=== PATIENT | female | born 1955 | race Caucasian/White ===

== ENCOUNTER → 2016-08-29 | Outpatient (CLI) | payer BC ==
--- NOTE | 2016-08-29 12:47 | BD ---
EXAMINATION TYPE: MG DEXA axial skeleton. DATE OF EXAM: 08/29/2016 9:35 AM COMPARISON: Prior exam 16 August 2015 CLINICAL HISTORY: POST MENOPAUSAL Height: 5'3 Weight: 156 FRAX RISK QUESTIONS: Alcohol (3 or more units per day): no Family History (Parent hip fracture): no Glucocorticoids (More than 3mos): no (Ex: prednisone, prednisolone, methylprednisolone, dexamethasone, and hydrocortisone). History of Fracture in Adulthood: no Secondary Osteoporosis: 1. Type 1 Diabetes: no 2. Hyperthyroidism: no 3. Menopause before 45: no 4. Malnutrition: no 5. Chronic liver disease: no Rheumatoid Arthritis: no Current Tobacco Use: no RISK FACTORS HISTORY OF: Family History of Osteoporosis: Postmenopausal woman: Yes MEDICATIONS: Additional Medications: blood pressure, vitamins Additional History: ovarian cancer 2007,2010.2013 EXAM MEASUREMENTS: Bone mineral densitometry was performed using the [employer] System. Bone mineral density as measured about the Lumbar spine is: ----- L1-L4(G/cm2): 1.026 T Score Values are as follows: ----- L2: -1.5 ----- L3: -1.4 ----- L4: -0.7 ----- L1-L4: -1.3 Bone mineral density has: Increased 2.7% since study of: 08/16/2015 Bone mineral density about the R hip (g/cm2): 0.795 Bone mineral density about the L hip (g/cm2): 0.866 T Score values are as follows: -----R Neck: -1.7 -----L Neck: -1.2 -----R Intertrochanter: -0.8 -----L Intertrochanter: -0.3 Bone mineral density has: Increased 1.3% since study of: 08/16/2015 IMPRESSION: Osteopenia NOTE: T-SCORE=SD OF THE YOUNG ADULT MEAN.
== END | disposition home or self-care (01) ==
LOC: RADBDWWP 09:13
PROVIDERS: ATTEND Internal Medicine Hematology & Oncology
DX: M85.80 Other specified disorders of bone density and structure, unspecified site (principal); N95.1 Menopausal and female climacteric states; Z78.0 Asymptomatic menopausal state
CPT/HCPCS: 77080

== ENCOUNTER → 2017-03-01 | Outpatient (CLI) | payer BC ==
--- NOTE | 2017-03-01 09:48 | CT ---
EXAMINATION TYPE: CT ChestAbdPelvis w con DATE OF EXAM: 03/01/2017 COMPARISON: Previous study dated 11/30/2016. HISTORY: Patient has no complaints at time of study. Follow up study for known ovarian CA. CT DLP: 707.9 mGycm Automated exposure control for dose reduction was used. TECHNIQUE: Helical acquisition through the abdomen and pelvis was obtained without oral contrast but following the intravenous administration of 100 mL of Omnipaque 300. The data was formatted in the a xial, coronal and sagittal projections. FINDINGS: There is some apical pleural There is a 2.5 mm nodule in the lateral segment of the right upper lobe, best seen on image 23. This is stable as compared to the previous study. No other parenchymal lesions are seen. There is no significant axillary, mediastinal, internal mammary or hilar adenopathy. There is no pleu ral or pericardial fluid. The heart is not enlarged. Within the abdomen, the gallbladder is been removed. Liver and spleen are normal. Both adrenal glands are normal. There is a stable, 9.2 mm low attenuating lesion within the mid polar region of the right kidney. This is unchanged from previous. The left kidney is normal. The pancreas is unremarkable. There is no significant retroperitoneal, iliac or inguinal adenopathy. The bladder is unremarkable. The uterus and ovaries are nonvisualized. There are 1 or 2 scattered diverticula within the sigmoid colon. There is no evidence of diverticulit is. Once again there is an annular lesion seen in the mid sigmoid colon. This was present previously. The appendix is not visualized. Small bowel loops are normal. There is no free fluid and no free air identified. There is degenerative disc disease at L5-S1. No bony destructive lesion is seen. IMPRESSION: 1. STABLE, SOLITARY RIGHT PULMONARY NODULE. 2. PROBABLE CYST WITHIN THE RIGHT KIDNEY. 3. ANNULAR LESION IN THE MID SIGMOID COLON. COLONOSCOPY WOULD AGAIN BE SUGGESTED OF THIS IS NOT ARTY BEEN PERFORMED. 4. DEGENERATIVE CHANGE WITHIN THE LUMBAR SPINE.
== END | disposition home or self-care (01) ==
LOC: RADCTMAIN 09:03
PROVIDERS: ATTEND Internal Medicine Hematology & Oncology
DX: Z03.89 Encounter for observation for other suspected diseases and conditions ruled out (principal); R91.1 Solitary pulmonary nodule; K63.9 Disease of intestine, unspecified; M51.36 Other intervertebral disc degeneration, lumbar region
CPT/HCPCS: 71260; 74177; Q9967

== ENCOUNTER → 2017-03-10 | Outpatient (CLI) | payer BC ==
--- NOTE | 2017-03-10 19:13 | PE ---
EXAMINATION TYPE: PET CT fusion skull to thigh DATE OF EXAM: 03/10/2017 CLINICAL HISTORY: Ovarian cancer progress study. Completed chemotherapy November 2014. Had prior surgery 2011 and 2014. TECHNIQUE: Following the intravenous administration of 15.28 mCi of F-18 FDG, whole body images are performed from the skull base to the midthigh. Images are reviewed on the computer in the coronal, axial, and sagittal planes. Reconstructed rotating images are created on independent workstation and reviewed on the computer. A non-contrast CT is performed in conjunction with the PET scan. COMPARISON: CT cap March 01, 2017. Prior PET/CT June 24, 2016 FINDINGS: SKULL BASE AND NECK: No suspicious hypermetabolic uptake is seen in the neck. CHEST, MEDIASTINUM, AND HILAR REGION: No suspicious hypermetabolic uptake is seen in the thorax. ABDOMEN AND PELVIS: Correlating with recent CT there is 2.4 cm intraluminal oval mass with abnormal h ypermetabolic uptake in the left sigmoid colon on axial image 200, max SUV is 13.53. This continues t o increase in size from older studies. No additional areas of suspicious hypermetabolic uptake are present. OSSEOUS STRUCTURES: No suspicious areas hypermetabolic uptake are seen. OTHER CT: Liver is diffusely low dense consistent with fatty infiltration. Cholecystectomy clips are redemonstrated. Surgical sutures from prior mesenteric dissection left upper to mid abdomen anteriorly are redemonstr ated. There are additional surgical clips along the pelvic sidewall bilaterally. Uterus is surgically absent. There are occasional diverticula in the sigmoid colon. There is stable subcentimeter exophytic lesion medially right kidney on axial image 148 presumed simp le cyst. Disc space narrowing with vacuum disc phenomenon lumbosacral junction is redemonstrated. IMPRESSION: Enlarging sigmoid mass with persistent abnormal hypermetabolic uptake worrisome for new p rimary colonic cancer. Colonoscopy evaluation advised.
== END | disposition home or self-care (01) ==
LOC: RADPETMAIN 12:38
PROVIDERS: ATTEND Internal Medicine Hematology & Oncology
DX: C56.2 Malignant neoplasm of left ovary (principal); K63.89 Other specified diseases of intestine
CPT/HCPCS: 78815; A9552

== ENCOUNTER 2017-03-15 14:12 | Day surgery (SDC) | payer BC ==
[2017-03-13 08:51] VITALS: BMI 28.1
[~2017-03-15 14:12] MED LIST: LACTATED RINGERS 1,000 ML IV SCH; LIDOCAINE 1% 20 ML VIAL (10MG/ML) FOR IV START INTRADERMA PRN
[2017-03-15 14:31] VITALS: RESP 16; TEMP 98.7
[2017-03-15] MEDS ORDERED: PROPOFOL 10 MG/ML 20 ML VIAL IV ONE (15:31)
[2017-03-15] MEDS ORDERED: LIDOCAINE 1% INJ 10MG/ML (20 ML MDV) ONE (15:31)
--- NOTE | 2017-03-15 15:39 | P.GSHP ---
History of Present Illness H&P Date: 03/15/17 Chief Complaint: Change in bowel habits Patient today for colonoscopy. The patient has a personal history of ovarian cancer. She has had multiple colonoscopies over the last few years. Most recent colonoscopy was in June of last year. An was performed after a PET scan showed an abnormality in the sigmoid colon. A recent CA-125 level was noted to increase. A repeat PET scan showed increasing signal intensity and sigmoid colon. She admits to mild constipation at times. Patient has a challenging colonoscopies with inability to pass the midsigmoid in the past. Past Medical History Past Medical History: Cancer, Hypertension, Skin Disorder Additional Past Medical History / Comment(s): seasonal allergies, hx ovarian cancer, mild diverticulitis, bowel obstruction (post op), small hiatal hernia, mild psoriasis or eczema History of Any Multi-Drug Resistant Organisms: None Reported Past Surgical History: Cholecystectomy, Hernia Repair, Hysterectomy Additional Past Surgical History / Comment(s): left hand tendon surgery, exploratory abdominal surgeries and cervical ca (DEBULKING SX X2), port inserted /later removed Past Anesthesia/Blood Transfusion Reactions: Motion Sickness, Postoperative Nausea & Vomiting (PONV) Additional Past Anesthesia/Blood Transfusion Reaction / Comment(s): STATES USUALLY HAS SCOPOLAMINE PATCH PRE OP Smoking Status: Never smoker - Past Family History Mother Family Medical History: No Reported History Medications and Allergies Home Medications Medication Instructions Recorded Confirmed Type Atenolol [Tenormin] 25 mg PO DAILY 02/03/14 03/15/17 History Cholecalciferol [Vitamin D3] 3,000 unit PO DAILY 02/03/14 03/15/17 History Cyanocobalamin [Vitamin B-12] 1,000 mcg PO DAILY 02/03/14 03/15/17 History Fish Oil/Dha/Epa [Fish Oil 1,200 1 each PO DAILY 02/03/14 03/15/17 History mg Fish Oil] Lactobacillus Acidophilus 1 each PO W/SUPPER 02/03/14 03/15/17 History [Acidophilus] Calcium Carb/Vitamin D3/Vit K1 1 each PO BID 06/24/14 03/15/17 History [Viactiv Soft Chew Tablet] Multivitamins, Thera [Multivitamin] 1 tab PO DAILY 11/20/15 03/15/17 History Cetirizine HCl [Zyrtec] 10 mg PO HS 03/13/17 03/15/17 History Fluticasone Nasal [place] [Flonase 2 spr EA NOSTRIL HS 03/13/17 03/15/17 History Nasal Brooks] Montelukast [Singulair] 10 mg PO 03/13/17 03/15/17 History Allergies Allergy/AdvReac Type Severity Reaction Status Date / Time adhesive tape Allergy red skin Verified 03/15/17 14:31 amoxicillin trihydrate Allergy Unknown Verified 03/15/17 14:31 [From Amoxil] Surgical - Exam Vital Signs Temp Pulse Resp BP Pulse Ox 98.7 F 86 16 139/84 97 03/15/17 14:29 03/15/17 14:29 03/15/17 14:29 03/15/17 14:29 03/15/17 14:29 Physical exam: General: Well-developed, well-nourished HEENT: Normocephalic, sclerae nonicteric Abdomen: Nontender, nondistended Extremities: No edema Neuro: Alert and oriented Assessment and Plan (1) Change in bowel habits Narrative/Plan: Will proceed with colonoscopy at this time. Status: Acute
--- NOTE | 2017-03-15 15:54 | P.PCN ---
Date of Procedure: 03/15/17 Preoperative Diagnosis: Postoperative Diagnosis: Procedure(s) Performed: PREOPERATIVE DIAGNOSIS: Change in bowel habits, abnormal PET scan POSTOPERATIVE DIAGNOSIS: Tortuous colon, diverticulosis, unable to pass beyond proximal sigmoid colon PROCEDURE: Colonoscopy incomplete ANESTHESIA: MAC SURGEON: Luigi Elena M.D. SPECIMENS: None ENDOSCOPIC PROCEDURE: The patient was placed on the endoscopy table in the left decubitus position. The Olympus colonoscope was inserted into the anus and passed under direct visualization to the proximal sigmoid colon. Significant tortuosity in the sigmoid colon once again did not allow me to pass proximal to that. A few small mucosal tears were identified from scope trauma. I could not visualize any neoplastic changes however throughout the sigmoid or rectum. There was some diverticulosis present. The scope was withdrawn. The patient was taken to the recovery room in stable condition per anesthesia guidelines. RECOMMENDATIONS: Suspect extrinsic recurrent ovarian cancer causing the abnormality seen on recent PET scan. Advise follow-up gynecologic oncology. Implants: Indications for Procedure: Operative Findings: Description of Procedure:
[2017-03-15 16:23] VITALS: BP 128/65; PULSE 70
== END 2017-03-15 17:16 | disposition home or self-care (01) ==
LOC: ORWHC2ENDO 14:12
PROVIDERS: ATTEND Surgery
DX: K57.30 Diverticulosis of large intestine without perforation or abscess without bleeding (principal); Q43.8 Other specified congenital malformations of intestine; R19.4 Change in bowel habit; R93.3 Abnormal findings on diagnostic imaging of other parts of digestive tract; K63.89 Other specified diseases of intestine; Z85.43 Personal history of malignant neoplasm of ovary; I10 Essential (primary) hypertension; Z79.899 Other long term (current) drug therapy; Z88.1 Allergy status to other antibiotic agents; Z91.048 Other nonmedicinal substance allergy status
CPT/HCPCS: 45330; J2001; J2704; 45378

== ENCOUNTER 2017-05-16 11:42 | Inpatient (IN) | payer BC ==
[2017-05-16] MEDS ORDERED: ACETAMINOPHEN TAB 500 MG TAB PO STA (12:39)
[2017-05-16] MEDS: SODIUM CHLORIDE 0.9% 500 ML IV SCH (12:53)
--- NOTE | 2017-05-16 12:53 | ED ---
General Adult HPI - General Chief complaint: Fever Stated complaint: post op pain and fever Time Seen by Provider: 05/16/17 12:10 Source: patient, RN notes reviewed Mode of arrival: wheelchair Limitations: no limitations - History of Present Illness Initial comments: This is a 62-year-old female who had part of her sigmoid colon removed secondary to a recurrence of her ovarian cancer on . Patient states she was feeling pretty good but as of yesterday she started having a fever for 100.4 and today she had over 101 fever so she decided come the emergency department. Patient states occasionally she'll get some severe crampy abdominal pain that lasts for less than a minute but in general her abdominal pain is tolerable and does not seem to change much. Patient denies any vomiting but she states she's had diarrhea since the surgery. Patient denies any dysuria hematuria urinary frequency. denies any cough or shortness of breath difficult breathing. Patient denies any chest pain or palpitations. Patient denies any headache or neck stiffness. - Related Data Home Medications Medication Instructions Recorded Confirmed Atenolol [Tenormin] 25 mg PO DAILY 02/03/14 05/16/17 Bisacodyl 5 - 10 mg PO DAILY PRN 05/16/17 05/16/17 Docusate [Colace] 100 - 200 mg PO BID PRN 05/16/17 05/16/17 Enoxaparin [Lovenox] 40 mg SQ DAILY 05/16/17 05/16/17 HYDROcodone/APAP 5-325MG [[place] 2 tab PO Q4HR PRN MDD STOPPED 05/16/17 05/16/17 5-325] 05/13/17 PER PATIENT Ibuprofen [Motrin] 400 - 800 mg PO Q8H PRN 05/16/17 05/16/17 Metoclopramide [Reglan] 10 mg PO QID PRN 05/16/17 05/16/17 Allergies Allergy/AdvReac Type Severity Reaction Status Date / Time adhesive tape Allergy red skin Verified 05/16/17 12:32 amoxicillin trihydrate Allergy Unknown Verified 05/16/17 12:32 [From Amoxil] amoxicillin [From Augmentin] AdvReac Nausea & Verified 05/16/17 12:38 Vomiting & Diarrhea clavulanic acid AdvReac Nausea & Verified 05/16/17 12:38 [From Augmentin] Vomiting & Diarrhea codeine AdvReac Nausea & Verified 05/16/17 12:38 Vomiting & Diarrhea Review of Systems ROS Statement: Those systems with pertinent positive or pertinent negative responses have been documented in the HPI. ROS Other: All systems not noted in ROS Statement are negative. Past Medical History Past Medical History: Cancer, Hypertension, Skin Disorder Additional Past Medical History / Comment(s): seasonal allergies, hx ovarian cancer, mild diverticulitis, bowel obstruction (post op), small hiatal hernia, mild psoriasis or eczema History of Any Multi-Drug Resistant Organisms: None Reported Past Surgical History: Bowel Resection, Cholecystectomy, Hernia Repair, Hysterectomy Additional Past Surgical History / Comment(s): left hand tendon surgery, exploratory abdominal surgeries and cervical ca (DEBULKING SX X2), port inserted /later removed Past Anesthesia/Blood Transfusion Reactions: Motion Sickness, Postoperative Nausea & Vomiting (PONV) Additional Past Anesthesia/Blood Transfusion Reaction / Comment(s): STATES USUALLY HAS SCOPOLAMINE PATCH PRE OP Past Psychological History: No Psychological Hx Reported Smoking Status: Never smoker Past Alcohol Use History: None Reported Past Drug Use History: None Reported - Past Family History Mother Family Medical History: No Reported History General Exam - General Exam Comments Initial Comments: GENERAL: Patient is well-developed and well-nourished. Patient is nontoxic and well- hydrated and is in mild distress. ENT: Neck is soft and supple. No significant lymphadenopathy is noted. Oropharynx is clear. Moist mucous membranes. Neck has full range of motion without eliciting any pain. EYES: The sclera were anicteric and conjunctiva were pink and moist. Extraocular movements were intact and pupils were equal round and reactive to light. Eyelids were unremarkable. PULMONARY: Unlabored respirations. Good breath sounds bilaterally. No audible rales rhonchi or wheezing was noted. CARDIOVASCULAR: There is a regular rate and rhythm without any murmurs gallops or rubs. ABDOMEN: Soft and nontender with normal bowel sounds. The wound does not appear grossly infected SKIN: Skin is clear with no lesions or rashes and otherwise unremarkable. NEUROLOGIC: Patient is alert and oriented x3. Cranial nerves II through XII are grossly intact. Motor and sensory are also intact. Normal speech, volume and content. Symmetrical smile. MUSCULOSKELETAL: Normal extremities with adequate strength and full range of motion. No lower extremity swelling or edema. No calf tenderness. LYMPHATICS: No significant lymphadenopathy is noted PSYCHIATRIC: Normal psychiatric evaluation. Limitations: no limitations Course Vital Signs 05/16/17 05/16/17 05/16/17 12:11 13:13 13:51 Temperature 99.8 F H 100.1 F H Pulse Rate 122 H 114 H 104 H Respiratory 20 20 20 Rate Blood Pressure 129/69 160/72 149/71 O2 Sat by Pulse 99 98 Oximetry 05/16/17 05/16/17 05/16/17 14:23 15:14 16:39 Temperature 99.4 F 99.2 F Pulse Rate 110 H 113 H 106 H Respiratory 20 20 20 Rate Blood Pressure 128/61 128/61 136/62 O2 Sat by Pulse 97 99 99 Oximetry Medical Decision Making - Medical Decision Making EKG shows sinus tachycardia at 112 bpm PA interval 178 QRS 76 QT interval 294 QTC is 401. Patient has no ST segment elevation or depression CAT scan shows free fluid in the pelvis along with some small areas of free air also inflammatory changes. This could be consistent with infection or postsurgical changes. There also is a small fluid collection in the subcu tissues here below the incision. Again this could be a seroma or an early infection. I spoke with Dr. Briscoe who did surgery and he wanted the patient kept overnight and observed and put on some antibiotics. I started the patient on Levaquin at that point. I spoke with Dr. Ortez he agreed to admit the patient he will reevaluate the patient morning. - Lab Data Result diagrams: 05/16/17 12:45 05/16/17 12:45 Lab Results 05/16/17 05/16/17 05/16/17 Range/Units 12:45 12:45 12:45 WBC 5.5 (3.8-10.6) k/uL RBC 3.62 L (3.80-5.40) m/uL Hgb 11.3 L (11.4-16.0) gm/dL Hct 31.2 L (34.0-46.0) % MCV 86.2 (80.0-100.0) fL MCH 31.2 (25.0-35.0) pg MCHC 36.2 (31.0-37.0) g/dL RDW 13.6 (11.5-15.5) % Plt Count 246 (150-450) k/uL Neutrophils % 80 % Lymphocytes % 10 % Monocytes % 6 % Eosinophils % 1 % Basophils % 0 % Neutrophils # 4.4 (1.3-7.7) k/uL Lymphocytes # 0.6 L (1.0-4.8) k/uL Monocytes # 0.3 (0-1.0) k/uL Eosinophils # 0.1 (0-0.7) k/uL Basophils # 0.0 (0-0.2) k/uL Poikilocytosis Slight PT (9.0-12.0) sec INR (<1.2) APTT (22.0-30.0) sec Sodium 135 L (137-145) mmol/L Potassium 3.0 L* (3.5-5.1) mmol/L Chloride 104 (98-107) mmol/L Carbon Dioxide 22 (22-30) mmol/L Anion Gap 9 mmol/L BUN 8 (7-17) mg/dL Creatinine 0.60 (0.52-1.04) mg/dL Est GFR (MDRD) Af Amer >60 (>60 ml/min/1.73 sqM) Est GFR (MDRD) Non-Af >60 (>60 ml/min/1.73 sqM) Glucose 143 H (74-99) mg/dL Plasma Lactic Acid Twan 0.8 (0.7-2.0) mmol/L Calcium 8.8 (8.4-10.2) mg/dL Total Bilirubin 1.1 (0.2-1.3) mg/dL AST 50 H (14-36) U/L ALT 61 H (9-52) U/L Alkaline Phosphatase 82 (38-126) U/L Total Protein 5.5 L (6.3-8.2) g/dL Albumin 3.1 L (3.5-5.0) g/dL Urine Color Urine Appearance (Clear) Urine pH (5.0-8.0) Ur Specific [place] (1.001-1.035) Urine Protein (Negative) Urine Glucose (UA) (Negative) Urine Ketones (Negative) Urine Blood (Negative) Urine Nitrite (Negative) Urine Bilirubin (Negative) Urine Urobilinogen (<2.0) mg/dL Ur Leukocyte Esterase (Negative) Urine RBC (0-5) /hpf Urine WBC (0-5) /hpf Ur Squamous Epith Cells (0-4) /hpf Urine Mucus (None) /hpf 05/16/17 05/16/17 Range/Units 12:45 13:11 WBC (3.8-10.6) k/uL RBC (3.80-5.40) m/uL Hgb (11.4-16.0) gm/dL Hct (34.0-46.0) % MCV (80.0-100.0) fL MCH (25.0-35.0) pg MCHC (31.0-37.0) g/dL RDW (11.5-15.5) % Plt Count (150-450) k/uL Neutrophils % % Lymphocytes % % Monocytes % % Eosinophils % % Basophils % % Neutrophils # (1.3-7.7) k/uL Lymphocytes # (1.0-4.8) k/uL Monocytes # (0-1.0) k/uL Eosinophils # (0-0.7) k/uL Basophils # (0-0.2) k/uL Poikilocytosis PT 11.5 (9.0-12.0) sec INR 1.1 (<1.2) APTT 23.6 (22.0-30.0) sec Sodium (137-145) mmol/L Potassium (3.5-5.1) mmol/L Chloride (98-107) mmol/L Carbon Dioxide (22-30) mmol/L Anion Gap mmol/L BUN (7-17) mg/dL Creatinine (0.52-1.04) mg/dL Est GFR (MDRD) Af Amer (>60 ml/min/1.73 sqM) Est GFR (MDRD) Non-Af (>60 ml/min/1.73 sqM) Glucose (74-99) mg/dL Plasma Lactic Acid Twan (0.7-2.0) mmol/L Calcium (8.4-10.2) mg/dL Total Bilirubin (0.2-1.3) mg/dL AST (14-36) U/L ALT (9-52) U/L Alkaline Phosphatase (38-126) U/L Total Protein (6.3-8.2) g/dL Albumin (3.5-5.0) g/dL Urine Color Yellow Urine Appearance Clear (Clear) Urine pH 6.0 (5.0-8.0) Ur Specific [place] 1.019 (1.001-1.035) Urine Protein Trace H (Negative) Urine Glucose (UA) 1+ H (Negative) Urine Ketones 2+ H (Negative) Urine Blood Trace H (Negative) Urine Nitrite Negative (Negative) Urine Bilirubin Negative (Negative) Urine Urobilinogen <2.0 (<2.0) mg/dL Ur Leukocyte Esterase Negative (Negative) Urine RBC 1 (0-5) /hpf Urine WBC 3 (0-5) /hpf Ur Squamous Epith Cells <1 (0-4) /hpf Urine Mucus Occasional H (None) /hpf Disposition Clinical Impression: Postoperative fever, Postoperative pain Disposition: ADMITTED IP TO THIS HOSP Referrals: Frankie Ortez MD [Primary Care Provider] - 1-2 days Time of Disposition: 16:49
[2017-05-16 13:06] LABS: Basophils % (A) 0 %; CH 31.1; CHCM 36.3; Eosinophils # (A) 0.1 k/uL (0-0.7); Eosinophils % (A) 1 %; HCT 31.2 % (34.0-46.0); HDW 3.81; HGB 11.3 gm/dL (11.4-16.0); Luc # (Auto) 0.13; Luc % (Auto) 2; Lymphocytes # (A) 0.6 k/uL (1.0-4.8); Lymphocytes % (A) 10 %; MCH 31.2 pg (25.0-35.0); MCHC 36.2 g/dL (31.0-37.0); MCV 86.2 fL (80.0-100.0); Mean Platelet Volume 7.1; Monocytes # (A) 0.3 k/uL (0-1.0); Monocytes % (A) 6 %; Neutrophils # (A) 4.4 k/uL (1.3-7.7); Neutrophils % (A) 80 %; Poikilocytosis Slight; RBC 3.62 m/uL (3.80-5.40); RDW 13.6 % (11.5-15.5); WBC 5.5 k/uL (3.8-10.6)
[2017-05-16 13:10] LABS: ALT 61 U/L (9-52); AST 50 U/L (14-36); Alkaline Phosphatase 82 U/L (38-126); Anion Gap 9 mmol/L; Blood Urea Nitrogen 8 mg/dL (7-17); Calcium 8.8 mg/dL (8.4-10.2); Carbon Dioxide 22 mmol/L (22-30); Chloride 104 mmol/L (98-107); Glucose 143 mg/dL (74-99); Non-African American GFR(MDRD) >60 (>60 ml/min/1.73 sqM); Sodium 135 mmol/L (137-145); Total Bilirubin 1.1 mg/dL (0.2-1.3); Total Protein 5.5 g/dL (6.3-8.2)
[2017-05-16 13:27] LABS: INR 1.1 (<1.2); Partial Thromboplastin Time 23.6 sec (22.0-30.0); Prothrombin Time 11.5 sec (9.0-12.0)
--- NOTE | 2017-05-16 13:35 | XR ---
EXAMINATION TYPE: XR chest 2V DATE OF EXAM: 05/16/2017 COMPARISON: 06/06/16 HISTORY: Shortness of breath TECHNIQUE: Frontal and lateral views of the chest are obtained. FINDINGS: Scattered senescent parenchymal changes noted. Hyperinflation compatible with COPD. No evidence for infiltrate. No evidence for atelectasis. Heart size is stable. Mediastinal structures are stable and grossly unremarkable. No evidence for hilar prominence. Degenerative changes dorsal spine. IMPRESSION: 1. No evidence for acute pulmonary disease.
[2017-05-16 13:38] LABS: Appearance,Urine Clear (Clear); Bilirubin,Urine Negative (Negative); Glucose,Urine (UA) 1+ (Negative); Leukocyte Esterase,Urine Negative (Negative); Mucus,Urine Occasional /hpf; Nitrite,Urine Negative (Negative); Particle Count 5467; Protein,Urine Trace (Negative); RBC,Urine 1 /hpf (0-5); Specific Gravity,Urine 1.019 (1.001-1.035); Squamous Epithelial Cell,Urine <1 /hpf (0-4); UA Billing (MACRO vs. MICRO) MICRO; Urobilinogen,Urine <2.0 mg/dL (<2.0); WBC,Urine 3 /hpf (0-5)
[2017-05-16 13:46] LABS: Ketones,Urine 2+ (Negative)
[2017-05-16] MEDS ORDERED: POTASSIUM CHLORIDE ER 20 MEQ TAB.ER PO STA (14:07)
[2017-05-16] MEDS ORDERED: RX INFO: IV CONTRAST WAS GIVEN 1 EACH MISC MISCELLANE PRN (14:08)
[2017-05-16] MEDS ORDERED: POTASSIUM CHLORIDE 10 MEQ, LIDOCAINE 2% INJ 10 MG in SODIUM CHLORIDE 0.9% 100 ML IVPB SCH (15:00)
--- NOTE | 2017-05-16 15:08 | CT ---
EXAMINATION TYPE: CT abdomen pelvis w con DATE OF EXAM: 05/16/2017 COMPARISON: 03/01/2017 HISTORY: History of ovarian cancer. Colon resection 1 week ago. Fever x [address] DLP: 1524.00 mGycm CONTRAST: CT scan of the abdomen and pelvis is performed without Oral Contrast and with IV Contrast, patient in jected with 100 mL of Omnipaque 300. FINDINGS: LUNG BASES-: No nodule seen within the [id number]. No infiltrate. Small sliding-type hiatal hernia . LIVER/GB: Cholecystectomy clips are noted. No space occupying hepatic lesion. Biliary tree is of n ormal caliber. PANCREAS: No inflammation. No distinct mass. SPLEEN: No splenic enlargement. No lesion seen. ADRENALS: No nodule. No thickening. KIDNEYS/BLADDER: No hydronephrosis. No nephrolithiasis. Small right renal cortical cyst. Urinary b ladder grossly unremarkable. BOWEL: Midline skin filemon are noted. There is a small subcutaneous collection at the suture line wh ich measures 4.3 cm in length by 2 cm in AP dimension which may reflect seroma. Infected collection i s not excluded. Small amount of left-sided subcutaneous air is noted presumably from injection site. Omentectomy clips are noted. There is evidence of sigmoid resection. There is surrounding mild inflam matory changes. There are several foci of free air noted within the pelvis which could be postsurgica l in nature. There is also adjacent fluid which extends into the pelvis and measures approximately 8. 5 x 4.4 cm. While the findings could be postsurgical in nature with seroma and residual free air leak with infected collection is not excluded. There is evidence of distended small bowel felt to reflect ileus. An additional focus of free air seen within the upper abdomen adjacent to an omentectomy clip s. There is a thickened segment of proximal transverse colon which may reflect nonspecific colitis. GENITAL ORGANS: No gross abnormality. LYMPH NODES: No greater than 1cm abdominal or pelvic lymph nodes are appreciated. AORTA: No significant abnormality. OSSEOUS STRUCTURES: No significant abnormality is seen. OTHER: No significant additional abnormality is seen. IMPRESSION: 1. Status post sigmoid resection with surrounding inflammatory changes as well as several small foci of adjacent free air and fluid collection as discussed. The findings may simply be postsurgical in na ture with seroma however I cannot exclude leak with developing abscess. 2. Fluid collection noted at the staple line within the subcutaneous tissues anterior abdominal wall. 3. Postoperative ileus. 4 thickened segment of proximal transverse colon may reflect nonspecific colitis.
[2017-05-16] MEDS ORDERED: LEVOFLOXACIN 750MG-D5W PMX 750 MG in DEXTROSE/WATER 1 150ML.BAG IVPB STA (15:47)
[2017-05-16] MEDS ORDERED: MORPHINE SULFATE 2 MG/ML SYRINGE IVP ONE (16:46)
[2017-05-16] MEDS ORDERED: ONDANSETRON 4 MG/2 ML VIAL IVP STA (16:46)
[2017-05-16] MEDS ORDERED: SODIUM CHLORIDE 0.9% 1,000 ML IV ONE (16:51)
[2017-05-16] MEDS ORDERED: PIPERACILLIN-TAZOBACTAM 3.375 GM in DEXTROSE/WATER 1 50ML.BAG IVPB STA (16:52)
[2017-05-16] MEDS ORDERED: MORPHINE SULFATE 2 MG/ML SYRINGE IVP PRN (16:52)
[2017-05-16] MEDS ORDERED: metroNIDAZOLE-NS PMX 500 MG in SALINE 1 100ML.BAG IVPB STA (16:52)
[2017-05-16] MEDS ORDERED: ONDANSETRON 4 MG/2 ML VIAL IVP PRN (16:53)
[2017-05-16] MEDS ORDERED: metroNIDAZOLE 500 MG TAB PO STA (17:09)
[2017-05-16] MEDS ORDERED: metroNIDAZOLE-NS PMX 500 MG in SALINE 1 100ML.BAG IVPB SCH (18:00)
[2017-05-16 18:19] VITALS: BMI 27.4
[2017-05-16] MEDS ORDERED: KETOROLAC 30 MG/ML 1 ML VIAL IVP PRN (21:06)
[2017-05-16] MEDS: ACETAMINOPHEN TAB 500 MG TAB PO PRN (21:48)
[2017-05-16] MEDS: metroNIDAZOLE 500 MG TAB PO SCH (23:56)
[2017-05-17] MEDS: PIPERACILLIN-TAZOBACTAM 3.375 GM in DEXTROSE/WATER 1 50ML.BAG IVPB SCH ×3 (01:24→15:58)
[2017-05-17] MEDS: ACETAMINOPHEN TAB 500 MG TAB PO PRN ×3 (05:54→18:58)
--- NOTE | 2017-05-17 07:30 | HP ---
HISTORY AND PHYSICAL CHIEF COMPLAINT: Fever. HISTORY OF PRESENT ILLNESS: This is a 62-year-old female who was discharged from [facility] on Sunday following an abdominal surgery. The patient had partial sigmoid resection. The patient had what appears to be ovarian cancer into the sigmoid colon. The patient following surgery had an uneventful postoperative period at that time. The patient presented to the emergency room because she has been running a fever for the past couple days. In the emergency room, the patient noted to be afebrile, however, temperatures of greater than of 101 at home. The patient denied any other associated symptoms of cough, congestion or dysuria. No diarrhea. The patient has a history of ovarian cancer been treated with chemotherapy at least twice and has had at least 3 abdominal debulking surgeries. The tumor load this time was very little. The patient had a rising CEA and in view of this surgical procedure was done. Patient had postoperatively no symptoms of any infection. PAST MEDICAL HISTORY: History of mild hypertension and dyslipidemia. No history of diabetes mellitus, lung disease, liver disease, kidney disease, ulcers, TB, hepatitis. No history of any rheumatic fever, myocardial infarction, or CVA. PAST SURGICAL HISTORY: Significant for laparotomy x4 now, right inguinal herniorrhaphy x2, cholecystectomy, total abdominal hysterectomy and bilateral salpingo-oophorectomy, Port-A-Cath removal, D&C x2, left hand laceration surgery. SOCIAL HISTORY: Never smoked. Alcohol none. The patient lives at home with spouse. Patient has a teenage daughter. FAMILY MEDICAL HISTORY: Mother at age of 85. She had diabetes mellitus and ischemic cardiomyopathy and chronic kidney disease. Father at the age of 76, diabetes mellitus, ASHD. Brother living age 61, history of alcohol dependence. A sister living, age 58, history of multiple sclerosis, diabetes mellitus. Daughter 15 in good health. REVIEW OF SYSTEMS: NEURO: Denies any headaches, dizziness. No double vision or blurred vision. No symptoms of TIA, syncope, seizures. PSYCH: No anxiety, depression. CARDIAC: Denies chest pain, angina, palpitation. RESPIRATORY: Denies shortness of breath, cough, hemoptysis. GI: No nausea, vomiting, abdominal pain as expected. No diarrhea or constipation. : No symptoms of dysuria, hematuria, urgency, frequency. EXTREMITIES: Denies pain, edema. No tenderness. CONSTITUTIONAL: Fever and chills. SKIN: No rash. All IV sites done in the other hospital have no inflammation. ENT: No sore throat or pharyngeal symptoms. EARS: No pain. PHYSICAL EXAMINATION: Pleasant female in no distress. She does not appear sick. Vital signs at present include temperature 99.4, pulse 113, respirations 20, blood pressure 128/61, pulse ox 99% on room air. HEENT: Normocephalic. Neck is supple. Pupils are reactive. Conjunctiva pink. Sclerae are nonicteric. Nose was clear. Oral cavity is moist. Tongue normal. Ears reveal no drainage. Neck reveals no JVD, carotid bruits, or thyromegaly. No supraclavicular lymphadenopathy. Chest examination is clear to auscultation and percussion. CARDIAC: Normal S1, S2. No gallops, murmurs, rubs. Mild tachycardic. ABDOMEN: Mild tenderness. No rebound tenderness. Bowel sounds are active. Incision appears intact with no erythema or drainage. Extremities reveal no edema. No tenderness. Neurologically awake, alert, oriented x3 with well coordinated movements. Skin reveals no rashes. Previous surgical IV sites all without any inflammatory signs. LABORATORY ASSESSMENT: Normal white count 5500, hemoglobin 11.3, platelets normal at 246. The patient's PTT normal. Sodium 135, potassium 3.0. BUN and creatinine normal. Glucose 143. AST 50, ALT 61. Albumin 3.1. Urinalysis had 1+ glucose, trace protein, 2+ ketones. CAT scan of the abdomen reveals this was an IV contrast CT scan. No hydronephrosis, no nephrolithiasis. Bladder was grossly unremarkable. Liver, pancreas, spleen unremarkable. There is a subcutaneous collection at the suture line which measures 4.3 x 2 cm with AP dimension, which was suspicion of a seroma. A small amount of left- sided subcutaneous air is noted presumably from the injection site, omentectomy clips are noted. There is evidence of sigmoid resection. There are surrounding mild inflammatory changes. There are several foci of free air noted within the pelvis which could be postsurgical in nature. Also fluid which extended to the pelvis and measures 8.5 x 4.4 cm. Chest x-ray did not reveal any acute infiltrates. ASSESSMENT: 1. Fever, postop. 2. Ovarian carcinoma, status post abdominal surgery. 3. Sigmoid resection. 4. Sinus tachycardia. 5. Glucosuria. PLAN: The patient at present stable. The patient will be started on IV Zosyn and Flagyl. Pain medication with Toradol. The patient received Tylenol as needed for fever. Patient's general condition discussed with the patient. Blood sugars will be monitored and covered with insulin. The patient condition if it continues to run fevers, we may have to do again a repeat CAT scan with oral contrast or Gastrografin contrast. We will ask surgeon to evaluate the patient. Patient's condition discussed with the patient. Prognosis guarded. MMODL / IJN: [id number] /
[2017-05-17] MEDS: metroNIDAZOLE 500 MG TAB PO SCH ×4 (08:52→21:41)
[2017-05-17] MEDS: ATENOLOL 25 MG TAB PO SCH (08:52)
[2017-05-17] MEDS: ENOXAPARIN 40 MG/0.4 ML SYRINGE SQ SCH (08:52)
[2017-05-17 13:37] LABS: Basophils % (A) 0 %; CH 30.9; CHCM 34.1; Eosinophils # (A) 0.1 k/uL (0-0.7); Eosinophils % (A) 1 %; HCT 27.4 % (34.0-46.0); HDW 3.73; Luc # (Auto) 0.15; Luc % (Auto) 2; Lymphocytes # (A) 0.6 k/uL (1.0-4.8); Lymphocytes % (A) 8 %; MCH 31.9 pg (25.0-35.0); MCHC 34.9 g/dL (31.0-37.0); Mean Platelet Volume 7.2; Monocytes # (A) 0.4 k/uL (0-1.0); Monocytes % (A) 5 %; Neutrophils # (A) 6.9 k/uL (1.3-7.7); Neutrophils % (A) 84 %; Poikilocytosis Slight; RDW 13.2 % (11.5-15.5); WBC 8.1 k/uL (3.8-10.6); WBC (Perox) 8.53
[2017-05-17 13:42] LABS: Anion Gap 9 mmol/L; Blood Urea Nitrogen 5 mg/dL (7-17); Calcium 8.3 mg/dL (8.4-10.2); Carbon Dioxide 21 mmol/L (22-30); Chloride 106 mmol/L (98-107); Glucose 125 mg/dL (74-99); Non-African American GFR(MDRD) >60 (>60 ml/min/1.73 sqM); Potassium 3.5 mmol/L (3.5-5.1); Sodium 136 mmol/L (137-145)
[2017-05-17 13:44] LABS: MCV 91.4 fL (80.0-100.0)
[2017-05-17 13:45] LABS: HGB 9.6 gm/dL (11.4-16.0)
[2017-05-17 15:13] VITALS: RESP 16
--- NOTE | 2017-05-17 16:51 | P.GSCN ---
History of Present Illness Consult date: 05/17/17 Reason for Consult: Postoperative fevers History of present illness: Patient underwent ovarian cancer debulking last week. She had at least one portion of her sigmoid colon removed at that time. Unclear if there were other bowel resections done at that time. She went home on postoperative day #3 and developed fevers following that. She came to the hospital yesterday for evaluation. A CAT scan was performed which revealed inflammatory changes in the abdominal wall with a small subcutaneous fluid collection as well as a fluid collection around the anastomotic site with some foci of air in the pelvis. The patient says her pain is improved after she was coughing and had purulent fluid come through her staple line. She was having some redness and pain along the staple line that is improved. She is on IV antibiotics. T-max 99.6 over the last 24 hours. White blood cell count is normal. She is having bowel movements. No rectal bleeding. Review of Systems The patient denies any acute changes in vision or hearing, no dysphagia or odynophagia, no chest pain or shortness of breath, no dysuria or hematuria, no headache, no runny nose, no rectal bleeding or melena, no unexplained weight loss Past Medical History Past Medical History: Cancer, Hypertension, Skin Disorder Additional Past Medical History / Comment(s): seasonal allergies, hx ovarian cancer, mild diverticulitis, bowel obstruction (post op), small hiatal hernia, mild psoriasis or eczema History of Any Multi-Drug Resistant Organisms: None Reported Past Surgical History: Bowel Resection, Cholecystectomy, Hernia Repair, Hysterectomy Additional Past Surgical History / Comment(s): left hand tendon surgery, exploratory abdominal surgeries and cervical ca (DEBULKING SX X2), port inserted /later removed Past Anesthesia/Blood Transfusion Reactions: Motion Sickness, Postoperative Nausea & Vomiting (PONV) Additional Past Anesthesia/Blood Transfusion Reaction / Comm: STATES USUALLY HAS SCOPOLAMINE PATCH PRE OP Past Psychological History: No Psychological Hx Reported Smoking Status: Never smoker Past Alcohol Use History: None Reported Past Drug Use History: None Reported - Past Family History Mother Family Medical History: No Reported History Father Family Medical History: No Reported History Medications and Allergies Home Medications Medication Instructions Recorded Confirmed Type Atenolol [Tenormin] 25 mg PO DAILY 02/03/14 05/16/17 History Bisacodyl 5 - 10 mg PO DAILY PRN 05/16/17 05/16/17 History Docusate [Colace] 100 - 200 mg PO BID PRN 05/16/17 05/16/17 History Enoxaparin [Lovenox] 40 mg SQ DAILY 05/16/17 05/16/17 History HYDROcodone/APAP 5-325MG [[place] 2 tab PO Q4HR PRN MDD STOPPED 05/16/17 05/16/17 History 5-325] 05/13/17 PER PATIENT Ibuprofen [Motrin] 400 - 800 mg PO Q8H PRN 05/16/17 05/16/17 History Metoclopramide [Reglan] 10 mg PO QID PRN 05/16/17 05/16/17 History Allergies Allergy/AdvReac Type Severity Reaction Status Date / Time adhesive tape Allergy red skin Verified 05/16/17 12:32 amoxicillin trihydrate Allergy Unknown Verified 05/16/17 12:32 [From Amoxil] morphine Allergy Nausea & Verified 05/16/17 17:55 Vomiting amoxicillin [From Augmentin] AdvReac Nausea & Verified 05/16/17 12:38 Vomiting & Diarrhea clavulanic acid AdvReac Nausea & Verified 05/16/17 12:38 [From Augmentin] Vomiting & Diarrhea codeine AdvReac Nausea & Verified 05/16/17 12:38 Vomiting & Diarrhea Surgical - Exam Vital Signs Temp Pulse Resp BP Pulse Ox 99.8 F H 122 H 20 129/69 99 05/16/17 12:11 05/16/17 12:11 05/16/17 12:11 05/16/17 12:11 05/16/17 12:11 Physical exam: General: Well-developed, well-nourished HEENT: Normocephalic, sclerae nonicteric Abdomen: Midline incision noted with slight erythema, mild tenderness, no rebound Extremities: No edema Neuro: Alert and oriented Results - Labs 05/17/17 13:10 05/17/17 13:10 Abnormal Lab Results - Last 24 Hours (Table) 05/17/17 05/17/17 Range/Units 13:10 13:10 RBC 3.00 L (3.80-5.40) m/uL Hgb 9.6 L D (11.4-16.0) gm/dL Hct 27.4 L (34.0-46.0) % Lymphocytes # 0.6 L (1.0-4.8) k/uL Sodium 136 L (137-145) mmol/L Carbon Dioxide 21 L (22-30) mmol/L BUN 5 L (7-17) mg/dL Glucose 125 H (74-99) mg/dL Calcium 8.3 L (8.4-10.2) mg/dL Microbiology - Last 24 Hours (Table) 05/16/17 12:45 Blood Culture - Preliminary Blood No Growth after 24 hours 05/16/17 23:16 Wound Culture - Preliminary Abdomen 05/16/17 23:16 Anaerobic Culture - Preliminary Abdomen 05/16/17 13:11 Urine Culture - Preliminary Urine,Voided Diabetes panel 05/17/17 Range/Units 13:10 Sodium 136 L (137-145) mmol/L Potassium 3.5 (3.5-5.1) mmol/L Chloride 106 (98-107) mmol/L Carbon Dioxide 21 L (22-30) mmol/L BUN 5 L (7-17) mg/dL Creatinine 0.59 (0.52-1.04) mg/dL Glucose 125 H (74-99) mg/dL Calcium 8.3 L (8.4-10.2) mg/dL Calcium panel 05/17/17 Range/Units 13:10 Calcium 8.3 L (8.4-10.2) mg/dL Pituitary panel 05/17/17 Range/Units 13:10 Sodium 136 L (137-145) mmol/L Potassium 3.5 (3.5-5.1) mmol/L Chloride 106 (98-107) mmol/L Carbon Dioxide 21 L (22-30) mmol/L BUN 5 L (7-17) mg/dL Creatinine 0.59 (0.52-1.04) mg/dL Glucose 125 H (74-99) mg/dL Calcium 8.3 L (8.4-10.2) mg/dL Adrenal panel 05/17/17 Range/Units 13:10 Sodium 136 L (137-145) mmol/L Potassium 3.5 (3.5-5.1) mmol/L Chloride 106 (98-107) mmol/L Carbon Dioxide 21 L (22-30) mmol/L BUN 5 L (7-17) mg/dL Creatinine 0.59 (0.52-1.04) mg/dL Glucose 125 H (74-99) mg/dL Calcium 8.3 L (8.4-10.2) mg/dL Assessment and Plan (1) Postoperative fever Narrative/Plan: Patient with admission for postoperative fever and evidence of surgical site infection. Cannot rule out anastomotic leak based on the recent CAT scan. Patient would be best observed/managed by her surgical services at [facility]. Repeat CBC tomorrow. Continue IV antibiotics. Case discussed with Dr. Ortez. Status: Acute
--- NOTE | 2017-05-17 23:51 | PN ---
PROGRESS NOTE CHIEF COMPLAINT: Reevaluation. HISTORY OF PRESENT ILLNESS: This is a 62-year-old female who was admitted to the hospital with fever. The patient had partial sigmoid resection done last week for ovarian cancer malignancy. The patient at the time of admission had suddenly had some drainage from her incision. The patient has felt better. She has not had any further fever. The patient was referred to Dr. Elena for evaluation. He has suggested that the patient be kept n.p.o. and that the patient be referred to the operating surgeon down at [facility]. The patient's condition was discussed with the patient. REVIEW OF SYSTEMS: NEURO: Denies any headaches, dizziness. PSYCH: No anxiety. CARDIAC: No chest pain, angina, palpitation. RESPIRATORY: Denies shortness of breath, cough. GI: No nausea, vomiting, abdominal pain, diarrhea. : No symptoms of dysuria, hematuria. EXTREMITIES: No pain, edema. CONSTITUTIONAL: No fever post admission. PHYSICAL EXAMINATION: HEENT: Normocephalic. NECK: Supple. No JVD. CHEST: Clear to auscultation and percussion. CARDIAC: Normal S1, S2. No gallop. Heart rate 100. Abdomen is mildly tender. Bowel sounds present. Incision has some purulent drainage just from below the umbilical area. No erythema of the skin noted. Extremities reveal no edema. No tenderness. Neurologically awake, alert, oriented with well-coordinated movements. LABORATORY ASSESSMENT: White count of 8.1, hemoglobin 9.6. Sodium 136, potassium 3.5, chloride 21, CO2 content 21. BUN 5, creatinine 0.99. Glucose random 125. ASSESSMENT: 1. Postoperative fever. 2. Drainage from surgical incision. 3. Status post sigmoid resection. 4. Carcinoma of the ovaries. 5. Hypokalemia. 6. Anemia secondary to acute blood loss, post surgery. PLAN: Continue present medical regimen. Patient was seen by Dr. Elena and he contacted me this evening suggesting that the patient would best be considered to be sent back to [facility]. I did try to contact Dr. Castillo, who was in surgery, and I did talk to his resident. His later called, but the line. She did leave a message and will try to contact Dr. Castillo back in the morning. The patient's prognosis has been discussed with the patient. The patient is continued on IV hydration and antibiotics and has been kept n.p.o. per the surgeon here. Patient's white count remains stable. Will consider transfer of patient tomorrow if accepted by the services at [facility]. SAEED / ROSSY: [id number] /
[2017-05-18] MEDS: PIPERACILLIN-TAZOBACTAM 3.375 GM in DEXTROSE/WATER 1 50ML.BAG IVPB SCH ×3 (00:11→16:23)
[2017-05-18] MEDS ORDERED: RX INFO: IV CONTRAST WAS GIVEN 1 EACH MISC MISCELLANE PRN (08:22)
[2017-05-18 08:23] LABS: Basophils % (A) 0 %; CH 30.8; CHCM 33.5; Eosinophils # (A) 0.1 k/uL (0-0.7); Eosinophils % (A) 2 %; HDW 3.68; HGB 9.1 gm/dL (11.4-16.0); Hypochromasia Slight; Luc # (Auto) 0.14; Luc % (Auto) 2; Lymphocytes # (A) 0.8 k/uL (1.0-4.8); Lymphocytes % (A) 10 %; MCH 31.3 pg (25.0-35.0); MCHC 33.8 g/dL (31.0-37.0); MCV 92.6 fL (80.0-100.0); Mean Platelet Volume 7.3; Monocytes # (A) 0.3 k/uL (0-1.0); Monocytes % (A) 4 %; Neutrophils % (A) 83 %; Poikilocytosis Slight; RBC 2.92 m/uL (3.80-5.40); WBC 8.4 k/uL (3.8-10.6); WBC (Perox) 8.79
[2017-05-18 08:39] LABS: Anion Gap 10 mmol/L; Blood Urea Nitrogen 4 mg/dL (7-17); Calcium 8.3 mg/dL (8.4-10.2); Carbon Dioxide 20 mmol/L (22-30); Chloride 108 mmol/L (98-107); Glucose 97 mg/dL (74-99); Non-African American GFR(MDRD) >60 (>60 ml/min/1.73 sqM); Sodium 138 mmol/L (137-145)
[2017-05-18] MEDS: metroNIDAZOLE 500 MG TAB PO SCH ×2 (08:41→14:45)
[2017-05-18] MEDS: ENOXAPARIN 40 MG/0.4 ML SYRINGE SQ SCH (08:41)
[2017-05-18 08:52] LABS: Potassium 2.9 mmol/L (3.5-5.1)
[2017-05-18] MEDS: IOHEXOL 350 MG/ML 25 ML BOTTLE (ORAL USE) PO PRN ×2 (08:56→10:03)
[2017-05-18] MEDS: ATENOLOL 25 MG TAB PO SCH (10:07)
[2017-05-18] MEDS ORDERED: POTASSIUM CHLORIDE IVPB ONE (10:11)
[2017-05-18] MEDS ORDERED: SODIUM CHLORIDE 0.9% IVPB ONE (10:11)
[2017-05-18] MEDS ORDERED: LIDOCAINE IVPB ONE (10:11)
--- NOTE | 2017-05-18 11:18 | CT ---
EXAMINATION TYPE: CT abdomen pelvis w con DATE OF EXAM: 05/18/2017 COMPARISON: 05/16/2017 HISTORY: Ovarian cancer debulking/part of sigmoid removed/ ab pain/fever CT DLP: 739.70 mGycm Automated exposure control for dose reduction was used. CONTRAST: CT scan of the abdomen pelvis is performed with IV Contrast, patient injected with 100 mL of Omnipaqu e 300. FINDINGS- LUNG BASES-subsegmental changes at the lung bases suggestive of atelectasis. LIVER/GB- No gross abnormality is appreciated. PANCREAS- No gross abnormality is seen. SPLEEN- No gross abnormality is seen. ADRENALS- No gross abnormality is seen. KIDNEYS/BLADDER- no hydronephrosis or nephrolithiasis. Small less than 1 cm hypodensity mid pole righ t kidney too small to characterize.. BOWEL- there is a large mixed attenuation fluid collection in the pelvis measuring 7.8 cm. There rudy ears to be thickening of the wall the sigmoid colon with surrounding inflammatory change. Perforation of bowel with abscess suspected. Postsurgical changes in the pelvis are noted. Fluid collection exte nds along the left iliac vasculature. Appears to communicate with the pelvic collection. Additionally there is a small 3 mm air bubble along the anterior abdominal wall image 36 suggestive o f a small amount of free intraperitoneal air. There appears to be adherent bowel loop to the anterior abdominal wall which was also noted on the previous exam with mild thickening.. LYMPH NODES- No greater than 1cm abdominal or pelvic lymph nodes are appreciated. OSSEOUS STRUCTURES- No significant abnormality is seen. OTHER-postsurgical changes are noted. Subcutaneous collection seen compatible subcutaneous emphysema. Surgical filemon are noted. IMPRESSION- 1. Large fluid collection in the pelvis now contains mixed attenuation and measures 7.8 x 8.5 cm exte nds along the left iliac vasculature increased in size from the previous exam. Thickening of the sigm oid colon wall noted. Abscess with perforated bowel suspected. Adjacent dilated small bowel loops may represent an reactive ileus rather than obstruction. Correlate clinically. Additional small focus of free intraperitoneal air along the incision line anteriorly image #36. Report called immediately to the patient's nurse.
[2017-05-18] MEDS: POTASSIUM CHLORIDE 20 MEQ, LIDOCAINE 2% INJ 20 MG in SODIUM CHLORIDE 0.9% 100 ML IVPB SCH ×2 (11:55→13:59)
--- NOTE | 2017-05-18 12:49 | P.DS ---
Providers Date of admission: 05/16/17 16:51 Attending physician: Frankie Ortez Consults: 05/17/17 12:07 Consult Physician Routine Consulting Provider: Luigi Elena Consult Reason/Comments: fever /post sigmoid resection Do you want consulting provider notified?: Yes Primary care physician: Frankie Ortez [place] [facility] Course: This 62-year-old female was admitted to the hospital after presenting to the emergency room with a complaint of fever of about 101.7 at home. In the emergency room she is noted to be fairly stable vital signs with a temperature 99. The patient had no symptoms of any cough congestion dysuria diarrhea or worsening abdominal pain. She did not have any IV sites in inflamed. She has just recently got out of the hospital 4 days prior to this admission. She prior to that 6 days ago had abdominal surgery and partial resection of a sigmoid colon . I did not have the path report but it is assumed that it wasn' t metastatic ovarian cancer with spot. Patient has had a history of ovarian cancer with previous at least 3 other abdominal surgeries for debulking. The patient was told there was no other evidence of macroscopic malignancy. Her postop course was uneventful. Patient's on Lovenox at home. She uses Tylenol for pain. A CAT scan of the abdomen pelvis with IV contrast only done revealed suspicious of possibility office small abscess with fluid in the pelvis as well as possibility of postop changes. The patient's white count was normal and normal range. Mild anemia secondary to recent blood loss. Patient mildly tachycardic but otherwise no evidence of sepsis. Patient given IV fluids started on antibiotics. The ER had placed on Levaquin. This was switched to Zosyn and Flagyl. The patient did not require any pain medication though Toradol was available. She is very sensitive to narcotics. The ER had given a small dose of morphine sulfate. She vomited after that. When she vomited there was a spurt of drainage from the incision which appeared purulent. Cultures have been sent and results are pending. The patient was seen by general surgeon Dr. Castro was suggested that patient probably be better off going back to [facility], where her surgeon Dr. Castillo is . I did communicate with his team and this morning patient has had a CAT scan of the abdomen with both oral and IV contrast. I did personally review the films with Dr. Hathaway. High suspicion of worsening fluid collection in the pelvis with increased gas suggestive of an abscess. The patient denies much pain has had no further fever today she had a temperature of 100.9 last evening. She's had no vomiting diarrhea, voiding well. Her about reevaluation today reveals a hemoglobin of 9.1, white count of 8.4 and a potassium low at 2.9. Potassium low due to use of Zosyn. Patient's going to be discharge to go to [facility] from here. They can contact us when a bed is available. Patient will be given a dose of Toradol for pain and continued on Zosyn. Final diagnosis to include 1. Intra-abdominal infection post surgery 2. Purulent drainage from incision probably intra-abdominal fluid drain with low suspicion of infection of the surgical incision 3. Status post sigmoid surgery 4. Anemia secondary to acute blood loss postsurgery 5. Hypokalemia secondary to use of Zosyn 6. Recurrent ovarian carcinoma Plan - Discharge Summary New Discharge Prescriptions: No Action Atenolol [Tenormin] 25 mg PO DAILY Metoclopramide [Reglan] 10 mg PO QID PRN PRN Reason: Nausea And Vomiting Ibuprofen [Motrin] 400 - 800 mg PO Q8H PRN PRN Reason: Pain Docusate [Colace] 100 - 200 mg PO BID PRN PRN Reason: Constipation RX: Bisacodyl 5 - 10 mg PO DAILY PRN PRN Reason: Constipation Enoxaparin [Lovenox] 40 mg SQ DAILY HYDROcodone/APAP 5-325MG [[place] 5-325] 2 tab PO Q4HR PRN MDD STOPPED PER PATIENT PRN Reason: Pain Discharge Medication List Atenolol [Tenormin] 25 mg PO DAILY 02/03/14 [History] Docusate [Colace] 100 - 200 mg PO BID PRN 05/16/17 [History] Enoxaparin [Lovenox] 40 mg SQ DAILY 05/16/17 [History] HYDROcodone/APAP 5-325MG [[place] 5-325] 2 tab PO Q4HR PRN MDD STOPPED 05/13/17 PER PATIENT 05/16/17 [History] Ibuprofen [Motrin] 400 - 800 mg PO Q8H PRN 05/16/17 [History] Metoclopramide [Reglan] 10 mg PO QID PRN 05/16/17 [History] RX: Bisacodyl 5 - 10 mg PO DAILY PRN 05/16/17 [History] Follow up Appointment(s)/Referral(s): Frankie Ortez MD [Primary Care Provider] - 1-2 days
[2017-05-18 15:08] VITALS: BP 143/79; PULSE 100; TEMP 98.1
== END 2017-05-18 16:56 | disposition other institution (70) | DRG 864 ==
LOC: EC 11:42 → 3SUR 16:51
PROVIDERS: ADMIT Internal Medicine; ATTEND Internal Medicine
DX: R50.82 Postprocedural fever (principal); D62 Acute posthemorrhagic anemia; I10 Essential (primary) hypertension; T81.4XXA Infection following a procedure, initial encounter; E87.6 Hypokalemia; T36.0X5A Adverse effect of penicillins, initial encounter; R00.0 Tachycardia, unspecified; E78.5 Hyperlipidemia, unspecified; R81 Glycosuria; L40.9 Psoriasis, unspecified; T40.2X5A Adverse effect of other opioids, initial encounter; R11.10 Vomiting, unspecified; J30.2 Other seasonal allergic rhinitis; Z82.0 Family history of epilepsy and other diseases of the nervous system; Z82.49 Family history of ischemic heart disease and other diseases of the circulatory system; Z83.3 Family history of diabetes mellitus; Z90.49 Acquired absence of other specified parts of digestive tract; Z90.710 Acquired absence of both cervix and uterus; Z92.21 Personal history of antineoplastic chemotherapy; Z85.43 Personal history of malignant neoplasm of ovary; Z79.899 Other long term (current) drug therapy; Z87.19 Personal history of other diseases of the digestive system; Z88.6 Allergy status to analgesic agent; Z88.1 Allergy status to other antibiotic agents; Z91.048 Other nonmedicinal substance allergy status
CPT/HCPCS: 36415; 71020; 74177; 80048; 80053; 81001; 83605; 85025; 85610; 85730; 87040; 87070; 87075; 87077; 87086; 87186; 87205; 87324; 93005; 96361; 96365; 96367; 96375; 99285

== ENCOUNTER → 2018-01-10 | Outpatient (CLI) | payer BC ==
--- NOTE | 2018-01-10 13:18 | CT ---
EXAMINATION TYPE: CT ChestAbdPelvis w con DATE OF EXAM: 01/10/2018 COMPARISON: 05/16/2017 and 03/01/2017 HISTORY: Ovarian cancer, obs for mets. Last chemotherapy November 29. CT DLP: 699.4 mGycm. Automated Exposure Control for Dose Reduction was Utilized. CONTRAST: CT scan of the thorax, abdomen and pelvis is performed with IV Contrast, patient injected with 100 mL of Isovue 300. FINDINGS: LUNGS: There is a stable 2 mm solid nodule within the right upper lobe laterally on series 4 image 24 . No new pulmonary nodule is seen. No focal consolidation or pleural effusion. There is no pneumoth orax seen. The tracheobronchial tree is patent. MEDIASTINUM: Right-sided Mediport terminates in the superior vena cava/right atrial junction There ar e no greater than 1 cm hilar or mediastinal lymph nodes. No pericardial effusion is seen. OTHER: Right gland is homogeneous. No axillary adenopathy. Very small hiatal hernia seen. No suspicio us thoracic osseous lesions. LIVER/GB: No subserosal implants are identified. No focal hepatic lesion is seen. Geographic hypoatte nuation within segment IVb of the liver is identified, most commonly related to focal fatty infiltrat ion in this region. Gallbladder surgically absent. PANCREAS: No significant abnormality is seen. SPLEEN: No significant abnormality is seen. ADRENALS: No significant abnormality is seen. KIDNEYS: Stable approximately 1.1 cm exophytic right renal cyst is present. BOWEL: New right lower quadrant colostomy is identified. Filling defect within the elongated cecum li duran represents stool content as there is internal fat and similar-appearing degree within the remain moe of the cecum. The previously seen fluid collection within the pelvis has resolved in the interim. Distal diverted colon is decompressed. GENITAL ORGANS: Surgical clips are noted within the low pelvis with note of prior hysterectomy and pr esumed bilateral oophorectomy. LYMPH NODES: No greater than 1cm abdominal or pelvic lymph nodes are appreciated. OSSEOUS STRUCTURES: No new suspicious abnormality IMPRESSION: 1. No new evidence of visceral or osseous metastasis within the chest, abdomen, or pelvis. No new clemencia nopathy within the chest, abdomen, or pelvis. Stable 2 mm pulmonary nodule is likely benign. 2. New postsurgical changes the bowel with no residual pelvic fluid collection.
== END | disposition home or self-care (01) ==
LOC: RADPROMAIN 10:44
PROVIDERS: ATTEND Internal Medicine Hematology & Oncology
DX: C56.2 Malignant neoplasm of left ovary (principal); R91.1 Solitary pulmonary nodule; Z98.890 Other specified postprocedural states
CPT/HCPCS: 71260; 74177; J1642; Q9967

== ENCOUNTER 2018-02-21 11:59 | Day surgery (SDC) | payer BC ==
[2018-02-15 14:55] VITALS: BMI 28.3
[~2018-02-21 11:59] MED LIST changes: +DEXAMETHASONE SOD PHOSPHATE 10 MG/ML 1 ML VIAL IV ONE; +HEPARIN SODIUM,PORCINE 5,000 UNIT/ML 1 ML VIAL SQ ONE; -LIDOCAINE 1% 20 ML VIAL (10MG/ML) FOR IV START INTRADERMA PRN; +MIDAZOLAM 2 MG/2 ML VIAL IV PRN; +Pre Op ABX Message 1 EACH MISC MISCELLANE ONE; +SCOPOLAMINE 1.5MG/72HR PATCH TRANSDERM ONE; +fentaNYL (PF) 50 MCG/ML 2 ML AMP IV PRN
[2018-02-21] MEDS ORDERED: LIDOCAINE 1% 20 ML VIAL (10MG/ML) FOR IV START INTRADERMA ONE (12:24)
[2018-02-21] MEDS: ONDANSETRON 4 MG/2 ML VIAL IVP ONE ×2 (12:42→16:46)
[2018-02-21] MEDS ORDERED: ceFAZolin IN SWFI 2 GM/20 ML SYRINGE IVP ONE (13:00)
[2018-02-21] MEDS ORDERED: BUPIVACAINE (PF) 0.5% 30 ML VIAL SQ ONE (13:15)
[2018-02-21] MEDS ORDERED: ePHEDrine SULFATE/0.9% NACL/PF 50 MG/5 ML SYRINGE IV ONE (13:24)
[2018-02-21] MEDS ORDERED: HYDROmorphone (PF) 1 MG/ML ONE (13:24)
[2018-02-21] MEDS ORDERED: PROPOFOL 10 MG/ML 20 ML VIAL IV ONE (13:24)
[2018-02-21] MEDS ORDERED: GLYCOPYRROLATE 0.2 MG/ML 2 ML VIAL ONE (13:24)
[2018-02-21] MEDS ORDERED: SUCCINYLCHOLINE CHLORIDE 100 MG/5 ML SYR IV ONE (13:24)
[2018-02-21] MEDS ORDERED: fentaNYL (PF) 50 MCG/ML 2 ML AMP ONE (13:24)
[2018-02-21] MEDS ORDERED: NEOSTIGMINE 1 MG/ML 10 ML VIAL ONE (13:24)
[2018-02-21] MEDS ORDERED: LIDOCAINE 1% INJ 10MG/ML (20 ML MDV) ONE (13:24)
[2018-02-21] MEDS ORDERED: ROCURONIUM BROMIDE 10 MG/ML 10 ML VIAL IV ONE (13:24)
[2018-02-21] MEDS ORDERED: ceFAZolin 1,000 MG VIAL ONE (13:24)
[2018-02-21] MEDS ORDERED: MIDAZOLAM 2 MG/2 ML VIAL ONE (13:24)
[2018-02-21] MEDS ORDERED: NALOXONE 0.4 MG/ML 1 ML VIAL IV PRN (15:47)
[2018-02-21] MEDS ORDERED: ACETAMINOPHEN TAB 325 MG TAB PO PRN (15:47)
--- NOTE | 2018-02-21 16:17 | P.OP ---
Date of Procedure: 02/21/18 Procedure(s) Performed: PREOPERATIVE DIAGNOSIS: Abdominal wall wound chronic POSTOPERATIVE DIAGNOSIS: Colocutaneous fistula PROCEDURE: Abdominal wall wound exploration with closure colocutaneous fistula SURGEON: Ulices EBL: Uzair English ANESTHESIA: Gen. COMPLICATIONS: None OPERATIVE PROCEDURE: Patient placed in the operative table in the supine position. The abdomen was prepped and draped in usual sterile fashion with a 4 x 4 gauze over the loop ostomy in the right midabdomen and an Ioban over the entire abdomen. The patient had a small opening along the midline incision above the umbilicus. This was probed with a metal probe and noted to extend about 7-8 cm posterior and inferiorly. An incision was made overlying that tracked until the fascia was identified. The wound was approximately 8-10 mm at the level of the fascia. There was still some mucousy appearance to the wound at that level. I opened the fascia carefully using Metzenbaum scissors. At that time I identified that the wound was entering into the bowel. It took some time to free up the loop of bowel present there. There was extensive adhesions present here. The fascia was lengthened proximally and distally slightly. The piece of bowel that was involved had no bowel contents other than a small piece of stool identified throughout the surgery. This was thought to represent the defunctionalized limb of transverse colon beyond the loop transverse colostomy. Etiology for this fistula was not identified. The edges were debrided. The colotomy was then closed in a transverse fashion using an inner layer of running 3-0 Vicryl suture and outer 3-0 GI silk Lambert sutures. The area was irrigated with saline. The fascia was then reapproximated using interrupted [id number] #1 Vicryl sutures. The wound was packed with Ariel gauze moistened with saline. A sterile dressing was applied. DISPOSITION: Stable to recovery room
[2018-02-21] MEDS ORDERED: LACTATED RINGERS 1,000 ML IV SCH (16:30)
[2018-02-21] MEDS: KETOROLAC 30 MG/ML 1 ML VIAL IVP SCH ×2 (17:49→23:27)
[2018-02-21] MEDS: HEPARIN SODIUM,PORCINE 5,000 UNIT/ML 1 ML VIAL SQ SCH (20:00)
[2018-02-22] MEDS: HEPARIN SODIUM,PORCINE 5,000 UNIT/ML 1 ML VIAL SQ SCH ×2 (03:59→12:38)
[2018-02-22] MEDS: KETOROLAC 30 MG/ML 1 ML VIAL IVP SCH ×2 (04:00→10:11)
[2018-02-22 08:51] VITALS: BP 127/88; PULSE 71; RESP 18; TEMP 97.6
[2018-02-22] MEDS ORDERED: ATENOLOL 25 MG TAB PO SCH (09:00)
--- NOTE | 2018-02-22 12:00 | P.DS ---
<Beverly Lowry - Last Filed: 02/22/18 12:00> Providers Expected date of discharge: 02/22/18 Attending physician: Luigi Elena Consults: 02/21/18 16:11 Consult Physician Routine Consulting Provider: Frankie Ortez Consult Reason/Comments: Medical management Do you want consulting provider notified?: Yes Primary care physician: Frankie Ortez Hospital Course: 62-year-old female who presented to undergo abdominal wall exploration with closure colocutaneous fistula for chronic abdominal wound. Procedure was done on February 21. Patient has had a chronic ulcer of the abdominal wall has been followed in the wound care center by Dr. Montenegro the home care was set up to at the time of discharge. Additionally patient would continue to follow-up with his mother wound care center with Dr. Montenegro. Dressing was changed at the time of discharge the wound packing was removed and repacked with Kerlix gauze moistened with saline with a sterile dressing applied Patient stated her pain was controlled with Tylenol. Patient stated she did not need a prescription for opiate Impression discharge diagnosis Chronic abdominal wound Abdominal wall wound exploration with closure colocutaneous fistula History of ovarian cancer Extensive abdominal surgeries related to gynecological cancer The above impression and plan of care have been discussed and directed by signing physician. Beverly Lowry nurse practitioner acting as scribe for signing physician. Plan - Discharge Summary Discharge Rx Participant: Yes New Discharge Prescriptions: Continue Atenolol [Tenormin] 25 mg PO DAILY Acetaminophen Tab [Tylenol] 500 mg PO Q6HR PRN tab PRN Reason: Fever And/ Or Pain Cyanocobalamin (Vitamin B-12) [Vitamin B12] 2,500 mcg PO DAILY Cholecalciferol (Vitamin D3) [Vitamin D3] 3,000 unit PO DAILY Multivitamins, Thera [Multivitamin (formulary)] 1 tab PO DAILY Calcium Carb/Vitamin D3/Vit K1 [Viactiv Soft Chew] 2 each PO DAILY Lactobacillus Acidophilus [Acidophilus] 1 each PO DAILY Docusate Sodium [Dok] 100 mg PO DAILY PRN PRN Reason: Constipation Amoxicillin 875 mg PO Q12HR #28 tablet diphenhydrAMINE [Benadryl] 25 mg PO BID PRN PRN Reason: ALLERGY SX Discharge Medication List Atenolol [Tenormin] 25 mg PO DAILY 02/03/14 [History] Acetaminophen Tab [Tylenol] 500 mg PO Q6HR PRN tab 05/18/17 [Rx] Cholecalciferol (Vitamin D3) [Vitamin D3] 3,000 unit PO DAILY 06/19/17 [History] Cyanocobalamin (Vitamin B-12) [Vitamin B12] 2,500 mcg PO DAILY 06/19/17 [History ] Calcium Carb/Vitamin D3/Vit K1 [Viactiv Soft Chew] 2 each PO DAILY 10/15/17 [ History] Docusate Sodium [Dok] 100 mg PO DAILY PRN 10/15/17 [History] Lactobacillus Acidophilus [Acidophilus] 1 each PO DAILY 10/15/17 [History] Multivitamins, Thera [Multivitamin (formulary)] 1 tab PO DAILY 10/15/17 [History ] Amoxicillin 875 mg PO Q12HR #28 tablet 02/11/18 [Rx] diphenhydrAMINE [Benadryl] 25 mg PO BID PRN 02/15/18 [History] Follow up Appointment(s)/Referral(s): Luigi Elena MD [Medical Doctor] - 02/25/18 2:15 pm [facility] Visiting Nurse, [NON-STAFF] - Activity/Diet/Wound Care/Special Instructions: Abdominal Wound to be packed with Kerlix gauze moistened with saline daily ([facility] to follow) Keep scheduled appointment with the wound care center Follow-up with Dr. Elena next week as directed No tub bath no soaking incision May return to work after seen in a follow-up visit with Dr. Elena no lifting over 10 pounds Regular diet , drink fluids. May use over the counter Motrin or tylenol as directed. Call office for any fever chills, increased pain not covered by Over the counter medications, increased redness or purulent drainage from wound or any concerns. Discharge Disposition: HOME WITH HOME HEALTH SERVICES <Luigi Elena - Last Filed: 02/22/18 13:23> Hospital Course: As above. Patient doing well. Minimal pain. She was actually discharged prior to my arrival. She will follow-up in 1 week.
--- NOTE | 2018-02-22 18:37 | CONS ---
CONSULTATION ATTENDING PHYSICIAN: Dr. Elena. CONSULTING PHYSICIAN: Dr. Adam Ortez. CONSULTATION: Regarding medical management. HISTORY OF PRESENT ILLNESS: This 62-year-old female was admitted to the hospital and underwent an exploration of the previous surgical abdominal wall incision which has chronic infection. The patient has a known history of carcinoma of the ovary. She has had multiple surgeries. Back in April, she was admitted to this hospital with a fever and abdominal and pelvic abscess. The patient at that time underwent surgery at [facility] by the patient's oncological surgeon. The patient has a colostomy. The patient's incision, however, since then has been draining off and on. Due to this, the patient was taken in by Dr. Elena and opened up a fistula. The patient is feeling better. She actually say she feels significantly better just after this procedure. The patient is seen on the day after surgery. PAST MEDICAL HISTORY: Significant for ovarian cancer, mild tachycardia and mildly elevated blood pressures on medical therapy. Otherwise, no history of any other diseases such as lung disease, liver disease, kidney disease. No history of any ulcers, TB, hepatitis, rheumatic fever. No history of any myocardial infarction, CVA. Does have dyslipidemia. FAMILY MEDICAL HISTORY: The patient has a sister has history of diabetes mellitus, multiple sclerosis. Mother had diabetes mellitus and atherosclerotic heart disease. The patient has a daughter, 17 years of age, in good health. SOCIAL HISTORY: , lives with her spouse. PERSONAL HISTORY: Nonsmoker. No alcohol. ALLERGIES: To ADHESIVE TAPE, CARBOPLATIN, MORPHINE, PACLITAXEL, AMOXICILLIN, CLAVULANIC ACID and CODEINE. MEDICATIONS: At present include atenolol 25 mg daily. PAST SURGICAL HISTORY: Significant for exploratory laparotomies x4. She has a colostomy now. PAST MEDICAL HISTORY: As mentioned above, ovarian CA and mild hypertension. No history of any lung disease, liver disease, kidney disease. No ulcers, TB, hepatitis, rheumatic fever. No myocardial infarction or CVA. REVIEW OF SYSTEMS: NEURO: Denies any headaches, dizziness. PSYCH: No anxiety. CARDIAC: No chest pain, angina, palpitations. RESPIRATORY: Denies shortness of breath, cough, hemoptysis. GI: No nausea, vomiting, abdominal pain, diarrhea. : No symptoms of dysuria, hematuria. EXTREMITIES: No pain, edema. CONSTITUTIONAL: No fever, chills. PHYSICAL EXAMINATION: Pleasant female in no distress. VITAL SIGNS: Temperature 97.6, pulse 71, respirations 18, blood pressure 127/88, pulse ox 98%. HEENT: Normocephalic. NECK: Supple. No JVD. CHEST: Clear to auscultation, percussion. CARDIAC: Normal S1, S2 with no gallops, murmurs, rubs. ABDOMEN: Mildly tender around the incision. Otherwise, abdomen benign. Bowel sounds active. Extremities reveal no edema. No tenderness. NEUROLOGICAL: Awake, alert, oriented x3 with well-coordinated movements. LABORATORY ASSESSMENT: None. Gram stain had mixed bacteria, both gram-positive cocci and gram-negative bacilli. ASSESSMENT: 1. History of mild hypertension, controlled. 2. History of ovarian carcinoma. 3. Chronic infection, previous abdominal incision. PLAN: Patient is stable. Continue present medical regimen. Patient's condition discussed with the patient. Prognosis guarded. Potential discharge home today. She will continue her medication. MMODL / IJN: [id number] /
== END 2018-02-22 12:40 | disposition home health service (06) ==
LOC: OR 11:59 → 6PED 15:19 → OR 02-22 12:40
PROVIDERS: ATTEND Surgery
DX: K63.2 Fistula of intestine (principal); K66.0 Peritoneal adhesions (postprocedural) (postinfection); T81.4XXA Infection following a procedure, initial encounter; Z43.3 Encounter for attention to colostomy; I10 Essential (primary) hypertension; J30.2 Other seasonal allergic rhinitis; L30.9 Dermatitis, unspecified; E78.5 Hyperlipidemia, unspecified; K57.92 Diverticulitis of intestine, part unspecified, without perforation or abscess without bleeding; Z85.43 Personal history of malignant neoplasm of ovary; Z90.710 Acquired absence of both cervix and uterus; Z90.49 Acquired absence of other specified parts of digestive tract; Z87.19 Personal history of other diseases of the digestive system; Z79.899 Other long term (current) drug therapy; Z88.1 Allergy status to other antibiotic agents; Z88.5 Allergy status to narcotic agent; Z88.0 Allergy status to penicillin; Z91.048 Other nonmedicinal substance allergy status; Z88.8 Allergy status to other drugs, medicaments and biological substances
CPT/HCPCS: 87070; 87205; 87075; 87077; 87186; 44640; J2250; J1644 ×2; J1100; J2710; J2405; J0690 ×2; J2001; J3010; J1885 ×2; J1170; J0330; J2704

== ENCOUNTER → 2018-03-07 | Outpatient (CLI) | payer BC ==
--- NOTE | 2018-03-07 10:44 | BD ---
EXAMINATION TYPE: Axial Bone Density DATE OF EXAM: 03/07/2018 COMPARISON: DEXA bone scan August 29, 2016 CLINICAL HISTORY: Postmenopausal female Height: 5 FT 2 IN Weight: 155 FRAX RISK QUESTIONS: RISK FACTORS HISTORY OF: Family History of Osteoporosis: YES Active: YES Postmenopausal woman: AGE 53 How long: TOOK FOR A BRIEF TIME MEDICATIONS: Additional Medications: ATENOLOL Additional History: PT HAS HAD OVARIAN CANCER 3 TIME LAST 2017 , PT HAS A COLOSTOMY RIGHT NOW EXAM MEASUREMENTS: Bone mineral densitometry was performed using the [employer] System. Bone mineral density as measured about the Lumbar spine is: ----- L1-L4(G/cm2): 0.991 T Score Values are as follows: ----- L2: -2.0 ----- L3: -1.2 ----- L4: -1.2 ----- L1-L4: -1.6 Bone mineral density has: DECREASED -2.6 % since study of: 2016 Bone mineral density about the R hip (g/cm2): 0.788 Bone mineral density about the L hip (g/cm2): 0.854 T Score values are as follows: -----R Neck: -1.8 -----L Neck: -1.3 -----R Total: -1.0 -----L Total: -0.7 Bone mineral density has: DECREASED -2.8 % since study of: 2016 IMPRESSION: Osteopenia (T Score between -2.5 and -1) overall in the low back and both hips redemonstrated. Bone d ensity decreased or diminished from prior. There remains slightly increased risk of fracture and the patient may be considered for treatment. Re-Screen 2-5 years. NOTE: T-SCORE=SD OF THE YOUNG ADULT MEAN.
--- NOTE | 2018-03-08 11:04 | MM ---
Reason for exam: screening (asymptomatic). Last mammogram was performed 1 year and 7 months ago. History: Patient is postmenopausal, has history of ovarian cancer at age 53, and had first child at age 44. Took hormonal contraceptives for 2 years. Took progesterone for 2 months beginning at age 49. Physical Findings: A clinical breast exam by your physician is recommended on an annual basis and results should be correlated with mammographic findings. MG 3D Screening Mammo W/Cad Bilateral CC and MLO view(s) were taken. Prior study comparison: August 17, 2016, bilateral MG 3d screening mammo w/cad. August 16, 2015, bilateral MG 3d diag mammo w/cad [facility]. There are scattered fibroglandular densities. There is no discrete abnormality. No significant changes when compared with prior studies. ASSESSMENT: Negative, BI-RAD 1 RECOMMENDATION: Routine screening mammogram of both breasts in 1 year.
== END | disposition home or self-care (01) ==
LOC: RADMAMWWP 08:59
PROVIDERS: ATTEND Internal Medicine Hematology & Oncology
DX: Z12.31 Encounter for screening mammogram for malignant neoplasm of breast (principal); M85.851 Other specified disorders of bone density and structure, right thigh; M85.852 Other specified disorders of bone density and structure, left thigh; M85.88 Other specified disorders of bone density and structure, other site; N95.1 Menopausal and female climacteric states
CPT/HCPCS: 77063; 77067; 77080

== ENCOUNTER → 2018-07-04 | Outpatient (CLI) | payer BC ==
--- NOTE | 2018-07-04 17:00 | CT ---
EXAMINATION TYPE: CT ChestAbdPelvis w con DATE OF EXAM: 07/04/2018 INDICATION: Follow up for ovarian cancer. COMPARISON: 01/10/2018 CT DLP: 920.1 mGycm CONTRAST: Performed with Oral Contrast and with IV Contrast, patient injected with 100ml mL of Isovue M300. TECHNIQUE: Axial images at 5 mm thick sections. Reconstructed images in the coronal plane. Delayed images through the kidneys. FINDINGS: CT CHEST: Portion of the thyroid visualized is normal. There is a punctate nodule in the periphery of the right upper lobe. Series 4 image 23. This was pres ent previously. No enlarged mediastinal or hilar adenopathy is evident. The ascending aorta diameter at the level of the main pulmonary artery is 2.8 cm. The main pulmonary artery diameter at the bifurcation is 2.[address] ABDOMEN: Liver: Normal Spleen: Normal Pancreas: Atrophic Adrenal glands: The adrenal glands are normal. Gallbladder: Surgically absent. Kidneys: No masses are evident. No hydronephrosis is present. No cysts are present. Delayed images were obtained through the kidneys, which remain unremarkable. Aorta: Vascular calcification is within the aorta. Inferior vena cava: Normal. CT PELVIS: There is an ostomy in the right lower quadrant. Colon is resected. Study is performed with oral contrast. Small bowel loops distended with oral contrast are normal. The re are some loops of bowel lacking oral contrast or with limited distention limiting their evaluation . Oral contrast extends to the ostomy. Appendix: Not visualized Urinary bladder: Normal. Genitourinary structures: Uterus and ovaries are not identified. Vaginal cuff region appears unremark able. Osseous structures: No suspicious lytic or sclerotic lesions. IMPRESSIONS: 1. Stable punctate peripheral right upper lobe nodule. 2. Post cholectomy changes with ostomy in the right lower quadrant. 3. No suspicious changes for metastatic lesions.
== END ==
LOC: RADPROMAIN 13:34
PROVIDERS: ATTEND Internal Medicine Hematology & Oncology
DX: C56.2 Malignant neoplasm of left ovary (principal); R91.1 Solitary pulmonary nodule; Z90.49 Acquired absence of other specified parts of digestive tract
CPT/HCPCS: 71260; 74177; J1642; Q9967

== ENCOUNTER → 2019-01-09 | Outpatient (CLI) | payer BC ==
--- NOTE | 2019-01-09 09:25 | CT ---
EXAMINATION TYPE: CT ChestAbdPelvis w con DATE OF EXAM: 01/09/2019 COMPARISON: 07/04/2018 and 01/10/2018 HISTORY: 63-year-old female Follow up of ovarian, reversed colostomy, incisional hernia TECHNIQUE: Contiguous axial scanning of the chest, abdomen, and pelvis performed with IV Contrast, pa tient injected with 100 mL of Isovue 300. Delayed images through the kidneys were obtained. Coronal/s agittal reconstructions performed. CT DLP: 853.6 mGycm Automated exposure control for dose reduction was used. FINDINGS: CHEST: Right anterior chest wall injection port with catheter tip at the cavoatrial junction. Heart normal size without pericardial effusion. Aorta normal caliber with bovine configuration to the aortic arch. No thoracic lymphadenopathy by CT size criteria Evaluation of the lungs shows mild biapical pleural-parenchymal scarring and minimal centrilobular em physema. No consolidation or pleural effusion. ABDOMEN: Liver borderline in size at 17.3 cm without focal lesion. Prominent bile duct is unchanged status pos t cholecystectomy and with normal distal tapering. Portal venous system is patent Adrenal glands, left kidney with extrarenal pelvis, spleen, and pancreas appear within normal limits. 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 Some surgical clips along the omentum corresponding to prior surgery Normal appendix. Interval reversal the patient's right mid abdominal colostomy at the level of the he patic flexure. The colon in the region of the anastomosis has some wall thickening, refer to axial im age 75. In addition, there is a side to end anastomosis at the rectosigmoid junction Some bulging laxity in the region of the linea alba with prior mesh repair. Stable right upper quadrant ventral abdominal wall hernia containing omental fat measuring 2.8 cm wid e. The abdominal wall defect measures 8 mm wide. No mesenteric or retroperitoneal lymphadenopathy. No definite suspicious peritoneal nodularity seen a t this time Scattered surgical clips along the retroperitoneum and iliac chains from lymph node dissection. Pelvis: Bladder urine distended. Uterus and ovaries surgically absent. No abnormal fluid collection pelvis or pelvic lymphadenopathy. New focal soft tissue nodularity just above this anastomosis within the right upper pelvis measures 3 .2 x 2.1 cm and is suspicious . Bones: Degenerative disc disease at L5-S1. No osseous destructive process seen. IMPRESSION: 1. NEW SOFT TISSUE MEASURING 3.2 X 2.1 CM IN THE RIGHT UPPER PELVIS IS SUSPICIOUS FOR DISEASE RECURRE NCE. 2. INTERVAL RIGHT MID ABDOMINAL COLOSTOMY REVERSAL. THERE IS ALSO SOME COLONIC WALL THICKENING AT THE LEVEL OF THE HEPATIC FLEXURE REANASTOMOSIS. COLITIS, POSTSURGICAL CHANGE, AND SEROSAL METASTATIC DIS EASE ARE IN THE DIFFERENTIAL.
== END | disposition home or self-care (01) ==
LOC: RADPROMAIN 07:02
PROVIDERS: ATTEND Internal Medicine Hematology & Oncology
DX: C56.2 Malignant neoplasm of left ovary (principal); Z98.890 Other specified postprocedural states
CPT/HCPCS: 71260; 74177; Q9967 ×2

== ENCOUNTER 2019-03-03 12:09 | Emergency (ER) | payer BC ==
[2019-03-03 12:42] VITALS: RESP 16; TEMP 98.4
[2019-03-03] MEDS ORDERED: SODIUM CHLORIDE 0.9% 1,000 ML IV STA (13:35)
--- NOTE | 2019-03-03 13:53 | ED ---
Neuro HPI - General Chief Complaint: Neuro Symptoms/Deficit Stated Complaint: vision problems Time Seen by Provider: 03/03/19 13:06 Source: patient, RN notes reviewed, old records reviewed Mode of arrival: ambulatory Limitations: no limitations - History of Present Illness Is the patient presenting with stroke symptoms?: No -: minutes(s) Initial Comments: This is a 63-year-old female the ER for evaluation. Patient was at work today and she was vision loss in the left lateral aspect of her days. She then noticed to be present in both eyes after covering both eyes. No history of stroke. No significant risk factors for stroke, no high cholesterol no diabetes or no smoking and no hypertension. Patient himself is currently asymptomatic to call family doctor told to come to ER. Location: other ((O field loss) History of same: No Place: work Severity: mild Improves With: time Worsens With: none On Anticoagulants: No Context: sudden onset Associated Symptoms: denies other symptoms Treatments Prior to Arrival: none - Related Data Home Medications: Home Medications Medication Instructions Recorded Confirmed Atenolol [Tenormin] 25 mg PO DAILY 02/03/14 03/03/19 Cholecalciferol (Vitamin D3) 3,000 unit PO DAILY 06/19/17 03/03/19 [Vitamin D3] Cyanocobalamin (Vitamin B-12) 2,500 mcg PO DAILY 06/19/17 03/03/19 [Vitamin B-12] Calcium Carb/Vitamin D3/Vit K1 2 tab PO DAILY 10/15/17 03/03/19 [Viactiv Soft Chew] Lactobacillus Acidophilus 1 tab PO DAILY 10/15/17 03/03/19 [Acidophilus] Multivitamins, Thera [Multivitamin 1 tab PO DAILY 10/15/17 03/03/19 (formulary)] Acetaminophen Tab [Tylenol Tab] 650 mg PO Q4H PRN 03/03/19 03/03/19 Allergies/Adverse Reactions: Allergies Allergy/AdvReac Type Severity Reaction Status Date / Time adhesive tape Allergy red skin Verified 03/03/19 13:24 carboplatin Allergy Rash/Hives Verified 03/03/19 13:24 morphine Allergy Nausea & Verified 03/03/19 13:24 Vomiting paclitaxel [From Taxol] Allergy Dyspnea, Verified 03/03/19 13:24 ELEV HR amoxicillin [From Augmentin] AdvReac Nausea & Verified 03/03/19 13:24 Vomiting & Diarrhea clavulanic acid AdvReac Nausea & Verified 03/03/19 13:24 [From Augmentin] Vomiting & Diarrhea codeine AdvReac Nausea & Verified 03/03/19 13:24 Vomiting & Diarrhea Review of Systems ROS Statement: Those systems with pertinent positive or pertinent negative responses have been documented in the HPI. ROS Other: All systems not noted in ROS Statement are negative. General Exam Limitations: no limitations General appearance: alert, in no apparent distress Head exam: Present: atraumatic, normocephalic, normal inspection Eye exam: Present: normal appearance, PERRL, EOMI. Absent: scleral icterus, conjunctival injection, periorbital swelling ENT exam: Present: normal exam, mucous membranes moist Neck exam: Present: normal inspection. Absent: tenderness, meningismus, lymphadenopathy Respiratory exam: Present: normal lung sounds bilaterally. Absent: respiratory distress, wheezes, rales, rhonchi, stridor Cardiovascular Exam: Present: regular rate, normal rhythm, normal heart sounds. Absent: systolic murmur, diastolic murmur, rubs, gallop, clicks GI/Abdominal exam: Present: soft, normal bowel sounds. Absent: distended, tenderness, guarding, rebound, rigid Extremities exam: Present: normal inspection, full ROM, normal capillary refill. Absent: tenderness, pedal edema, joint swelling, calf tenderness Back exam: Present: normal inspection Neurological exam: Present: alert, oriented X3, CN II-XII intact Psychiatric exam: Present: normal affect, normal mood Skin exam: Present: warm, dry, intact, normal color. Absent: rash Stroke MDM - Lab Data Result diagrams: 03/03/19 13:30 03/03/19 13:30 Lab Results 03/03/19 03/03/19 03/03/19 Range/Units 13:30 13:30 13:30 WBC 6.9 (3.8-10.6) k/uL RBC 4.78 (3.80-5.40) m/uL Hgb 14.4 (11.4-16.0) gm/dL Hct 41.8 (34.0-46.0) % MCV 87.5 (80.0-100.0) fL MCH 30.2 (25.0-35.0) pg MCHC 34.5 (31.0-37.0) g/dL RDW 13.4 (11.5-15.5) % Plt Count 206 (150-450) k/uL Neutrophils % 71 % Lymphocytes % 20 % Monocytes % 5 % Eosinophils % 2 % Basophils % 0 % Neutrophils # 4.9 (1.3-7.7) k/uL Lymphocytes # 1.4 (1.0-4.8) k/uL Monocytes # 0.3 (0-1.0) k/uL Eosinophils # 0.1 (0-0.7) k/uL Basophils # 0.0 (0-0.2) k/uL PT 10.1 (9.0-12.0) sec INR 0.9 (<1.2) APTT 24.0 (22.0-30.0) sec Sodium 142 (137-145) mmol/L Potassium 3.6 (3.5-5.1) mmol/L Chloride 107 (98-107) mmol/L Carbon Dioxide 25 (22-30) mmol/L Anion Gap 10 mmol/L BUN 14 (7-17) mg/dL Creatinine 0.73 (0.52-1.04) mg/dL Est GFR (CKD-EPI)AfAm >90 (>60 ml/min/1.73 sqM) Est GFR (CKD-EPI)NonAf 89 (>60 ml/min/1.73 sqM) Glucose 106 H (74-99) mg/dL Calcium 10.3 H (8.4-10.2) mg/dL Total Bilirubin 1.0 (0.2-1.3) mg/dL AST 25 (14-36) U/L ALT 28 (9-52) U/L Alkaline Phosphatase 85 (38-126) U/L Creatine Kinase 103 (30-135) U/L Troponin I (0.000-0.034) ng/mL Total Protein 6.9 (6.3-8.2) g/dL Albumin 4.4 (3.5-5.0) g/dL 03/03/19 Range/Units 13:30 WBC (3.8-10.6) k/uL RBC (3.80-5.40) m/uL Hgb (11.4-16.0) gm/dL Hct (34.0-46.0) % MCV (80.0-100.0) fL MCH (25.0-35.0) pg MCHC (31.0-37.0) g/dL RDW (11.5-15.5) % Plt Count (150-450) k/uL Neutrophils % % Lymphocytes % % Monocytes % % Eosinophils % % Basophils % % Neutrophils # (1.3-7.7) k/uL Lymphocytes # (1.0-4.8) k/uL Monocytes # (0-1.0) k/uL Eosinophils # (0-0.7) k/uL Basophils # (0-0.2) k/uL PT (9.0-12.0) sec INR (<1.2) APTT (22.0-30.0) sec Sodium (137-145) mmol/L Potassium (3.5-5.1) mmol/L Chloride (98-107) mmol/L Carbon Dioxide (22-30) mmol/L Anion Gap mmol/L BUN (7-17) mg/dL Creatinine (0.52-1.04) mg/dL Est GFR (CKD-EPI)AfAm (>60 ml/min/1.73 sqM) Est GFR (CKD-EPI)NonAf (>60 ml/min/1.73 sqM) Glucose (74-99) mg/dL Calcium (8.4-10.2) mg/dL Total Bilirubin (0.2-1.3) mg/dL AST (14-36) U/L ALT (9-52) U/L Alkaline Phosphatase (38-126) U/L Creatine Kinase (30-135) U/L Troponin I <0.012 (0.000-0.034) ng/mL Total Protein (6.3-8.2) g/dL Albumin (3.5-5.0) g/dL - NIH Stroke Scale 1a. Level of Consciousness: (0) alert 1b. LOC Questions: (0) answers correctly 1c. LOC Commands: (0) performs tasks correctly 2. Best Gaze: (0) normal 3. Visual: (0) no visual loss 4. Facial Palsy: (0) normal symmetrical movement 5a. Motor Arm Left: (0) no drift 5b. Motor Arm Right: (0) no drift 6a. Motor Leg Left: (0) no drift 6b. Motor Leg Right: (0) no drift 7. Limb Ataxia: (0) absent 8. Sensory: (0) normal 9. Best Language: (0) no aphasia 10. Dysarthria: (0) normal 11. Extinction/Inattention: (0) no abnormality - Thrombolytic Inclusion/Exclusion Thrombolytic Inclusion Criteria: Ischemic Stroke Onset< 3h Thrombolytic Contraindications: Rapidly Improving s/s (Symptoms resolved) - Medical Decision Making 63 female the ER for evaluation. Patient resents today for evaluation regards to bilateral vision loss not to wear vision loss in the lateral field. Symptoms are resolved, patient will follow-up with family physician - Radiology Data Radiology results: report reviewed (CT brain CTA had not negative for acute disease), image reviewed - EKG Data -: EKG Interpreted by Me (EKG shows sinus rhythm rate of 72, MI 160, QRS 74, QTc 424) Past Medical History Past Medical History: Cancer, Hypertension, Skin Disorder Additional Past Medical History / Comment(s): seasonal allergies, hx ovarian cancer, mild diverticulitis, bowel obstruction (post op), small hiatal hernia, mild psoriasis or eczema History of Any Multi-Drug Resistant Organisms: None Reported Past Surgical History: Bowel Resection, Cholecystectomy, Hernia Repair, Hysterectomy Additional Past Surgical History / Comment(s): left hand tendon surgery, exploratory abdominal surgeries and cervical ca (DEBULKING SX X2), port inserted/later removed, was a patient at [facility] one week ago for colostomy surgery. Past Anesthesia/Blood Transfusion Reactions: Motion Sickness, Postoperative Nausea & Vomiting (PONV) Additional Past Anesthesia/Blood Transfusion Reaction / Comment(s): STATES USUALLY HAS SCOPOLAMINE PATCH PRE OP Past Psychological History: No Psychological Hx Reported Past Alcohol Use History: None Reported - Past Family History Mother Family Medical History: Coronary Artery Disease (CAD), Diabetes Mellitus, Th yroid Disorder Father Family Medical History: Coronary Artery Disease (CAD), Diabetes Mellitus Course Vital Signs 03/03/19 12:38 Temperature 98.4 F Pulse Rate 81 Respiratory 16 Rate Blood Pressure 168/97 O2 Sat by Pulse 98 Oximetry - Reevaluation(s) Reevaluation #1: 03/03/19 15:18 Medical record reviewed Reevaluation #2: 03/03/19 15:18 Patient remains without neurological complaint Disposition Clinical Impression: Transient cerebral ischemia Disposition: HOME SELF-CARE Condition: Good Instructions (If sedation given, give patient instructions): Self Care Measures After a Stroke (ED), Transient Ischemic Attack (ED) Is patient prescribed a controlled substance at d/c from ED?: No Referrals: Frankie Ortez MD [Primary Care Provider] - 1-2 days
[2019-03-03 14:08] LABS: Basophils % (A) 0 %; Eosinophils # (A) 0.1 k/uL (0-0.7); Eosinophils % (A) 2 %; HCT 41.8 % (34.0-46.0); HGB 14.4 gm/dL (11.4-16.0); Lymphocytes # (A) 1.4 k/uL (1.0-4.8); Lymphocytes % (A) 20 %; MCH 30.2 pg (25.0-35.0); MCHC 34.5 g/dL (31.0-37.0); MCV 87.5 fL (80.0-100.0); Mean Platelet Volume 7.2; Monocytes # (A) 0.3 k/uL (0-1.0); Monocytes % (A) 5 %; Neutrophils # (A) 4.9 k/uL (1.3-7.7); Neutrophils % (A) 71 %; Platelet Count 206 k/uL (150-450); RBC 4.78 m/uL (3.80-5.40); RDW 13.4 % (11.5-15.5); WBC 6.9 k/uL (3.8-10.6)
[2019-03-03 14:23] LABS: INR 0.9 (<1.2); Prothrombin Time 10.1 sec (9.0-12.0)
[2019-03-03 14:30] LABS: ALT 28 U/L (9-52); AST 25 U/L (14-36); African American GFR (CKD) >90 (>60 ml/min/1.73 sqM); Albumin 4.4 g/dL (3.5-5.0); Alkaline Phosphatase 85 U/L (38-126); Anion Gap 10 mmol/L; Blood Urea Nitrogen 14 mg/dL (7-17); Calcium 10.3 mg/dL (8.4-10.2); Carbon Dioxide 25 mmol/L (22-30); Chloride 107 mmol/L (98-107); Creatine Kinase 103 U/L (30-135); Glucose 106 mg/dL (74-99); Potassium 3.6 mmol/L (3.5-5.1); Sodium 142 mmol/L (137-145); Total Protein 6.9 g/dL (6.3-8.2)
--- NOTE | 2019-03-03 15:07 | CT ---
EXAMINATION TYPE: CT angio head neck DATE OF EXAM: 03/03/2019 HISTORY: weakness and visual disturbance. COMPARISON: None CT DLP: 424.2 mGycm. Automated Exposure Control for Dose Reduction was Utilized. TECHNIQUE: CTA scan of the neck is performed with IV Contrast, patient injected with 50 mL of Isovue 370, axial images are obtained, coronal and sagittal reformatted images are reviewed. Three-D recons tructed images are created on an independent workstation and reviewed. FINDINGS: Carotid/Vascular Structures: There is a two-vessel arch. The left common carotid artery arises from t he innominate. Vertebral artery may be dominant. Common carotid arteries appear symmetrical. No signi ficant stenosis at the carotid bifurcations are evident on Three-D reconstructed images. [place]: Internal carotid arteries extend to the skull base. The right A1 segment appears to be severely hypoplastic. Right middle cerebral artery branches are normal. The anterior communicatin g artery is patent. Left A1 and left middle cerebral artery branches appear normal. Posterior communi cating arteries appear patent. Posterior cerebral vessels appear normal. Other: Note is made of degenerative changes within the cervical spine disc spaces. Vertebral body ali gnment appears straightened. Vertebral body heights are preserved. Dental amalgam scatter artifact ca uses some limitation. IMPRESSION: 1. No significant flow-limiting stenosis bilateral carotid bifurcations. 2. Hypoplastic right A1 segment, a normal variant. [place] appears within normal limits.
--- NOTE | 2019-03-03 15:08 | CT ---
EXAMINATION TYPE: CT brain wo con for TPA DATE OF EXAM: 03/03/2019 COMPARISON: None INDICATION: weakness and visual disturbance DLP: 1091.9 mGycm, Automated exposure control for dose reduction was used. CONTRAST: None CT of the brain is performed utilizing 3 mm thick sections through the posterior fossa and 3 mm thick sections through the remaining calvarium. Study is performed within 24 hours of arrival to the hosp ital. No abnormal hyperdensity is present to suggest an acute intracranial hemorrhage. No mass lesion is evident. No acute infarcts are evident. Periventricular white matter hypodensity may be present, likely on the basis of chronic white matter ischemic changes. Ventricles and sulci are appropriate for the patient age. Paranasal sinuses and mastoid air cells within the [id number] are clear. IMPRESSIONS: 1. Suggestion of very mild chronic appearing periventricular white matter changes.
[2019-03-03] MEDS ORDERED: ASPIRIN 81 MG PO STA (15:46)
[2019-03-03 16:19] VITALS: BP 141/75; PULSE 75
== END 2019-03-03 16:18 | disposition home or self-care (01) ==
LOC: EC 12:09
DX: G45.9 Transient cerebral ischemic attack, unspecified (principal); I10 Essential (primary) hypertension; Z79.899 Other long term (current) drug therapy; Z91.048 Other nonmedicinal substance allergy status; Z88.8 Allergy status to other drugs, medicaments and biological substances; Z88.5 Allergy status to narcotic agent; Z88.0 Allergy status to penicillin; Z88.1 Allergy status to other antibiotic agents; Z85.41 Personal history of malignant neoplasm of cervix uteri; Z85.43 Personal history of malignant neoplasm of ovary
CPT/HCPCS: 36415; 93005; 80053; 82550; 84484; 85025; 85610; 85730; 70496; 70450; 70498; 99285; 96360; Q9967

== ENCOUNTER 2019-04-19 22:41 | Emergency (ER) | payer BC ==
[2019-04-19 22:47] VITALS: RESP 18; TEMP 98.2
[2019-04-19] MEDS ORDERED: cloNIDine HCL 0.1 MG TAB PO STA (23:17)
[2019-04-20 00:18] VITALS: BP 175/84; PULSE 69
--- NOTE | 2019-04-20 00:20 | ED ---
Recheck HPI - General Chief Complaint: Recheck/Abnormal Lab/Rx Stated Complaint: hypertension following chemo Time Seen by Provider: 04/19/19 22:52 Source: patient Mode of arrival: ambulatory Limitations: no limitations - History of Present Illness Initial Comments: Daniela is a pleasant 64-year-old female currently undergoing chemotherapy, due to reactions to the chemotherapy patient receives IV steroid infusions during her chemotherapy. Patient will for chemo earlier in the day today, she did receive steroids. She has not noted to be mildly hypertensive at that time and was advised that this likely related to steroids. Patient checked her blood pressure upon returning home and noted that her systolic blood pressure was greater than 180, she contacted her physician who advised her to come to the ER for further evaluation. Patient denies any headache, vision changes, chest pain, shortness of breath. Patient states that she otherwise feels quite well. - Related Data Home Medications Medication Instructions Recorded Confirmed Atenolol [Tenormin] 25 mg PO DAILY 02/03/14 04/19/19 Metoclopramide [Reglan] 10 mg PO Q6H PRN 04/19/19 04/19/19 Ondansetron HCl [Zofran] 8 mg PO Q8H PRN 04/19/19 04/19/19 Previous Rx's Medication Instructions Recorded cloNIDine HCL [Catapres] 0.1 mg PO BID PRN #14 tab 04/20/19 Allergies Allergy/AdvReac Type Severity Reaction Status Date / Time adhesive tape Allergy red skin Verified 04/19/19 22:58 carboplatin Allergy Rash/Hives Verified 04/19/19 22:58 morphine Allergy Nausea & Verified 04/19/19 22:58 Vomiting paclitaxel [From Taxol] Allergy Dyspnea, Verified 04/19/19 22:58 ELEV HR amoxicillin [From Augmentin] AdvReac Nausea & Verified 04/19/19 22:58 Vomiting & Diarrhea clavulanic acid AdvReac Nausea & Verified 04/19/19 22:58 [From Augmentin] Vomiting & Diarrhea codeine AdvReac Nausea & Verified 04/19/19 22:58 Vomiting & Diarrhea Review of Systems ROS Statement: Those systems with pertinent positive or pertinent negative responses have been documented in the HPI. ROS Other: All systems not noted in ROS Statement are negative. Past Medical History Past Medical History: Cancer, Hypertension, Skin Disorder Additional Past Medical History / Comment(s): seasonal allergies, hx ovarian can cer, mild diverticulitis, bowel obstruction (post op), small hiatal hernia, mild psoriasis or eczema, ovarian cancer reoccurence (chemo, 04/14) History of Any Multi-Drug Resistant Organisms: None Reported Past Surgical History: Bowel Resection, Cholecystectomy, Hernia Repair, Hysterectomy Additional Past Surgical History / Comment(s): left hand tendon surgery, exploratory abdominal surgeries and cervical ca (DEBULKING SX X2), port inserted/later removed, was a patient at [facility] one week ago for colostomy surgery. Past Anesthesia/Blood Transfusion Reactions: Motion Sickness, Postoperative Nausea & Vomiting (PONV) Additional Past Anesthesia/Blood Transfusion Reaction / Comment(s): STATES USUALLY HAS SCOPOLAMINE PATCH PRE OP Past Psychological History: No Psychological Hx Reported Smoking Status: Never smoker Past Alcohol Use History: None Reported Past Drug Use History: None Reported - Past Family History Mother Family Medical History: Coronary Artery Disease (CAD), Diabetes Mellitus, Thyroid Disorder Father Family Medical History: Coronary Artery Disease (CAD), Diabetes Mellitus General Exam - General Exam Comments Initial Comments: Physical Exam GENERAL: Chemotherapy patient HENT: Normocephalic, Atraumatic. EYES: PERRL, EOMI No papiledema PULMONARY: Unlabored respirations. No audible rales rhonchi or wheezing was noted. CARDIOVASCULAR: There is a regular rate and rhythm without any murmurs gallops or rubs. ABDOMEN: Soft and nontender with normal bowel sounds. SKIN: Skin is clear with no lesions or rashes and otherwise unremarkable. : Deferred NEUROLOGIC: Patient is alert and oriented x3. Moving all extremities spontaneously MUSCULOSKELETAL: Normal extremities with adequate strength and full range of motion. No lower extremity swelling or edema. No calf tenderness. PSYCHIATRIC: Normal psychiatric evaluation. Limitations: no limitations Course Vital Signs 04/19/19 04/20/19 22:43 00:16 Temperature 98.2 F Pulse Rate 75 69 Respiratory 18 18 Rate Blood Pressure 205/82 175/84 O2 Sat by Pulse 99 98 Oximetry Medical Decision Making - Medical Decision Making EKG was obtained due to complaint of hypertension, EKG was obtained at 2323, rate 65 rhythm sinus is normal axis are normal intervals, AL 158, QRS 76, QTC is 451 there are no acute ST elevations or depressions there is no evidence of acute ischemia or infarction. The patient was seen and evaluated history was obtained from patient and family at bedside. Patient with hypertension likely related to steroid infusion earlier in the day. Patient is asymptomatic with no complaints. Patient will be treated with clonidine which she responded well to. Blood pressure improved patient remained a symptomatically comfortable plan for discharge home. Patient will be prescribed a short course of clonidine for her steroid associated hypertension. Patient advised follow-up with primary care and oncologist. Disposition Clinical Impression: Hypertension Disposition: HOME SELF-CARE Condition: Stable Instructions (If sedation given, give patient instructions): Hypertension (ED) Additional Instructions: Take 1 clonidine if your systolic blood pressures greater than 180 on 2 sequential readings 15 minutes apart Prescriptions: cloNIDine HCL [Catapres] 0.1 mg PO BID PRN #14 tab PRN Reason: Hypertension Is patient prescribed a controlled substance at d/c from ED?: No Referrals: Frankie Ortez MD [Primary Care Provider] - 1-2 days
== END 2019-04-20 00:39 | disposition home or self-care (01) ==
LOC: EC 22:41
DX: I10 Essential (primary) hypertension (principal); T38.7X5A Adverse effect of androgens and anabolic congeners, initial encounter; Z79.899 Other long term (current) drug therapy; Z91.048 Other nonmedicinal substance allergy status; Z88.5 Allergy status to narcotic agent; Z88.0 Allergy status to penicillin; Z88.1 Allergy status to other antibiotic agents; Z88.8 Allergy status to other drugs, medicaments and biological substances; Z85.41 Personal history of malignant neoplasm of cervix uteri
CPT/HCPCS: 93005; 99283

== ENCOUNTER → 2019-05-29 | Outpatient (CLI) | payer BC ==
--- NOTE | 2019-05-30 05:08 | CT ---
EXAMINATION TYPE: CT ChestAbdPelvis w con DATE OF EXAM: 05/29/2019 COMPARISON: 01/09/2019 and 07/04/2018 HISTORY: 64-year-old female Ovarian CA TECHNIQUE: Contiguous axial scanning of the chest, abdomen, and pelvis performed with IV Contrast, pa tient injected with 100 mL of Isovue 300. Delayed images through the kidneys were obtained. Coronal/s agittal reconstructions performed. CT DLP: 878.5 mGycm Automated exposure control for dose reduction was used. FINDINGS: CHEST: Right anterior chest wall injection port with catheter tip at the cavoatrial junction. Heart normal size without pericardial effusion. Aorta normal caliber with bovine configuration to the aortic arch. No thoracic lymphadenopathy by CT size criteria Evaluation of the lungs shows mild biapical pleural-parenchymal scarring and minimal centrilobular em physema. Stable punctate 2 mm right upper lobe nodule, axial image 24. No consolidation or pleural ef fusion. ABDOMEN: Liver shows no focal lesion. Bile duct is less pronounced as compared to prior exam. Portal venous sy stem is patent Adrenal glands, left kidney with extrarenal pelvis, and pancreas appear within normal limits. Spleen borderline enlarged at 13.9 cm on coronal series. 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 Some surgical clips along the omentum corresponding to prior surgery Normal appendix. Colonic reanastomosis again seen at the hepatic flexure. The previously seen wall thickening in this region has resolved. Also, redemonstrated a side to end anastomosis at the rectosigmoid junction Some bulging laxity in the region of the linea alba with prior mesh repair and stable postsurgical th ickening. Stable small right upper quadrant ventral abdominal wall hernia containing omental fat measuring 2.7 cm wide. The abdominal wall defect measures 5 mm wide. No mesenteric or retroperitoneal lymphadenopathy. No definite suspicious peritoneal nodularity seen a t this time Scattered surgical clips along the retroperitoneum and iliac chains from lymph node dissection. PELVIS: Bladder urine distended. Uterus and ovaries surgically absent. No abnormal fluid collection in the pe lvis or pelvic lymphadenopathy. The previously seen focal soft tissue nodularity just above the distal anastomosis within the right u pper pelvis currently measures 1.8 x 1.6 x 1.4 cm, coronal image 54 and axial image 93 (versus 3.2 x 2.2 x 2.1 cm, previously). BONES: Degenerative disc disease at L5-S1. No osseous destructive process seen. IMPRESSION: 1. RIGHT UPPER PELVIC PERITONEAL DEPOSIT HAS DECREASED IN SIZE CURRENTLY MEASURING 1.8 X 1.6 X 1.4 CM (VERSUS 3.2 X 2.2 X 2.1 CM, PREVIOUSLY). CONTINUED FOLLOW-UP RECOMMENDED THIS WAS A NEW FINDING A S COMPARED TO 07/04/2018. 2. THE PREVIOUS COLONIC WALL THICKENING ALONG THE ANASTOMOSIS AT THE HEPATIC FLEXURE HAS RESOLVED. 3. NO ADDITIONAL METASTATIC DISEASE IDENTIFIED.
== END | disposition home or self-care (01) ==
LOC: RADPROMAIN 13:53
PROVIDERS: ATTEND Internal Medicine Hematology & Oncology
DX: C56.2 Malignant neoplasm of left ovary (principal); R93.5 Abnormal findings on diagnostic imaging of other abdominal regions, including retroperitoneum
CPT/HCPCS: 82565; 84520; 71260; 74177; 36415; Q9967 ×2

== ENCOUNTER → 2019-08-07 | Outpatient (CLI) | payer BC ==
[2019-08-07 14:07] LABS: African American GFR (CKD) >90 (>60 ml/min/1.73 sqM); Blood Urea Nitrogen 19 mg/dL (7-17); Non-African American GFR(CKD) >90 (>60 ml/min/1.73 sqM)
--- NOTE | 2019-08-07 16:28 | CT ---
EXAMINATION TYPE: CT ChestAbdPelvis w con DATE OF EXAM: 08/07/2019 COMPARISON: Prior CT 05/29/2019 HISTORY: Follow up ovarian cancer post chemotherapy CT DLP: 680.2 mGycm Automated exposure control for dose reduction was used. CONTRAST: CT scan of the chest, abdomen and pelvis is performed with Oral Contrast and with IV Contrast, patien t injected with 100 mL of Isovue 300. FINDINGS: LUNGS: The lungs are grossly clear, there is no concerning parenchymal mass or nodule identified. T here is no pleural effusion or pneumothorax seen. The tracheobronchial tree is patent. MEDIASTINUM: There are no greater than 1 cm hilar or mediastinal lymph nodes. No pericardial effusi on is seen. AORTA: No significant abnormality is seen. OTHER: Postprocedural changes are noted within the pelvis and abdomen. Ventral abdominal wall hernia changes are again noted LIVER/GB: No significant change1 is appreciated. PANCREAS: No significant abnormality is seen. SPLEEN: No significant abnormality is seen. ADRENALS: No significant abnormality is seen. KIDNEYS: No significant abnormality is seen. REPRODUCTIVE ORGANS: No interval change seen, uterus and adnexal structures no longer present. BOWEL: No significant no change is seen. Adjacent to the sigmoid colon within the pelvis there is a focus of soft tissue which measures approximately 13 x 18 mm similar to prior exam. FREE AIR: No Free Air visible. ASCITES: None seen. RETROPERITONEAL ADENOPATHY: No retroperitoneal adenopathy is seen. LYMPH NODES: No greater than 1 cm abdominal or pelvic lymph nodes are appreciated. URINARY BLADDER: No significant abnormality is seen. PELVIC ADENOPATHY: None visualized. OSSEOUS STRUCTURES: No significant abnormality is seen. IMPRESSION: No significant interval change.
== END | disposition home or self-care (01) ==
LOC: RADPROMAIN 13:22
PROVIDERS: ATTEND Internal Medicine Hematology & Oncology
DX: C56.2 Malignant neoplasm of left ovary (principal)
CPT/HCPCS: 82565; 84520; 71260; 74177; J1642; Q9967

== ENCOUNTER → 2019-09-29 | Outpatient (CLI) | payer BC ==
[2019-09-29 08:29] LABS: Basophils % (A) 1 %; Eosinophils # (A) 0.2 k/uL (0-0.7); Eosinophils % (A) 3 %; HCT 37.2 % (34.0-46.0); HGB 12.7 gm/dL (11.4-16.0); Lymphocytes # (A) 1.9 k/uL (1.0-4.8); Lymphocytes % (A) 34 %; MCH 32.5 pg (25.0-35.0); MCHC 34.1 g/dL (31.0-37.0); MCV 95.5 fL (80.0-100.0); Mean Platelet Volume 9.3; Monocytes # (A) 0.2 k/uL (0-1.0); Monocytes % (A) 4 %; Neutrophils # (A) 3.2 k/uL (1.3-7.7); Neutrophils % (A) 56 %; RBC 3.89 m/uL (3.80-5.40); WBC 5.7 k/uL (3.8-10.6)
[2019-09-29 09:26] LABS: Platelet Count 89 k/uL (150-450)
[2019-09-29 17:07] LABS: Magnesium 1.3 mg/dL (1.5-2.4)
[2019-09-29 17:08] LABS: African American GFR (CKD) 79.4 (60.0-200.0); Albumin 4.6 g/dL (3.80-4.90); Albumin/Globulin Ratio 2.42 (1.60-3.17); Anion Gap 7.8 mmol/L (4.00-12.00); BUN/Creat Ratio 21.11 Ratio (12.00-20.00); Calcium 10.2 mg/dL (8.7-10.3); Carbon Dioxide 28.2 mmol/L (21.6-31.8); Globulin 1.9 g/dL (1.6-3.3); Non-African American GFR(CKD) 68.5 (60.0-200.0); Total Protein 6.5 g/dL (6.2-8.2)
[2019-09-29 17:41] LABS: Cancer Antigen 125 9.6 U/mL (0.0-30.1)
== END | disposition home or self-care (01) ==
LOC: LABWHC1 07:26
PROVIDERS: ATTEND Obstetrics & Gynecology
DX: C56.9 Malignant neoplasm of unspecified ovary (principal)
CPT/HCPCS: 36415; 80053; 83735; 85025; 86304

== ENCOUNTER → 2019-10-08 | Outpatient (CLI) | payer BC ==
[2019-10-08 09:11] LABS: HCT 32.1 % (34.0-46.0); HGB 11.5 gm/dL (11.4-16.0); MCH 33.9 pg (25.0-35.0); MCV 94.1 fL (80.0-100.0); Mean Platelet Volume 8.4; Platelet Count 125 k/uL (150-450); Poikilocytosis Slight; RBC 3.41 m/uL (3.80-5.40); WBC 5.1 k/uL (3.8-10.6)
[2019-10-08 10:00] LABS: Lymphocytes # (M) 1.58 k/uL (1.0-4.8); Monocytes # (M) 0.15 k/uL (0-1.0); Neutrophils # (M) 3.16 k/uL (1.3-7.7); Neutrophils % (M) 62 %; Nucleated Red Blood Cells 0 /100 WBC (0-0); Total Cells Counted 100
[2019-10-08 17:27] LABS: African American GFR (CKD) 69.9 (60.0-200.0); Albumin 4.3 g/dL (3.80-4.90); Albumin/Globulin Ratio 2.39 (1.60-3.17); Anion Gap 10.6 mmol/L (4.00-12.00); Calcium 9.6 mg/dL (8.7-10.3); Carbon Dioxide 26.4 mmol/L (21.6-31.8); Globulin 1.8 g/dL (1.6-3.3); Magnesium 1.4 mg/dL (1.5-2.4); Non-African American GFR(CKD) 60.3 (60.0-200.0); Potassium 3.5 mmol/L (3.5-5.5); Total Bilirubin 1.3 mg/dL (0.3-1.2); Total Protein 6.1 g/dL (6.2-8.2)
== END | disposition home or self-care (01) ==
LOC: LABWHC1 08:05
PROVIDERS: ATTEND Obstetrics & Gynecology
DX: C56.9 Malignant neoplasm of unspecified ovary (principal)
CPT/HCPCS: 36415; 80053; 83735; 85025

== ENCOUNTER → 2019-10-08 | Outpatient (CLI) | payer BC ==
--- NOTE | 2019-10-09 11:14 | MM ---
Reason for exam: screening (asymptomatic). Last mammogram was performed 1 year and 7 months ago. History: Patient is postmenopausal, has history of ovarian cancer at age 53, and had first child at age 44. Took hormonal contraceptives for 2 years. Took progesterone for 2 months beginning at age 49. Physical Findings: A clinical breast exam by your physician is recommended on an annual basis and results should be correlated with mammographic findings. MG 3D Screening Mammo W/Cad Bilateral CC and MLO view(s) were taken. Prior study comparison: March 07, 2018, bilateral MG 3d screening mammo w/cad. August 17, 2016, bilateral MG 3d screening mammo w/cad. There are scattered fibroglandular densities. Benign appearing bilateral calcifications. No suspicious abnormality. No significant changes when compared with prior studies. ASSESSMENT: Benign, BI-RAD 2 RECOMMENDATION: Routine screening mammogram of both breasts in 1 year.
== END | disposition home or self-care (01) ==
LOC: RADMAMWWP 07:59
PROVIDERS: ATTEND Internal Medicine
DX: Z12.31 Encounter for screening mammogram for malignant neoplasm of breast (principal)
CPT/HCPCS: 77063; 77067

== ENCOUNTER → 2019-11-13 | Outpatient (CLI) | payer BC ==
[2019-11-13 10:54] LABS: Anisocytosis Slight; HCT 29.9 % (34.0-46.0); HGB 10.6 gm/dL (11.4-16.0); Hyperchromasia Slight; MCH 35.6 pg (25.0-35.0); MCHC 35.5 g/dL (31.0-37.0); Macrocytosis Moderate; Mean Platelet Volume 9.3; Platelet Count 104 k/uL (150-450); Poikilocytosis Slight; RBC 2.99 m/uL (3.80-5.40); RDW 19.6 % (11.5-15.5); WBC 6.6 k/uL (3.8-10.6)
[2019-11-13 10:56] LABS: MCV 100.1 fL (80.0-100.0)
[2019-11-13 11:47] LABS: Neutrophils % (M) 50 %; Nucleated Red Blood Cells 0 /100 WBC (0-0); Total Cells Counted 100
[2019-11-13 16:44] LABS: Cancer Antigen 125 10.4 U/mL (0.0-30.1)
[2019-11-13 17:47] LABS: African American GFR (CKD) 79.4 (60.0-200.0); Albumin 4.6 g/dL (3.80-4.90); Albumin/Globulin Ratio 2.19 (1.60-3.17); Anion Gap 13.9 mmol/L (4.00-12.00); BUN/Creat Ratio 21.11 Ratio (12.00-20.00); Calcium 10.1 mg/dL (8.7-10.3); Carbon Dioxide 26.1 mmol/L (21.6-31.8); Globulin 2.1 g/dL (1.6-3.3); Non-African American GFR(CKD) 68.5 (60.0-200.0); Potassium 3.5 mmol/L (3.5-5.5); Total Bilirubin 1.6 mg/dL (0.3-1.2); Total Protein 6.7 g/dL (6.2-8.2)
== END | disposition home or self-care (01) ==
LOC: LABWHC1 09:43
PROVIDERS: ATTEND Obstetrics & Gynecology
DX: C56.1 Malignant neoplasm of right ovary (principal)
CPT/HCPCS: 36415; 80053; 85025; 86304

== ENCOUNTER → 2020-02-12 | Outpatient (CLI) | payer BC ==
--- NOTE | 2020-02-15 21:15 | CT ---
EXAMINATION TYPE: CT ChestAbdPelvis w con DATE OF EXAM: 02/14/2020 COMPARISON: 08/07/2019 and 05/29/2019 HISTORY: 64-year-old female follow up ovarian cancer TECHNIQUE: Contiguous axial scanning of the chest, abdomen, and pelvis performed with IV Contrast, pa tient injected with 100 mL of Isovue 300. Delayed images through the kidneys were obtained. Coronal/s agittal reconstructions performed. CT DLP: 1127 mGycm Automated exposure control for dose reduction was used. FINDINGS: CHEST: Right anterior chest wall injection port with catheter tip at the lower SVC. Heart normal size without pericardial effusion. Aorta normal caliber with bovine configuration to the aortic arch. No thoracic lymphadenopathy by CT size criteria. Tiny 3 mm peripheral right upper lobe pulmonary nodule, axial image 26 is unchanged. Biapical pleural-parenchymal scarring. No consolidation or pleural effusion. ABDOMEN: Liver mildly enlarged at 18.0 cm. There may be underlying mild fatty infiltration. No focal lesion se en. Status post cholecystectomy. Unchanged mild prominence to the bile duct. Portal venous system is patent. Adrenal glands, spleen, and pancreas appear within normal limits. Slight malrotation of the right kidney is unchanged as is a 7 mm cortical hypodensity medially sugges tive of a cyst. Stable mild left-sided pelvic caliectasis suggesting benign, chronic etiology. Postsurgical changes redemonstrated along the anterior abdominal wall with a small fatty umbilical he rnia. No dilated small bowel, free fluid, or free air. No mesenteric or retroperitoneal lymphadenopathy. Surgical clips along the left omentum and along the lower retroperitoneum. Oral contrast progressed to the descending colon. Mild stool burden. No pericolonic inflammatory pedro ge. PELVIS: Bladder urine distended. Uterus and ovaries surgically absent. Surgical clips along the pelvis and pe lvic sidewalls. Enlarging soft tissue nodule within the right adnexa measuring 2.4 x 1.6 cm versus 1.5 x 1.0 cm, prev iously on 08/07/2019. Adjacent stable alignment from prior bowel surgery along the distal sigmoid. No abnormal fluid collection in the pelvis are otherwise any pelvic lymphadenopathy seen. BONES: Degenerative changes lower lumbar spine. No osseous destructive process. IMPRESSION: 1. INTERVAL ENLARGEMENT OF THE RIGHT PELVIC PERITONEAL DEPOSIT CURRENTLY MEASURING 2.4 X 1.6 CM VERSU S 1.5 X 1.0 CM, PREVIOUSLY. LOCAL PROGRESSION IS SUGGESTED. 2. HOWEVER, NO ADDITIONAL METASTATIC DISEASE IS IDENTIFIED.
== END | disposition home or self-care (01) ==
LOC: RADCTMAIN 11:06
PROVIDERS: ATTEND Internal Medicine Hematology & Oncology
DX: R19.09 Other intra-abdominal and pelvic swelling, mass and lump (principal); C56.2 Malignant neoplasm of left ovary
CPT/HCPCS: 82565; 84520; 71260; 74177; 36415; Q9967

== ENCOUNTER 2020-03-10 09:32 | Emergency (ER) | payer BC ==
[2020-03-10 09:36] VITALS: TEMP 99.3
[2020-03-10] MEDS ORDERED: SODIUM CHLORIDE 0.9% 1,000 ML IV STA (09:48)
--- NOTE | 2020-03-10 10:04 | ED ---
General Adult HPI - General Chief complaint: Back Pain/Injury Stated complaint: L sided back pain Time Seen by Provider: 03/10/20 09:38 Source: patient, RN notes reviewed Mode of arrival: ambulatory Limitations: no limitations - History of Present Illness Initial comments: 64-year-old female with a past medical history of ovarian cancer currently on oral chemotherapy, hypertension presents to the emergency room for a chief complaint of left-sided flank pain. Patient states that she is concerned she may have a kidney infection. States she does believe she has had some burning with urination over the past day. Patient states that her back in the left flank started hurting last night. States she tried to massage it and take Tylenol without improvement. No fevers. No abdominal pain.Patient has no other complaints at this time including shortness of breath, chest pain, abdominal pain, nausea or vomiting, headache, or visual changes. - Related Data Home Medications Medication Instructions Recorded Confirmed Atenolol [Tenormin] 50 mg PO DAILY 03/10/20 03/10/20 Calcium Carb/Vitamin D3/Vit K1 2 tab PO DAILY 03/10/20 03/10/20 [Viactiv Soft Chew Tablet] Cholecalciferol [Vitamin D3 (25 3,000 unit PO DAILY 03/10/20 03/10/20 Mcg = 1000 Iu)] Cyanocobalamin (Vitamin B-12) 1,000 mcg PO DAILY 03/10/20 03/10/20 [Vitamin B-12] Folic Acid 1 mg PO DAILY 03/10/20 03/10/20 Magnesium Oxide 400 mg PO AC-SUPPER 03/10/20 03/10/20 Magnesium Oxide 800 mg PO AC-BRKFST 03/10/20 03/10/20 Multivitamins, Thera [Multivitamin 1 tab PO DAILY 03/10/20 03/10/20 (formulary)] Potassium Chloride ER [K-Dur 20] 20 meq PO AC-BRKFST 03/10/20 03/10/20 Potassium Chloride ER [K-Dur 20] 40 meq PO AC-SUPPER 03/10/20 03/10/20 Rucaparib Camsylate [Rubraca] 400 mg PO BID@0900,2100 03/10/20 03/10/20 Triamterene-Hctz 37.5-25Mg 0.5 tab PO DAILY 03/10/20 03/10/20 [Maxzide 37.5-25] Allergies Allergy/AdvReac Type Severity Reaction Status Date / Time adhesive tape Allergy red skin Verified 03/10/20 10:15 carboplatin Allergy Rash/Hives Verified 03/10/20 10:15 morphine Allergy Nausea & Verified 03/10/20 10:15 Vomiting paclitaxel [From Taxol] Allergy Dyspnea, Verified 03/10/20 10:15 ELEV HR amoxicillin [From Augmentin] AdvReac Nausea & Verified 03/10/20 10:15 Vomiting & Diarrhea clavulanic acid AdvReac Nausea & Verified 03/10/20 10:15 [From Augmentin] Vomiting & Diarrhea codeine AdvReac Nausea & Verified 03/10/20 10:15 Vomiting & Diarrhea Review of Systems ROS Statement: Those systems with pertinent positive or pertinent negative responses have been documented in the HPI. ROS Other: All systems not noted in ROS Statement are negative. Past Medical History Past Medical History: Cancer, Hypertension, Skin Disorder Additional Past Medical History / Comment(s): seasonal allergies, hx ovarian cancer, mild diverticulitis, bowel obstruction (post op), small hiatal hernia, mild psoriasis or eczema, ovarian cancer reoccurence (chemo, 04/14) History of Any Multi-Drug Resistant Organisms: None Reported Past Surgical History: Bowel Resection, Cholecystectomy, Hernia Repair, Hysterectomy Additional Past Surgical History / Comment(s): left hand tendon surgery, exploratory abdominal surgeries and cervical ca (DEBULKING SX X2), port inserted/later removed, was a patient at [facility] one [facility] for colostomy surgery. Past Anesthesia/Blood Transfusion Reactions: Motion Sickness, Postoperative Nausea & Vomiting (PONV) Additional Past Anesthesia/Blood Transfusion Reaction / Comment(s): STATES USUALLY HAS SCOPOLAMINE PATCH PRE OP Past Psychological History: No Psychological Hx Reported Smoking Status: Never smoker Past Alcohol Use History: None Reported Past Drug Use History: None Reported - Past Family History Mother Family Medical History: Coronary Artery Disease (CAD), Diabetes Mellitus, Thyroid Disorder Father Family Medical History: Coronary Artery Disease (CAD), Diabetes Mellitus General Exam Limitations: no limitations General appearance: alert, in no apparent distress Head exam: Present: atraumatic, normocephalic, normal inspection Eye exam: Present: normal appearance, PERRL, EOMI. Absent: scleral icterus, c onjunctival injection, periorbital swelling ENT exam: Present: normal exam, mucous membranes moist Neck exam: Present: normal inspection, full ROM. Absent: tenderness, meningismus, lymphadenopathy Respiratory exam: Present: normal lung sounds bilaterally. Absent: respiratory distress, wheezes, rales, rhonchi, stridor Cardiovascular Exam: Present: regular rate, normal rhythm, normal heart sounds. Absent: systolic murmur, diastolic murmur, rubs, gallop, clicks GI/Abdominal exam: Present: soft, normal bowel sounds. Absent: distended, tenderness, guarding, rebound, rigid Back exam: Absent: CVA tenderness (R), CVA tenderness (L) Neurological exam: Present: alert Course Vital Signs 03/10/20 09:33 Temperature 99.3 F Pulse Rate 90 Respiratory 18 Rate Blood Pressure 163/77 O2 Sat by Pulse 99 Oximetry Medical Decision Making - Medical Decision Making Vitals are stable. CBC is unremarkable. Thrombocytopenia is chronic. CMP is unremarkable. Lactic acid is elevated at 2.8 however there is no source of infection, this is likely related to dehydration. Slightly elevated bilirubin and transaminitis appears chronic. Urinalysis does not show evidence of infection. CT abdomen and pelvis shows some slight interval growth of patient's peritoneal implant measuring 2.6 cm. at this time patient's pain may be more musculoskeletal in nature. She was given Toradol which did help with her pain. She was offered pain medication for home which she refused. She will follow up with her oncologist for interval growth of metastasis. Case was discussed with Dr. Piedra. - Lab Data Result diagrams: 03/10/20 10:12 03/10/20 10:12 Lab Results 03/10/20 03/10/20 03/10/20 Range/Units 10:12 10:12 10:12 WBC 5.9 (3.8-10.6) k/uL RBC 3.04 L (3.80-5.40) m/uL Hgb 11.5 (11.4-16.0) gm/dL Hct 31.7 L (34.0-46.0) % MCV 104.1 H (80.0-100.0) fL MCH 37.9 H (25.0-35.0) pg MCHC 36.4 (31.0-37.0) g/dL RDW 15.4 (11.5-15.5) % Plt Count 73 L (150-450) k/uL Neutrophils % 63 % Lymphocytes % 25 % Monocytes % 6 % Eosinophils % 3 % Basophils % 0 % Neutrophils # 3.7 (1.3-7.7) k/uL Lymphocytes # 1.5 (1.0-4.8) k/uL Monocytes # 0.4 (0-1.0) k/uL Eosinophils # 0.2 (0-0.7) k/uL Basophils # 0.0 (0-0.2) k/uL Manual Slide Review Performed Polychromasia Present Poikilocytosis Slight Anisocytosis (manual) Present Macrocytosis Moderate Sodium 137 (137-145) mmol/L Potassium 3.5 (3.5-5.1) mmol/L Chloride 105 (98-107) mmol/L Carbon Dioxide 23 (22-30) mmol/L Anion Gap 9 mmol/L BUN 14 (7-17) mg/dL Creatinine 0.76 (0.52-1.04) mg/dL Est GFR (CKD-EPI)AfAm >90 (>60 ml/min/1.73 sqM) Est GFR (CKD-EPI)NonAf 85 (>60 ml/min/1.73 sqM) Glucose 130 H (74-99) mg/dL Plasma Lactic Acid Twan (0.7-2.0) mmol/L Calcium 9.8 (8.4-10.2) mg/dL Total Bilirubin 1.5 H (0.2-1.3) mg/dL AST 70 H (14-36) U/L ALT 68 H (4-34) U/L Alkaline Phosphatase 92 (38-126) U/L Total Protein 6.3 (6.3-8.2) g/dL Albumin 4.2 (3.5-5.0) g/dL Amylase 42 (30-110) U/L Lipase 41 (23-300) U/L Urine Color Yellow Urine Appearance Clear (Clear) Urine pH 6.5 (5.0-8.0) Ur Specific [place] 1.014 (1.001-1.035) Urine Protein Negative (Negative) Urine Glucose (UA) Negative (Negative) Urine Ketones Negative (Negative) Urine Blood Trace H (Negative) Urine Nitrite Negative (Negative) Urine Bilirubin Negative (Negative) Urine Urobilinogen <2.0 (<2.0) mg/dL Ur Leukocyte Esterase Trace H (Negative) Urine RBC 2 (0-5) /hpf Urine WBC 3 (0-5) /hpf Ur Squamous Epith Cells <1 (0-4) /hpf Urine Mucus Rare H (None) /hpf 03/10/20 Range/Units 10:12 WBC (3.8-10.6) k/uL RBC (3.80-5.40) m/uL Hgb (11.4-16.0) gm/dL Hct (34.0-46.0) % MCV (80.0-100.0) fL MCH (25.0-35.0) pg MCHC (31.0-37.0) g/dL RDW (11.5-15.5) % Plt Count (150-450) k/uL Neutrophils % % Lymphocytes % % Monocytes % % Eosinophils % % Basophils % % Neutrophils # (1.3-7.7) k/uL Lymphocytes # (1.0-4.8) k/uL Monocytes # (0-1.0) k/uL Eosinophils # (0-0.7) k/uL Basophils # (0-0.2) k/uL Manual Slide Review Polychromasia Poikilocytosis Anisocytosis (manual) Macrocytosis Sodium (137-145) mmol/L Potassium (3.5-5.1) mmol/L Chloride (98-107) mmol/L Carbon Dioxide (22-30) mmol/L Anion Gap mmol/L BUN (7-17) mg/dL Creatinine (0.52-1.04) mg/dL Est GFR (CKD-EPI)AfAm (>60 ml/min/1.73 sqM) Est GFR (CKD-EPI)NonAf (>60 ml/min/1.73 sqM) Glucose (74-99) mg/dL Plasma Lactic Acid Twan 2.8 H* (0.7-2.0) mmol/L Calcium (8.4-10.2) mg/dL Total Bilirubin (0.2-1.3) mg/dL AST (14-36) U/L ALT (4-34) U/L Alkaline Phosphatase (38-126) U/L Total Protein (6.3-8.2) g/dL Albumin (3.5-5.0) g/dL Amylase (30-110) U/L Lipase (23-300) U/L Urine Color Urine Appearance (Clear) Urine pH (5.0-8.0) Ur Specific [place] (1.001-1.035) Urine Protein (Negative) Urine Glucose (UA) (Negative) Urine Ketones (Negative) Urine Blood (Negative) Urine Nitrite (Negative) Urine Bilirubin (Negative) Urine Urobilinogen (<2.0) mg/dL Ur Leukocyte Esterase (Negative) Urine RBC (0-5) /hpf Urine WBC (0-5) /hpf Ur Squamous Epith Cells (0-4) /hpf Urine Mucus (None) /hpf Disposition Clinical Impression: Flank pain Disposition: HOME SELF-CARE Condition: Good Instructions (If sedation given, give patient instructions): Flank Pain (ED) Additional Instructions: Please follow up with oncologist for increase in size of metastasis. Follow-up with primary care for back pain. If you've any worsening symptoms return to the emergency room. Is patient prescribed a controlled substance at d/c from ED?: No Referrals: Frankie Ortez MD [Primary Care Provider] - 1-2 days Time of Disposition: 12:21
[2020-03-10 10:24] LABS: Appearance,Urine Clear (Clear); Bilirubin,Urine Negative (Negative); Blood,Urine Trace (Negative); Color,Urine Yellow; Glucose,Urine (UA) Negative (Negative); Ketones,Urine Negative (Negative); Leukocyte Esterase,Urine Trace (Negative); Mucus,Urine Rare /hpf; Nitrite,Urine Negative (Negative); PH, Urine 6.5 (5.0-8.0); Protein,Urine Negative (Negative); RBC,Urine 2 /hpf (0-5); Specific Gravity,Urine 1.014 (1.001-1.035); Squamous Epithelial Cell,Urine <1 /hpf (0-4); Urobilinogen,Urine <2.0 mg/dL (<2.0); WBC,Urine 3 /hpf (0-5)
[2020-03-10 10:30] LABS: Basophils % (A) 0 %; Eosinophils # (A) 0.2 k/uL (0-0.7); Eosinophils % (A) 3 %; HCT 31.7 % (34.0-46.0); HGB 11.5 gm/dL (11.4-16.0); Lymphocytes # (A) 1.5 k/uL (1.0-4.8); Lymphocytes % (A) 25 %; MCH 37.9 pg (25.0-35.0); MCHC 36.4 g/dL (31.0-37.0); MCV 104.1 fL (80.0-100.0); Macrocytosis Moderate; Mean Platelet Volume 8.8; Monocytes # (A) 0.4 k/uL (0-1.0); Monocytes % (A) 6 %; Neutrophils # (A) 3.7 k/uL (1.3-7.7); Neutrophils % (A) 63 %; Poikilocytosis Slight; RBC 3.04 m/uL (3.80-5.40); RDW 15.4 % (11.5-15.5); WBC 5.9 k/uL (3.8-10.6)
[2020-03-10 10:35] LABS: ALT 68 U/L (4-34); AST 70 U/L (14-36); African American GFR (CKD) >90 (>60 ml/min/1.73 sqM); Albumin 4.2 g/dL (3.5-5.0); Alkaline Phosphatase 92 U/L (38-126); Amylase 42 U/L (30-110); Anion Gap 9 mmol/L; Blood Urea Nitrogen 14 mg/dL (7-17); Calcium 9.8 mg/dL (8.4-10.2); Carbon Dioxide 23 mmol/L (22-30); Chloride 105 mmol/L (98-107); Glucose 130 mg/dL (74-99); Lipase 41 U/L (23-300); Non-African American GFR(CKD) 85 (>60 ml/min/1.73 sqM); Potassium 3.5 mmol/L (3.5-5.1); Sodium 137 mmol/L (137-145); Total Bilirubin 1.5 mg/dL (0.2-1.3); Total Protein 6.3 g/dL (6.3-8.2)
[2020-03-10 10:55] LABS: Platelet Count 73 k/uL (150-450)
[2020-03-10 10:57] LABS: Anisocytosis (M) Present; Polychromasia Present
[2020-03-10] MEDS ORDERED: KETOROLAC 30 MG/ML 1 ML VIAL IVP STA (11:31)
--- NOTE | 2020-03-10 11:31 | CT ---
EXAMINATION TYPE: CT abdomen pelvis w con DATE OF EXAM: 03/10/2020 COMPARISON: Prior CT 02/12/2020 HISTORY: Left flank pain CT DLP: 854.8 mGycm Automated exposure control for dose reduction was used. TECHNIQUE: Helical acquisition of images from the lung bases through the pelvis have been completed. CONTRAST: Performed without Oral Contrast and with IV Contrast, patient injected with 100 ml mL of Isovue 300. FINDINGS: LUNG BASES: No significant abnormality is appreciated. AORTA: No significant abnormality is appreciated. LIVER/GB: No significant change is appreciated. Patient is post cholecystectomy. Liver is enlarged, s hows low attenuation compatible with hepatic steatosis. PANCREAS: No significant abnormality is seen. SPLEEN: No significant abnormality is seen. ADRENALS: No significant abnormality is seen. KIDNEYS: Stable. REPRODUCTIVE ORGANS: Patient is post hysterectomy and oophorectomy BOWEL: Postop changes are again n oted anterior abdomen, stomach protrudes anteriorly in the upper abdomen as on prior exam. Scattered small bowel folds show wall thickening. FREE AIR: No Free Air visible. ASCITES: None visible. PELVIC ADENOPATHY: None visualized. RETROPERITONEAL ADENOPATHY: No Retroperitoneal Adenopathy visible. URINARY BLADDER: No significant abnormality is seen. OSSEOUS STRUCTURES: Degenerative disc change present in the lumbar spine. Peritoneal soft tissue in the right adnexal region is present measures approximately 2.6 cm IMPRESSION: THERE MAY BE SOME SLIGHT INTERVAL GROWTH OF PATIENT'S PERITONEAL IMPLANT.
[2020-03-10 12:48] VITALS: BP 141/61; PULSE 75; RESP 16
== END 2020-03-10 12:50 | disposition home or self-care (01) ==
LOC: EC 09:32
DX: R10.9 Unspecified abdominal pain (principal); C56.9 Malignant neoplasm of unspecified ovary; R74.0 Nonspecific elevation of levels of transaminase and lactic acid dehydrogenase [LDH]; I10 Essential (primary) hypertension; Z79.899 Other long term (current) drug therapy; Z79.811 Long term (current) use of aromatase inhibitors; Z88.1 Allergy status to other antibiotic agents; Z88.5 Allergy status to narcotic agent; Z88.8 Allergy status to other drugs, medicaments and biological substances; Z91.048 Other nonmedicinal substance allergy status
CPT/HCPCS: 36415; 80053; 82150; 83605; 83690; 83735; 85025; 81001; 87086; 74177; 99284; 96374; 96361; J1885; Q9967

== ENCOUNTER → 2020-04-09 | Outpatient (CLI) | payer BC ==
--- NOTE | 2020-04-13 06:43 | PE ---
EXAMINATION TYPE: PET CT fusion skull to thigh DATE OF EXAM: 04/09/2020 COMPARISON: Most recent CT March 10, 2020 and multiple older studies. Most recent PET/CT March 10, 2017 and older PET/CT. HISTORY: Ovarian cancer progress study. Currently on chemotherapy. Originally diagnosed 2007. Right pelvic recurrence 2013 TECHNIQUE: Following the intravenous administration of 10.8 mCi of F-18 FDG, whole body images are p erformed from the skull base to the midthigh. Images are reviewed on the computer in the coronal, ax ial, and sagittal planes. Reconstructed rotating images are created on independent workstation and r eviewed on the computer. A noncontrast CT is performed in conjunction with the PET scan. SCAN: Subsequent Scan FINDINGS: SKULL BASE AND NECK: No new areas of abnormal hypermetabolic uptake. CHEST, MEDIASTINUM, AND HILAR REGION: No new areas of abnormal hypermetabolic uptake. ABDOMEN AND PELVIS: There is right pelvic 2.5 x 1.9 cm hypermetabolic lesion axial image 191, max SUV is 11.91. Surgical sutures in adjacent bowel loops seen just inferior to this. Finding consistent wi th peritoneal deposit or adenopathy related to either ovarian or colon primary neoplasm. Overall no s ignificant change in size from CTs since January 09, 2019 comparison. No new additional areas of suspicious hypermetabolic uptake. OSSEOUS STRUCTURES: No new areas of abnormal hypermetabolic uptake. OTHER CT: Stable right internal jugular Mediport catheter. Liver remains diffusely low dense consistent with fatty infiltration. Cholecystectomy clips are rede monstrated. Surgical sutures from prior mesenteric dissection left upper to mid abdomen anteriorly are redemonstr ated. There are additional surgical clips along the pelvic sidewall bilaterally. Uterus is surgically absent. Surgical sutures bowel loop right mid abdomen axial image 160. Eventration of the anterior abdominal wall with focal hernia defect near umbilicus axial image 172. Additional surgical sutures in right pe lvic bowel loops. Scattered pelvic phleboliths. Disc space narrowing and vacuum disc phenomenon lumbo sacral junction. IMPRESSION: Right pelvic peritoneal deposit is thought stable. No new areas of metastatic disease jony ntified.
== END | disposition home or self-care (01) ==
LOC: RADPETMAIN 15:48
PROVIDERS: ATTEND Internal Medicine Hematology & Oncology
DX: C56.2 Malignant neoplasm of left ovary (principal)
CPT/HCPCS: 78815; A9552

== ENCOUNTER → 2020-06-17 | Outpatient (CLI) | payer BC ==
[2020-06-17 09:49] LABS: African American GFR (CKD) >90 (>60 ml/min/1.73 sqM); Blood Urea Nitrogen 15 mg/dL (7-17); Non-African American GFR(CKD) 85 (>60 ml/min/1.73 sqM)
--- NOTE | 2020-06-17 11:23 | CT ---
EXAMINATION TYPE: CT ChestAbdPelvis w con DATE OF EXAM: 06/17/2020 COMPARISON: 04/09/2020 and 02/12/2020 HISTORY: 65-year-old female Malignant neoplasm of Lt ovary TECHNIQUE: Contiguous axial scanning of the chest, abdomen, and pelvis performed with IV Contrast, pa tient injected with 100 mL of Isovue 300. Delayed images through the kidneys were obtained. Coronal/s agittal reconstructions performed. CT DLP: 1784 mGycm Automated exposure control for dose reduction was used. FINDINGS: CHEST: Right anterior chest wall injection port with catheter tip at the cavoatrial junction. Heart normal size without pericardial effusion. Aorta normal caliber with bovine configuration to the aortic arch. No thoracic lymphadenopathy by CT size criteria. No consolidation or pleural effusion. Mild right apical pleural-parenchymal scarring. ABDOMEN: Liver borderline in size at 17.3 cm. Portal venous system is patent. Stable slight prominence to the bile duct status post cholecystectomy. There is ventral abdominal wall mesh repair redemonstrated. Adrenal glands, left kidney with extrarenal pelvis, spleen, and mildly atrophic pancreas show no omi s abnormal body. Tiny 6 mm cortical hypodensity medial right kidney is unchanged, suggestive of a cyst. Normal appendix. Scattered postsurgical change along the omentum. No mesenteric or retroperitoneal lymphadenopathy. PELVIS: There is increasing hazy density within the right side of the pelvis at the site of patient's periton eal implant. Overall size of approximately 2.3 x 1.5 cm versus 2.4 x 1.6 cm on 02/12/2020. However, th ere is some increasing soft tissue density and loss of fatty delineation along the right pelvic sidew all at this level at this level just adjacent, axial image 94. Suggestion of some surgical change at the rectosigmoid junction just adjacent as well. Status post hy sterectomy. Prior lymph node dissection with surgical clips along the iliac chains. No abnormal fluid collection the pelvis. Otherwise, no pelvic lymphadenopathy seen. BONES: Degenerative disc disease L5-S1. Facet arthropathy lower lumbar spine. No osseous destructive process . IMPRESSION: 1. THE RIGHT PELVIC PERITONEAL DEPOSIT REMAIN STABLE IN SIZE AT 2.3 X 1.5 CM (BACK TO 02/12/2020). HOW EVER, JUST ADJACENT ALONG THE RIGHT PELVIC SIDEWALL, THERE IS INCREASING ILL-DEFINED SOFT TISSUE DENS ITY. CONTINUED FOLLOW-UP RECOMMENDED ADJACENT LOCAL PROGRESSION IS DIFFICULT TO EXCLUDE AT THIS TI ME. 2. NO OTHER METASTATIC DISEASE IDENTIFIED.
== END | disposition home or self-care (01) ==
LOC: RADCTMAIN 09:08
PROVIDERS: ATTEND Internal Medicine Hematology & Oncology
DX: M79.89 Other specified soft tissue disorders (principal); K66.8 Other specified disorders of peritoneum; C56.2 Malignant neoplasm of left ovary
CPT/HCPCS: 82565; 84520; 71260; 74177; 36415; Q9967

== ENCOUNTER → 2020-12-09 | Outpatient (CLI) | payer BC ==
[2020-12-09 10:27] LABS: African American GFR (CKD) >90 (>60 ml/min/1.73 sqM); Blood Urea Nitrogen 17 mg/dL (7-17); Non-African American GFR(CKD) 81 (>60 ml/min/1.73 sqM)
--- NOTE | 2020-12-09 13:15 | CT ---
EXAMINATION TYPE: CT ChestAbdPelvis w con DATE OF EXAM: 12/09/2020 COMPARISON: Most recent CT June 17, 2020 and older studies HISTORY: ovarian CA follow up. Originally diagnosed 2007. Right pelvic recurrence 2013. CT DLP: 1406 mGycm. Automated Exposure Control for Dose Reduction was Utilized. CONTRAST: CT scan of the thorax, abdomen and pelvis is performed with oral and with IV Contrast, patient inject ed with 100 mL of Isovue 300. FINDINGS: LUNGS: There is no 7 x 7 mm nodule right middle lobe axial image 40. There is additional new 6 x 4 mm right upper lobe nodule axial image 16 . Stable mild right apical scarring. 3 mm nodule lateral righ t upper lobe axial image 22 and new 3 mm nodule right mid lung axial image 31. There is no pleural ef fusion or pneumothorax seen bilaterally. The tracheobronchial tree is patent. MEDIASTINUM: There are no greater than 1 cm hilar or mediastinal lymph nodes. No cardiomegaly or pe ricardial effusion is seen. Bovine type arch which is normal variant. OTHER: Stable right internal jugular Mediport catheter. LIVER/GB: Cholecystectomy clips. Liver is diffusely low dense consistent with diffuse fatty infiltrat ion. Liver size stable and upper limits of normal PANCREAS: No significant abnormality is seen. SPLEEN: No significant abnormality is seen. ADRENALS: No significant abnormality is seen. KIDNEYS: Stable subcentimeter low dense lesion right kidney medially image 35 series 7 is presumed be nign. BOWEL: Oral contrast reaches proximal transverse colon. No suspicious small or large bowel dilatation . GENITAL ORGANS: Uterus is surgically absent. Numerous surgical clips in the pelvis redemonstrated as site of prior right pelvic recurrence. Nonopacified bowel loops at this level makes evaluation subopt imal. Suggestion of some residual irregular soft tissue not contiguous with bowel seen best on cavazos l image 48 measuring approximately 1.9 x 1.0 cm similar in appearance to most recent CT coronal image 43. Abnormal soft tissue lateral to this there axial image 95 shows no increase size or more promine nt masslike appearance versus most recent prior study. LYMPH NODES: No new greater than 1cm abdominal or pelvic lymph nodes are appreciated. OSSEOUS STRUCTURES: Slight scoliotic curvature. Mild disc space narrowing and vacuum disc phenomenon L5-S1 level. OTHER: No significant additional abnormality is seen. IMPRESSION: Residual right pelvic peritoneal deposit remains less well-seen versus most recent PET/CT , not significantly changed from most recent CT study. No new suspicious masses or adenopathy noted.
== END | disposition home or self-care (01) ==
LOC: RADCTMAIN 09:22
PROVIDERS: ATTEND Internal Medicine Hematology & Oncology
DX: C56.9 Malignant neoplasm of unspecified ovary (principal)
CPT/HCPCS: 82565; 84520; 71260; 74177; 36415; Q9967

== ENCOUNTER → 2021-03-07 | Outpatient (CLI) | payer BC ==
[2021-03-07 13:55] LABS: African American GFR (CKD) >90 (>60 ml/min/1.73 sqM); Blood Urea Nitrogen 12 mg/dL (7-17); Non-African American GFR(CKD) >90 (>60 ml/min/1.73 sqM)
--- NOTE | 2021-03-07 15:18 | CT ---
EXAMINATION TYPE: CT ChestAbdPelvis w con DATE OF EXAM: 03/07/2021 COMPARISON: 12/09/2020 HISTORY: Ovarian cancer CT DLP: 1694 mGycm CONTRAST: CT scan of the chest, abdomen and pelvis is performed with Oral Contrast and with IV Contrast, patien t injected with 100 ml mL of Isovue 300. CT Chest: LUNGS: Right upper lobe pulmonary nodule has increased in size and measures 1.1 cm versus 6 mm previo usly. Nodule within the periphery of the right upper lobe is essentially unchanged at 3 mm. Left perihilar nodule measuring 6.5 mm image 21. New left upper lobe pulmonary nodule measuring 6 mm image 24 small 3 mm peripheral nodule left lower lobe is unchanged. Left infrahilar nodule nodule rig ht lower lobe medially image 39 is increased in size and measures 1.3 cm versus 7.3 cm. Small adjacen t 3 mm nodule noted. Additional nodule right lower lobe medially appears new as well and measures 5 m m and is seen best on image 43. MEDIASTINUM: Thoracic aorta is of normal caliber. The heart is not enlarged. No evidence for media stinal mass or adenopathy. HILAR STRUCTURES: No evidence for mass. No hilar adenopathy is appreciated. OTHER: No significant abnormality. CONTRAST CT ABDOMEN AND PELVIS FINDINGS: LIVER/GB: The gallbladder is surgically absent. No space occupying hepatic lesion. Biliary tree is of normal caliber. PANCREAS: No inflammation. No distinct mass. SPLEEN: No splenic enlargement. No lesion seen. ADRENALS: No nodule. No thickening. KIDNEYS/BLADDER: No hydronephrosis. No nephrolithiasis. No disctinct renal mass. BOWEL: Normal appendix. Normal bowel caliber. No inflammation. GENITAL ORGANS: Hysterectomy and nephrectomy changes noted. LYMPH NODES: No greater than 1cm abdominal or pelvic lymph nodes are appreciated. AORTA: No significant abnormality. OSSEOUS STRUCTURES: No significant abnormality is seen. OTHER: Omentectomy clips are in place. Residual right hemipelvic soft tissue currently measuring 1.3 cm versus 1.3 cm previously. IMPRESSION: 1. Slight increase in size and number of pulmonary nodules. 2. Right hemipelvic peritoneal deposit/soft tissue remains unchanged. Hysterectomy and nephrectomy ch anges. No additional metastatic disease present at this time.
== END | disposition home or self-care (01) ==
LOC: RADCTMAIN 12:23
PROVIDERS: ATTEND Internal Medicine Hematology & Oncology
DX: R91.8 Other nonspecific abnormal finding of lung field (principal); M79.9 Soft tissue disorder, unspecified; Z85.43 Personal history of malignant neoplasm of ovary; Z90.710 Acquired absence of both cervix and uterus
CPT/HCPCS: 82565; 84520; 71260; 74177; 36415; Q9967

== ENCOUNTER → 2021-03-07 | Outpatient (CLI) | payer BC ==
--- NOTE | 2021-03-07 16:11 | BD ---
EXAMINATION TYPE: Axial Bone Density DATE OF EXAM: 03/07/2021 COMPARISON: NONE CLINICAL HISTORY: Postmenopausal Height: 5 FT 2 IN Weight: 152 FRAX RISK QUESTIONS: Alcohol (3 or more units per day): NO Family History (Parent hip fracture): NO Glucocorticoids (More than 3mos): NO (Ex: prednisone, prednisolone, methylprednisolone, dexamethasone, and hydrocortisone). History of Fracture in Adulthood: NO Secondary Osteoporosis: 1. Type 1 Diabetes: NO 2. Hyperthyroidism: NO 3. Menopause before 45: NO 4. Malnutrition: NO 5. Chronic liver disease: NO Rheumatoid Arthritis: NO Current Tobacco Use: NO RISK FACTORS HISTORY OF: Surgery to Spine/Hip(right/left)/Wrist (right/left): NO Family History of Osteoporosis: YES Active: YES Diet low in dairy products/other sources of calcium: NO Postmenopausal woman: AGE 52 Take estrogen and/or progesterone medications: NO Lost more than 2 inches in height since high school: NO MEDICATIONS: Additional Medications: ATTENOLOL, H2O PILL, FOLIC ACID, RUBRACA, Additional History: OVARIAN CANCER EXAM MEASUREMENTS: Bone mineral densitometry was performed using the [employer] System. Bone mineral density as measured about the Lumbar spine is: ----- L1-L4(G/cm2): 0.997 T Score Values are as follows: ----- L2: -2.0 ----- L3: -1.0 ----- L4: -0.7 ----- L1-L4: -1.5 Bone mineral density has: INCREASED 2.8 % since study of: 2017 Bone mineral density about the R hip (g/cm2): 0.822 Bone mineral density about the L hip (g/cm2): 0.864 T Score values are as follows: -----R Neck: -1.6 -----L Neck: -1.3 -----R Total: -0.8 -----L Total: -0.5 Bone mineral density has: INCREASED 2.8 % since study of: 2018 IMPRESSION: Osteopenia NOTE: T-SCORE=SD OF THE YOUNG ADULT MEAN.
--- NOTE | 2021-03-08 13:22 | MM ---
Reason for exam: screening (asymptomatic). Last mammogram was performed 1 year and 5 months ago. History: Patient is postmenopausal, has history of ovarian cancer at age 53, and had first child at age 44. Took hormonal contraceptives for 2 years. Took progesterone for 2 months beginning at age 49. Physical Findings: A clinical breast exam by your physician is recommended on an annual basis and results should be correlated with mammographic findings. MG 3D Screening Mammo W/Cad Bilateral CC and MLO view(s) were taken. Prior study comparison: October 08, 2019, bilateral MG 3d screening mammo w/cad. March 07, 2018, bilateral MG 3d screening mammo w/cad. There are scattered fibroglandular densities. ASSESSMENT: Negative, BI-RAD 1 RECOMMENDATION: Routine screening mammogram of both breasts in 1 year.
== END | disposition home or self-care (01) ==
LOC: RADMAMWWP 07:08
PROVIDERS: ATTEND Internal Medicine
DX: Z12.31 Encounter for screening mammogram for malignant neoplasm of breast (principal); Z85.43 Personal history of malignant neoplasm of ovary; Z79.3 Long term (current) use of hormonal contraceptives; M85.89 Other specified disorders of bone density and structure, multiple sites
CPT/HCPCS: 77063; 77067; 77080

== ENCOUNTER → 2021-06-20 | Outpatient (CLI) | payer BC ==
[2021-06-20 17:03] LABS: African American GFR (CKD) >90 (>60 ml/min/1.73 sqM); Blood Urea Nitrogen 20 mg/dL (7-17); Non-African American GFR(CKD) >90 (>60 ml/min/1.73 sqM)
--- NOTE | 2021-06-21 09:05 | CT ---
EXAMINATION TYPE: CT ChestAbdPelvis w con DATE OF EXAM: 06/20/2021 COMPARISON: 03/07/2021, 12/09/2020 HISTORY: 66-year-old female C56.2 ovarian cancer, Z03.89 observations for met TECHNIQUE: Contiguous axial scanning of the chest, abdomen, and pelvis performed with IV Contrast, pa tient injected with 100 mL of Isovue 300. Delayed images through the kidneys were obtained. Coronal/s agittal reconstructions performed. CT DLP: 797.5 mGycm Automated exposure control for dose reduction was used. FINDINGS: CHEST: Heart normal size without pericardial effusion. Aorta normal caliber with bovine configuration to the aortic arch. No thoracic lymphadenopathy by CT size criteria. Medial right middle lobe pulmonary nodule measures 1.6 cm versus 1.4 cm, previously. Medial right basilar pulmonary nodule 9 mm versus 6 mm, previously. Right perihilar nodule, axial image 35 measures 7 mm versus 5 mm, previously. Right upper lobe bilobed nodule measures up to 1.3 cm versus 1.3 cm, previously. A couple left upper lobe nodules, axial image 25 and 27 are slightly increased in size currently erin uring 1.1 cm each versus up to 6 mm, previously. Numerous additional smaller pulmonary nodules are present. Compared to previous, some of the more pun ctate nodule seen previously are all slightly larger. No consolidation or pleural effusion. ABDOMEN: No focal liver lesion or biliary ductal dilatation. Portal venous system is patent. Cholecystectomy c lips. Adrenal glands and pancreas within normal limits. Spleen mildly enlarged at 14.0 cm on coronal series. Rectus diastases with bulging intra-abdominal fat and bowel loops again demonstrated. Surgical clips along the omentum from prior surgery. Additional right upper quadrant surgical clips along the colon. There is new mild right-sided hydronephrosis and hydroureter. The distal right ureter courses to the level of the right-sided pelvic surgical clips. There is an enlarging adjacent peritoneal deposit cur rently measuring 3.8 x 3.2 cm versus 2.5 x 1.8 cm that is contiguous with the serosa of the distal si gmoid colon. No dilated small bowel, free fluid, or free air. Mild to moderate stool burden. No pericolic inflammatory change. PELVIS: Bladder urine distended. Uterus and ovaries surgically absent. No abnormal fluid collection in the pe lvis. Right obturator chain lymph node currently measures 9 mm and is nonspecific but new compared to prior exam. BONES: Facet arthropathy lower lumbar spine. Moderate degenerative disc disease L5-S1. No osseous destructiv e process. IMPRESSION: 1. INTERVAL PROGRESSION IN METASTATIC PULMONARY NODULES. MOST OF THE PREVIOUS NODULES SHOW VARIABLE I NCREASE IN SIZE BY UP TO HALF A CENTIMETER. FOR EXAMPLE, MEDIAL RIGHT MIDDLE LOBE MEASURING 1.6 CM VE RSUS 1.4 CM, PREVIOUSLY. A COUPLE NODULES IN THE LEFT UPPER LOBE MEASURING 1.1 CM VERSUS 6 CM, PREVIO USLY. 2. ENLARGING RIGHT PELVIC PERITONEAL DEPOSIT CURRENTLY MEASURING 3.8 CM VERSUS 2.5 CM, PREVIOUSLY. TH E RIGHT URETER COURSES INTO THIS REGION AND THERE IS NEWLY DEVELOPING MILD RIGHT-SIDED HYDRONEPHROSIS /OBSTRUCTIVE UROPATHY.
== END | disposition home or self-care (01) ==
LOC: RADCTMAIN 16:19
PROVIDERS: ATTEND Internal Medicine Hematology & Oncology
DX: C78.01 Secondary malignant neoplasm of right lung (principal); C78.02 Secondary malignant neoplasm of left lung; K66.8 Other specified disorders of peritoneum; N13.30 Unspecified hydronephrosis; Z85.43 Personal history of malignant neoplasm of ovary
CPT/HCPCS: 82565; 84520; 71260; 74177; 36415; Q9967

== ENCOUNTER → 2021-09-26 | Outpatient (CLI) | payer BC ==
[~2021-09-26] MED LIST changes: -DEXAMETHASONE SOD PHOSPHATE 10 MG/ML 1 ML VIAL IV ONE; -HEPARIN SODIUM,PORCINE 5,000 UNIT/ML 1 ML VIAL SQ ONE; -LACTATED RINGERS 1,000 ML IV SCH; -MIDAZOLAM 2 MG/2 ML VIAL IV PRN; -Pre Op ABX Message 1 EACH MISC MISCELLANE ONE; -SCOPOLAMINE 1.5MG/72HR PATCH TRANSDERM ONE; +diphenhydrAMINE 50 MG CAP PO STA; -fentaNYL (PF) 50 MCG/ML 2 ML AMP IV PRN
--- NOTE | 2021-09-26 20:57 | CT ---
EXAMINATION TYPE: CT ChestAbdPelvis w con DATE OF EXAM: 09/26/2021 COMPARISON: Most recent CT June 20, 2021 and older studies. HISTORY: h/o ovarian ca, obs for mets CT DLP: 751.8 mGycm. Automated Exposure Control for Dose Reduction was Utilized. CONTRAST: CT scan of the thorax, abdomen and pelvis is performed with oral and with IV Contrast, patient inject ed with 80 mL of Isovue 300. FINDINGS: LUNGS: Scattered bilateral pulmonary nodules redemonstrated. Anterior left midlung nodule measures 1. 6 x 1.2 cm axial image 27 versus 1.2 x 0.8 cm prior study axial image 27 increased in size. The right upper lung nodule is decreased in size from 13 x 7 mm to 11 x 5 mm with central cavitation current s tudy axial image 17 versus prior study image 17. More nodules are decreased in size from prior study then increased in size or stable. No pleural effusion or pneumothorax seen bilaterally MEDIASTINUM: There is no new greater than 1 cm hilar or mediastinal lymph nodes. No cardiomegaly or pericardial effusion is seen. OTHER: Stable right internal jugular Mediport catheter. LIVER/GB: Cholecystectomy clips are redemonstrated. PANCREAS: No significant abnormality is seen. SPLEEN: Spleen slightly less prominent in size measuring 13.1 cm long axis coronal image 54. ADRENALS: No significant abnormality is seen. KIDNEYS: On current study there is symmetric cortical medullary uptake but no visualized excretion on delayed images. Mild left-sided hydronephrosis with more severe right-sided hydronephrosis on curren t study. There is hydroureter up to surgical clips in the right pelvis on the right. No left-sided hy droureter. BOWEL: Persistent rectus diastases or outpouchings of bowel and omental fat just above the umbilicus. No hernia defect. Oral contrast reaches the left colon. No suspicious small or large bowel dilatatio n. Surgical clips in the anterior abdominal wall near bowel pouching are redemonstrated. GENITAL ORGANS: Uterus surgically absent. Persistent irregular soft tissue mass upper pelvis just rig ht of midline is felt increasing in size from prior study measuring approximately 4.7 x 4.1 cm axial image 92 versus 3.8 x 3.2 cm prior study. This is site of abrupt end of hydroureter on the right.r Th ere is extension to the right iliac vessels just past the bifurcation. There is possible some encasem ent axial image 91 of the internal and external iliac artery shortly after there bifurcation. Surgica l clips in the right pelvis with redemonstrated, persistent close proximity to poorly distended colon with moderate wall thickening, likely degree of adhesion is present. LYMPH NODES: Suspicious small 7-9 mm lymph node right obturator level of pelvis axial image 101 stabl e in size from prior study. Enlarging 10 x 10 mm left common iliac chain lymph node axis axial image 79 just past aortic bifurcation is increased in size from prior. OSSEOUS STRUCTURES: Slight scoliotic curvature upper thoracic spine. OTHER: No significant additional abnormality is seen. IMPRESSION: Overall mixed response. The majority of pulmonary nodules decreased in size but there is one nodule increased in size. Stable right pelvic suspicious lymph node. Enlarging left common iliac chain lymph node just past bifurcation. Enlarging right upper pelvic soft tissue mass causing worseni ng hydronephrosis and delayed excretion on current study.
== END | disposition home or self-care (01) ==
LOC: RADCTMAIN 13:47
PROVIDERS: ATTEND Internal Medicine Hematology & Oncology
DX: C56.2 Malignant neoplasm of left ovary (principal); R91.8 Other nonspecific abnormal finding of lung field; R59.0 Localized enlarged lymph nodes; N13.30 Unspecified hydronephrosis
CPT/HCPCS: 82565; 84520; 71260; 74177; Q9967

== ENCOUNTER → 2021-11-24 | Outpatient (CLI) | payer BC ==
--- NOTE | 2021-11-25 09:55 | ECHOF ---
Referral Reason:Z01.818 MEASUREMENTS -------- HEIGHT: 160.0 cm WEIGHT: 68.0 kg BP: RVIDd: 2.3 cm (< 3.3) IVSd: 0.9 cm (0.6 - 1.1) LVIDd: 4.2 cm (3.9 - 5.3) LVPWd: 1.1 cm (0.6 - 1.1) IVSs: 1.2 cm LVIDs: 3.1 cm LVPWs: 1.5 cm LA Diam: 3.0 cm (2.7 - 3.8) Ao Diam: 2.4 cm (2.0 - 3.7) AV Cusp: 1.8 cm (1.5 - 2.6) MV EXCURSION: 16.095 mm (> 18.000) MV EF SLOPE: 43 mm/s (70 - 150) EPSS: 0.4 cm MV E Pilo: 0.74 m/s MV DecT: 219 ms MV A Pilo: 0.85 m/s MV E/A Ratio: 0.87 FINDINGS -------- Sinus rhythm. This was a technically good study. The left ventricular size is normal. Left ventricular wall thickness is normal. Overall left vent ricular systolic function is normal with, an EF between 60 - 65 %. The right ventricle is normal in size. The left atrium is normal in size. The right atrium is normal in size. Interatrial and interventricular septum intact. The aortic valve is trileaflet, and appears structurally normal. No aortic stenosis or regurgitation. Mild tricuspid regurgitation present. Right ventricular systolic pressure is normal at < 35 mmHg. Trace/mild (physiologic) pulmonic regurgitation. The aortic root size is normal. Normal inferior vena cava with normal inspiratory collapse consistent with estimated right atrial pre ssure of 5 mmHg. There is no pericardial effusion. CONCLUSIONS -------- 1. The left ventricular size is normal. 2. Left ventricular wall thickness is normal. 3. Overall left ventricular systolic function is normal with, an EF between 60 - 65 %. 4. Mild tricuspid regurgitation present. 5. Trace/mild (physiologic) pulmonic regurgitation. 6. There is no pericardial effusion. GRAPHIC DESIGNER: Cat Snider RD
== END | disposition home or self-care (01) ==
LOC: RADECHMAIN 11:45
PROVIDERS: ATTEND Internal Medicine Hematology & Oncology
DX: Z01.818 Encounter for other preprocedural examination (principal); I07.1 Rheumatic tricuspid insufficiency; I37.1 Nonrheumatic pulmonary valve insufficiency
CPT/HCPCS: 93306

== ENCOUNTER 2021-11-26 21:29 | Inpatient (IN) | payer BC ==
[2021-11-26] MEDS ORDERED: SODIUM CHLORIDE 0.9% 1,000 ML IV STA (22:18)
--- NOTE | 2021-11-26 23:19 | ED ---
Abdominal Pain HPI - General Chief Complaint: Abdominal Pain Stated Complaint: Abd Pain Time Seen by Provider: 11/26/21 22:13 Source: patient, RN notes reviewed, old records reviewed Mode of arrival: ambulatory Limitations: no limitations - History of Present Illness Initial Comments: This is a 66-year-old female to the emergency department for evaluation. Patient presents with abdominal pain nausea and not feeling well this is in the face of a recent chemotherapy. No cough or congestion generalized body aches and pains. MD Complaint: abdominal pain -: hour(s) Location: diffuse, suprapubic Radiation: suprapubic Migration to: no migration Severity: moderate Severity scale (1-10): 6 Consistency: constant Improves With: nothing Worsens With: nothing Context: recent surgery/procedure (Chemotherapy) Associated Symptoms: nausea, vomiting, chills Treatments Prior to Arrival: prescription analgesics - Related Data Home Medications Medication Instructions Recorded Confirmed Calcium Carb/Vitamin D3/Vit K1 2 tab PO DAILY 03/10/20 03/10/20 [Viactiv Soft Chew Tablet] Cholecalciferol [Vitamin D3 (25 3,000 unit PO DAILY 03/10/20 03/10/20 Mcg = 1000 Iu)] Cyanocobalamin (Vitamin B-12) 1,000 mcg PO DAILY 03/10/20 03/10/20 [Vitamin B-12] Folic Acid 1 mg PO DAILY 03/10/20 03/10/20 Magnesium Oxide 400 mg PO AC-SUPPER 03/10/20 03/10/20 Magnesium Oxide 800 mg PO AC-BRKFST 03/10/20 03/10/20 Multivitamins, Thera [Multivitamin 1 tab PO DAILY 03/10/20 03/10/20 (formulary)] Potassium Chloride ER [K-Dur 20] 20 meq PO AC-BRKFST 03/10/20 03/10/20 Potassium Chloride ER [K-Dur 20] 40 meq PO AC-SUPPER 03/10/20 03/10/20 Triamterene-Hctz 37.5-25Mg 0.5 tab PO DAILY 03/10/20 03/10/20 [Maxzide 37.5-25] atenoloL [Tenormin] 50 mg PO DAILY 03/10/20 03/10/20 Allergies Allergy/AdvReac Type Severity Reaction Status Date / Time Iodine and Iodide Containing Allergy Severe Anaphylaxis Verified 11/27/21 00:40 Produc adhesive tape Allergy red skin Verified 11/26/21 21:37 carboplatin Allergy Rash/Hives Verified 11/26/21 21:37 iodine Allergy Rapid Verified 11/26/21 21:37 Heart Rate morphine Allergy Nausea & Verified 11/26/21 21:37 Vomiting paclitaxel [From Taxol] Allergy Dyspnea, Verified 11/26/21 21:37 ELEV HR clavulanic acid AdvReac Nausea & Verified 11/26/21 21:37 [From Augmentin] Vomiting & Diarrhea codeine AdvReac Nausea & Verified 11/26/21 21:37 Vomiting & Diarrhea Review of Systems ROS Statement: Those systems with pertinent positive or pertinent negative responses have been documented in the HPI. ROS Other: All systems not noted in ROS Statement are negative. Past Medical History Past Medical History: Cancer, Hypertension, Skin Disorder Additional Past Medical History / Comment(s): seasonal allergies, hx ovarian cancer, mild diverticulitis, bowel obstruction (post op), small hiatal hernia, mild psoriasis or eczema, ovarian cancer reoccurence (chemo, 04/14) History of Any Multi-Drug Resistant Organisms: None Reported Past Surgical History: Bowel Resection, Cholecystectomy, Hernia Repair, Hysterectomy Additional Past Surgical History / Comment(s): left hand tendon surgery, exploratory abdominal surgeries and cervical ca (DEBULKING SX X2), port inserted/later removed, was a patient at [facility] one week ago for colostomy surgery. Past Anesthesia/Blood Transfusion Reactions: Motion Sickness, Postoperative Nausea & Vomiting (PONV) Additional Past Anesthesia/Blood Transfusion Reaction / Comment(s): STATES USUALLY HAS SCOPOLAMINE PATCH PRE OP Past Psychological History: No Psychological Hx Reported Smoking Status: Never smoker Past Alcohol Use History: None Reported Past Drug Use History: None Reported - Past Family History Mother Family Medical History: Coronary Artery Disease (CAD), Diabetes Mellitus, Thyroid Disorder Father Family Medical History: Coronary Artery Disease (CAD), Diabetes Mellitus General Exam Limitations: no limitations General appearance: alert, in no apparent distress Head exam: Present: atraumatic, normocephalic, normal inspection Eye exam: Present: normal appearance, PERRL, EOMI. Absent: scleral icterus, conjunctival injection, periorbital swelling ENT exam: Present: normal exam, mucous membranes moist Neck exam: Present: normal inspection. Absent: tenderness, meningismus, lymphadenopathy Respiratory exam: Present: normal lung sounds bilaterally. Absent: respiratory distress, wheezes, rales, rhonchi, stridor Cardiovascular Exam: Present: regular rate, normal rhythm, normal heart sounds. Absent: systolic murmur, diastolic murmur, rubs, gallop, clicks GI/Abdominal exam: Present: soft, normal bowel sounds. Absent: distended, tenderness, guarding, rebound, rigid Extremities exam: Present: normal inspection, full ROM, normal capillary refill. Absent: tenderness, pedal edema, joint swelling, calf tenderness Back exam: Present: normal inspection Neurological exam: Present: alert, oriented X3, CN II-XII intact Psychiatric exam: Present: normal affect, normal mood Skin exam: Present: warm, dry, intact, normal color. Absent: rash Course Vital Signs 11/26/21 11/26/21 11/26/21 21:37 23:25 23:28 Temperature 98.3 F Pulse Rate 92 67 Respiratory 16 18 Rate Blood Pressure 154/85 162/77 O2 Sat by Pulse 98 100 Oximetry 11/27/21 11/27/21 00:39 01:35 Temperature Pulse Rate 110 H 98 Respiratory 19 18 Rate Blood Pressure 146/69 144/79 O2 Sat by Pulse 98 99 Oximetry - Reevaluation(s) Reevaluation #1: 11/26/21 23:19 Medical record is reviewed Reevaluation #2: 11/27/21 01:49 Patient still with abdominal pain here in the ER Reevaluation #3: 11/27/21 01:49 Patient is informed of results and questions have been answered Medical Decision Making - Medical Decision Making 66 female to the ER for evaluation. Patient is found of ileus here in the ER patient having improved symptoms here in the ER to be-year-old early small bowel obstruction will be kept nothing by mouth with symptom management - Lab Data Result diagrams: 11/26/21 23:30 11/26/21 23:30 Lab Results 11/26/21 11/26/21 11/26/21 Range/Units 23:30 23:30 23:30 WBC 16.0 H (3.8-10.6) k/uL RBC 4.24 (3.80-5.40) m/uL Hgb 13.5 (11.4-16.0) gm/dL Hct 39.9 (34.0-46.0) % MCV 94.0 (80.0-100.0) fL MCH 31.8 (25.0-35.0) pg MCHC 33.9 (31.0-37.0) g/dL RDW 15.2 (11.5-15.5) % Plt Count 255 (150-450) k/uL MPV 7.7 Neutrophils % 82 % Lymphocytes % 12 % Monocytes % 5 % Eosinophils % 1 % Basophils % 1 % Neutrophils # 13.1 H (1.3-7.7) k/uL Lymphocytes # 1.8 (1.0-4.8) k/uL Monocytes # 0.7 (0-1.0) k/uL Eosinophils # 0.1 (0-0.7) k/uL Basophils # 0.1 (0-0.2) k/uL Poikilocytosis Slight PT 10.5 (9.0-12.0) sec INR 1.0 (<1.2) APTT 21.7 L (22.0-30.0) sec Sodium 137 (137-145) mmol/L Potassium 3.6 (3.5-5.1) mmol/L Chloride 98 (98-107) mmol/L Carbon Dioxide 28 (22-30) mmol/L Anion Gap 11 mmol/L BUN 19 H (7-17) mg/dL Creatinine 1.22 H (0.52-1.04) mg/dL Est GFR (CKD-EPI)AfAm 54 (>60 ml/min/1.73 sqM) Est GFR (CKD-EPI)NonAf 47 (>60 ml/min/1.73 sqM) Glucose 167 H (74-99) mg/dL Plasma Lactic Acid Twan (0.7-2.0) mmol/L Calcium 10.3 H (8.4-10.2) mg/dL Phosphorus 3.8 (2.5-4.5) mg/dL Magnesium 1.5 L (1.6-2.3) mg/dL Total Bilirubin 1.1 (0.2-1.3) mg/dL AST 28 (14-36) U/L ALT 21 (4-34) U/L Alkaline Phosphatase 87 (38-126) U/L Troponin I (0.000-0.034) ng/mL NT-Pro-B Natriuret Pep pg/mL Total Protein 7.6 (6.3-8.2) g/dL Albumin 4.7 (3.5-5.0) g/dL 11/26/21 11/26/21 11/26/21 Range/Units 23:30 23:30 23:30 WBC (3.8-10.6) k/uL RBC (3.80-5.40) m/uL Hgb (11.4-16.0) gm/dL Hct (34.0-46.0) % MCV (80.0-100.0) fL MCH (25.0-35.0) pg MCHC (31.0-37.0) g/dL RDW (11.5-15.5) % Plt Count (150-450) k/uL MPV Neutrophils % % Lymphocytes % % Monocytes % % Eosinophils % % Basophils % % Neutrophils # (1.3-7.7) k/uL Lymphocytes # (1.0-4.8) k/uL Monocytes # (0-1.0) k/uL Eosinophils # (0-0.7) k/uL Basophils # (0-0.2) k/uL Poikilocytosis PT (9.0-12.0) sec INR (<1.2) APTT (22.0-30.0) sec Sodium (137-145) mmol/L Potassium (3.5-5.1) mmol/L Chloride (98-107) mmol/L Carbon Dioxide (22-30) mmol/L Anion Gap mmol/L BUN (7-17) mg/dL Creatinine (0.52-1.04) mg/dL Est GFR (CKD-EPI)AfAm (>60 ml/min/1.73 sqM) Est GFR (CKD-EPI)NonAf (>60 ml/min/1.73 sqM) Glucose (74-99) mg/dL Plasma Lactic Acid Twan 3.1 H* (0.7-2.0) mmol/L Calcium (8.4-10.2) mg/dL Phosphorus (2.5-4.5) mg/dL Magnesium (1.6-2.3) mg/dL Total Bilirubin (0.2-1.3) mg/dL AST (14-36) U/L ALT (4-34) U/L Alkaline Phosphatase (38-126) U/L Troponin I <0.012 (0.000-0.034) ng/mL NT-Pro-B Natriuret Pep 230 pg/mL Total Protein (6.3-8.2) g/dL Albumin (3.5-5.0) g/dL - EKG Data -: EKG Interpreted by Me (EKG is sinus rhythm 65 CA 160 QRS 74 QTc 412) - Radiology Data Radiology results: report reviewed (CT abdomen and pelvis is positive for ileus versus early small bowel obstruction), image reviewed Disposition Clinical Impression: Abdominal pain, Ileus, SBO (small bowel obstruction) Disposition: ADMITTED IP TO THIS [facility] Condition: Good Is patient prescribed a controlled substance at d/c from ED?: No Referrals: Dina Martines MD [Primary Care Provider] - 1-2 days
[2021-11-26 23:45] LABS: Basophils # (A) 0.1 k/uL (0-0.2); Basophils % (A) 1 %; Eosinophils # (A) 0.1 k/uL (0-0.7); Eosinophils % (A) 1 %; HCT 39.9 % (34.0-46.0); HGB 13.5 gm/dL (11.4-16.0); Lymphocytes # (A) 1.8 k/uL (1.0-4.8); Lymphocytes % (A) 12 %; MCH 31.8 pg (25.0-35.0); MCHC 33.9 g/dL (31.0-37.0); Mean Platelet Volume 7.7; Monocytes # (A) 0.7 k/uL (0-1.0); Monocytes % (A) 5 %; Neutrophils # (A) 13.1 k/uL (1.3-7.7); Neutrophils % (A) 82 %; Platelet Count 255 k/uL (150-450); Poikilocytosis Slight; RBC 4.24 m/uL (3.80-5.40); RDW 15.2 % (11.5-15.5)
[2021-11-26 23:50] LABS: Albumin 4.7 g/dL (3.5-5.0); Calcium 10.3 mg/dL (8.4-10.2); Magnesium 1.5 mg/dL (1.6-2.3); Phosphorus 3.8 mg/dL (2.5-4.5); Potassium 3.6 mmol/L (3.5-5.1); Total Bilirubin 1.1 mg/dL (0.2-1.3); Total Protein 7.6 g/dL (6.3-8.2)
[2021-11-26] MEDS ORDERED: diphenhydrAMINE 50 MG/ML 1 ML VIAL IVP STA (23:50)
[2021-11-26] MEDS ORDERED: FAMOTIDINE 20 MG/2 ML VIAL IV STA (23:50)
[2021-11-26] MEDS ORDERED: methylPREDNISolone SOD SUCCI 125 MG/2 ML VIAL IV STA (23:50)
[2021-11-26 23:54] LABS: Prothrombin Time 10.5 sec (9.0-12.0)
[2021-11-27 00:04] LABS: Partial Thromboplastin Time 21.7 sec (22.0-30.0)
[2021-11-27] MEDS ORDERED: hydrOXYzine HCL 25 MG TAB PO ONE (00:45)
--- NOTE | 2021-11-27 01:14 | CT ---
EXAMINATION TYPE: CT abdomen pelvis w con DATE OF EXAM: 11/27/2021 COMPARISON: 09/26/2021 HISTORY: ABDOMINAL PAIN, H/O OVARIAN CA, BOWEL RESECTION & COLOSOTOMY, CHOLESYSTECTOMY, HERNIA REPAIR CT DLP: 466.5 mGycm Automated exposure control for dose reduction was used. CONTRAST: Performed with IV Contrast, patient injected with 80 mL of Isovue 300. Images obtained from the diaphragm to the floor the pelvis with IV contrast. There is 1.5 cm low-density subpleural nodule in the posterior right lower lobe there is 1 cm nodule at the left cardiac border in the lingula left upper lobe. There is noncalcified 1.7 cm nodule in the right middle lobe at the right cardiac border. There is no pleural effusion. There is no pericardial effusion. Liver spleen and stomach pancreas appear intact. The bile ducts are not dilated. There are clips from cholecystectomy. There is no adrenal mass. Kidneys have normal size. There is moderate right-sided hydronephrosis with right-sided ureteral stent noted. Stent appears in good position in the urinary bladder. Bladder dis tends smoothly. There are multiple apparent surgical clips in the pelvis on the right side around the distal right ureter. There is no retroperitoneal adenopathy. Lumbar vertebrae have fairly normal alignment. There is vacuu m disc at L5-S1 with mild disc space narrowing. There is no compression fracture. Bony pelvis is inta ct. The hip joints are intact. There is left-sided anterior abdominal wall hernia contains partly incarcerated loop of transverse co jossy. No sign of a large bowel obstruction. There are some mildly distended fluid-filled small bowel loops in the mid abdomen. There is previous small bowel surgery. Small bowel measures up to 3.3 cm. The terminal ileum is not dilated. IMPRESSION: Previous surgery. Moderately severe right-sided hydronephrosis and hydroureter not significantly diff erent than exam before the ureteral stent on 09/26/2021. No evidence of any significant renal atrophy. Dilated small bowel in the mid abdomen could relate to partial mechanical obstruction or small bowel ileus and appears new compared to old exam.
[2021-11-27] MEDS ORDERED: NALOXONE 0.4 MG/ML 1 ML VIAL IV PRN (01:46)
[2021-11-27] MEDS ORDERED: LORazepam 2 MG/ML INJ IV PRN (01:46)
[2021-11-27] MEDS ORDERED: ONDANSETRON 4 MG/2 ML VIAL IVP PRN (01:46)
[2021-11-27] MEDS ORDERED: HYDROmorphone 1 MG/ML 1 ML SYRINGE IVP PRN (01:48)
[2021-11-27] MEDS ORDERED: HYDROmorphone 1 MG/ML 1 ML SYRINGE IVP STA (01:48)
[2021-11-27] MEDS: SODIUM CHLORIDE 0.9% 1,000 ML IV SCH ×3 (02:34→17:11)
[2021-11-27 05:00] LABS: Basophils % (A) 0 %; Eosinophils % (A) 0 %; HCT 37.3 % (34.0-46.0); HGB 12.4 gm/dL (11.4-16.0); Lymphocytes # (A) 0.6 k/uL (1.0-4.8); Lymphocytes % (A) 5 %; MCH 31.6 pg (25.0-35.0); MCHC 33.2 g/dL (31.0-37.0); MCV 95.2 fL (80.0-100.0); Mean Platelet Volume 7.7; Monocytes # (A) 0.2 k/uL (0-1.0); Monocytes % (A) 2 %; Neutrophils # (A) 12.9 k/uL (1.3-7.7); Neutrophils % (A) 93 %; Platelet Count 210 k/uL (150-450); Poikilocytosis Slight; RBC 3.92 m/uL (3.80-5.40); RDW 15.1 % (11.5-15.5); WBC 13.8 k/uL (3.8-10.6)
[2021-11-27 05:05] LABS: ALT 21 U/L (4-34); AST 33 U/L (14-36); African American GFR (CKD) 63 (>60 ml/min/1.73 sqM); Albumin 3.5 g/dL (3.5-5.0); Albumin/Globulin Ratio 1.5; Alkaline Phosphatase 62 U/L (38-126); Anion Gap 10 mmol/L; Blood Urea Nitrogen 19 mg/dL (7-17); Calcium 8.9 mg/dL (8.4-10.2); Carbon Dioxide 22 mmol/L (22-30); Chloride 104 mmol/L (98-107); Globulin 2.4 g/dL; Glucose 191 mg/dL (74-99); Magnesium 1.4 mg/dL (1.6-2.3); Non-African American GFR(CKD) 55 (>60 ml/min/1.73 sqM); Phosphorus 3.2 mg/dL (2.5-4.5); Potassium 3.9 mmol/L (3.5-5.1); Sodium 136 mmol/L (137-145); Total Bilirubin 0.8 mg/dL (0.2-1.3); Total Protein 5.9 g/dL (6.3-8.2)
[2021-11-27] MEDS ORDERED: SODIUM CHLORIDE 0.9% 1,000 ML IV ONE (05:51)
[2021-11-27 07:26] LABS: Appearance,Urine Clear (Clear); Bilirubin,Urine Negative (Negative); Blood,Urine Negative (Negative); Color,Urine Light Yellow; Glucose,Urine (UA) 1+ (Negative); Ketones,Urine Negative (Negative); Leukocyte Esterase,Urine Negative (Negative); Nitrite,Urine Negative (Negative); PH, Urine 6.5 (5.0-8.0); Protein,Urine Negative (Negative); Specific Gravity,Urine 1.029 (1.001-1.035); Urobilinogen,Urine <2.0 mg/dL (<2.0)
--- NOTE | 2021-11-27 10:47 | P.HPIM ---
History of Present Illness H&P Date: 11/27/21 Chief Complaint: nausea, vomiting, abdominal pain 66-year-old woman with medical history of ovarian cancer status post multiple gynecological surgeries, hypertension presented with abdominal pain, nausea, vomiting. Her symptoms started shortly following her chemotherapy session, and were sharp in nature. She did not improve, and could not keep anything down, prompting her evaluation in the emergency room. She denies fevers, chills, chest pain, palpitations, syncope, presyncope, cough, dyspnea, constipation, diarrhea, dysuria, dyschezia, numbness/weakness of extremities. In the emergency room, patient is afebrile, 123/71, heart rate 79, 98% on room air. CBC is remarkable for leukocytosis to 13.8. Chemistries are remarkable for sodium of 136, BUN of 19, creatinine of 1.08, baseline creatinine is 0.63. Her magnesium was low at 1.4. LFTs are unremarkable. Patient did have a lactic acidosis of 3.6, repeat check was 3.2 after IV fluids. Urinalysis was positive for 1+ glucose, otherwise negative. CT of the abdomen/pelvis demonstrated a moderately severe right-sided hydronephrosis and hydroureter not significantly different from the exam before the ureteral stent that was placed on 09/26, as well as a dilated small bowel in the mid abdomen that could relate to partial mechanical obstruction of the small bowel or ileus, which is new compared to old exam. EKG demonstrates normal sinus rhythm without any evidence of ischemia. All Systems reviewed and pertinent positives and negatives noted in HPI, all other symptoms are negative Gen: awake, alert HEENT: normocephalic, atraumatic, good hearing acuity, moist mucous membranes Resp: good air exchange, breathing comfortably with no accessory muscle use CVS: good distal perfusion x 4, GI: soft, NTTP, ND : no SPT, no CVAT, mariee catheter not present MSK: no pitting edema, no clubbing Neuro: non-focal, moving all extremities Psych: cooperative, euthymic mood Labs and imaging are reviewed as above Assessment/plan: Partial small bowel obstruction Lactic acidosis Acute kidney injury -Admit to inpatient, telemetry -Now passing small amounts of gas, no further nausea, vomiting -Advance to clear liquid diet today -Surgery consult -Patient does not have an NG tube, but has improved clinically -Continue IV fluids -Repeat lactate in the afternoon -Zofran PRN Hydronephrosis -Urology consult to rule out malfunctioning stent History of ovarian cancer Hypertension -Home medications reviewed and reconciled -Holding home triamterene-HCTZ for GAVIN Patient is a full code Heparin 3 times a day for DVT prophylaxis Past Medical History Past Medical History: Cancer, Hypertension, Skin Disorder Additional Past Medical History / Comment(s): seasonal allergies, hx ovarian cancer, mild diverticulitis, bowel obstruction (post op), small hiatal hernia, mild psoriasis or eczema, ovarian cancer reoccurence (chemo, 04/14) History of Any Multi-Drug Resistant Organisms: None Reported Past Surgical History: Bowel Resection, Cholecystectomy, Hernia Repair, Hysterectomy Additional Past Surgical History / Comment(s): left hand tendon surgery, exploratory abdominal surgeries and cervical ca (DEBULKING SX X2), port inserted/later removed, colostomy with reversal Past Anesthesia/Blood Transfusion Reactions: Motion Sickness, Postoperative Nausea & Vomiting (PONV) Additional Past Anesthesia/Blood Transfusion Reaction / Comment(s): STATES USUALLY HAS SCOPOLAMINE PATCH PRE OP Past Psychological History: No Psychological Hx Reported Additional Psychological History / Comment(s): , is supportive. Works for a local business. Lifelong nonsmoker. Denies significant alcohol use or recreational drug use. No experience. No recent international travel pet dogs at home Smoking Status: Never smoker Past Alcohol Use History: None Reported Past Drug Use History: None Reported - Past Family History Mother Family Medical History: Coronary Artery Disease (CAD), Diabetes Mellitus, Thyroid Disorder Father Family Medical History: Coronary Artery Disease (CAD), Diabetes Mellitus Medications and Allergies Home Medications Medication Instructions Recorded Confirmed Type Calcium Carb/Vitamin D3/Vit K1 2 tab PO DAILY 03/10/20 11/27/21 History [Viactiv Soft Chew Tablet] Cholecalciferol [Vitamin D3 (25 3,000 unit PO DAILY 03/10/20 11/27/21 History Mcg = 1000 Iu)] Cyanocobalamin (Vitamin B-12) 1,000 mcg PO DAILY 03/10/20 11/27/21 History [Vitamin B-12] Folic Acid 1 mg PO DAILY 03/10/20 11/27/21 History Magnesium Oxide 400 mg PO AC-SUPPER 03/10/20 11/27/21 History Magnesium Oxide 800 mg PO AC-BRKFST 03/10/20 11/27/21 History Multivitamins, Thera [Multivitamin 1 tab PO DAILY 03/10/20 11/27/21 History (formulary)] Potassium Chloride ER [K-Dur 20] 20 meq PO AC-BRKFST 03/10/20 11/27/21 History Potassium Chloride ER [K-Dur 20] 40 meq PO AC-SUPPER 03/10/20 11/27/21 History Triamterene-Hctz 37.5-25Mg 0.5 tab PO DAILY 03/10/20 11/27/21 History [Maxzide 37.5-25] atenoloL [Tenormin] 50 mg PO DAILY 03/10/20 11/27/21 History Allergies Allergy/AdvReac Type Severity Reaction Status Date / Time Iodine and Iodide Containing Allergy Severe Anaphylaxis Verified 11/27/21 00:40 Produc adhesive tape Allergy red skin Verified 11/26/21 21:37 carboplatin Allergy Rash/Hives Verified 11/26/21 21:37 iodine Allergy Rapid Verified 11/26/21 21:37 Heart Rate morphine Allergy Nausea & Verified 11/26/21 21:37 Vomiting paclitaxel [From Taxol] Allergy Dyspnea, Verified 11/26/21 21:37 ELEV HR clavulanic acid AdvReac Nausea & Verified 11/26/21 21:37 [From Augmentin] Vomiting & Diarrhea codeine AdvReac Nausea & Verified 11/26/21 21:37 Vomiting & Diarrhea Physical Exam Osteopathic Statement: *. No significant issues noted on an osteopathic structural exam other than those noted in the History and Physical/Consult. Vitals: Vital Signs Temp Pulse Resp BP Pulse Ox 11/27/21 07:22 98.6 F 79 19 123/71 98 11/27/21 01:35 98 18 144/79 99 11/27/21 00:39 110 H 19 146/69 98 11/26/21 23:28 162/77 11/26/21 23:25 67 18 100 11/26/21 21:37 98.3 F 92 16 154/85 98 Intake and Output 11/26/21 11/27/21 11/27/21 22:59 06:59 14:59 Intake Total 90 Balance 90 Intake: Oral 90 Other: Weight 68.039 kg 68.5 kg Results CBC & Chem 7: 11/27/21 04:36 11/27/21 04:36 Labs: Abnormal Lab Results - Last 24 Hours (Table) 11/26/21 11/26/21 11/26/21 Range/Units 23:30 23:30 23:30 WBC 16.0 H (3.8-10.6) k/uL Neutrophils # 13.1 H (1.3-7.7) k/uL Lymphocytes # (1.0-4.8) k/uL APTT 21.7 L (22.0-30.0) sec Sodium (137-145) mmol/L BUN 19 H (7-17) mg/dL Creatinine 1.22 H (0.52-1.04) mg/dL Glucose 167 H (74-99) mg/dL Plasma Lactic Acid Twan (0.7-2.0) mmol/L Calcium 10.3 H (8.4-10.2) mg/dL Magnesium 1.5 L (1.6-2.3) mg/dL Total Protein (6.3-8.2) g/dL Urine Glucose (UA) (Negative) 11/26/21 11/27/21 11/27/21 Range/Units 23:30 04:36 04:36 WBC 13.8 H (3.8-10.6) k/uL Neutrophils # 12.9 H (1.3-7.7) k/uL Lymphocytes # 0.6 L (1.0-4.8) k/uL APTT (22.0-30.0) sec Sodium (137-145) mmol/L BUN (7-17) mg/dL Creatinine (0.52-1.04) mg/dL Glucose (74-99) mg/dL Plasma Lactic Acid Twan 3.1 H* 3.6 H* (0.7-2.0) mmol/L Calcium (8.4-10.2) mg/dL Magnesium (1.6-2.3) mg/dL Total Protein (6.3-8.2) g/dL Urine Glucose (UA) (Negative) 11/27/21 11/27/21 11/27/21 Range/Units 04:36 07:09 07:40 WBC (3.8-10.6) k/uL Neutrophils # (1.3-7.7) k/uL Lymphocytes # (1.0-4.8) k/uL APTT (22.0-30.0) sec Sodium 136 L (137-145) mmol/L BUN 19 H (7-17) mg/dL Creatinine 1.08 H (0.52-1.04) mg/dL Glucose 191 H (74-99) mg/dL Plasma Lactic Acid Twan 3.2 H* (0.7-2.0) mmol/L Calcium (8.4-10.2) mg/dL Magnesium 1.4 L (1.6-2.3) mg/dL Total Protein 5.9 L (6.3-8.2) g/dL Urine Glucose (UA) 1+ H (Negative) Thrombosis Risk Factor Assmnt - Choose All That Apply Any of the Below Risk Factors Present?: Yes Each Factor Represents 1 point: Obesity (BMI >25) Other Risk Factors: Yes Each Risk Factor Represents 2 Points: Age 61-74 years, Malignancy Other congenital or acquired thrombophilia - If yes, enter type in comment: No Thrombosis Risk Factor Assessment Total Risk Factor Score: 5 Thrombosis Risk Factor Assessment Level: High Risk
[2021-11-27] MEDS ORDERED: MAGNESIUM OXIDE 400 MG TAB PO SCH ×3 (11:00→17:30)
--- NOTE | 2021-11-27 11:21 | P.GSCN ---
History of Present Illness Consult date: 11/27/21 History of present illness: The patient is a pleasant 66-year-old female with a long history of ovarian cancer with multiple treatments over the years. She is known to the urology service since September 2021 where placed a double-J catheter on the right because of progressive hydronephrosis. The patient came in the hospital this time because of abdominal discomfort thought to be related to perhaps a partial small bowel obstruction. She is feeling better this morning and starting to pass gas. Her abdominal pain has disappeared. We are asked see the patient for the hydronephrosis noted on the CAT scan. In comparing the CAT scan from then to August to the present CAT scan the differences that there is a stent properly placed in the right collecting system. The hydronephrosis hasn't changed much which even the chronicity of this situation doesn't surprise me. Her urinalysis on admission is clear. She is not having much discomfort from the stent. It is due to be changed apparently in about December. Review of Systems All systems: negative - Constitutional Denies fever, Denies weight loss - EENT Eyes: denies blurred vision Ears, nose, mouth and throat: Denies dysphagia - Cardiovascular Denies chest pain, Denies shortness of breath - Respiratory Denies cough, Denies 7 - Gastrointestinal Reports as per HPI - Genitourinary Genitourinary: Denies dysuria, Denies hematuria - Integumentary Denies rash, Denies unusual bruising - Neurological Denies headaches, Denies syncope - Hematologic/Lymphatic Denies easy bleeding, Denies easy bruising Past Medical History Past Medical History: Cancer, Hypertension, Skin Disorder Additional Past Medical History / Comment(s): seasonal allergies, hx ovarian cancer, mild diverticulitis, bowel obstruction (post op), small hiatal hernia, mild psoriasis or eczema, ovarian cancer reoccurence (chemo, 04/14) History of Any Multi-Drug Resistant Organisms: None Reported Past Surgical History: Bowel Resection, Cholecystectomy, Hernia Repair, Hysterectomy Additional Past Surgical History / Comment(s): left hand tendon surgery, exploratory abdominal surgeries and cervical ca (DEBULKING SX X2), port inserted/later removed, colostomy with reversal Past Anesthesia/Blood Transfusion Reactions: Motion Sickness, Postoperative Nausea & Vomiting (PONV) Additional Past Anesthesia/Blood Transfusion Reaction / Comm: STATES USUALLY HAS SCOPOLAMINE PATCH PRE OP Past Psychological History: No Psychological Hx Reported Additional Psychological History / Comment(s): , is supportive. Works for a local business. Lifelong nonsmoker. Denies significant alcohol use or recreational drug use. No experience. No recent international travel pet dogs at home Smoking Status: Never smoker Past Alcohol Use History: None Reported Past Drug Use History: None Reported - Past Family History Mother Family Medical History: Coronary Artery Disease (CAD), Diabetes Mellitus, Thyroid Disorder Father Family Medical History: Coronary Artery Disease (CAD), Diabetes Mellitus Medications and Allergies Home Medications Medication Instructions Recorded Confirmed Type Calcium Carb/Vitamin D3/Vit K1 2 tab PO DAILY 03/10/20 11/27/21 History [Viactiv Soft Chew Tablet] Cholecalciferol [Vitamin D3 (25 3,000 unit PO DAILY 03/10/20 11/27/21 History Mcg = 1000 Iu)] Cyanocobalamin (Vitamin B-12) 1,000 mcg PO DAILY 03/10/20 11/27/21 History [Vitamin B-12] Folic Acid 1 mg PO DAILY 03/10/20 11/27/21 History Magnesium Oxide 400 mg PO AC-SUPPER 03/10/20 11/27/21 History Magnesium Oxide 800 mg PO AC-BRKFST 03/10/20 11/27/21 History Multivitamins, Thera [Multivitamin 1 tab PO DAILY 03/10/20 11/27/21 History (formulary)] Potassium Chloride ER [K-Dur 20] 20 meq PO AC-BRKFST 03/10/20 11/27/21 History Potassium Chloride ER [K-Dur 20] 40 meq PO AC-SUPPER 03/10/20 11/27/21 History Triamterene-Hctz 37.5-25Mg 0.5 tab PO DAILY 03/10/20 11/27/21 History [Maxzide 37.5-25] atenoloL [Tenormin] 50 mg PO DAILY 03/10/20 11/27/21 History Allergies Allergy/AdvReac Type Severity Reaction Status Date / Time Iodine and Iodide Containing Allergy Severe Anaphylaxis Verified 11/27/21 00:40 Produc adhesive tape Allergy red skin Verified 11/26/21 21:37 carboplatin Allergy Rash/Hives Verified 11/26/21 21:37 iodine Allergy Rapid Verified 11/26/21 21:37 Heart Rate morphine Allergy Nausea & Verified 11/26/21 21:37 Vomiting paclitaxel [From Taxol] Allergy Dyspnea, Verified 11/26/21 21:37 ELEV HR clavulanic acid AdvReac Nausea & Verified 11/26/21 21:37 [From Augmentin] Vomiting & Diarrhea codeine AdvReac Nausea & Verified 11/26/21 21:37 Vomiting & Diarrhea Surgical - Exam Vital Signs Temp Pulse Resp BP Pulse Ox 98.3 F 92 16 154/85 98 11/26/21 21:37 11/26/21 21:37 11/26/21 21:37 11/26/21 21:37 11/26/21 21:37 - General well developed, well nourished, no distress - Eyes PERRL - ENT no hearing loss - Neck trachea midline - Respiratory normal expansion, normal respiratory effort - Cardiovascular Rhythm: regular - Abdomen Abdomen: soft, non tender - Neurologic normal sensation - Musculoskeletal normal posture - Psychiatric oriented to time, oriented to person, oriented to place, speech is normal, memory intact Results - Labs 11/27/21 04:36 11/27/21 04:36 Abnormal Lab Results - Last 24 Hours (Table) 11/26/21 11/26/21 11/26/21 Range/Units 23:30 23:30 23:30 WBC 16.0 H (3.8-10.6) k/uL Neutrophils # 13.1 H (1.3-7.7) k/uL Lymphocytes # (1.0-4.8) k/uL APTT 21.7 L (22.0-30.0) sec Sodium (137-145) mmol/L BUN 19 H (7-17) mg/dL Creatinine 1.22 H (0.52-1.04) mg/dL Glucose 167 H (74-99) mg/dL Plasma Lactic Acid Twan (0.7-2.0) mmol/L Calcium 10.3 H (8.4-10.2) mg/dL Magnesium 1.5 L (1.6-2.3) mg/dL Total Protein (6.3-8.2) g/dL Urine Glucose (UA) (Negative) 11/26/21 11/27/21 11/27/21 Range/Units 23:30 04:36 04:36 WBC 13.8 H (3.8-10.6) k/uL Neutrophils # 12.9 H (1.3-7.7) k/uL Lymphocytes # 0.6 L (1.0-4.8) k/uL APTT (22.0-30.0) sec Sodium (137-145) mmol/L BUN (7-17) mg/dL Creatinine (0.52-1.04) mg/dL Glucose (74-99) mg/dL Plasma Lactic Acid Twan 3.1 H* 3.6 H* (0.7-2.0) mmol/L Calcium (8.4-10.2) mg/dL Magnesium (1.6-2.3) mg/dL Total Protein (6.3-8.2) g/dL Urine Glucose (UA) (Negative) 11/27/21 11/27/21 11/27/21 Range/Units 04:36 07:09 07:40 WBC (3.8-10.6) k/uL Neutrophils # (1.3-7.7) k/uL Lymphocytes # (1.0-4.8) k/uL APTT (22.0-30.0) sec Sodium 136 L (137-145) mmol/L BUN 19 H (7-17) mg/dL Creatinine 1.08 H (0.52-1.04) mg/dL Glucose 191 H (74-99) mg/dL Plasma Lactic Acid Twan 3.2 H* (0.7-2.0) mmol/L Calcium (8.4-10.2) mg/dL Magnesium 1.4 L (1.6-2.3) mg/dL Total Protein 5.9 L (6.3-8.2) g/dL Urine Glucose (UA) 1+ H (Negative) Diabetes panel 11/26/21 11/27/21 Range/Units 23:30 04:36 Sodium 137 136 L (137-145) mmol/L Potassium 3.6 3.9 (3.5-5.1) mmol/L Chloride 98 104 (98-107) mmol/L Carbon Dioxide 28 22 (22-30) mmol/L BUN 19 H 19 H (7-17) mg/dL Creatinine 1.22 H 1.08 H (0.52-1.04) mg/dL Glucose 167 H 191 H (74-99) mg/dL Calcium 10.3 H 8.9 (8.4-10.2) mg/dL AST 28 33 (14-36) U/L ALT 21 21 (4-34) U/L Alkaline Phosphatase 87 62 (38-126) U/L Total Protein 7.6 5.9 L (6.3-8.2) g/dL Albumin 4.7 3.5 (3.5-5.0) g/dL Calcium panel 11/26/21 11/27/21 Range/Units 23:30 04:36 Calcium 10.3 H 8.9 (8.4-10.2) mg/dL Phosphorus 3.8 3.2 (2.5-4.5) mg/dL Albumin 4.7 3.5 (3.5-5.0) g/dL Pituitary panel 11/26/21 11/27/21 Range/Units 23:30 04:36 Sodium 137 136 L (137-145) mmol/L Potassium 3.6 3.9 (3.5-5.1) mmol/L Chloride 98 104 (98-107) mmol/L Carbon Dioxide 28 22 (22-30) mmol/L BUN 19 H 19 H (7-17) mg/dL Creatinine 1.22 H 1.08 H (0.52-1.04) mg/dL Glucose 167 H 191 H (74-99) mg/dL Calcium 10.3 H 8.9 (8.4-10.2) mg/dL Adrenal panel 11/26/21 11/27/21 Range/Units 23:30 04:36 Sodium 137 136 L (137-145) mmol/L Potassium 3.6 3.9 (3.5-5.1) mmol/L Chloride 98 104 (98-107) mmol/L Carbon Dioxide 28 22 (22-30) mmol/L BUN 19 H 19 H (7-17) mg/dL Creatinine 1.22 H 1.08 H (0.52-1.04) mg/dL Glucose 167 H 191 H (74-99) mg/dL Calcium 10.3 H 8.9 (8.4-10.2) mg/dL Total Bilirubin 1.1 0.8 (0.2-1.3) mg/dL AST 28 33 (14-36) U/L ALT 21 21 (4-34) U/L Alkaline Phosphatase 87 62 (38-126) U/L Total Protein 7.6 5.9 L (6.3-8.2) g/dL Albumin 4.7 3.5 (3.5-5.0) g/dL - Imaging CT scan - abdomen: report reviewed, image reviewed CT scan - pelvis: report reviewed, image reviewed Assessment and Plan Assessment: Impression: Metastatic ovarian carcinoma. Possible partial small bowel obstruction. Right Hydronephrosis secondary to metastatic ovarian carcinoma. Status post right ureteral stent placement. Recommendations: The amount of hydronephrosis is unchanged since the stent placement. This does not surprise me probably due to the slow development of this problem due to into compression due to metastatic disease which is a slow process. The creatinine is normal. Her urine is clear. I do not think the right hydronephrosis requires any further attention at this point in time. I will notify of her admission.
[2021-11-27] MEDS: atenoloL 50 MG TAB PO SCH (12:25)
--- NOTE | 2021-11-27 12:44 | P.GSCN ---
History of Present Illness Consult date: 11/27/21 Reason for Consult: Ileus versus P SBO History of present illness: Is a 66-year-old female who was admitted to the hospital with complaints of nausea and abdominal pain. Patient states her nausea and abdominal pain is resolved. She's had a bowel movement. She states she feels normal. Past Medical History Past Medical History: Cancer, Hypertension, Skin Disorder Additional Past Medical History / Comment(s): seasonal allergies, hx ovarian cancer, mild diverticulitis, bowel obstruction (post op), small hiatal hernia, mild psoriasis or eczema, ovarian cancer reoccurence (chemo, 04/14) History of Any Multi-Drug Resistant Organisms: None Reported Past Surgical History: Bowel Resection, Cholecystectomy, Hernia Repair, Hyst erectomy Additional Past Surgical History / Comment(s): left hand tendon surgery, exploratory abdominal surgeries and cervical ca (DEBULKING SX X2), port inserted/later removed, colostomy with reversal Past Anesthesia/Blood Transfusion Reactions: Motion Sickness, Postoperative Nausea & Vomiting (PONV) Additional Past Anesthesia/Blood Transfusion Reaction / Comm: STATES USUALLY HAS SCOPOLAMINE PATCH PRE OP Past Psychological History: No Psychological Hx Reported Additional Psychological History / Comment(s): , is supportive. Works for a local business. Lifelong nonsmoker. Denies significant alcohol use or recreational drug use. No experience. No recent international travel pet dogs at home Smoking Status: Never smoker Past Alcohol Use History: None Reported Past Drug Use History: None Reported - Past Family History Mother Family Medical History: Coronary Artery Disease (CAD), Diabetes Mellitus, Thyroid Disorder Father Family Medical History: Coronary Artery Disease (CAD), Diabetes Mellitus Medications and Allergies Home Medications Medication Instructions Recorded Confirmed Type Calcium Carb/Vitamin D3/Vit K1 2 tab PO DAILY 03/10/20 11/27/21 History [Viactiv Soft Chew Tablet] Cholecalciferol [Vitamin D3 (25 3,000 unit PO DAILY 03/10/20 11/27/21 History Mcg = 1000 Iu)] Cyanocobalamin (Vitamin B-12) 1,000 mcg PO DAILY 03/10/20 11/27/21 History [Vitamin B-12] Folic Acid 1 mg PO DAILY 03/10/20 11/27/21 History Magnesium Oxide 400 mg PO AC-SUPPER 03/10/20 11/27/21 History Magnesium Oxide 800 mg PO AC-BRKFST 03/10/20 11/27/21 History Multivitamins, Thera [Multivitamin 1 tab PO DAILY 03/10/20 11/27/21 History (formulary)] Potassium Chloride ER [K-Dur 20] 20 meq PO AC-BRKFST 03/10/20 11/27/21 History Potassium Chloride ER [K-Dur 20] 40 meq PO AC-SUPPER 03/10/20 11/27/21 History Triamterene-Hctz 37.5-25Mg 0.5 tab PO DAILY 03/10/20 11/27/21 History [Maxzide 37.5-25] atenoloL [Tenormin] 50 mg PO DAILY 03/10/20 11/27/21 History Allergies Allergy/AdvReac Type Severity Reaction Status Date / Time Iodine and Iodide Containing Allergy Severe Anaphylaxis Verified 11/27/21 00:40 Produc adhesive tape Allergy red skin Verified 11/26/21 21:37 carboplatin Allergy Rash/Hives Verified 11/26/21 21:37 iodine Allergy Rapid Verified 11/26/21 21:37 Heart Rate morphine Allergy Nausea & Verified 11/26/21 21:37 Vomiting paclitaxel [From Taxol] Allergy Dyspnea, Verified 11/26/21 21:37 ELEV HR clavulanic acid AdvReac Nausea & Verified 11/26/21 21:37 [From Augmentin] Vomiting & Diarrhea codeine AdvReac Nausea & Verified 11/26/21 21:37 Vomiting & Diarrhea Surgical - Exam Vital Signs Temp Pulse Resp BP Pulse Ox 98.3 F 92 16 154/85 98 11/26/21 21:37 11/26/21 21:37 11/26/21 21:37 11/26/21 21:37 11/26/21 21:37 - General well developed, well nourished, no distress - Eyes PERRL - ENT normal pinna - Neck no masses - Respiratory normal expansion - Cardiovascular Rhythm: regular - Abdomen Abdomen: soft, non tender Results - Labs 11/27/21 04:36 11/27/21 04:36 Abnormal Lab Results - Last 24 Hours (Table) 11/26/21 11/26/21 11/26/21 Range/Units 23:30 23:30 23:30 WBC 16.0 H (3.8-10.6) k/uL Neutrophils # 13.1 H (1.3-7.7) k/uL Lymphocytes # (1.0-4.8) k/uL APTT 21.7 L (22.0-30.0) sec Sodium (137-145) mmol/L BUN 19 H (7-17) mg/dL Creatinine 1.22 H (0.52-1.04) mg/dL Glucose 167 H (74-99) mg/dL Plasma Lactic Acid Twan (0.7-2.0) mmol/L Calcium 10.3 H (8.4-10.2) mg/dL Magnesium 1.5 L (1.6-2.3) mg/dL Total Protein (6.3-8.2) g/dL Urine Glucose (UA) (Negative) 11/26/21 11/27/21 11/27/21 Range/Units 23:30 04:36 04:36 WBC 13.8 H (3.8-10.6) k/uL Neutrophils # 12.9 H (1.3-7.7) k/uL Lymphocytes # 0.6 L (1.0-4.8) k/uL APTT (22.0-30.0) sec Sodium (137-145) mmol/L BUN (7-17) mg/dL Creatinine (0.52-1.04) mg/dL Glucose (74-99) mg/dL Plasma Lactic Acid Twan 3.1 H* 3.6 H* (0.7-2.0) mmol/L Calcium (8.4-10.2) mg/dL Magnesium (1.6-2.3) mg/dL Total Protein (6.3-8.2) g/dL Urine Glucose (UA) (Negative) 11/27/21 11/27/21 11/27/21 Range/Units 04:36 07:09 07:40 WBC (3.8-10.6) k/uL Neutrophils # (1.3-7.7) k/uL Lymphocytes # (1.0-4.8) k/uL APTT (22.0-30.0) sec Sodium 136 L (137-145) mmol/L BUN 19 H (7-17) mg/dL Creatinine 1.08 H (0.52-1.04) mg/dL Glucose 191 H (74-99) mg/dL Plasma Lactic Acid Twan 3.2 H* (0.7-2.0) mmol/L Calcium (8.4-10.2) mg/dL Magnesium 1.4 L (1.6-2.3) mg/dL Total Protein 5.9 L (6.3-8.2) g/dL Urine Glucose (UA) 1+ H (Negative) Diabetes panel 11/26/21 11/27/21 Range/Units 23:30 04:36 Sodium 137 136 L (137-145) mmol/L Potassium 3.6 3.9 (3.5-5.1) mmol/L Chloride 98 104 (98-107) mmol/L Carbon Dioxide 28 22 (22-30) mmol/L BUN 19 H 19 H (7-17) mg/dL Creatinine 1.22 H 1.08 H (0.52-1.04) mg/dL Glucose 167 H 191 H (74-99) mg/dL Calcium 10.3 H 8.9 (8.4-10.2) mg/dL AST 28 33 (14-36) U/L ALT 21 21 (4-34) U/L Alkaline Phosphatase 87 62 (38-126) U/L Total Protein 7.6 5.9 L (6.3-8.2) g/dL Albumin 4.7 3.5 (3.5-5.0) g/dL Calcium panel 11/26/21 11/27/21 Range/Units 23:30 04:36 Calcium 10.3 H 8.9 (8.4-10.2) mg/dL Phosphorus 3.8 3.2 (2.5-4.5) mg/dL Albumin 4.7 3.5 (3.5-5.0) g/dL Pituitary panel 11/26/21 11/27/21 Range/Units 23:30 04:36 Sodium 137 136 L (137-145) mmol/L Potassium 3.6 3.9 (3.5-5.1) mmol/L Chloride 98 104 (98-107) mmol/L Carbon Dioxide 28 22 (22-30) mmol/L BUN 19 H 19 H (7-17) mg/dL Creatinine 1.22 H 1.08 H (0.52-1.04) mg/dL Glucose 167 H 191 H (74-99) mg/dL Calcium 10.3 H 8.9 (8.4-10.2) mg/dL Adrenal panel 11/26/21 11/27/21 Range/Units 23:30 04:36 Sodium 137 136 L (137-145) mmol/L Potassium 3.6 3.9 (3.5-5.1) mmol/L Chloride 98 104 (98-107) mmol/L Carbon Dioxide 28 22 (22-30) mmol/L BUN 19 H 19 H (7-17) mg/dL Creatinine 1.22 H 1.08 H (0.52-1.04) mg/dL Glucose 167 H 191 H (74-99) mg/dL Calcium 10.3 H 8.9 (8.4-10.2) mg/dL Total Bilirubin 1.1 0.8 (0.2-1.3) mg/dL AST 28 33 (14-36) U/L ALT 21 21 (4-34) U/L Alkaline Phosphatase 87 62 (38-126) U/L Total Protein 7.6 5.9 L (6.3-8.2) g/dL Albumin 4.7 3.5 (3.5-5.0) g/dL Assessment and Plan Assessment: Resolved abdominal pain and nausea and bloating. Patient most likely had a mild ileus which has resolved. No surgical intervention is planned.
--- NOTE | 2021-11-27 18:00 | CONS ---
CONSULTATION DATE OF SERVICE: 11/27/2021 REASON FOR CONSULTATION: Ovarian cancer. CHIEF COMPLAINT: Nausea and abdominal pain. Daniela is a very pleasant 66-year-old lady, well known to me, with a history of ovarian carcinoma. She presented to the emergency department with abdominal crampy pain and two episodes of nausea and vomiting. In the emergency department she had a CT scan of the abdomen which revealed right-sided hydronephrosis, which is chronic, and dilated small bowel and abdomen related to partial mechanical obstruction or small- bowel ileus. So the patient ended up being admitted to the hospital for further evaluation. She has been seen by the urology service, who felt that stent is in appropriate position which was recently placed in the outpatient setting. Also she was evaluated by Surgery, who felt no need for any surgical intervention. This morning the patient feels better. Her nausea is much better. She had a bowel movement and she has no fever or chills. In regard to her oncological history, the patient was diagnosed initially with stage IIc ovarian carcinoma in 2007. She had debulking surgery by Dr. Castillo and 6 cycles adjuvant carboplatin and Taxol completed in November 2008. She did well until July 2011, when she was found to have pelvic recurrence. She had another debulking surgery in August 2011 and received adjuvant carboplatin and Taxol again, completed in March of 2012. She did well until April of 2014, when she was found to have a new right adnexal mass. She had another debulking surgery by Dr. Castillo and then started carboplatin and Taxol in 2013 and completed 6 cycles in October of 2014. She did well until May 2016, when she had recurrence in the pelvis. She underwent surgery again in April of 2017 with resection of sigmoid lesion. This surgery was complicated by anastomosis leak which required re-exploration and creation of colostomy, and then she subsequently started carboplatin and Taxol again, which was interrupted due to recurrent wound infection. Then she subsequently developed allergic reaction to carboplatin. But she managed to receive additional cycles of carboplatin and completed her planned treatment with carboplatin and Gemzar in July of 2019. Subsequently she was placed on maintenance oral PARP inhibitor rucaparib, and she remained on it until February of 2021, when she had evidence of disease progression. She was treated with Gemzar and cisplatin, but unfortunately she became [place]-refractory and then she was treated with weekly Taxol. But she did not achieve a good response to it. She developed right hydronephrosis in September of 2021 and she ended up having a ureteral stent placement by pascual in the outpatient setting. The patient subsequently was started on single agent Alimta and she has had two doses so far. The patient this morning feels better. No more nausea or vomiting. She had a bowel movement. No more abdominal pain. No fever. No dyspnea. No shortness of breath. No cough. No melena, hematochezia, hematuria or hemoptysis. PAST MEDICAL HISTORY: As stated above in regard to her ovarian cancer and hydronephrosis. Otherwise, she is a relatively healthy lady. PAST SURGICAL HISTORY: As stated. She has had surgery for ovarian cancer and she had subsequent 3 secondary debulking surgeries. She has had inguinal hernia repair, cholecystectomy in the past as well as gallbladder surgery. FAMILY HISTORY: Family history for malignancy is negative. SOCIAL HISTORY: No history of smoking, alcohol abuse or substance abuse. She is , lives with her . She has one daughter. ALLERGIES: She is ALLERGIC TO IV CONTRAST, ADHESIVE TAPE, CARBOPLATIN, MORPHINE, TAXOL, AUGMENTIN AND CODEINE. CURRENT MEDICATIONS: Current medications include Tenormin 50 mg daily, vitamin D3 daily, folic acid, and she is currently on Dilaudid IV every 8 hours as needed. Ativan 0.5 mg every 6 hours as needed, magnesium oxide, multivitamin, and Zofran as needed. REVIEW OF SYSTEMS: As stated above in history of present illness; otherwise negative. PHYSICAL EXAMINATION: She is alert and oriented x3. She does not appear to be in acute distress. VITAL SIGNS: Temperature 98.6, afebrile, pulse 79 and regular, respiration 18, blood pressure 123/71, pulse ox 98% on room air. HEENT: Normocephalic, atraumatic. No obvious icterus. NECK: Supple. No jugular venous distention. CHEST: Equal expansion bilaterally. LUNGS: Clear to auscultation and percussion. HEART: Regular rate and rhythm.. ABDOMEN: Soft. No obvious ascites, organomegaly or masses. Bowel sounds present. EXTREMITIES: No edema. SKIN: No significant bruises, ecchymosis or petechiae. LYMPHATIC SYSTEM: No peripherally enlarged cervical or supraclavicular nodes. LABORATORY DATA: WBC of 13.8, hemoglobin 12.4, hematocrit 37.3, platelets 210. Sodium 136, potassium 3.9, chloride 104. BUN is 19, creatinine 1.08. Radiographic data as stated above in history of present illness. IMPRESSION: 1. Recurrent ovarian carcinoma, currently [place]-refractory, with diagnostic and therapeutic circumstances stated above. 2. Possible mild ileus; symptoms appear to be clinically resolved. RECOMMENDATIONS: 1. The patient is admitted for further management. 2. With her the GI symptoms resolved, she could be discharged home. 3. Patient to resume Alimta in the outpatient setting; her CA-125 has significantly increased. If is there is no response after her third dose of Alimta, then switching to a different line of therapy should be highly considered. I will also discuss her care with her [employer]PER[employer]/oncology doctor, Dr. Castillo, at [facility]. The above was discussed in detail with the patient and her at bedside, and I answered all of their questions. MMENRRIQUEL / ANNEN: [id number] /
[2021-11-28] MEDS: SODIUM CHLORIDE 0.9% 1,000 ML IV SCH ×2 (02:06→08:21)
[2021-11-28 04:33] VITALS: BP 100/59; PULSE 67; RESP 16; TEMP 98
[2021-11-28] MEDS: atenoloL 50 MG TAB PO SCH (08:21)
[2021-11-28 08:48] LABS: HCT 30.4 % (37.2-46.3); HGB 9.8 g/dL (12.0-15.0); MCH 31.8 pg (27.0-32.0); MCHC 32.2 g/dL (32.0-37.0); MCV 98.7 fL (80.0-97.0); Mean Platelet Volume 10.3 fL (9.5-12.2); NRBC Per 100 WBC 0 /100 WBCS (0.0-0.0); Platelet Count 145 X 10*3/uL (140-440); RBC 3.08 X 10*6/uL (4.10-5.20); RDW 14.7 % (11.5-14.5); WBC 7.06 X 10*3/uL (4.50-10.00)
[2021-11-28] MEDS ORDERED: MULTIVITAMINS, THERA 1 EACH TAB PO SCH (09:00)
[2021-11-28] MEDS ORDERED: CHOLECALCIFEROL 25 MCG (1000 IU) TABLET PO SCH (09:00)
[2021-11-28] MEDS ORDERED: NON FORMULARY DRUG (Calcium Carb/Vitamin D3/Vit K1 [Viactiv 650 Mg-12.5 Mcg Chew] 1 EACH T PO SCH (09:00)
[2021-11-28] MEDS ORDERED: FOLIC ACID 1 MG TAB PO SCH (09:00)
[2021-11-28] MEDS ORDERED: CYANOCOBALAMIN 500 MCG TAB PO SCH (09:00)
[2021-11-28 09:17] LABS: African American GFR (CKD) 78.3 (60.0-200.0); Anion Gap 15.6 mmol/L (10.00-18.00); BUN/Creat Ratio 20.56 Ratio (12.00-20.00); Blood Urea Nitrogen 18.5 mg/dL (9.0-27.0); Calcium 8.1 mg/dL (8.7-10.3); Carbon Dioxide 15.4 mmol/L (20.0-27.5); Magnesium 1.6 mg/dL (1.5-2.4); Non-African American GFR(CKD) 67.6 (60.0-200.0); Potassium 3.7 mmol/L (3.5-5.5)
[2021-11-28 10:52] LABS: Basophils # (A) 0.02 X 10*3/uL (0.00-0.10); Basophils % (A) 0.3 %; Eosinophils # (A) 0.06 X 10*3/uL (0.04-0.35); Eosinophils % (A) 0.8 %; Immature Grans, Automated 0.3 %; Lymphocytes # (A) 1.92 X 10*3/uL (0.90-5.00); Lymphocytes % (A) 27.2 %; Monocytes # (A) 0.12 X 10*3/uL (0.20-1.00); Monocytes % (A) 1.7 %; Neutrophils # (A) 4.92 X 10*3/uL (1.80-7.70); Neutrophils % (A) 69.7 %; Rouleaux PRESENT
--- NOTE | 2021-11-28 11:22 | P.DS ---
Providers Date of admission: 11/27/21 01:46 Expected date of discharge: 11/28/21 Attending physician: Riddhi Malave MD Consults: 11/27/21 06:10 Consult Physician Routine Consulting Provider: Luigi Elena Consult Reason/Comments: ileus Do you want consulting provider notified?: Yes 11/27/21 10:43 Consult Physician Routine Consulting Provider: [place] Alexandra Consult Reason/Comments: Hydronephrosis Do you want consulting provider notified?: Yes Primary care physician: Dina Martines MD Hospital Course: 66-year-old woman with medical history of ovarian cancer status post multiple gynecological surgeries, hypertension presented with abdominal pain, nausea, vomiting. In the emergency room, patient is afebrile, 123/71, heart rate 79, 98% on room air. CBC is remarkable for leukocytosis to 13.8. Chemistries are remarkable for sodium of 136, BUN of 19, creatinine of 1.08, baseline creatinine is 0.63. Her magnesium was low at 1.4. LFTs are unremarkable. Patient did have a lactic acidosis of 3.6, repeat check was 3.2 after IV fluids. Urinalysis was positive for 1+ glucose, otherwise negative. CT of the abdomen/pelvis demonstrated a moderately severe right-sided hydronephrosis and hydroureter not significantly different from the exam before the ureteral stent that was placed on 09/26, as well as a dilated small bowel in the mid abdomen that could relate to partial mechanical obstruction of the small bowel or ileus, which is new compared to old exam. EKG demonstrates normal sinus rhythm without any evidence of ischemia. Partial small bowel obstruction Lactic acidosis Acute kidney injury -Admitted to inpatient, telemetry. Quickly improved faster than anticipated, and started passing small amounts of gas, without further nausea, vomiting. Advanced to clear liquid diet on same day of admission, then to regular diet by dinner time. She had several bowel movements overnight. Never required NGT. Surgery consulted and cleared the patient. Lactate resolved by following day morning. Hydronephrosis -Urology consulted to rule out malfunctioning stent, and did not believe it was malfunctioning. History of ovarian cancer Hypertension -Home medications reviewed and reconciled -Hed home triamterene-HCTZ for GAVIN, then resumed on discharge. I spent 31 minutes coordinating this complex discharge Gen: awake, alert HEENT: normocephalic, atraumatic, good hearing acuity, moist mucous membranes Resp: good air exchange, breathing comfortably with no accessory muscle use CVS: good distal perfusion x 4, GI: soft, NTTP, ND : no SPT, no CVAT, mariee catheter not present MSK: no pitting edema, no clubbing Neuro: non-focal, moving all extremities Psych: cooperative, euthymic mood Patient Condition at Discharge: Good Plan - Discharge Summary Discharge Rx Participant: No New Discharge Prescriptions: Continue atenoloL [Tenormin] 50 mg PO DAILY Calcium Carb/Vitamin D3/Vit K1 [Viactiv 650 mg-12.5 Mcg Chew] 2 tab PO DAILY Cholecalciferol [Vitamin D3 (25 Mcg = 1000 Iu)] 3,000 unit PO DAILY Cyanocobalamin (Vitamin B-12) [Vitamin B-12] 1,000 mcg PO DAILY Folic Acid 1 mg PO DAILY Magnesium Oxide 800 mg PO AC-SUPPER Magnesium Oxide 400 mg PO AC-BRKFST Multivitamins, Thera [Multivitamin (formulary)] 1 tab PO HS Potassium Chloride ER [K-Dur 20] 20 meq PO AC-BRKFST Potassium Chloride ER [K-Dur 20] 40 meq PO AC-SUPPER Triamterene-Hctz 37.5-25Mg [Maxzide 37.5-25] 0.5 tab PO DAILY Discharge Medication List Calcium Carb/Vitamin D3/Vit K1 [Viactiv 650 mg-12.5 Mcg Chew] 2 tab PO DAILY 03/10/20 [History] Cholecalciferol [Vitamin D3 (25 Mcg = 1000 Iu)] 3,000 unit PO DAILY 03/10/20 [History] Cyanocobalamin (Vitamin B-12) [Vitamin B-12] 1,000 mcg PO DAILY 03/10/20 [History] Folic Acid 1 mg PO DAILY 03/10/20 [History] Magnesium Oxide 400 mg PO AC-BRKFST 03/10/20 [History] Magnesium Oxide 800 mg PO AC-SUPPER 03/10/20 [History] Multivitamins, Thera [Multivitamin (formulary)] 1 tab PO HS 03/10/20 [History] Potassium Chloride ER [K-Dur 20] 20 meq PO AC-BRKFST 03/10/20 [History] Potassium Chloride ER [K-Dur 20] 40 meq PO AC-SUPPER 03/10/20 [History] Triamterene-Hctz 37.5-25Mg [Maxzide 37.5-25] 0.5 tab PO DAILY 03/10/20 [History] atenoloL [Tenormin] 50 mg PO DAILY 03/10/20 [History] Follow up Appointment(s)/Referral(s): Dina Martines MD [Primary Care Provider] - 12/01/21 3:15 pm Discharge Disposition: HOME WITH HOME HEALTH SERVICES
== END 2021-11-28 11:46 | disposition home health service (06) | DRG 389 ==
LOC: EC 21:29 → 5NMEDONC 11-27 01:46
PROVIDERS: ADMIT Internal Medicine; ATTEND Internal Medicine
DX: K56.600 Partial intestinal obstruction, unspecified as to cause (principal); E87.2 Acidosis; N17.9 Acute kidney failure, unspecified; N13.30 Unspecified hydronephrosis; C56.9 Malignant neoplasm of unspecified ovary; J30.2 Other seasonal allergic rhinitis; I10 Essential (primary) hypertension; D72.829 Elevated white blood cell count, unspecified; K56.7 Ileus, unspecified; Z85.43 Personal history of malignant neoplasm of ovary; Z79.899 Other long term (current) drug therapy; Z82.49 Family history of ischemic heart disease and other diseases of the circulatory system; Z83.3 Family history of diabetes mellitus; Z85.41 Personal history of malignant neoplasm of cervix uteri; Z90.710 Acquired absence of both cervix and uterus; Z93.3 Colostomy status; Z91.041 Radiographic dye allergy status; Z91.048 Other nonmedicinal substance allergy status; Z87.19 Personal history of other diseases of the digestive system; Z92.21 Personal history of antineoplastic chemotherapy; Z88.5 Allergy status to narcotic agent; Z88.8 Allergy status to other drugs, medicaments and biological substances
CPT/HCPCS: 36415; 74177; 80048; 80053; 81003; 83605; 83735; 83880; 84100; 84484; 85025; 85610; 85730; 93005; 96361; 96374; 96375; 99285

== ENCOUNTER 2022-01-14 11:51 | Observation (INO) | payer BC ==
[2022-01-14 12:45] LABS: Appearance,Urine Clear (Clear); Bilirubin,Urine Negative (Negative); Blood,Urine Trace (Negative); Color,Urine Yellow; Glucose,Urine (UA) Negative (Negative); Ketones,Urine Negative (Negative); Leukocyte Esterase,Urine Negative (Negative); Mucus,Urine Rare /hpf; Nitrite,Urine Negative (Negative); PH, Urine 7.5 (5.0-8.0); Protein,Urine Negative (Negative); RBC,Urine 12 /hpf (0-5); Specific Gravity,Urine 1.016 (1.001-1.035); Squamous Epithelial Cell,Urine 1 /hpf (0-4); Urobilinogen,Urine <2.0 mg/dL (<2.0); WBC,Urine 4 /hpf (0-5)
[2022-01-14 12:48] LABS: Albumin 4.3 g/dL (3.5-5.0); Calcium 9.8 mg/dL (8.4-10.2); Potassium 3.2 mmol/L (3.5-5.1); Total Bilirubin 0.9 mg/dL (0.2-1.3); Total Protein 6.8 g/dL (6.3-8.2)
[2022-01-14 12:49] LABS: Anisocytosis Slight; Basophils # (A) 0.1 k/uL (0-0.2); Basophils % (A) 0 %; Eosinophils # (A) 0.1 k/uL (0-0.7); Eosinophils % (A) 0 %; HCT 37.4 % (34.0-46.0); HGB 12.4 gm/dL (11.4-16.0); Lymphocytes # (A) 2.1 k/uL (1.0-4.8); Lymphocytes % (A) 13 %; MCH 31.8 pg (25.0-35.0); MCHC 33.1 g/dL (31.0-37.0); MCV 95.9 fL (80.0-100.0); Macrocytosis Slight; Mean Platelet Volume 8.1; Monocytes # (A) 1.1 k/uL (0-1.0); Monocytes % (A) 7 %; Neutrophils # (A) 13.3 k/uL (1.3-7.7); Neutrophils % (A) 79 %; Platelet Count 298 k/uL (150-450); Poikilocytosis Slight; RDW 17.1 % (11.5-15.5); WBC 16.9 k/uL (3.8-10.6)
--- NOTE | 2022-01-14 14:06 | CT ---
EXAMINATION TYPE: CT abdomen pelvis wo con DATE OF EXAM: 01/14/2022 HISTORY: Abdominal pain left-sided and constipation. History of ovarian cancer. CT DLP: 465.2 mGycm. Automated Exposure Control for Dose Reduction was Utilized. TECHNIQUE: CT scan of the abdomen and pelvis is performed without oral or IV contrast. COMPARISON: CT November 27, 2021 FINDINGS: Within the limitations of a non-contrast study, the following observations are made. LUNG BASES: More numerous and enlarging bilateral pulmonary nodules consistent with metastatic diseas e are noted. LIVER/GB: Cholecystectomy clips are redemonstrated. PANCREAS: No significant abnormality is seen. SPLEEN: Spleen now normal in size. ADRENALS: No significant abnormality is seen. KIDNEYS: Extrarenal pelvis on the left without pyelocaliectasis. Persistent severe right-sided hydron ephrosis despite double-J ureter stent redemonstrated. Bladder poorly distended and thus suboptimally evaluated. Nondependent air is present. BOWEL: Persistent rectus diastases or outpouchings of bowel and omental fat just above the umbilicus. No definitive hernia defect. Surgical sutures right sided colonic loops axial image 38. Moderate to severe thecal prominent right and transverse colon through the sigmoid colon into the pelvis where th ere is separation from known right pelvic heterogeneous partially calcified mass or neoplasm. Distal sigmoid rectal colon is nondilated. Majority of small bowel loops show no suspicious dilatation inclu ding terminal ileum. New mild/moderate ill-defined fluid and fat stranding surrounding the sigmoid re ctal colon and into the presacral space. GENITAL ORGANS: Uterus surgically absent. Persistent irregular soft tissue mass upper pelvis right of midline is difficult to accurately measured due to similar appearance to adjacent bowel loops. It me asures roughly 6.1 x 3.7 cm current study image 57 probable slightly larger in size from most recent prior CT. This encases the right ureter and stent similar to prior. Surgical clips in the bilateral pelvis are redemonstrated. LYMPH NODES: Prominent and slightly enlarged lymph nodes just past the aortic bifurcation axial image 45 for reference are redemonstrated. Anterior 1.6 cm lymph node or mass is increased in size on axia l image 45. Larger lymph node or intraperitoneal mass noted inferior to this axial image 49 measures 2.3 x 2.0 cm. OSSEOUS STRUCTURES: Slight scoliotic curvature upper thoracic spine. Moderate disc space narrowing wi th vacuum disc phenomenon L5-S1 level. OTHER: No significant additional abnormality is seen. IMPRESSION: Developing or partial distal colonic obstruction is felt present due to right pelvic mass or neoplasm. Persistent severe right-sided hydronephrosis despite ureteral stent placement. Continue d neoplastic progression noted.
--- NOTE | 2022-01-14 15:08 | ED ---
Abdominal Pain HPI - General Chief Complaint: Abdominal Pain Stated Complaint: Abd pain Time Seen by Provider: 01/14/22 13:53 Source: patient, family, RN notes reviewed Mode of arrival: ambulatory Limitations: no limitations - History of Present Illness Initial Comments: This is a 66-year-old female who presents to the emergency department for lower abdominal pain and constipation. Patient states that for the last 3 days, she has had left and mid abdominal pain with the constipation. She has tried multiple rounds of laxatives and has still been unable to have a bowel movement. She was admitted early last month for an ileus and small bowel obstruction. These symptoms are different, when she had the ileus and SBO last month, she had suprapubic pain and nausea/vomiting due to recent chemotherapy. She is being treated for ovarian cancer, and has been battling this for the last 13 years. She is treated by Dr. Zayas, oncology. Denies any fevers, chills, sore throat, cough, dyspnea, chest pain, palpitations, nausea, vomiting, diarrhea, back pain, or headaches. MD Complaint: abdominal pain Onset/Timin -: days(s) Location: periumbilical, LLQ Associated Symptoms: constipation - Related Data Home Medications Medication Instructions Recorded Confirmed Folic Acid 1 mg PO DAILY 03/10/20 11/27/21 Magnesium Oxide 400 mg PO AC-BRKFST 03/10/20 11/27/21 Potassium Chloride ER [K-Dur 20] 20 meq PO AC-BRKFST 03/10/20 11/27/21 Potassium Chloride ER [K-Dur 20] 40 meq PO AC-SUPPER 03/10/20 11/27/21 Triamterene-Hctz 37.5-25Mg 0.5 tab PO DAILY 03/10/20 11/27/21 [Maxzide 37.5-25] atenoloL [Tenormin] 50 mg PO DAILY 03/10/20 11/27/21 Amoxicillin 500 mg PO TID 01/14/22 01/14/22 Cholecalciferol [Vitamin D3 (25 75 mcg PO DAILY 01/14/22 01/14/22 Mcg = 1000 Iu)] Allergies Allergy/AdvReac Type Severity Reaction Status Date / Time Iodine and Iodide Containing Allergy Severe Anaphylaxis Verified 01/14/22 15:39 Produc adhesive tape Allergy red skin Verified 01/14/22 15:39 carboplatin Allergy Rash/Hives Verified 01/14/22 15:39 iodine Allergy Rapid Verified 01/14/22 15:39 Heart Rate morphine Allergy Nausea & Verified 01/14/22 15:39 Vomiting paclitaxel [From Taxol] Allergy Dyspnea, Verified 01/14/22 15:39 ELEV HR clavulanic acid AdvReac Nausea & Verified 01/14/22 15:39 [From Augmentin] Vomiting & Diarrhea codeine AdvReac Nausea & Verified 01/14/22 15:39 Vomiting & Diarrhea Review of Systems ROS Statement: Those systems with pertinent positive or pertinent negative responses have been documented in the HPI. ROS Other: All systems not noted in ROS Statement are negative. Past Medical History Past Medical History: Cancer, Hypertension, Skin Disorder Additional Past Medical History / Comment(s): seasonal allergies, hx ovarian cancer, mild diverticulitis, bowel obstruction (post op), small hiatal hernia, mild psoriasis or eczema, ovarian cancer reoccurence (chemo, 04/14) History of Any Multi-Drug Resistant Organisms: None Reported Past Surgical History: Bowel Resection, Cholecystectomy, Hernia Repair, Hysterectomy Additional Past Surgical History / Comment(s): left hand tendon surgery, exploratory abdominal surgeries and cervical ca (DEBULKING SX X2), port inserted/later removed, colostomy with reversal Past Anesthesia/Blood Transfusion Reactions: Motion Sickness, Postoperative Nausea & Vomiting (PONV) Additional Past Anesthesia/Blood Transfusion Reaction / Comment(s): STATES USUALLY HAS SCOPOLAMINE PATCH PRE OP Past Psychological History: No Psychological Hx Reported Smoking Status: Never smoker Past Alcohol Use History: None Reported Past Drug Use History: None Reported - Past Family History Mother Family Medical History: Coronary Artery Disease (CAD), Diabetes Mellitus, Thyroid Disorder Father Family Medical History: Coronary Artery Disease (CAD), Diabetes Mellitus General Exam Limitations: no limitations General appearance: alert, in no apparent distress Head exam: Present: atraumatic, normocephalic, normal inspection Respiratory exam: Present: normal lung sounds bilaterally. Absent: respiratory distress, wheezes, rales, rhonchi, stridor Cardiovascular Exam: Present: regular rate, normal rhythm, normal heart sounds. Absent: systolic murmur, diastolic murmur, rubs, gallop, clicks GI/Abdominal exam: Present: soft, hypoactive bowel sounds. Absent: distended, tenderness, guarding, rebound, rigid Neurological exam: Present: alert, oriented X3, CN II-XII intact Psychiatric exam: Present: normal affect, normal mood Skin exam: Present: warm, dry, intact, normal color. Absent: rash Course Vital Signs 01/14/22 01/14/22 12:03 15:55 Temperature 98.2 F Pulse Rate 71 64 Respiratory 16 18 Rate Blood Pressure 143/70 169/83 O2 Sat by Pulse 99 100 Oximetry Medical Decision Making - Medical Decision Making This is a 66-year-old female who presents to the emergency department for constipation and abdominal pain. She was admitted early last month for an ileus and potential small bowel obstruction. However, on the computed tomography scan obtained today, she was noted to have either a developing or partial colonic obstruction due to the right pelvic mass or neoplasm. The pelvic mass is noted to be slightly larger than on prior imaging, and on prior imaging, it was not causing colonic obstruction. While the patient has a history of a similar problem this is located in a different area and has a different cause. Given that the patient is unable to have any bowel movements despite the use of multiple rounds of laxatives, the patient will be admitted. This case was discussed in detail with the attending ED physician. Presentation, findings, and treatment plan discussed in detail as well. - Lab Data Result diagrams: 01/14/22 12:24 01/14/22 12:24 Lab Results 01/14/22 01/14/22 01/14/22 Range/Units 12:24 12:24 12:30 WBC 16.9 H (3.8-10.6) k/uL RBC 3.90 (3.80-5.40) m/uL Hgb 12.4 (11.4-16.0) gm/dL Hct 37.4 (34.0-46.0) % MCV 95.9 (80.0-100.0) fL MCH 31.8 (25.0-35.0) pg MCHC 33.1 (31.0-37.0) g/dL RDW 17.1 H (11.5-15.5) % Plt Count 298 (150-450) k/uL MPV 8.1 Neutrophils % 79 % Lymphocytes % 13 % Monocytes % 7 % Eosinophils % 0 % Basophils % 0 % Neutrophils # 13.3 H (1.3-7.7) k/uL Lymphocytes # 2.1 (1.0-4.8) k/uL Monocytes # 1.1 H (0-1.0) k/uL Eosinophils # 0.1 (0-0.7) k/uL Basophils # 0.1 (0-0.2) k/uL Poikilocytosis Slight Anisocytosis Slight Macrocytosis Slight Sodium 139 (137-145) mmol/L Potassium 3.2 L (3.5-5.1) mmol/L Chloride 101 (98-107) mmol/L Carbon Dioxide 29 (22-30) mmol/L Anion Gap 9 mmol/L BUN 16 (7-17) mg/dL Creatinine 1.02 (0.52-1.04) mg/dL Est GFR (CKD-EPI)AfAm 68 (>60 ml/min/1.73 sqM) Est GFR (CKD-EPI)NonAf 59 (>60 ml/min/1.73 sqM) Glucose 124 H (74-99) mg/dL Calcium 9.8 (8.4-10.2) mg/dL Total Bilirubin 0.9 (0.2-1.3) mg/dL AST 37 H (14-36) U/L ALT 20 (4-34) U/L Alkaline Phosphatase 83 (38-126) U/L Total Protein 6.8 (6.3-8.2) g/dL Albumin 4.3 (3.5-5.0) g/dL Amylase 72 (30-110) U/L Lipase 48 (23-300) U/L Urine Color Yellow Urine Appearance Clear (Clear) Urine pH 7.5 (5.0-8.0) Ur Specific [place] 1.016 (1.001-1.035) Urine Protein Negative (Negative) Urine Glucose (UA) Negative (Negative) Urine Ketones Negative (Negative) Urine Blood Trace H (Negative) Urine Nitrite Negative (Negative) Urine Bilirubin Negative (Negative) Urine Urobilinogen <2.0 (<2.0) mg/dL Ur Leukocyte Esterase Negative (Negative) Urine RBC 12 H (0-5) /hpf Urine WBC 4 (0-5) /hpf Ur Squamous Epith Cells 1 (0-4) /hpf Urine Mucus Rare H (None) /hpf - Radiology Data Radiology results: report reviewed, image reviewed Disposition Clinical Impression: Partial obstruction of colon, Pelvic mass Disposition: ADMITTED IP TO THIS HOSP Referrals: Dina Martines MD [Primary Care Provider] - 1-2 days
[2022-01-14] MEDS ORDERED: NALOXONE 0.4 MG/ML 1 ML VIAL IV PRN ×2 (15:23→17:01)
[2022-01-14] MEDS ORDERED: ONDANSETRON 4 MG/2 ML VIAL IVP PRN (15:23)
[2022-01-14] MEDS ORDERED: SODIUM CHLORIDE 0.9% 1,000 ML IV STA (15:24)
[2022-01-14] MEDS ORDERED: ACETAMINOPHEN IV (For NPO) 1,000 MG in EMPTY BAG 1 BAG IVPB PRN (17:00)
[2022-01-14] MEDS ORDERED: LACTULOSE 20 GM/30 ML CUP PO ONE (17:15)
[2022-01-14] MEDS ORDERED: POTASSIUM CHLORIDE 20 MEQ in WATER FOR INJECTION 1 100ML.BAG IVPB STA (17:19)
--- NOTE | 2022-01-14 17:19 | P.HPIM ---
History of Present Illness H&P Date: 01/14/22 Chief Complaint: abdominal pain Patient is a 66-year-old female with known very cancer status post multiple gynecologic oncology surgeries including colostomy with reversal, urinary obstruction related to the malignancy with a double-J stent in place, and hypertension who presented to the emergency department with complaints of abdominal pain. Patient had recently been hospitalized here in November 2021 with a partial small bowel obstruction which self resolved. In the ER she underwent an extensive evaluation. Initial vital signs are slightly hypertensive. Laboratory analysis showed potassium of 3.2 and a white blood cell count of 16.9. She underwent a CT abdomen and pelvis which demonstrated partial or developing distal colonic obstruction due to right pelvic mass or neoplasm with persistent severe right-sided hydronephrosis despite ureteral stent placement. Patient seen and examined at bedside. She reports that she started having left lower quadrant abdominal pain yesterday which increased this morning and then became excruciating. She started having some constipation approximately 5 days ago and has only been having very small bowel movements. However they have been very infrequent. She reports some cramping. She has had nausea but no vomiting. She denies any fever or chills. She does follow with Dr. Huynh after discharge and is working on getting started on chemo however there has been some delays in obtaining the medication. She has also followed with gynecologic oncology who states there is no additional treatment for her need from them at this time. If she needs a surgeon she is requesting Dr. Elena is he has performed surgery on her in the past. She also reports that she follows with Dr. Ray for her stent. Pertinent positives and negatives as discussed in HPI, a complete review of systems was performed and all other systems are negative. General: Ill appearing, mild distress secondary to pain, appears at stated age Derm: warm, dry Head: atraumatic, normocephalic, symmetric Eyes: EOMI, no lid lag, anicteric sclera, pupils equal round reactive to light ENT: Nose and ears atraumatic, no thrush, no pharyngeal erythema Neck: No thyromegaly, no cervical lymphadenopathy, trachea midline, supple Mouth: no lip lesion, mucus membranes moist Cardiovascular: S1S2 reg, no murmur, positive posterior tibial pulse bilateral, no edema, capillary refill less than 2 seconds Lungs: clear to ascultation bilateral, no ronchi, no rales, no wheeze, no accessory muscle use Abdominal: Hyperactive bowel sounds, soft, tender to palpation left lower quadrant no guarding, no appreciable organomegaly, normal bowel sounds Ext: no gross muscle atrophy, muscle strength muscle strength 5 out of 5 in all 4 extremities, no contractures Neuro: CN II-XI grossly intact, light touch intact all 4 extremities, finger to nose within normal limits, Psych: Alert, oriented, appropriate affect Assessment/plan: Partial colonic obstruction related to mass effect from metastatic cervical cancer -Nothing by mouth with ice chips -Lactulose 1 -If no improvement in a.m. consult surgery -Pain control -IV fluids -Antiemetics Metastatic cervical cancer -Oncology recommendations Hypokalemia -Replace and recheck in a.m. Right-sided hydronephrosis, known in unchanged -Continue outpatient follow-up with urology Hypertension -Resume home meds The patient is placed in observation with an anticipated less than 2 midnight stay for evaluation of Colonic obstruction. Surrogate decision-maker: CODE STATUS:Full code DVT prophylaxis: lovenox Discussed with: patient, , nursing Anticipated discharge date: in 1-[address]: home A total of 65 minutes was spent on the care of this complex patient more than 50% of the time was spent in counseling and care coordination. Past Medical History Past Medical History: Cancer, Hypertension, Skin Disorder Additional Past Medical History / Comment(s): seasonal allergies, hx ovarian cancer, mild diverticulitis, bowel obstruction (post op), small hiatal hernia, mild psoriasis or eczema, ovarian cancer reoccurence (chemo, 04/14) History of Any Multi-Drug Resistant Organisms: None Reported Past Surgical History: Bowel Resection, Cholecystectomy, Hernia Repair, Hysterectomy Additional Past Surgical History / Comment(s): left hand tendon surgery, exploratory abdominal surgeries and cervical ca (DEBULKING SX X2), port inserted/later removed, colostomy with reversal Past Anesthesia/Blood Transfusion Reactions: Motion Sickness, Postoperative Nausea & Vomiting (PONV) Additional Past Anesthesia/Blood Transfusion Reaction / Comment(s): STATES USUALLY HAS SCOPOLAMINE PATCH PRE OP Past Psychological History: No Psychological Hx Reported Smoking Status: Never smoker Past Alcohol Use History: None Reported Past Drug Use History: None Reported - Past Family History Mother Family Medical History: Coronary Artery Disease (CAD), Diabetes Mellitus, Thyroid Disorder Father Family Medical History: Coronary Artery Disease (CAD), Diabetes Mellitus Medications and Allergies Home Medications Medication Instructions Recorded Confirmed Type Folic Acid 1 mg PO DAILY 03/10/20 01/14/22 History Magnesium Oxide 400 mg PO BID-W/MEALS 03/10/20 01/14/22 History Potassium Chloride ER [K-Dur 20] 20 meq PO AC-BRKFST 03/10/20 01/14/22 History Potassium Chloride ER [K-Dur 20] 40 meq PO AC-SUPPER 03/10/20 01/14/22 History Triamterene-Hctz 37.5-25Mg 0.5 tab PO DAILY 03/10/20 01/14/22 History [Maxzide 37.5-25] atenoloL [Tenormin] 50 mg PO DAILY 03/10/20 01/14/22 History Amoxicillin 500 mg PO TID 01/14/22 01/14/22 History Cholecalciferol [Vitamin D3 (25 75 mcg PO DAILY 01/14/22 01/14/22 History Mcg = 1000 Iu)] Allergies Allergy/AdvReac Type Severity Reaction Status Date / Time Iodine and Iodide Containing Allergy Severe Anaphylaxis Verified 01/14/22 15:39 Produc adhesive tape Allergy red skin Verified 01/14/22 15:39 carboplatin Allergy Rash/Hives Verified 01/14/22 15:39 iodine Allergy Rapid Verified 01/14/22 15:39 Heart Rate morphine Allergy Nausea & Verified 01/14/22 15:39 Vomiting paclitaxel [From Taxol] Allergy Dyspnea, Verified 01/14/22 15:39 ELEV HR clavulanic acid AdvReac Nausea & Verified 01/14/22 15:39 [From Augmentin] Vomiting & Diarrhea codeine AdvReac Nausea & Verified 01/14/22 15:39 Vomiting & Diarrhea Physical Exam Osteopathic Statement: *. No significant issues noted on an osteopathic structural exam other than those noted in the History and Physical/Consult. Vitals: Vital Signs Temp Pulse Pulse Resp BP BP Pulse Ox 01/14/22 16:17 98.2 F 72 18 157/67 99 01/14/22 15:55 64 18 169/83 100 01/14/22 12:03 98.2 F 71 16 143/70 99 Intake and Output 01/14/22 01/14/22 01/14/22 06:59 14:59 22:59 Other: Weight 64.41 kg Results CBC & Chem 7: 01/14/22 12:24 01/14/22 12:24 Labs: Abnormal Lab Results - Last 24 Hours (Table) 01/14/22 01/14/22 01/14/22 Range/Units 12:24 12:24 12:30 WBC 16.9 H (3.8-10.6) k/uL RDW 17.1 H (11.5-15.5) % Neutrophils # 13.3 H (1.3-7.7) k/uL Monocytes # 1.1 H (0-1.0) k/uL Potassium 3.2 L (3.5-5.1) mmol/L Glucose 124 H (74-99) mg/dL AST 37 H (14-36) U/L Urine Blood Trace H (Negative) Urine RBC 12 H (0-5) /hpf Urine Mucus Rare H (None) /hpf
[2022-01-14] MEDS: HYDROmorphone 1 MG/ML 1 ML SYRINGE IVP PRN ×2 (17:21→21:43)
[2022-01-14] MEDS: MAGNESIUM OXIDE 400 MG TAB PO SCH (17:21)
[2022-01-14] MEDS: SODIUM CHLORIDE 0.9% 1,000 ML IV SCH (17:34)
[2022-01-14] MEDS: AMOXICILLIN 500 MG CAP PO SCH ×2 (17:41→21:43)
[2022-01-14] MEDS: atenoloL 50 MG TAB PO SCH (17:44)
[2022-01-15] MEDS: HYDROmorphone 1 MG/ML 1 ML SYRINGE IVP PRN (03:24)
[2022-01-15 07:49] LABS: Anisocytosis Slight; HCT 41.1 % (34.0-46.0); HGB 12.8 gm/dL (11.4-16.0); Hypochromasia Slight; MCH 30.9 pg (25.0-35.0); MCHC 31.2 g/dL (31.0-37.0); MCV 99.1 fL (80.0-100.0); Macrocytosis Slight; Mean Platelet Volume 8.1; Platelet Count 260 k/uL (150-450); Poikilocytosis Slight; RBC 4.15 m/uL (3.80-5.40); RDW 16.5 % (11.5-15.5); WBC 18.1 k/uL (3.8-10.6)
[2022-01-15 08:05] LABS: ALT 44 U/L (4-34); African American GFR (CKD) >90 (>60 ml/min/1.73 sqM); Albumin 3.6 g/dL (3.5-5.0); Albumin/Globulin Ratio 1.6; Anion Gap 11 mmol/L; Blood Urea Nitrogen 17 mg/dL (7-17); Calcium 8.5 mg/dL (8.4-10.2); Carbon Dioxide 23 mmol/L (22-30); Chloride 103 mmol/L (98-107); Globulin 2.2 g/dL; Glucose 143 mg/dL (74-99); Non-African American GFR(CKD) 78 (>60 ml/min/1.73 sqM); Sodium 137 mmol/L (137-145); Total Bilirubin 1.1 mg/dL (0.2-1.3); Total Protein 5.8 g/dL (6.3-8.2)
[2022-01-15 08:06] LABS: AST 81 U/L (14-36); Alkaline Phosphatase 82 U/L (38-126); Magnesium 1.6 mg/dL (1.6-2.3); Potassium 3.3 mmol/L (3.5-5.1)
[2022-01-15] MEDS: AMOXICILLIN 500 MG CAP PO SCH ×3 (08:34→20:47)
[2022-01-15] MEDS: MAGNESIUM OXIDE 400 MG TAB PO SCH ×2 (08:34→16:29)
[2022-01-15] MEDS: FOLIC ACID 1 MG TAB PO SCH (08:34)
[2022-01-15] MEDS: atenoloL 50 MG TAB PO SCH (08:34)
[2022-01-15] MEDS: TRIAMTERENE-HCTZ 37.5-25MG 1 EACH TAB PO SCH (08:34)
[2022-01-15] MEDS: CHOLECALCIFEROL 25 MCG (1000 IU) TABLET PO SCH (08:34)
[2022-01-15] MEDS: PANTOPRAZOLE 40 MG TABLET PO SCH ×2 (10:11→16:35)
[2022-01-15] MEDS: SODIUM CHLORIDE 0.9% 1,000 ML IV SCH ×2 (12:30→19:20)
[2022-01-15] MEDS: polyethylene glycoL 3350 17 GM POWD.PACK PO SCH (13:24)
--- NOTE | 2022-01-15 13:54 | P.PN ---
Subjective Progress Note Date: 01/15/22 Principal diagnosis: abdominal pain Patient is a 66-year-old female with known very cancer status post multiple gynecologic oncology surgeries including colostomy with reversal, urinary obstruction related to the malignancy with a double-J stent in place, and hypertension who presented to the emergency department with complaints of abdominal pain. Patient had recently been hospitalized here in November 2021 with a partial small bowel obstruction which self resolved. In the ER she underwent an extensive evaluation. Initial vital signs are slightly hypertensive. La boratory analysis showed potassium of 3.2 and a white blood cell count of 16.9. She underwent a CT abdomen and pelvis which demonstrated partial or developing distal colonic obstruction due to right pelvic mass or neoplasm with persistent severe right-sided hydronephrosis despite ureteral stent placement. She was given a dose of lactulose and had vomitng but then had 2 good bowel movements. Patient seen and examined at bedside. Pain is much better today and had 2 bowel movements. No nuasea and wants to tolerate a diet. General: non toxic, no distress, appears at stated age Derm: warm, dry Head: atraumatic, normocephalic, symmetric Eyes: EOMI, no lid lag, anicteric sclera Mouth: no lip lesion, mucus membranes moist Cardiovascular: S1S2 reg, no murmur, positive posterior tibial pulse bilateral, Lungs: CTA bilateral, no rhonchi, no rales , no accessory muscle use Abdominal: soft, +tender to palpation right lower quadrant, no guarding, no appreciable organomegaly Ext: no gross muscle atrophy, no edema, no contractures Neuro: CN II-XI grossly intact, no focal neuro deficits Psych: Alert, oriented, appropriate affect Assessment/plan: Partial colonic obstruction related to mass effect from metastatic cervical cancer -increase diet - miralax daily -Lactulose 1 -Pain control -IV fluids -Antiemetics Metastatic cervical cancer -Oncology recommendations Hypokalemia -Replace and recheck in a.m. Right-sided hydronephrosis, known in unchanged -Continue outpatient follow-up with urology Hypertension -Resume home meds Home if tolerates diet and cleared by oncology then home. DVT prophylaxis: lovenox Discussed with: patient, , nursing Anticipated discharge date: later today or tomorrow Anticipated discharge place: home A total of 35 minutes was spent on the care of this complex patient more than 50% of the time was spent in counseling and care coordination. Objective - Vital Signs Vital signs: Vital Signs Temp 98.7 F 01/15/22 07:00 Pulse 78 01/15/22 08:00 Resp 15 01/15/22 08:00 BP 132/73 01/15/22 07:00 Pulse Ox 100 01/15/22 07:00 Intake & Output 01/14/22 01/15/22 01/15/22 18:59 06:59 18:59 Weight 64.41 kg Other: # Voids 1 - Labs CBC & Chem 7: 01/15/22 07:21 01/15/22 07:14 Labs: Abnormal Lab Results - Last 24 Hours (Table) 01/15/22 01/15/22 Range/Units 07:14 07:21 WBC 18.1 H (3.8-10.6) k/uL RDW 16.5 H (11.5-15.5) % Potassium 3.3 L (3.5-5.1) mmol/L Glucose 143 H (74-99) mg/dL AST 81 H (14-36) U/L ALT 44 H (4-34) U/L Total Protein 5.8 L (6.3-8.2) g/dL
--- NOTE | 2022-01-15 18:45 | P.CONS ---
History of Present Illness - Reason for Consult Consult date: 01/15/22 Requesting physician: Jordyn Eagle - History of Present Illness The patient was diagnosed with stage IIc ovarian cancer in .She had debulking surgery on 07/29/2008 followed by 6 cycles of adjuvant Carbo/Taxol completed on 12/17/2008.She did well until when she was found to have pelvic recurrence.She had another debulking surgery in .She started Carbo/Taxol weekly on 10/26/2011 and completed 6 cycles on 03/28/2012. She had a repeat CT scan on 04/11/2012 which was normal. CA125 on 04/18/2012 was 10.1. CA125 in 06/2012 was 11.8. Mediport was removed on 05/17/2012. Repeat CT scan of CAP on 10/14/2012 was normal. CA125 on 01/31/2013 was 10.2 CA125 on 05/30/[address] scan of chest/abdomen/pelvis on 05/01/[address] scan of CAP on 10/30/2013 was negative for recurrence. Repeat CT scan of chest/abdomen/pelvis on 05/07/2014 revealed a new right adnexal mass. On 06/08/2014,she had her third debulking surgery at [facility]. Echocardiogram on 07/01/2014 revealed normal EF. She started carboplatin/doxil on 07/09/2014. On 09/01/2014,CA125 was 5.9. CA125 was 10 on 11/20/2014. She completed 6 cycles of carboplatin/doxil on 11/26/2014. Repeat CT scan of chest/abdomen/pelvis on 12/10/2014 revealed no evidence of recurrence. CA125 on 03/19/2015 was 9.5. CA125 on 04/14/[address] scan of chest/abdomen/pelvis 06/17/2015 revealed no evidence of recurrence. CA125 on 06/25/2015 was 9.4. Colonoscopy in was unremarkable,however,could not pass through due to old obstruction, On 09/14/2015,CA125 was 11.2. On 11/20/2015,CT scan of chest/abdomen/pelvis was negative for metastatic disease. On 12/14/2015,CA125 was 10.4 On 06/06/2016,repeat CT scan of abdomen/pelvis revealed thickening mid sigmoid ,possible under distension,?serosal mets. On 06/14/2016,CA125 was 17.3 On PET scan on 06/25/2016,revealed uptake at sigmoid colon,colonoscopy was normal. On 09/13/2016,CA125 was 20.7 On 11/30/[address] scan of chest/abdomen/pelvis revealed no changes. On 12/05/2016,CA125 was 22.1 On 03/01/2017,repeat CT scan of chest/abdomen/pelvis revealed stable lesion at sigmoid. On 03/10/2017,PET scan revealed suspicious uptake in sigmoid,otherwise negative,repeat colonoscopy was negative for intracolonic lesion. 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 She started carbo/weekly taxol on 07/05/2017,her treatment was interupted due to recurrent abdominal wound infection. She had day #1 of cycle#4 of carboplatin/taxol on 11/01/2017,she had hives,elevated BP after carboplatin which resolved with steroids. She continued with weekly taxol,has had 12 weeks,last treatment on 11/29/2017,treatment was interrupted and delayed due to recurrent abdominal wound infection. On 12/06/2017 CA125 was 12.2 On 01/10/2018,repeat CT scan of chest/abdomen/pelvis revealed no recurrence. On 01/11/2018,CA125 was 12.5 On 04/11/2018,CA125 was 12.1. On 07/04/[address] scan of chest/abdomen/pelvis revealed no evidence of recurrence. On 07/16/2018,CA125 was 11.7. On 10/22/2018,CA125 was 13.9 On 01/09/2019,repeat CT scan of chest/abdomen/pelvis revealed new soft tissue lesion in upper pelvis,highly suspicious for recurrence. On 01/14/2019,CA125 was 59.1 and up to 121 on 02/13/2019. She started carboplatin/gemzar,under the care of Dr Castillo,completed 6 cycles on 08/01/2019. On -,repeat CT scan of chest/abdomen/pelvis revealed stable finding on 08/15/2019,CA125 was down to 10.2 and was started on maintenance rucarparib. In January/2020,CA125 went up to 31. Repeat CT scan of chest/abdomen/pelvis on 02/11/2020,revealed slight increase in soft tissue density in right adnexa up to 2.4cm. She had a PET scan in 03/2020 which revealed only lesion in right adnexa,she ended up having XRT to it,completed on 05/07/2020. Repeat CT scan of chest/abdomen/pelvis on 06/17/2020 revealed stable right anexa lesion,changes more consistent with post XRT changes (reviewed with radiologist) On 09/14/2020,CA125 was 13.9. On 12/09/2020,CT scan of chest/abdomen/pelvis revealed 3 small lung nodules,the largest 7mm in RML On 12/11/2020,CA125 was 22.0 On 01/22/2021,CA 125 was 31.1 On 03/07/2021,CT scan of chest/abdomen/pelvis revealed slightyl increase in lung nodules and small new ones. On 03/16/2021,CA125 was 91.4,recurparib was discontinued. On 04/21/2021,she started cisplatin/gemzar On 06/04/2021,CA125 was 89.2 On 06/20/2021 revealed slight increase in size lung nodules and pelvic lesion. On 06/25/2021 CA125 was 124 On 06/30/2021,she started weekly taxol. On 08/17/2021,CA125 was 99 On 09/08/2021,CA125 was 105. On 09/26/2021,repeat CT scan of chest/abdomen/pelvis revealed evidence of progressive adenopathies in pelvis,lung nodules are smaller,evidence of right hydronephrosis. Taxol was dsicontinued She was seen by urology and had stent placement. On 10/04/2021,CA125 was 178. On 10/13/2021,she started alimta regimen,however,her insurance denied it. She resumed alimta on 11/25/2021. On 12/16/2021,CA125 was 566. On 12/28/2021,CA125 was 578. Repeat PET scan on 01/10/2022 revealed evidence of disease progression,enlarging right pelvic mass,multiple smaller abdominal masses and lung nodules. She feels tired,but active and doing well. I had a discussion with the patient today. She has disease progression on alimta. As next line of therapy,it would be reasonable to consider doxil/avastin combination,we,again,discussed risk of possible bowel per foration,bleeding,HTN,proteinuria..exc that are associated with avastin. She agreed to above plan. Dr. Zayas had also discussed her care with Dr Castillo. The plan after this recent progression was to start Doxil and Avastin, however she has had recurrent admission for concerns of obstruction/ileus. Today she attempted PO intake however had emesis following. Discussed in detail with Dr. Eagle Review of Systems All systems: negative Constitutional: Reports as per HPI Past Medical History Past Medical History: Cancer, Hypertension, Skin Disorder Additional Past Medical History / Comment(s): seasonal allergies, hx ovarian cancer, mild diverticulitis, bowel obstruction (post op), small hiatal hernia, mild psoriasis or eczema, ovarian cancer reoccurence (chemo, 04/14) History of Any Multi-Drug Resistant Organisms: None Reported Past Surgical History: Bowel Resection, Cholecystectomy, Hernia Repair, Hysterectomy Additional Past Surgical History / Comment(s): left hand tendon surgery, e xploratory abdominal surgeries and cervical ca (DEBULKING SX X2), port inserted/later removed, colostomy with reversal Past Anesthesia/Blood Transfusion Reactions: Motion Sickness, Postoperative Nausea & Vomiting (PONV) Additional Past Anesthesia/Blood Transfusion Reaction / Comm: STATES USUALLY HAS SCOPOLAMINE PATCH PRE OP Past Psychological History: No Psychological Hx Reported Additional Psychological History / Comment(s): , is supportive. Works for a local business. Lifelong nonsmoker. Denies significant alcohol use or recreational drug use. No experience. No recent international travel pet dogs at home Smoking Status: Never smoker Past Alcohol Use History: None Reported Past Drug Use History: None Reported - Past Family History Mother Family Medical History: Coronary Artery Disease (CAD), Diabetes Mellitus, Thyroid Disorder Father Family Medical History: Coronary Artery Disease (CAD), Diabetes Mellitus Medications and Allergies Home Medications Medication Instructions Recorded Confirmed Type Folic Acid 1 mg PO DAILY 03/10/20 01/14/22 History Magnesium Oxide 400 mg PO BID-W/MEALS 03/10/20 01/14/22 History Potassium Chloride ER [K-Dur 20] 20 meq PO AC-BRKFST 03/10/20 01/14/22 History Potassium Chloride ER [K-Dur 20] 40 meq PO AC-SUPPER 03/10/20 01/14/22 History Triamterene-Hctz 37.5-25Mg 0.5 tab PO DAILY 03/10/20 01/14/22 History [Maxzide 37.5-25] atenoloL [Tenormin] 50 mg PO DAILY 03/10/20 01/14/22 History Amoxicillin 500 mg PO TID 01/14/22 01/14/22 History Cholecalciferol [Vitamin D3 (25 75 mcg PO DAILY 01/14/22 01/14/22 History Mcg = 1000 Iu)] Allergies Allergy/AdvReac Type Severity Reaction Status Date / Time Iodine and Iodide Containing Allergy Severe Anaphylaxis Verified 01/14/22 15:39 Produc adhesive tape Allergy red skin Verified 01/14/22 15:39 carboplatin Allergy Rash/Hives Verified 01/14/22 15:39 iodine Allergy Rapid Verified 01/14/22 15:39 Heart Rate morphine Allergy Nausea & Verified 01/14/22 15:39 Vomiting paclitaxel [From Taxol] Allergy Dyspnea, Verified 01/14/22 15:39 ELEV HR clavulanic acid AdvReac Nausea & Verified 01/14/22 15:39 [From Augmentin] Vomiting & Diarrhea codeine AdvReac Nausea & Verified 01/14/22 15:39 Vomiting & Diarrhea Physical Exam Vitals: Vital Signs Temp Pulse Pulse Pulse Resp BP BP 01/15/22 08:00 78 15 01/15/22 07:00 98.7 F 78 15 132/73 01/15/22 02:55 97.9 F 88 18 144/77 01/15/22 02:00 70 72 01/14/22 18:54 98.2 F 70 18 152/83 01/14/22 16:17 98.2 F 72 18 157/67 01/14/22 15:55 64 18 169/83 Pulse Ox 01/15/22 08:00 01/15/22 07:00 100 01/15/22 02:55 92 L 01/15/22 02:00 01/14/22 18:54 97 01/14/22 16:17 99 01/14/22 15:55 100 Intake and Output 01/14/22 01/15/22 01/15/22 22:59 06:59 14:59 Other: # Voids 1 1 Weight 64.41 kg - Constitutional General appearance: cooperative, no acute distress - EENT Eyes: EOMI ENT: NA/AT - Neck Neck: normal ROM - Respiratory Respiratory: bilateral: diminished - Cardiovascular Rhythm: regularly irregular - Gastrointestinal Large abdominal reducible hernia General gastrointestinal: distended, tenderness - Integumentary Integumentary: pale - Neurologic Neurologic: CNII-XII intact - Musculoskeletal Musculoskeletal: generalized weakness, strength equal bilaterally - Psychiatric Psychiatric: A&O x's 3, appropriate affect, intact judgment & insight Results CBC & Chem 7: 01/15/22 07:21 01/15/22 07:14 Labs: Abnormal Lab Results - Last 24 Hours (Table) 01/15/22 01/15/22 Range/Units 07:14 07:21 WBC 18.1 H (3.8-10.6) k/uL RDW 16.5 H (11.5-15.5) % Potassium 3.3 L (3.5-5.1) mmol/L Glucose 143 H (74-99) mg/dL AST 81 H (14-36) U/L ALT 44 H (4-34) U/L Total Protein 5.8 L (6.3-8.2) g/dL CT scan - abdomen: report reviewed Assessment and Plan (1) Partial obstruction of colon Current Visit: Yes Status: Acute Code(s): K56.600 - PARTIAL INTESTINAL OBSTRUCTION, UNSPECIFIED TO CAUSE SNOMED Code(s): 90412036734530589 (2) Pelvic mass Current Visit: Yes Status: Acute Code(s): R19.00 - INTRA-ABD AND PELVIC SWEL LING, MASS AND LUMP, UNSP SITE SNOMED Code(s): 14778791 (3) Ovarian cancer Narrative/Plan: Recent progression Plan to begin systemic treatment dinora to reduce recurrent admissions and QOL Discussed with primary team Current Visit: No Status: Acute Code(s): C56.9 - MALIGNANT NEOPLASM OF UNSPECIFIED OVARY SNOMED Code(s): 439680010
[2022-01-16 02:29] VITALS: PULSE 70
[2022-01-16 08:22] VITALS: BP 127/72; RESP 16; TEMP 98.5
[2022-01-16] MEDS: AMOXICILLIN 500 MG CAP PO SCH (08:23)
[2022-01-16] MEDS: CHOLECALCIFEROL 25 MCG (1000 IU) TABLET PO SCH (08:23)
[2022-01-16] MEDS: MAGNESIUM OXIDE 400 MG TAB PO SCH (08:23)
[2022-01-16] MEDS: PANTOPRAZOLE 40 MG TABLET PO SCH (08:23)
[2022-01-16] MEDS: TRIAMTERENE-HCTZ 37.5-25MG 1 EACH TAB PO SCH (08:23)
[2022-01-16] MEDS: FOLIC ACID 1 MG TAB PO SCH (08:23)
[2022-01-16 08:24] LABS: Anisocytosis Slight; HCT 38.4 % (34.0-46.0); HGB 12.2 gm/dL (11.4-16.0); MCH 31.2 pg (25.0-35.0); MCHC 31.9 g/dL (31.0-37.0); MCV 97.9 fL (80.0-100.0); Macrocytosis Slight; Mean Platelet Volume 7.9; Platelet Count 233 k/uL (150-450); Poikilocytosis Slight; RBC 3.92 m/uL (3.80-5.40); RDW 16.2 % (11.5-15.5); WBC 13.8 k/uL (3.8-10.6)
[2022-01-16] MEDS: SODIUM CHLORIDE 0.9% 1,000 ML IV SCH (08:24)
[2022-01-16] MEDS: polyethylene glycoL 3350 17 GM POWD.PACK PO SCH (08:24)
[2022-01-16] MEDS: atenoloL 50 MG TAB PO SCH (08:24)
[2022-01-16 09:12] LABS: African American GFR (CKD) 84 (>60 ml/min/1.73 sqM); Anion Gap 10 mmol/L; Blood Urea Nitrogen 13 mg/dL (7-17); Calcium 8.7 mg/dL (8.4-10.2); Carbon Dioxide 23 mmol/L (22-30); Chloride 103 mmol/L (98-107); Glucose 124 mg/dL (74-99); Magnesium 1.6 mg/dL (1.6-2.3); Non-African American GFR(CKD) 73 (>60 ml/min/1.73 sqM); Sodium 136 mmol/L (137-145)
[2022-01-16] MEDS ORDERED: SIMETHICONE 80 MG CHEWABLE PO PRN (13:01)
--- NOTE | 2022-01-16 13:10 | P.DS ---
Providers Date of admission: 01/15/22 20:07 Expected date of discharge: 01/16/22 Attending physician: Jordyn Smith DO Consults: 01/14/22 17:02 Consult Physician Routine Consulting Provider: Yadira Zayas Consult Reason/Comments: cervical cancer recurrent bowel obstruction Do you want consulting provider notified?: Yes Primary care physician: Dina Martines MD Hospital Course: Discharge Diagnosis: Partial colonic obstruction related to mass effect from metastatic cervical cancer Metastatic cervical cancer Hypokalemia Right-sided hydronephrosis, known in unchanged Hypertension Hospital Course: Patient is a 66-year-old female with known very cancer status post multiple gynecologic oncology surgeries including colostomy with reversal, urinary obstruction related to the malignancy with a double-J stent in place, and hypertension who presented to the emergency department with complaints of abdominal pain. Patient had recently been hospitalized here in November 2021 with a partial small bowel obstruction which self resolved. In the ER she underwent an extensive evaluation. Initial vital signs are slightly hypertensive. Laboratory analysis showed potassium of 3.2 and a white blood cell count of 16.9. She underwent a CT abdomen and pelvis which demonstrated partial or developing distal colonic obstruction due to right pelvic mass or neoplasm with persistent severe right-sided hydronephrosis despite ureteral stent placement. She was given a dose of lactulose and had vomitng but then had 2 good bowel movements. She was able to tolerate a diet. Plan is for outpatient chemo this week with oncology. She will continue her bowel regiment. Follow-up: Dr. Zayas for chemo this week, Dr. Martines in 1 week, Miralax daily until soft liquid bowel movement twice daily and then can decrease.Low residual diet Patient seen and examined at bedside.Tolerated brekfast and cramping is better, n Vital signs reviewed and stable. General: non toxic, no distress, appears at stated age Derm: warm, dry Head: atraumatic, normocephalic, symmetric Eyes: EOMI, no lid lag, anicteric sclera Mouth: no lip lesion, mucus membranes moist Cardiovascular: S1S2 reg, no murmur, positive posterior tibial pulse bilateral, Lungs: CTA bilateral, no rhonchi, no rales , no accessory muscle use Abdominal: soft, +tender to palpation LLQ, no guarding, no appreciable organomegaly Ext: no gross muscle atrophy, no edema, no contractures Neuro: CN II-XI grossly intact, no focal neuro deficits Psych: Alert, oriented, appropriate affect A total of 25 minutes of time were spent preparing this complex discharge summary . Plan - Discharge Summary Discharge Rx Participant: No New Discharge Prescriptions: New Simethicone Chew [Mylicon Chew] 40 mg PO QID PRN tab PRN Reason: Bloating Pantoprazole [Protonix] 40 mg PO AC-BID #60 tab polyethylene glycoL 3350 [Miralax] 17 gm PO DAILY packet Continue atenoloL [Tenormin] 50 mg PO DAILY Folic Acid 1 mg PO DAILY Magnesium Oxide 400 mg PO BID-W/MEALS Potassium Chloride ER [K-Dur 20] 20 meq PO AC-BRKFST Potassium Chloride ER [K-Dur 20] 40 meq PO AC-SUPPER Triamterene-Hctz 37.5-25Mg [Maxzide 37.5-25] 0.5 tab PO DAILY Cholecalciferol [Vitamin D3 (25 Mcg = 1000 Iu)] 75 mcg PO DAILY Amoxicillin 500 mg PO TID Discharge Medication List Folic Acid 1 mg PO DAILY 03/10/20 [History] Magnesium Oxide 400 mg PO BID-W/MEALS 03/10/20 [History] Potassium Chloride ER [K-Dur 20] 20 meq PO AC-BRKFST 03/10/20 [History] Potassium Chloride ER [K-Dur 20] 40 meq PO AC-SUPPER 03/10/20 [History] Triamterene-Hctz 37.5-25Mg [Maxzide 37.5-25] 0.5 tab PO DAILY 03/10/20 [History] atenoloL [Tenormin] 50 mg PO DAILY 03/10/20 [History] Amoxicillin 500 mg PO TID 01/14/22 [History] Cholecalciferol [Vitamin D3 (25 Mcg = 1000 Iu)] 75 mcg PO DAILY 01/14/22 [History] Pantoprazole [Protonix] 40 mg PO AC-BID #60 tab 01/16/22 [Rx] Simethicone Chew [Mylicon Chew] 40 mg PO QID PRN tab 01/16/22 [Rx] polyethylene glycoL 3350 [Miralax] 17 gm PO DAILY packet 01/16/22 [Rx] Follow up Appointment(s)/Referral(s): Dina Martines MD [Primary Care Provider] - 1-2 days Yadira Zayas MD [STAFF PHYSICIAN] - 1-2 Days (for chemo this week) Discharge Disposition: HOME SELF-CARE
--- NOTE | 2022-01-16 13:30 | P.PN ---
Subjective Progress Note Date: 01/16/22 Able to tolerate oral intake today Objective - Vital Signs Vital signs: Vital Signs Temp 98.5 F 01/16/22 07:00 Pulse 70 01/16/22 07:00 Resp 16 01/16/22 07:00 BP 127/72 01/16/22 07:00 Pulse Ox 100 01/16/22 07:00 FiO2 Intake & Output 01/15/22 01/16/22 01/16/22 18:59 06:59 18:59 Intake Total 240 Balance 240 Intake: Oral 240 Other: Voiding Method Toilet Toilet # Voids 1 3 - Exam - Constitutional General appearance: cooperative, no acute distress - EENT Eyes: EOMI ENT: NA/AT - Neck Neck: normal ROM - Respiratory Respiratory: bilateral: diminished - Cardiovascular Rhythm: regularly irregular - Gastrointestinal Large abdominal reducible hernia General gastrointestinal: distended, tenderness - Integumentary Integumentary: pale - Neurologic Neurologic: CNII-XII intact - Musculoskeletal Musculoskeletal: generalized weakness, strength equal bilaterally - Psychiatric - Labs CBC & Chem 7: 01/16/22 08:06 01/16/22 08:06 Labs: Abnormal Lab Results - Last 24 Hours (Table) 01/16/22 01/16/22 Range/Units 08:06 08:06 WBC 13.8 H (3.8-10.6) k/uL RDW 16.2 H (11.5-15.5) % Sodium 136 L (137-145) mmol/L Potassium 3.0 L (3.5-5.1) mmol/L Glucose 124 H (74-99) mg/dL Assessment and Plan (1) Partial obstruction of colon Current Visit: Yes Status: Acute Code(s): K56.600 - PARTIAL INTESTINAL OBSTRUCTION, UNSPECIFIED TO CAUSE SNOMED Code(s): 13680297368981964 (2) Pelvic mass Current Visit: Yes Status: Acute Code(s): R19.00 - INTRA-ABD AND PELVIC SWELLING, MASS AND LUMP, UNSP SITE SNOMED Code(s): 76563425 (3) Ovarian cancer Narrative/Plan: Recent progression Plan to begin systemic treatment dinora as outpatient to reduce recurrent admissions and QOL Discussed with primary team Current Visit: No Status: Acute Code(s): C56.9 - MALIGNANT NEOPLASM OF UNSPECIFIED OVARY SNOMED Code(s): 397551876 Plan: Discussed with primary team and with our office, LISA Sierra working on initiation of chemotherapy in office with expedetiting appointment due to need to treat dinora
== END 2022-01-16 13:50 | disposition home or self-care (01) ==
LOC: EC 11:51 → 6NMEDSUR 15:32 → OBSVTOIN 01-15 20:07 → INTOOBSV 01-15 20:07 → UNDODISIN 01-16 13:50
PROVIDERS: ADMIT Internal Medicine; ATTEND Internal Medicine
DX: K56.690 Other partial intestinal obstruction (principal); C79.89 Secondary malignant neoplasm of other specified sites; N13.1 Hydronephrosis with ureteral stricture, not elsewhere classified; E87.6 Hypokalemia; J30.9 Allergic rhinitis, unspecified; I10 Essential (primary) hypertension; Z79.899 Other long term (current) drug therapy; N13.30 Unspecified hydronephrosis; K44.9 Diaphragmatic hernia without obstruction or gangrene; L40.9 Psoriasis, unspecified; L30.9 Dermatitis, unspecified; J30.2 Other seasonal allergic rhinitis; K57.92 Diverticulitis of intestine, part unspecified, without perforation or abscess without bleeding; Z71.9 Counseling, unspecified; Z96.0 Presence of urogenital implants; Z85.038 Personal history of other malignant neoplasm of large intestine; Z90.49 Acquired absence of other specified parts of digestive tract; Z85.43 Personal history of malignant neoplasm of ovary; Z90.710 Acquired absence of both cervix and uterus; Z85.41 Personal history of malignant neoplasm of cervix uteri; Z92.21 Personal history of antineoplastic chemotherapy; Z88.5 Allergy status to narcotic agent; Z88.0 Allergy status to penicillin; Z88.8 Allergy status to other drugs, medicaments and biological substances; Z91.048 Other nonmedicinal substance allergy status; Z83.3 Family history of diabetes mellitus; Z82.49 Family history of ischemic heart disease and other diseases of the circulatory system; Z83.49 Family history of other endocrine, nutritional and metabolic diseases
CPT/HCPCS: 96376 ×2; 96361 ×3; 96365; 96366; 96375 ×2; 99285; 36415; 80053 ×2; 80048; 82150; 83690; 83735 ×2; 85025; 85027 ×2; 81001; 74176; G0378 ×3; J3480; J2405; J1170 ×2; 96374

== ENCOUNTER 2022-01-18 06:16 | Emergency (ER) | payer BC ==
[2022-01-18] MEDS ORDERED: SODIUM CHLORIDE 0.9% 1,000 ML IV STA (06:46)
--- NOTE | 2022-01-18 06:52 | ED ---
Abdominal Pain HPI - General Chief Complaint: Abdominal Pain Stated Complaint: Abd Pain Time Seen by Provider: 01/18/22 06:25 Source: patient, RN notes reviewed Mode of arrival: ambulatory Limitations: no limitations - History of Present Illness Initial Comments: This is a 66-year-old female presents emergency Department with chief complaint abdominal pain. Patient states that she has known of ovarian cancer, mass on the right side. Patient has been dealing with ovarian cancer for last 13 years. She is under care of Dr. Zayas. She is scheduled to start chemotherapy tomorrow. Patient has no surgical intervention plans she states that she's been told she's had multiple surgeries and unable to perform any surgery at this point. She does see Dr. Elena, Dr. Castillo, [place]. Patient was recently admitted for possibility of partial bowel obstruction she states she was given multiple laxatives was doing better went home states that she's had minimal output she states she had some very firm stool mild diarrhea minimal gas. Patient states she is taking MiraLAX twice daily. - Related Data Home Medications Medication Instructions Recorded Confirmed Folic Acid 1 mg PO DAILY 03/10/20 01/18/22 Magnesium Oxide 400 mg PO BID-W/MEALS 03/10/20 01/18/22 Potassium Chloride ER [K-Dur 20] 20 meq PO AC-BRKFST 03/10/20 01/18/22 Potassium Chloride ER [K-Dur 20] 40 meq PO AC-SUPPER 03/10/20 01/18/22 Triamterene-Hctz 37.5-25Mg 0.5 tab PO DAILY 03/10/20 01/18/22 [Maxzide 37.5-25] atenoloL [Tenormin] 50 mg PO DAILY 03/10/20 01/18/22 Amoxicillin 500 mg PO TID 01/14/22 01/18/22 Cholecalciferol [Vitamin D3 (25 75 mcg PO DAILY 01/14/22 01/18/22 Mcg = 1000 Iu)] polyethylene glycoL 3350 [Miralax] 17 gm PO BID 01/18/22 01/18/22 Previous Rx's Medication Instructions Recorded Simethicone Chew [Mylicon Chew] 40 mg PO QID PRN tab 01/16/22 Allergies Allergy/AdvReac Type Severity Reaction Status Date / Time Iodine and Iodide Containing Allergy Severe Anaphylaxis Verified 01/18/22 08:23 Produc adhesive tape Allergy red skin Verified 01/18/22 08:23 carboplatin Allergy Rash/Hives Verified 01/18/22 08:23 iodine Allergy Rapid Verified 01/18/22 08:23 Heart Rate morphine Allergy Nausea & Verified 01/18/22 08:23 Vomiting paclitaxel [From Taxol] Allergy Dyspnea, Verified 01/18/22 08:23 ELEV HR clavulanic acid AdvReac Nausea & Verified 01/18/22 08:23 [From Augmentin] Vomiting & Diarrhea codeine AdvReac Nausea & Verified 01/18/22 08:23 Vomiting & Diarrhea Review of Systems ROS Statement: Those systems with pertinent positive or pertinent negative responses have been documented in the HPI. ROS Other: All systems not noted in ROS Statement are negative. Past Medical History Past Medical History: Cancer, Hypertension, Skin Disorder Additional Past Medical History / Comment(s): seasonal allergies, hx ovarian cancer, mild diverticulitis, bowel obstruction (post op), small hiatal hernia, mild psoriasis or eczema, ovarian cancer reoccurence (chemo, 04/14) History of Any Multi-Drug Resistant Organisms: None Reported Past Surgical History: Bowel Resection, Cholecystectomy, Hernia Repair, Hysterectomy Additional Past Surgical History / Comment(s): left hand tendon surgery, exploratory abdominal surgeries and cervical ca (DEBULKING SX X2), port inserted/later removed, colostomy with reversal Past Anesthesia/Blood Transfusion Reactions: Motion Sickness, Postoperative Nausea & Vomiting (PONV) Additional Past Anesthesia/Blood Transfusion Reaction / Comment(s): STATES USUALLY HAS SCOPOLAMINE PATCH PRE OP Past Psychological History: No Psychological Hx Reported Smoking Status: Never smoker Past Alcohol Use History: None Reported Past Drug Use History: None Reported - Past Family History Mother Family Medical History: Coronary Artery Disease (CAD), Diabetes Mellitus, Thyroid Disorder Father Family Medical History: Coronary Artery Disease (CAD), Diabetes Mellitus General Exam Limitations: no limitations General appearance: alert, in no apparent distress Head exam: Present: atraumatic, normocephalic, normal inspection Eye exam: Present: normal appearance, PERRL, EOMI. Absent: scleral icterus, conjunctival injection, periorbital swelling Respiratory exam: Present: normal lung sounds bilaterally. Absent: respiratory distress, wheezes, rales, rhonchi, stridor Cardiovascular Exam: Present: regular rate, normal rhythm, normal heart sounds. Absent: systolic murmur, diastolic murmur, rubs, gallop, clicks GI/Abdominal exam: Present: soft, distended, tenderness (Mild diffuse left- sided), normal bowel sounds, hernia. Absent: guarding, rebound, rigid Back exam: Absent: CVA tenderness (R), CVA tenderness (L) Neurological exam: Present: alert Skin exam: Present: warm, dry, intact, normal color. Absent: rash Course Vital Signs 01/18/22 01/18/22 01/18/22 06:17 08:21 10:06 Temperature 98.3 F Pulse Rate 86 70 69 Respiratory 18 18 18 Rate Blood Pressure 149/75 133/76 135/68 O2 Sat by Pulse 100 100 97 Oximetry 01/18/22 11:10 Temperature Pulse Rate 69 Respiratory 18 Rate Blood Pressure 131/58 O2 Sat by Pulse 99 Oximetry Medical Decision Making - Medical Decision Making 66-year-old presented for abdominal pain patient's labwork presented change CT was performed again to rule out obstruction CT shows probable ovarian mass causing obstruction though patient having multiple bowel movements in the emergency department. I did initially discuss the case with Dr. Grullon who felt she is better served with Dr. Castillo her other surgeon who is oncology surgeon. Case discussed with Soo Phelps with oncology who evaluated the patient reports from discuss case with Dr. Zayas and Dr. Castillo she is not a surgical candidate. Patient be admitted for chemotherapy, medical management. - Lab Data Result diagrams: 01/18/22 07:22 01/18/22 07:22 Lab Results 01/18/22 01/18/22 01/18/22 Range/Units 07:22 07:22 08:05 WBC 11.0 H (3.8-10.6) k/uL RBC 3.87 (3.80-5.40) m/uL Hgb 12.1 (11.4-16.0) gm/dL Hct 36.7 (34.0-46.0) % MCV 94.9 (80.0-100.0) fL MCH 31.4 (25.0-35.0) pg MCHC 33.0 (31.0-37.0) g/dL RDW 15.3 (11.5-15.5) % Plt Count 251 (150-450) k/uL MPV 8.2 Neutrophils % 79 % Lymphocytes % 11 % Monocytes % 6 % Eosinophils % 1 % Basophils % 1 % Neutrophils # 8.7 H (1.3-7.7) k/uL Lymphocytes # 1.2 (1.0-4.8) k/uL Monocytes # 0.7 (0-1.0) k/uL Eosinophils # 0.1 (0-0.7) k/uL Basophils # 0.1 (0-0.2) k/uL Poikilocytosis Slight Sodium 133 L (137-145) mmol/L Potassium 3.1 L (3.5-5.1) mmol/L Chloride 98 (98-107) mmol/L Carbon Dioxide 26 (22-30) mmol/L Anion Gap 9 mmol/L BUN 14 (7-17) mg/dL Creatinine 0.92 (0.52-1.04) mg/dL Est GFR (CKD-EPI)AfAm 76 (>60 ml/min/1.73 sqM) Est GFR (CKD-EPI)NonAf 66 (>60 ml/min/1.73 sqM) Glucose 135 H (74-99) mg/dL Calcium 9.3 (8.4-10.2) mg/dL Total Bilirubin 0.9 (0.2-1.3) mg/dL AST 31 (14-36) U/L ALT 25 (4-34) U/L Alkaline Phosphatase 87 (38-126) U/L Total Protein 6.0 L (6.3-8.2) g/dL Albumin 3.7 (3.5-5.0) g/dL Lipase 50 (23-300) U/L Urine Color Yellow Urine Appearance Clear (Clear) Urine pH 7.5 (5.0-8.0) Ur Specific [place] 1.010 (1.001-1.035) Urine Protein Negative (Negative) Urine Glucose (UA) Negative (Negative) Urine Ketones Negative (Negative) Urine Blood Negative (Negative) Urine Nitrite Negative (Negative) Urine Bilirubin Negative (Negative) Urine Urobilinogen <2.0 (<2.0) mg/dL Ur Leukocyte Esterase Negative (Negative) Disposition Clinical Impression: Ovarian cancer, Pelvic mass, Abdominal pain, Colonic obstruction Disposition: ADMITTED IP TO THIS [facility] Condition: Fair Referrals: Dina Martines MD [Primary Care Provider] - 1-2 days Time of Disposition: 10:42
--- NOTE | 2022-01-18 07:31 | XR ---
EXAMINATION TYPE: XR KUB DATE OF EXAM: 01/18/2022 COMPARISON: 01/14/2022 CT abdomen INDICATION: Abdomen pain TECHNIQUE: Single view abdomen upright view FINDINGS: There is a large dilated loop of bowel with air-fluid levels in the right upper quadrant. This may be colonic. There is a differential fluid level in the splenic flexure. Scattered small air-fluid level s or within the midabdomen. Multiple surgical clips are within the abdomen. A right side ureteral stent is present. Psoas margins are normal. No organomegaly is present. IMPRESSION: 1. Dilated bowel in the right upper quadrant with multiple air-fluid levels differential air-fluid le vels which may be colonic. Significant fecal retention is not identified by x-ray.
[2022-01-18 07:51] LABS: Basophils # (A) 0.1 k/uL (0-0.2); Basophils % (A) 1 %; Eosinophils # (A) 0.1 k/uL (0-0.7); Eosinophils % (A) 1 %; HCT 36.7 % (34.0-46.0); HGB 12.1 gm/dL (11.4-16.0); Lymphocytes # (A) 1.2 k/uL (1.0-4.8); Lymphocytes % (A) 11 %; MCH 31.4 pg (25.0-35.0); MCV 94.9 fL (80.0-100.0); Mean Platelet Volume 8.2; Monocytes # (A) 0.7 k/uL (0-1.0); Monocytes % (A) 6 %; Neutrophils # (A) 8.7 k/uL (1.3-7.7); Neutrophils % (A) 79 %; Platelet Count 251 k/uL (150-450); Poikilocytosis Slight; RBC 3.87 m/uL (3.80-5.40); RDW 15.3 % (11.5-15.5)
[2022-01-18 07:57] LABS: Albumin 3.7 g/dL (3.5-5.0); Calcium 9.3 mg/dL (8.4-10.2); Potassium 3.1 mmol/L (3.5-5.1); Total Bilirubin 0.9 mg/dL (0.2-1.3)
[2022-01-18 08:29] LABS: Appearance,Urine Clear (Clear); Bilirubin,Urine Negative (Negative); Blood,Urine Negative (Negative); Color,Urine Yellow; Glucose,Urine (UA) Negative (Negative); Ketones,Urine Negative (Negative); Leukocyte Esterase,Urine Negative (Negative); Nitrite,Urine Negative (Negative); PH, Urine 7.5 (5.0-8.0); Protein,Urine Negative (Negative); Urobilinogen,Urine <2.0 mg/dL (<2.0)
--- NOTE | 2022-01-18 09:51 | CT ---
EXAMINATION TYPE: CT abdomen pelvis wo con DATE OF EXAM: 01/18/2022 COMPARISON: CT dated 01/14/2022 HISTORY: abdominal pain, recent SBO CT DLP: 463.2 mGycm Automated exposure control for dose reduction was used. TECHNIQUE: Helical acquisition of images was performed from the lung bases through the pelvis. FINDINGS: LUNG BASES: Multiple variable sized bilateral basal pulmonary nodules, likely metastatic, appreciated previously. LIVER/GB: Previous cholecystectomy. No definite hepatic focal lesion. PANCREAS: Atrophic SPLEEN: No significant abnormality is seen. ADRENALS: No significant abnormality is seen. KIDNEYS: Progressive dilatation of the right renal collecting system and right ureter in spite of the right-sided double-J ureteric stent, likely secondary to right pelvic obstructing mass. No left-side d hydroureter or hydronephrosis. FREE AIR: No free air is visualized REPRODUCTIVE ORGANS: Again noted is the right pelvic mass with tiny calcification/surgical clips with in, suboptimally assessed due to the lack of IV contrast administration and roughly measuring 4.3 x 6 .9 cm. The lesion is inseparable from the adjacent small and large bowel, right ureter, right externa l iliac vessels and right pelvic sidewall as well as from the posterior aspect of the cecum. Previous hysterectomy. No left adnexal mass. URINARY BLADDER: Inseparable from the inferior aspect of the right pelvic mass. ADENOPATHY: Suspected inferior retroperitoneal mass/extension of the right pelvic lesion. Right pelv ic sidewall lymph nodes are also expected. OSSEOUS STRUCTURES: No gross aggressive bone lesion. BOWEL: There is invasion of the right side of the mid sigmoid colon by the described pelvic mass. Si gnificant dilatation of the more proximal colon demonstrating air-fluid level with marked dilatation of the ascending colon and cecum measuring up to 11 cm. Suggestive of large bowel obstruction. Ogilvi e syndrome or cecal ischemia can't be excluded. Dilated small bowel loops in the pelvis, possibly due to focal invasion by the mass. No evidence of acute high-grade small bowel obstruction otherwise. No ndistended stomach. Unremarkable duodenum. OTHER: Scattered arterial atherosclerotic calcifications. Presacral fluid, likely reactive. IMPRESSION: Findings are suggestive of colonic obstruction secondary to invasion by the right pelvic mass as desc ribed above. Marked dilatation of the right hemicolon, possibly due to obstruction however Tanner's syndrome or cecal ischemia can't be excluded by this CT scan. Recommend clinical correlation and furt her workup. Further surgical consultation can be considered. Progressive right hydroureter and hydronephrosis in spite of the right double-J ureteric stent. Other interval changes and incidental findings as described above.
[2022-01-18] MEDS ORDERED: ONDANSETRON 4 MG/2 ML VIAL IVP STA (10:30)
[2022-01-18] MEDS ORDERED: HYDROmorphone 0.5 MG/0.5 ML SYRINGE IVP STA (10:30)
[2022-01-18] MEDS ORDERED: NALOXONE 0.4 MG/ML 1 ML VIAL IV PRN (11:43)
[2022-01-18] MEDS ORDERED: ONDANSETRON 4 MG/2 ML VIAL IVP PRN (11:43)
[2022-01-18] MEDS ORDERED: SODIUM CHLORIDE 0.9% 1,000 ML IV SCH (11:45)
--- NOTE | 2022-01-18 12:31 | P.CONS ---
History of Present Illness - Reason for Consult Consult date: 01/18/22 Ovarian Requesting physician: Sal Cantu - History of Present Illness The patient was diagnosed with stage IIc ovarian cancer in .She had debulking surgery on 07/29/2008 followed by 6 cycles of adjuvant Carbo/Taxol completed on 12/17/2008.She did well until when she was found to have pelvic recurrence.She had another debulking surgery in .She started Carbo/Taxol weekly on 10/26/2011 and completed 6 cycles on 03/28/2012. She had a repeat CT scan on 04/11/2012 which was normal. CA125 on 04/18/2012 was 10.1. CA125 in 06/2012 was 11.8. Mediport was removed on 05/17/2012. Repeat CT scan of CAP on 10/14/2012 was normal. CA125 on 01/31/2013 was 10.2 CA125 on 05/30/[address] scan of chest/abdomen/pelvis on 05/01/[address] scan of CAP on 10/30/2013 was negative for recurrence. Repeat CT scan of chest/abdomen/pelvis on 05/07/2014 revealed a new right adnexal mass. On 06/08/2014,she had her third debulking surgery at [facility]. Echocardiogram on 07/01/2014 revealed normal EF. She started carboplatin/doxil on 07/09/2014. On 09/01/2014,CA125 was 5.9. CA125 was 10 on 11/20/2014. She completed 6 cycles of carboplatin/doxil on 11/26/2014. Repeat CT scan of chest/abdomen/pelvis on 12/10/2014 revealed no evidence of recurrence. CA125 on 03/19/2015 was 9.5. CA125 on 04/14/[address] scan of chest/abdomen/pelvis 06/17/2015 revealed no evidence of recurrence. CA125 on 06/25/2015 was 9.4. Colonoscopy in was unremarkable,however,could not pass through due to old obstruction, On 09/14/2015,CA125 was 11.2. On 11/20/2015,CT scan of chest/abdomen/pelvis was negative for metastatic disease. On 12/14/2015,CA125 was 10.4 On 06/06/2016,repeat CT scan of abdomen/pelvis revealed thickening mid s igmoid,possible under distension,?serosal mets. On 06/14/2016,CA125 was 17.3 On PET scan on 06/25/2016,revealed uptake at sigmoid colon,colonoscopy was normal. On 09/13/2016,CA125 was 20.7 On 11/30/[address] scan of chest/abdomen/pelvis revealed no changes. On 12/05/2016,CA125 was 22.1 On 03/01/2017,repeat CT scan of chest/abdomen/pelvis revealed stable lesion at sigmoid. On 03/10/2017,PET scan revealed suspicious uptake in sigmoid,otherwise negative,repeat colonoscopy was negative for intracolonic lesion. 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 She started carbo/weekly taxol on 07/05/2017,her treatment was interupted due to recurrent abdominal wound infection. She had day #1 of cycle#4 of carboplatin/taxol on 11/01/2017,she had hives,elevated BP after carboplatin which resolved with steroids. She continued with weekly taxol,has had 12 weeks,last treatment on 11/29/2017,treatment was interrupted and delayed due to recurrent abdominal wound infection. On 12/06/2017 CA125 was 12.2 On 01/10/2018,repeat CT scan of chest/abdomen/pelvis revealed no recurrence. On 01/11/2018,CA125 was 12.5 On 04/11/2018,CA125 was 12.1. On 07/04/[address] scan of chest/abdomen/pelvis revealed no evidence of recurrence. On 07/16/2018,CA125 was 11.7. On 10/22/2018,CA125 was 13.9 On 01/09/2019,repeat CT scan of chest/abdomen/pelvis revealed new soft tissue lesion in upper pelvis,highly suspicious for recurrence. On 01/14/2019,CA125 was 59.1 and up to 121 on 02/13/2019. She started carboplatin/gemzar,under the care of Dr Castillo,completed 6 cycles on 08/01/2019. On -,repeat CT scan of chest/abdomen/pelvis revealed stable finding on 08/15/2019,CA125 was down to 10.2 and was started on maintenance rucarparib. In January/2020,CA125 went up to 31. Repeat CT scan of chest/abdomen/pelvis on 02/11/2020,revealed slight increase in soft tissue density in right adnexa up to 2.4cm. She had a PET scan in 03/2020 which revealed only lesion in right adnexa,she ended up having XRT to it,completed on 05/07/2020. Repeat CT scan of chest/abdomen/pelvis on 06/17/2020 revealed stable right anexa lesion,changes more consistent with post XRT changes (reviewed with radiologist) On 09/14/2020,CA125 was 13.9. On 12/09/2020,CT scan of chest/abdomen/pelvis revealed 3 small lung nodules,the largest 7mm in RML On 12/11/2020,CA125 was 22.0 On 01/22/2021,CA 125 was 31.1 On 03/07/2021,CT scan of chest/abdomen/pelvis revealed slightyl increase in lung nodules and small new ones. On 03/16/2021,CA125 was 91.4,recurparib was discontinued. On 04/21/2021,she started cisplatin/gemzar On 06/04/2021,CA125 was 89.2 On 06/20/2021 revealed slight increase in size lung nodules and pelvic lesion. On 06/25/2021 CA125 was 124 On 06/30/2021,she started weekly taxol. On 08/17/2021,CA125 was 99 On 09/08/2021,CA125 was 105. On 09/26/2021,repeat CT scan of chest/abdomen/pelvis revealed evidence of progressive adenopathies in pelvis,lung nodules are smaller,evidence of right hydronephrosis. Taxol was dsicontinued She was seen by urology and had stent placement. On 10/04/2021,CA125 was 178. On 10/13/2021,she started alimta regimen,however,her insurance denied it. She resumed alimta on 11/25/2021. On 12/16/2021,CA125 was 566. On 12/28/2021,CA125 was 578. Repeat PET scan on 01/10/2022 revealed evidence of disease progression,enlarging right pelvic mass,multiple smaller abdominal masses and lung nodules. She feels tired,but active and doing well. I had a discussion with the patient today. She has disease progression on alimta. As next line of therapy,it would be reasonable to consider doxil/avastin combination,we,again,discussed risk of possible bowel perforation,bleeding,HTN,proteinuria..exc that are associated with avastin. She agreed to above plan. Dr. Zayas had also discussed her care with Dr Castillo. The plan after this recent progression was to start Doxil and Avastin, however she has had recurrent admission for concerns of obstruction/ileus. Today she attempted PO intake however had emesis following. Discussed in detail with Dr. Eagle. She improved and discharged Sunday, however she represented today and CT revealing colonic obstruction with possible ischemia. I have discussed with her primary GYNonc and our surgeon here. Tracy to be best interest to transfer as Dr. Castillo has approved. I have discussed with team and they will be reaching out to beds to continue transfer. I ahve called patient and discussed plan with her and . Review of Systems All systems: negative Constitutional: Reports as per HPI Past Medical History Past Medical History: Cancer, Hypertension, Skin Disorder Additional Past Medical History / Comment(s): seasonal allergies, hx ovarian cancer, mild diverticulitis, bowel obstruction (post op), small hiatal hernia, mild psoriasis or eczema, ovarian cancer reoccurence (chemo, 04/14) History of Any Multi-Drug Resistant Organisms: None Reported Past Surgical History: Bowel Resection, Cholecystectomy, Hernia Repair, Hysterectomy Additional Past Surgical History / Comment(s): left hand tendon surgery, exploratory abdominal surgeries and cervical ca (DEBULKING SX X2), port ins erted/later removed, colostomy with reversal Past Anesthesia/Blood Transfusion Reactions: Motion Sickness, Postoperative Nausea & Vomiting (PONV) Additional Past Anesthesia/Blood Transfusion Reaction / Comm: STATES USUALLY HAS SCOPOLAMINE PATCH PRE OP Past Psychological History: No Psychological Hx Reported Smoking Status: Never smoker Past Alcohol Use History: None Reported Past Drug Use History: None Reported - Past Family History Mother Family Medical History: Coronary Artery Disease (CAD), Diabetes Mellitus, Thyroid Disorder Father Family Medical History: Coronary Artery Disease (CAD), Diabetes Mellitus Medications and Allergies Home Medications Medication Instructions Recorded Confirmed Type Folic Acid 1 mg PO DAILY 03/10/20 01/18/22 History Magnesium Oxide 400 mg PO BID-W/MEALS 03/10/20 01/18/22 History Potassium Chloride ER [K-Dur 20] 20 meq PO AC-BRKFST 03/10/20 01/18/22 History Potassium Chloride ER [K-Dur 20] 40 meq PO AC-SUPPER 03/10/20 01/18/22 History Triamterene-Hctz 37.5-25Mg 0.5 tab PO DAILY 03/10/20 01/18/22 History [Maxzide 37.5-25] atenoloL [Tenormin] 50 mg PO DAILY 03/10/20 01/18/22 History Amoxicillin 500 mg PO TID 01/14/22 01/18/22 History Cholecalciferol [Vitamin D3 (25 75 mcg PO DAILY 01/14/22 01/18/22 History Mcg = 1000 Iu)] Simethicone Chew [Mylicon Chew] 40 mg PO QID PRN tab 01/16/22 01/18/22 Rx polyethylene glycoL 3350 [Miralax] 17 gm PO BID 01/18/22 01/18/22 History Allergies Allergy/AdvReac Type Severity Reaction Status Date / Time Iodine and Iodide Containing Allergy Severe Anaphylaxis Verified 01/18/22 08:23 Produc adhesive tape Allergy red skin Verified 01/18/22 08:23 carboplatin Allergy Rash/Hives Verified 01/18/22 08:23 iodine Allergy Rapid Verified 01/18/22 08:23 Heart Rate morphine Allergy Nausea & Verified 01/18/22 08:23 Vomiting paclitaxel [From Taxol] Allergy Dyspnea, Verified 01/18/22 08:23 ELEV HR clavulanic acid AdvReac Nausea & Verified 01/18/22 08:23 [From Augmentin] Vomiting & Diarrhea codeine AdvReac Nausea & Verified 01/18/22 08:23 Vomiting & Diarrhea Physical Exam Vitals: Vital Signs Temp Pulse Resp BP Pulse Ox 01/18/22 11:10 69 18 131/58 99 01/18/22 10:06 69 18 135/68 97 01/18/22 08:21 70 18 133/76 100 01/18/22 06:17 98.3 F 86 18 149/75 100 Intake and Output 01/17/22 01/18/22 01/18/22 22:59 06:59 14:59 Other: Weight 66.224 kg - Constitutional General appearance: cooperative, no acute distress - EENT Eyes: EOMI ENT: NA/AT - Neck Neck: normal ROM - Respiratory Respiratory: bilateral: diminished - Cardiovascular Rhythm: regularly irregular - Gastrointestinal Large abdominal reducible hernia General gastrointestinal: distended, tenderness - Integumentary Integumentary: pale - Neurologic Neurologic: CNII-XII intact - Musculoskeletal Musculoskeletal: generalized weakness, strength equal bilaterally - Psychiatric Psychiatric: A&O x's 3, appropriate affect, intact judgment & insight Results CBC & Chem 7: 01/18/22 07:22 01/18/22 07:22 Labs: Abnormal Lab Results - Last 24 Hours (Table) 01/18/22 01/18/22 Range/Units 07:22 07:22 WBC 11.0 H (3.8-10.6) k/uL Neutrophils # 8.7 H (1.3-7.7) k/uL Sodium 133 L (137-145) mmol/L Potassium 3.1 L (3.5-5.1) mmol/L Glucose 135 H (74-99) mg/dL Total Protein 6.0 L (6.3-8.2) g/dL Assessment and Plan (1) Abdominal pain Current Visit: Yes Status: Acute Code(s): R10.9 - UNSPECIFIED ABDOMINAL PAIN SNOMED Code(s): 77407718 (2) Colonic obstruction Current Visit: Yes Status: Acute Code(s): K56.609 - UNSP INTESTNL OBST, UNSP TO PARTIAL VERSUS COMPLETE OBST SNOMED Code(s): 86062762 (3) Ovarian cancer Current Visit: Yes Status: Acute Code(s): C56.9 - MALIGNANT NEOPLASM OF UNSPECIFIED OVARY SNOMED Code(s): 919011496 Plan: She improved and discharged Sunday, however she represented today and CT revealing colonic obstruction with possible ischemia. I have discussed with her primary GYNonc and our surgeon here. Tracy to be best interest to transfer as Dr. Castillo has approved. I have discussed with team and they will be reaching out to beds to continue transfer. I have called patient and discussed plan with her and .
--- NOTE | 2022-01-18 14:56 | ED ---
Medical Decision Making - Medical Decision Making I was contacted by Stephanie Phelps from oncology who discuss case further with Dr. Castillo recommends the patient to be transferred for further evaluation. Patient is pending bed. - Lab Data Result diagrams: 01/18/22 07:22 01/18/22 07:22 Lab Results 01/18/22 01/18/22 01/18/22 Range/Units 07:22 07:22 08:05 WBC 11.0 H (3.8-10.6) k/uL RBC 3.87 (3.80-5.40) m/uL Hgb 12.1 (11.4-16.0) gm/dL Hct 36.7 (34.0-46.0) % MCV 94.9 (80.0-100.0) fL MCH 31.4 (25.0-35.0) pg MCHC 33.0 (31.0-37.0) g/dL RDW 15.3 (11.5-15.5) % Plt Count 251 (150-450) k/uL MPV 8.2 Neutrophils % 79 % Lymphocytes % 11 % Monocytes % 6 % Eosinophils % 1 % Basophils % 1 % Neutrophils # 8.7 H (1.3-7.7) k/uL Lymphocytes # 1.2 (1.0-4.8) k/uL Monocytes # 0.7 (0-1.0) k/uL Eosinophils # 0.1 (0-0.7) k/uL Basophils # 0.1 (0-0.2) k/uL Poikilocytosis Slight Sodium 133 L (137-145) mmol/L Potassium 3.1 L (3.5-5.1) mmol/L Chloride 98 (98-107) mmol/L Carbon Dioxide 26 (22-30) mmol/L Anion Gap 9 mmol/L BUN 14 (7-17) mg/dL Creatinine 0.92 (0.52-1.04) mg/dL Est GFR (CKD-EPI)AfAm 76 (>60 ml/min/1.73 sqM) Est GFR (CKD-EPI)NonAf 66 (>60 ml/min/1.73 sqM) Glucose 135 H (74-99) mg/dL Calcium 9.3 (8.4-10.2) mg/dL Total Bilirubin 0.9 (0.2-1.3) mg/dL AST 31 (14-36) U/L ALT 25 (4-34) U/L Alkaline Phosphatase 87 (38-126) U/L Total Protein 6.0 L (6.3-8.2) g/dL Albumin 3.7 (3.5-5.0) g/dL Lipase 50 (23-300) U/L Urine Color Yellow Urine Appearance Clear (Clear) Urine pH 7.5 (5.0-8.0) Ur Specific [place] 1.010 (1.001-1.035) Urine Protein Negative (Negative) Urine Glucose (UA) Negative (Negative) Urine Ketones Negative (Negative) Urine Blood Negative (Negative) Urine Nitrite Negative (Negative) Urine Bilirubin Negative (Negative) Urine Urobilinogen <2.0 (<2.0) mg/dL Ur Leukocyte Esterase Negative (Negative) Disposition Clinical Impression: Ovarian cancer, Pelvic mass, Abdominal pain, Colonic obstruction Disposition: OTHER INSTITUTION NOT DEFINED Condition: Fair Referrals: Dina Martines MD [Primary Care Provider] - 1-2 days - Out of Hospital Transfer - Req. Specs Out of Hospital Transfer - Requested Specifics: Other Emergency Center ([facility])
[2022-01-18] MEDS ORDERED: FAMOTIDINE 20 MG/2 ML VIAL IV STA (18:30)
[2022-01-18] MEDS: HYDROmorphone 0.5 MG/0.5 ML SYRINGE IVP PRN (20:57)
[2022-01-19] MEDS: HYDROmorphone 0.5 MG/0.5 ML SYRINGE IVP PRN ×3 (02:55→16:54)
[2022-01-19 16:39] VITALS: RESP 16
[2022-01-19 18:14] VITALS: BP 134/60; PULSE 77; TEMP 98
== END 2022-01-19 18:12 | disposition other institution (70) ==
LOC: EC 06:16 → UNDOADMOB 11:41 → 5NMEDONC 11:41 → EC 01-19 18:12
DX: C56.9 Malignant neoplasm of unspecified ovary (principal); K56.609 Unspecified intestinal obstruction, unspecified as to partial versus complete obstruction; R19.00 Intra-abdominal and pelvic swelling, mass and lump, unspecified site; I10 Essential (primary) hypertension; Z79.899 Other long term (current) drug therapy
CPT/HCPCS: 99285 ×2; 96374 ×2; 96375 ×3; 96376 ×3; 96361 ×4; 36415; 80053; 83690; 85025; 81003; 74018; 74176; J2405 ×2; J1170 ×2

== ENCOUNTER 2022-04-01 14:46 | Inpatient (IN) | payer BC, MEDICARE ==
[2022-04-01] MEDS ORDERED: ACETAMINOPHEN TAB 500 MG TAB PO STA (15:21)
[2022-04-01] MEDS ORDERED: SODIUM CHLORIDE 0.9% 500 ML 500 ML IV STA (15:29)
--- NOTE | 2022-04-01 15:29 | ED ---
General Adult HPI - General Chief complaint: Fever Stated complaint: Fever, chills s/p chemo Source: patient, RN notes reviewed Mode of arrival: ambulatory Limitations: no limitations - History of Present Illness Initial comments: Patient is a pleasant 66-year-old female presenting to the emergency Department with concerns for fever. Patient has had chills and fatigue past couple of days. Patient received chemo last week for recurrent ovarian cancer. Patient has minimal sore throat. Patient has minimal rhinorrhea however attributes that to her chronic ALLERGIES. No cough or dyspnea. No abdominal pain. No urinary symptoms - Related Data Home Medications Medication Instructions Recorded Confirmed Folic Acid 1 mg PO DAILY 03/10/20 04/01/22 Magnesium Oxide 400 mg PO BID-W/MEALS 03/10/20 04/01/22 Potassium Chloride ER [K-Dur 20] 20 meq PO AC-BRKFST 03/10/20 04/01/22 Potassium Chloride ER [K-Dur 20] 40 meq PO AC-SUPPER 03/10/20 04/01/22 atenoloL [Tenormin] 25 mg PO DAILY 03/10/20 04/01/22 Cholecalciferol [Vitamin D3 (25 75 mcg PO DAILY 01/14/22 04/01/22 Mcg = 1000 Iu)] polyethylene glycoL 3350 [Miralax] 8.5 gm PO BID 01/18/22 04/01/22 Allergies Allergy/AdvReac Type Severity Reaction Status Date / Time Iodine and Iodide Containing Allergy Severe Anaphylaxis Verified 04/01/22 15:31 Produc adhesive tape Allergy red skin Verified 04/01/22 15:31 carboplatin Allergy Rash/Hives Verified 04/01/22 15:31 iodine Allergy Rapid Verified 04/01/22 15:31 Heart Rate morphine Allergy Nausea & Verified 04/01/22 15:31 Vomiting paclitaxel [From Taxol] Allergy Dyspnea, Verified 04/01/22 15:31 ELEV HR clavulanic acid AdvReac Nausea & Verified 04/01/22 15:31 [From Augmentin] Vomiting & Diarrhea codeine AdvReac Nausea & Verified 04/01/22 15:31 Vomiting & Diarrhea Review of Systems ROS Statement: Those systems with pertinent positive or pertinent negative responses have been documented in the HPI. ROS Other: All systems not noted in ROS Statement are negative. Constitutional: Reports: as per HPI, fever (102.0), chills Eyes: Denies: eye pain ENT: Reports: throat pain. Denies: ear pain Respiratory: Denies: cough, dyspnea Cardiovascular: Denies: chest pain Endocrine: Reports: fatigue Gastrointestinal: Denies: abdominal pain, vomiting Genitourinary: Denies: dysuria Skin: Denies: rash Neurological: Denies: weakness Past Medical History Past Medical History: Cancer, Hypertension, Skin Disorder Additional Past Medical History / Comment(s): seasonal allergies, hx ovarian cancer, mild diverticulitis, bowel obstruction (post op), small hiatal hernia, mild psoriasis or eczema, ovarian cancer reoccurence (chemo, 04/14) History of Any Multi-Drug Resistant Organisms: None Reported Past Surgical History: Bowel Resection, Cholecystectomy, Hernia Repair, Hysterectomy Additional Past Surgical History / Comment(s): left hand tendon surgery, exploratory abdominal surgeries and cervical ca (DEBULKING SX X2), port inserted/later removed, colostomy with reversal Past Anesthesia/Blood Transfusion Reactions: Motion Sickness, Postoperative Nausea & Vomiting (PONV) Additional Past Anesthesia/Blood Transfusion Reaction / Comment(s): STATES USUALLY HAS SCOPOLAMINE PATCH PRE OP Past Psychological History: No Psychological Hx Reported Smoking Status: Never smoker Past Alcohol Use History: None Reported Past Drug Use History: None Reported - Past Family History Mother Family Medical History: Coronary Artery Disease (CAD), Diabetes Mellitus, Thyroid Disorder Father Family Medical History: Coronary Artery Disease (CAD), Diabetes Mellitus General Exam Limitations: no limitations General appearance: alert, in no apparent distress Head exam: Present: normocephalic Eye exam: Present: normal appearance ENT exam: Present: other (Minimal pharyngeal erythema) Neck exam: Present: normal inspection. Absent: tenderness, meningismus, lymphadenopathy Respiratory exam: Present: normal lung sounds bilaterally Cardiovascular Exam: Present: tachycardia GI/Abdominal exam: Present: soft. Absent: tenderness Extremities exam: Present: normal inspection. Absent: pedal edema, calf tenderness Psychiatric exam: Present: normal affect, normal mood Skin exam: Present: normal color Course Vital Signs 04/01/22 04/01/22 04/01/22 14:48 16:32 16:38 Temperature 101.8 F H 103 F H Pulse Rate 112 H 103 H Respiratory 16 18 Rate Blood Pressure 146/80 139/71 O2 Sat by Pulse 100 100 Oximetry 04/01/22 18:47 Temperature 100.6 F H Pulse Rate 89 Respiratory 18 Rate Blood Pressure 118/62 O2 Sat by Pulse 100 Oximetry EKG Findings - EKG Comments: EKG Findings:: Sinus tachycardia 105. KS 160. QRS 81. QT 322. QTC 383. Normal axis. Normal QRS. No acute ST change. Medical Decision Making - Medical Decision Making Patient reevaluated. Patient does not want lung CT with contrast secondary to her iodine with ALLERGY. She was offered premedication however still refuses. Case was discussed with Dr. Doherty who does request admission with Levaquin and pulmonary and ID consult. Case also discussed with Dr. Jimenez, who will admit covering Dr. Jaquez. - Lab Data Result diagrams: 04/01/22 15:45 04/01/22 15:45 Lab Results 04/01/22 04/01/22 04/01/22 Range/Units 15:45 15:45 15:45 WBC 8.4 (3.8-10.6) k/uL RBC 3.66 L (3.80-5.40) m/uL Hgb 11.0 L (11.4-16.0) gm/dL Hct 33.9 L (34.0-46.0) % MCV 92.6 (80.0-100.0) fL MCH 30.2 (25.0-35.0) pg MCHC 32.6 (31.0-37.0) g/dL RDW 16.3 H (11.5-15.5) % Plt Count 178 (150-450) k/uL MPV 8.4 Neutrophils % 86 % Lymphocytes % 10 % Monocytes % 3 % Eosinophils % 1 % Basophils % 0 % Neutrophils # 7.2 (1.3-7.7) k/uL Lymphocytes # 0.8 L (1.0-4.8) k/uL Monocytes # 0.3 (0-1.0) k/uL Eosinophils # 0.1 (0-0.7) k/uL Basophils # 0.0 (0-0.2) k/uL Anisocytosis Slight PT 11.2 (9.0-12.0) sec INR 1.0 (<1.2) APTT 24.2 (22.0-30.0) sec Sodium 133 L (137-145) mmol/L Potassium 3.9 (3.5-5.1) mmol/L Chloride 97 L (98-107) mmol/L Carbon Dioxide 26 (22-30) mmol/L Anion Gap 10 mmol/L BUN 15 (7-17) mg/dL Creatinine 0.97 (0.52-1.04) mg/dL Est GFR (CKD-EPI)AfAm 72 (>60 ml/min/1.73 sqM) Est GFR (CKD-EPI)NonAf 62 (>60 ml/min/1.73 sqM) Glucose 124 H (74-99) mg/dL Plasma Lactic Acid Twan (0.7-2.0) mmol/L Calcium 9.6 (8.4-10.2) mg/dL Total Bilirubin 1.2 (0.2-1.3) mg/dL AST 23 (14-36) U/L ALT 13 (4-34) U/L Alkaline Phosphatase 78 (38-126) U/L Total Protein 6.8 (6.3-8.2) g/dL Albumin 4.3 (3.5-5.0) g/dL Urine Color Urine Appearance (Clear) Urine pH (5.0-8.0) Ur Specific [place] (1.001-1.035) Urine Protein (Negative) Urine Glucose (UA) (Negative) Urine Ketones (Negative) Urine Blood (Negative) Urine Nitrite (Negative) Urine Bilirubin (Negative) Urine Urobilinogen (<2.0) mg/dL Ur Leukocyte Esterase (Negative) Urine RBC (0-5) /hpf Urine WBC (0-5) /hpf Ur Squamous Epith Cells (0-4) /hpf Urine Mucus (None) /hpf Coronavirus (PCR) (Not Detectd) Influenza Type A RNA (Not Detectd) Influenza Type B (PCR) (Not Detectd) Group A Strep Rapid (Negative) 04/01/22 04/01/22 04/01/22 Range/Units 15:45 16:30 16:30 WBC (3.8-10.6) k/uL RBC (3.80-5.40) m/uL Hgb (11.4-16.0) gm/dL Hct (34.0-46.0) % MCV (80.0-100.0) fL MCH (25.0-35.0) pg MCHC (31.0-37.0) g/dL RDW (11.5-15.5) % Plt Count (150-450) k/uL MPV Neutrophils % % Lymphocytes % % Monocytes % % Eosinophils % % Basophils % % Neutrophils # (1.3-7.7) k/uL Lymphocytes # (1.0-4.8) k/uL Monocytes # (0-1.0) k/uL Eosinophils # (0-0.7) k/uL Basophils # (0-0.2) k/uL Anisocytosis PT (9.0-12.0) sec INR (<1.2) APTT (22.0-30.0) sec Sodium (137-145) mmol/L Potassium (3.5-5.1) mmol/L Chloride (98-107) mmol/L Carbon Dioxide (22-30) mmol/L Anion Gap mmol/L BUN (7-17) mg/dL Creatinine (0.52-1.04) mg/dL Est GFR (CKD-EPI)AfAm (>60 ml/min/1.73 sqM) Est GFR (CKD-EPI)NonAf (>60 ml/min/1.73 sqM) Glucose (74-99) mg/dL Plasma Lactic Acid Twan 1.2 (0.7-2.0) mmol/L Calcium (8.4-10.2) mg/dL Total Bilirubin (0.2-1.3) mg/dL AST (14-36) U/L ALT (4-34) U/L Alkaline Phosphatase (38-126) U/L Total Protein (6.3-8.2) g/dL Albumin (3.5-5.0) g/dL Urine Color Urine Appearance (Clear) Urine pH (5.0-8.0) Ur Specific [place] (1.001-1.035) Urine Protein (Negative) Urine Glucose (UA) (Negative) Urine Ketones (Negative) Urine Blood (Negative) Urine Nitrite (Negative) Urine Bilirubin (Negative) Urine Urobilinogen (<2.0) mg/dL Ur Leukocyte Esterase (Negative) Urine RBC (0-5) /hpf Urine WBC (0-5) /hpf Ur Squamous Epith Cells (0-4) /hpf Urine Mucus (None) /hpf Coronavirus (PCR) Not Detected (Not Detectd) Influenza Type A RNA Not Detected (Not Detectd) Influenza Type B (PCR) Not Detected (Not Detectd) Group A Strep Rapid (Negative) 04/01/22 04/01/22 Range/Units 16:34 16:35 WBC (3.8-10.6) k/uL RBC (3.80-5.40) m/uL Hgb (11.4-16.0) gm/dL Hct (34.0-46.0) % MCV (80.0-100.0) fL MCH (25.0-35.0) pg MCHC (31.0-37.0) g/dL RDW (11.5-15.5) % Plt Count (150-450) k/uL MPV Neutrophils % % Lymphocytes % % Monocytes % % Eosinophils % % Basophils % % Neutrophils # (1.3-7.7) k/uL Lymphocytes # (1.0-4.8) k/uL Monocytes # (0-1.0) k/uL Eosinophils # (0-0.7) k/uL Basophils # (0-0.2) k/uL Anisocytosis PT (9.0-12.0) sec INR (<1.2) APTT (22.0-30.0) sec Sodium (137-145) mmol/L Potassium (3.5-5.1) mmol/L Chloride (98-107) mmol/L Carbon Dioxide (22-30) mmol/L Anion Gap mmol/L BUN (7-17) mg/dL Creatinine (0.52-1.04) mg/dL Est GFR (CKD-EPI)AfAm (>60 ml/min/1.73 sqM) Est GFR (CKD-EPI)NonAf (>60 ml/min/1.73 sqM) Glucose (74-99) mg/dL Plasma Lactic Acid Twan (0.7-2.0) mmol/L Calcium (8.4-10.2) mg/dL Total Bilirubin (0.2-1.3) mg/dL AST (14-36) U/L ALT (4-34) U/L Alkaline Phosphatase (38-126) U/L Total Protein (6.3-8.2) g/dL Albumin (3.5-5.0) g/dL Urine Color Yellow Urine Appearance Clear (Clear) Urine pH 7.0 (5.0-8.0) Ur Specific [place] 1.014 (1.001-1.035) Urine Protein 1+ H (Negative) Urine Glucose (UA) Negative (Negative) Urine Ketones Negative (Negative) Urine Blood Negative (Negative) Urine Nitrite Negative (Negative) Urine Bilirubin Negative (Negative) Urine Urobilinogen <2.0 (<2.0) mg/dL Ur Leukocyte Esterase Negative (Negative) Urine RBC 2 (0-5) /hpf Urine WBC 4 (0-5) /hpf Ur Squamous Epith Cells 2 (0-4) /hpf Urine Mucus Rare H (None) /hpf Coronavirus (PCR) (Not Detectd) Influenza Type A RNA (Not Detectd) Influenza Type B (PCR) (Not Detectd) Group A Strep Rapid Negative (Negative) - Radiology Data Radiology results: image reviewed (Chest x-ray shows bilateral lung nodules that are new compared to previous. Possible metastatic disease however possible sept ic emboli.) Disposition Clinical Impression: Fever Disposition: ADMITTED IP TO THIS HOSP Is patient prescribed a controlled substance at d/c from ED?: No Referrals: Dina Martines MD [Primary Care Provider] - 1-2 days Time of Disposition: 20:16
[2022-04-01 16:04] LABS: Anisocytosis Slight; Basophils % (A) 0 %; Eosinophils # (A) 0.1 k/uL (0-0.7); Eosinophils % (A) 1 %; HCT 33.9 % (34.0-46.0); Lymphocytes # (A) 0.8 k/uL (1.0-4.8); Lymphocytes % (A) 10 %; MCH 30.2 pg (25.0-35.0); MCHC 32.6 g/dL (31.0-37.0); MCV 92.6 fL (80.0-100.0); Mean Platelet Volume 8.4; Monocytes # (A) 0.3 k/uL (0-1.0); Monocytes % (A) 3 %; Neutrophils # (A) 7.2 k/uL (1.3-7.7); Neutrophils % (A) 86 %; Platelet Count 178 k/uL (150-450); RBC 3.66 m/uL (3.80-5.40); RDW 16.3 % (11.5-15.5); WBC 8.4 k/uL (3.8-10.6)
[2022-04-01 16:11] LABS: Partial Thromboplastin Time 24.2 sec (22.0-30.0); Prothrombin Time 11.2 sec (9.0-12.0)
[2022-04-01 16:13] LABS: Albumin 4.3 g/dL (3.5-5.0); Total Protein 6.8 g/dL (6.3-8.2)
[2022-04-01 16:14] LABS: Calcium 9.6 mg/dL (8.4-10.2); Potassium 3.9 mmol/L (3.5-5.1); Total Bilirubin 1.2 mg/dL (0.2-1.3)
--- NOTE | 2022-04-01 17:08 | XR ---
EXAMINATION TYPE: XR chest 2V DATE OF EXAM: 04/01/2022 COMPARISON: 06/22/2017 HISTORY: Fever TECHNIQUE: 2 views FINDINGS: There is right central venous catheter with tip in the superior vena cava. There are multip le nodular densities in both lung arnold. These measure up to 1 and 2 cm. Concentric angles are clear . Heart size is normal. Mediastinum is normal. IMPRESSION: Multiple nodular densities in both lungs is a change compared to old exam and could be me tastatic disease. No heart failure. Normal heart size. Also consider septic emboli in this patient wi th a history of fever.
[2022-04-01 17:38] LABS: Appearance,Urine Clear (Clear); Bilirubin,Urine Negative (Negative); Blood,Urine Negative (Negative); Color,Urine Yellow; Glucose,Urine (UA) Negative (Negative); Ketones,Urine Negative (Negative); Leukocyte Esterase,Urine Negative (Negative); Mucus,Urine Rare /hpf; Nitrite,Urine Negative (Negative); Protein,Urine 1+ (Negative); RBC,Urine 2 /hpf (0-5); Specific Gravity,Urine 1.014 (1.001-1.035); Squamous Epithelial Cell,Urine 2 /hpf (0-4); Urobilinogen,Urine <2.0 mg/dL (<2.0); WBC,Urine 4 /hpf (0-5)
[2022-04-01] MEDS ORDERED: NALOXONE 0.4 MG/ML 1 ML VIAL IV PRN (20:18)
[2022-04-01] MEDS: SODIUM CHLORIDE 0.9% 1,000 ML IV SCH (23:43)
[2022-04-01] MEDS: LEVOFLOXACIN 750MG-D5W PMX 750 MG in DEXTROSE/WATER 1 150ML.BAG IVPB SCH (23:43)
--- NOTE | 2022-04-02 03:19 | P.HPIM ---
History of Present Illness H&P Date: 04/01/22 Chief Complaint: Fever 66-year-old female with metastatic ovarian cancer Patient comes in today due to a fever of 102 at home. She's been having chills for a few days. Denies any upper respiratory infection symptoms denies any coughing denies any hemoptysis denies any chest pain or shortness of breath. Denies any abdominal pain nausea vomiting denies any changes in her bowel habits or urinary habits. Denies any dysuria or hematuria. She does report some soft stools but she does take MiraLAX to keep her bowel movements soft. She has history of ovarian cancer since 2007 with multiple recurrent episodes. She was diagnosed with metastatic cancer over the past 2 years with metastases to the lungs. Her most recent chemotherapy cycle was about a week ago. She to lerated pretty well Denies any recent travel or hospitalization denies being sick or any sick conta cts. However she's been told that she has a fever to come to the ED Workup in the ED showed no leukocytosis, hemoglobin mild anemia of 11.0 Chest x-ray showed worsening diffuse lung nodules compared to before. Most likely metastatic cancer however some suspicion of septic emboli. In the ED the case is discussed with patient oncologist who recommended starting the patient on antibiotics and admitting for pulmonary and ID evaluation Patient ALLERGIC to iodine refused prep to perform a CT angiogram of the chest Review of Systems Pertinent positives as noted in HPI. All other systems were reviewed and are negative Past Medical History Past Medical History: Cancer, Hypertension, Skin Disorder Additional Past Medical History / Comment(s): seasonal allergies, hx ovarian cancer, mild diverticulitis, bowel obstruction (post op), small hiatal hernia, mild psoriasis or eczema, ovarian cancer reoccurence (chemo, 04/14) History of Any Multi-Drug Resistant Organisms: None Reported Past Surgical History: Bowel Resection, Cholecystectomy, Hernia Repair, Hysterectomy Additional Past Surgical History / Comment(s): left hand tendon surgery, exploratory abdominal surgeries and cervical ca (DEBULKING SX X2), port inserted/later removed, colostomy with reversal Past Anesthesia/Blood Transfusion Reactions: Motion Sickness, Postoperative Nausea & Vomiting (PONV) Additional Past Anesthesia/Blood Transfusion Reaction / Comment(s): STATES USUALLY HAS SCOPOLAMINE PATCH PRE OP Past Psychological History: No Psychological Hx Reported Additional Psychological History / Comment(s): , is supportive. Works for a local business. Lifelong nonsmoker. Denies significant alcohol use or recreational drug use. No experience. No recent international travel pet dogs at home Smoking Status: Never smoker Past Alcohol Use History: None Reported Past Drug Use History: None Reported - Past Family History Mother Family Medical History: Coronary Artery Disease (CAD), Diabetes Mellitus, Thyroid Disorder Father Family Medical History: Coronary Artery Disease (CAD), Diabetes Mellitus Medications and Allergies Home Medications Medication Instructions Recorded Confirmed Type Folic Acid 1 mg PO DAILY 03/10/20 04/01/22 History Magnesium Oxide 400 mg PO BID-W/MEALS 03/10/20 04/01/22 History Potassium Chloride ER [K-Dur 20] 20 meq PO AC-BRKFST 03/10/20 04/01/22 History Potassium Chloride ER [K-Dur 20] 40 meq PO AC-SUPPER 03/10/20 04/01/22 History atenoloL [Tenormin] 25 mg PO DAILY 03/10/20 04/01/22 History Cholecalciferol [Vitamin D3 (25 75 mcg PO DAILY 01/14/22 04/01/22 History Mcg = 1000 Iu)] polyethylene glycoL 3350 [Miralax] 8.5 gm PO BID 01/18/22 04/01/22 History Allergies Allergy/AdvReac Type Severity Reaction Status Date / Time Iodine and Iodide Containing Allergy Severe Anaphylaxis Verified 04/01/22 15:31 Produc adhesive tape Allergy red skin Verified 04/01/22 15:31 carboplatin Allergy Rash/Hives Verified 04/01/22 15:31 iodine Allergy Rapid Verified 04/01/22 15:31 Heart Rate morphine Allergy Nausea & Verified 04/01/22 15:31 Vomiting paclitaxel [From Taxol] Allergy Dyspnea, Verified 04/01/22 15:31 ELEV HR clavulanic acid AdvReac Nausea & Verified 04/01/22 15:31 [From Augmentin] Vomiting & Diarrhea codeine AdvReac Nausea & Verified 04/01/22 15:31 Vomiting & Diarrhea Physical Exam Vitals: Vital Signs Temp Pulse Pulse Resp BP BP Pulse Ox 04/01/22 22:48 99.3 F 98 16 134/79 100 04/01/22 22:06 98.5 F 84 18 135/84 100 04/01/22 18:47 100.6 F H 89 18 118/62 100 04/01/22 16:38 103 H 18 139/71 100 04/01/22 16:32 103 F H 04/01/22 14:48 101.8 F H 112 H 16 146/80 100 Intake and Output 04/01/22 04/01/22 04/02/22 14:59 22:59 06:59 Other: Voiding Method Toilet Weight 60.328 kg 60.328 kg Patient my examConstitutional: No acute distress, conversant, pleasant Eyes: Anicteric sclerae, moist conjunctiva, Pupils equal round reactive to light ENMT: NC/AT Oropharynx clear, no erythema, or exudates Neck: Supple, FROM, no masses, or JVD No carotid bruits No thyromegaly Lungs: Clear to auscultation Clear to percussion Normal respiratory effort, no accessory muscle use Cardiovascular: Heart regular in rate and rhythm, No murmurs, gallops, or rubs No peripheral edema Abdominal: Soft Nontender, no guarding, rebound or rigidity Abdomen moving with respiration Normoactive bowel sounds No hepatomegaly, No splenomegaly No palpable mass No abdominal wall hernia noted Skin: Normal temperature, tone, texture, turgor No induration No subcutaneous nodules No rash, lesions No ulcers Extremities: No digital cyanosis No clubbing Pedal pulses intact and symmetrical Radial pulses intact and symmetrical No calf tenderness Psychiatric: Alert and oriented to person, place and time Appropriate affect fair judgement Neuro Muscles Strength 5/5 in all 4 extremities Sensation to light touch grossly present throughout Cranial nerves II-XII grossly intact No focal sensory deficits Lymphatics: no palpable cervical or supraclavicular , or inguinal lymph nodes Results CBC & Chem 7: 04/01/22 15:45 04/01/22 15:45 Labs: Abnormal Lab Results - Last 24 Hours (Table) 04/01/22 04/01/22 04/01/22 Range/Units 15:45 15:45 16:35 RBC 3.66 L (3.80-5.40) m/uL Hgb 11.0 L (11.4-16.0) gm/dL Hct 33.9 L (34.0-46.0) % RDW 16.3 H (11.5-15.5) % Lymphocytes # 0.8 L (1.0-4.8) k/uL Sodium 133 L (137-145) mmol/L Chloride 97 L (98-107) mmol/L Glucose 124 H (74-99) mg/dL Urine Protein 1+ H (Negative) Urine Mucus Rare H (None) /hpf Assessment and Plan Assessment: Fever of unknown origin Most likely secondary to recent cycle of chemotherapy Rule out infectious process Follow-up cultures Chest x-ray showing worsening lung nodules most likely metastatic cancer however septic emboli cannot be ruled out ID and pulmonary consultation Patient initiated on Levaquin and vancomycin Monitor vital signs Gentle IV fluid hydration Tylenol for fever Otherwise no upper respiratory infection symptoms No leukocytosis Overeating cancer with metastasis Continue to follow up outpatient with oncology DVT prophylaxis heparin subcu 3 times a day Full code
[2022-04-02] MEDS: MELATONIN 3 MG TABLET PO SCH ×2 (04:04→20:06)
[2022-04-02] MEDS: ACETAMINOPHEN TAB 325 MG TAB PO PRN ×2 (04:33→20:05)
[2022-04-02] MEDS ORDERED: HEPARIN SODIUM,PORCINE/PF 5,000 UNIT/0.5 ML SYRINGE SQ SCH (08:00)
[2022-04-02] MEDS: SODIUM CHLORIDE 0.9% 1,000 ML IV SCH (08:55)
[2022-04-02] MEDS: atenoloL 25 MG TAB PO SCH (08:55)
[2022-04-02] MEDS ORDERED: IPRATROPIUM-ALBUTEROL 3 ML NEB INHALATION PRN (09:03)
--- NOTE | 2022-04-02 10:39 | P.CNPUL ---
History of Present Illness Consult date: 04/02/22 Requesting physician: Riddhi Malave Reason for consult: other Chief complaint: Fever, chills History of present illness: 66-year-old female patient with history of metastatic ovarian cancer on chemotherapy, who follows with Dr. Zayas from medical oncology and Dr. Zhao from radiation oncology. Patient also had multiple nodular densities in both lungs, that were thought to be related to her history of ovarian cancer, recently was started on Doxyrubicin, and recent PET scan showed some improvement in the size of the lung nodules according to the patient. Patient presented to the emergency department on 04/01/2022 with complaints of fever, chills, fatigue for the past couple of days. Patient received chemo last week. Patient reports a minimal sore throat, minimal rhinorrhea. Denies any cough, no phlegm production. No abdominal pain, no urinary symptoms. Chest x-ray showed mu ltiple nodular densities in both lungs, thought to be related to metastatic disease, and consideration for septic emboli was also suggested. T-max in the last 24 hours was 103 degrees Fahrenheit. Patient is on room air, breathing comfortably, pulse ox is 100%. Blood cultures have been obtained, patient was started on empiric antibiotics with Levaquin. She was given some gentle IV hydration. Fever pattern is improving this morning, no altered mentation. Not much in the way of pulmonary symptoms. No abdominal pain Review of Systems All systems: negative Constitutional: Reports chills, Reports fatigue, Reports fever, Reports weakness Eyes: denies blurred vision, denies pain Ears, nose, mouth and throat: Denies headache, Denies sore throat Cardiovascular: Denies chest pain, Denies shortness of breath Respiratory: Denies cough Gastrointestinal: Denies abdominal pain, Denies diarrhea, Denies nausea, Denies vomiting Genitourinary: Denies dysuria, Denies hematuria Musculoskeletal: Denies myalgias Integumentary: Denies pruritus, Denies rash Neurological: Denies numbness, Denies weakness Psychiatric: Denies anxiety, Denies depression Endocrine: Denies fatigue, Denies weight change Past Medical History Past Medical History: Cancer, Hypertension, Skin Disorder Additional Past Medical History / Comment(s): seasonal allergies, hx ovarian cancer, mild diverticulitis, bowel obstruction (post op), small hiatal hernia, mild psoriasis or eczema, ovarian cancer reoccurence (chemo, 04/14) History of Any Multi-Drug Resistant Organisms: None Reported Past Surgical History: Bowel Resection, Cholecystectomy, Hernia Repair, Hysterectomy Additional Past Surgical History / Comment(s): left hand tendon surgery, e xploratory abdominal surgeries and cervical ca (DEBULKING SX X2), port inserted/later removed, colostomy with reversal Past Anesthesia/Blood Transfusion Reactions: Motion Sickness, Postoperative Nausea & Vomiting (PONV) Additional Past Anesthesia/Blood Transfusion Reaction / Comment(s): STATES USUALLY HAS SCOPOLAMINE PATCH PRE OP Past Psychological History: No Psychological Hx Reported Additional Psychological History / Comment(s): , is supportive. Works for a local business. Lifelong nonsmoker. Denies significant alcohol use or recreational drug use. No experience. No recent international travel pet dogs at home Smoking Status: Never smoker Past Alcohol Use History: None Reported Past Drug Use History: None Reported - Past Family History Mother Family Medical History: Coronary Artery Disease (CAD), Diabetes Mellitus, Thyroid Disorder Father Family Medical History: Coronary Artery Disease (CAD), Diabetes Mellitus Medications and Allergies Home Medications Medication Instructions Recorded Confirmed Type Folic Acid 1 mg PO DAILY 03/10/20 04/01/22 History Magnesium Oxide 400 mg PO BID-W/MEALS 03/10/20 04/01/22 History Potassium Chloride ER [K-Dur 20] 20 meq PO AC-BRKFST 03/10/20 04/01/22 History Potassium Chloride ER [K-Dur 20] 40 meq PO AC-SUPPER 03/10/20 04/01/22 History atenoloL [Tenormin] 25 mg PO DAILY 03/10/20 04/01/22 History Cholecalciferol [Vitamin D3 (25 75 mcg PO DAILY 01/14/22 04/01/22 History Mcg = 1000 Iu)] polyethylene glycoL 3350 [Miralax] 8.5 gm PO BID 01/18/22 04/01/22 History Allergies Allergy/AdvReac Type Severity Reaction Status Date / Time Iodine and Iodide Containing Allergy Severe Anaphylaxis Verified 04/01/22 15:31 Produc adhesive tape Allergy red skin Verified 04/01/22 15:31 carboplatin Allergy Rash/Hives Verified 04/01/22 15:31 iodine Allergy Rapid Verified 04/01/22 15:31 Heart Rate morphine Allergy Nausea & Verified 04/01/22 15:31 Vomiting paclitaxel [From Taxol] Allergy Dyspnea, Verified 04/01/22 15:31 ELEV HR clavulanic acid AdvReac Nausea & Verified 04/01/22 15:31 [From Augmentin] Vomiting & Diarrhea codeine AdvReac Nausea & Verified 04/01/22 15:31 Vomiting & Diarrhea Physical Exam Vitals: Vital Signs Temp Pulse Pulse Resp BP BP Pulse Ox 04/02/22 09:02 100 04/02/22 08:00 99.3 F 107/67 04/02/22 02:00 100.5 F H 95 16 92/49 98 04/01/22 22:48 99.3 F 98 16 134/79 100 04/01/22 22:06 98.5 F 84 18 135/84 100 04/01/22 18:47 100.6 F H 89 18 118/62 100 04/01/22 16:38 103 H 18 139/71 100 04/01/22 16:32 103 F H 04/01/22 14:48 101.8 F H 112 H 16 146/80 100 FiO2 04/02/22 09:02 21 04/02/22 08:00 04/02/22 02:00 04/01/22 22:48 04/01/22 22:06 04/01/22 18:47 04/01/22 16:38 04/01/22 16:32 04/01/22 14:48 Intake and Output 04/01/22 04/02/22 04/02/22 22:59 06:59 14:59 Other: Voiding Method Toilet Toilet # Voids 1 Weight 60.328 kg GENERAL EXAM: Alert, very pleasant, 66-year-old white female, in room air with a possible 100%, comfortable in no apparent distress. HEAD: Normocephalic/atraumatic. EYES: Normal reaction of pupils, equal size. Conjunctiva pink, sclera white. NOSE: Clear with pink turbinates. THROAT: No erythema or exudates. NECK: No masses, no JVD, no thyroid enlargement, no adenopathy. CHEST: No chest wall deformity. Symmetrical expansion. LUNGS: Equal air entry with no crackles, wheeze, rhonchi or dullness. CVS: Regular rate and rhythm, normal S1 and S2, no gallops, no murmurs, no rubs ABDOMEN: Soft, nontender. No hepatosplenomegaly, normal bowel sounds, no guarding or rigidity. EXTREMITIES: No clubbing, no edema, no cyanosis, 2+ pulses and upper and lower extremities. MUSCULOSKELETAL: Muscle strength and tone normal. SPINE: No scoliosis or deformity SKIN: No rashes CENTRAL NERVOUS SYSTEM: Alert and oriented -3. No focal deficits, tone is normal in all 4 extremities. PSYCHIATRIC: Alert and oriented -3. Appropriate affect. Intact judgment and insight. Results - Laboratory Findings CBC and BMP: 04/01/22 15:45 04/01/22 15:45 PT/INR, D-dimer PT 11.2 sec (9.0-12.0) 04/01/22 15:45 INR 1.0 (<1.2) 04/01/22 15:45 Abnormal lab findings: Abnormal Labs 04/01/22 04/01/22 04/01/22 15:45 15:45 16:35 RBC 3.66 L Hgb 11.0 L Hct 33.9 L RDW 16.3 H Lymphocytes # 0.8 L Sodium 133 L Chloride 97 L Glucose 124 H Urine Protein 1+ H Urine Mucus Rare H - Diagnostic Findings Chest x-ray: report reviewed, image reviewed Additional studies: EKG reviewed Assessment and Plan Plan: Assessment: #1. Fever, of unknown etiology, COVID-19, influenza A and B, and group A strep were negative, chest x-ray showing multiple nodular densities in both lungs related to metastatic disease. #2. Metastatic ovarian cancer, with known metastatic lesions in the lungs. According to the patient there has been recent improvement on most recent PET scan #3. Lifetime nonsmoker #4. History of hysterectomy #5. Abdominal surgeries with debulking of the tumor #6. History of bowel resection with previous colostomy and subsequent reversal Plan: We'll send a pro-calcitonin level We'll add some breathing treatments Continue current antibiotics Consult medical oncology and radiation oncology ID service has been consulted Continue to follow her clinical course I have personally seen and examined the patient, performed the documentation and the assessment and plan as written. Number of minutes spent on the visit: [15] Time with Patient: Greater than 30
--- NOTE | 2022-04-02 10:48 | US ---
EXAMINATION TYPE: US venous doppler duplex LE RT DATE OF EXAM: 04/02/2022 10:32 AM COMPARISON: NONE CLINICAL HISTORY: Swelling. Edema right leg SIDE PERFORMED: right TECHNIQUE: The lower extremity deep venous system is examined utilizing real time linear array sonog ольга with graded compression, doppler sonography and color-flow sonography. VESSELS IMAGED: Common Femoral Vein Deep Femoral Vein Greater Saphenous Vein * Femoral Vein Popliteal Vein Small Saphenous Vein * Proximal Calf Veins (* superficial vessels) Right Leg: positive for DVT right CFV with hypoechoic thrombus identified. Decreased color Doppler f low identified. IMPRESSION: Deep vein thrombosis of the right common femoral vein
[2022-04-02] MEDS ORDERED: APIXABAN 5 MG TAB PO SCH (11:15)
[2022-04-02 11:54] LABS: Basophils # (A) 0.02 X 10*3/uL (0.00-0.10); Basophils % (A) 0.3 %; Eosinophils # (A) 0.04 X 10*3/uL (0.04-0.35); Eosinophils % (A) 0.7 %; HCT 25.6 % (37.2-46.3); HGB 7.9 g/dL (12.0-15.0); Immature Grans, Automated 0.7 %; Lymphocytes # (A) 0.77 X 10*3/uL (0.90-5.00); Lymphocytes % (A) 13.3 %; MCH 29.5 pg (27.0-32.0); MCHC 30.9 g/dL (32.0-37.0); MCV 95.5 fL (80.0-97.0); Monocytes # (A) 0.32 X 10*3/uL (0.20-1.00); Monocytes % (A) 5.5 %; NRBC Per 100 WBC 0 /100 WBCS (0.0-0.0); Neutrophils # (A) 4.62 X 10*3/uL (1.80-7.70); Neutrophils % (A) 79.5 %; Platelet Count 134 X 10*3/uL (140-440); RBC 2.68 X 10*6/uL (4.10-5.20); RDW 15.8 % (11.5-14.5); WBC 5.81 X 10*3/uL (4.50-10.00)
[2022-04-02] MEDS: IPRATROPIUM-ALBUTEROL 3 ML NEB INHALATION SCH ×3 (11:57→19:48)
--- NOTE | 2022-04-02 12:35 | P.PN ---
Subjective Progress Note Date: 04/02/22 Subjective: Patients and examined. States she is doing well. Denies any symptoms at this time. Denies any chest pain, shortness of breath, palpitations, lightheadedness, dizziness. Denies any cough or urinary symptoms. Patient had a bowel movement yesterday but did not show any signs of bleeding. Denies any abdominal pain. Patient does complain of pain in her right groin area. States the fever has been going on for the past 3-4 days but she did not think much of it, until yesterday. Physical exam: General: [nontoxic], [no distress], [appears at stated age] Derm: [warm], [dry] Head: [atraumatic], [normocephalic], [symmetric] Eyes: [EOMI], [no lid lag], [anicteric sclera] Mouth: [no lip lesion], [mucus membranes moist] Cardiovascular: [S1S2 reg], [no murmur] Lungs: [CTA bilateral], [no rhonchi, no rales] , [no accessory muscle use] Abdominal: [soft], [ nontender to palpation], [no guarding], [no appreciable organomegaly] Psych: [Alert], [oriented], [appropriate affect] Assessment: Fever of unknown origin Anemia Right common femoral vein DVT Ovarian cancer on chemotherapy Lung nodules Plan: Patient had a drop in hemoglobin earlier today. Patient has no overt signs of bleeding and is currently asymptomatic. Stat CBC check We'll check for occult stool Patient started on eliquis 10 mg twice a day. We'll start patient on heparin drip instead until her hemoglobin stabilizes, if repeat hemoglobin is still low H&H every 8 Monitor vital signs Patient currently on prophylactic antibiotics Await blood cultures Continue IV fluids Check echocardiogram Check pro calcitonin Pulmonary, ID, hematology Recs Objective - Vital Signs Vital signs: Vital Signs Temp 99.3 F 04/02/22 08:00 Pulse 95 04/02/22 02:00 Resp 16 04/02/22 02:00 BP 107/67 04/02/22 08:00 Pulse Ox 100 04/02/22 09:02 FiO2 21 04/02/22 09:02 Intake & Output 04/01/22 04/02/22 04/02/22 18:59 06:59 18:59 Weight 60.328 kg 60.328 kg Other: Voiding Method Toilet Toilet # Voids 1 - Labs CBC & Chem 7: 04/02/22 06:09 04/01/22 15:45 Labs: Abnormal Lab Results - Last 24 Hours (Table) 04/01/22 04/01/22 04/01/22 Range/Units 15:45 15:45 16:35 RBC 3.66 L (3.80-5.40) m/uL Hgb 11.0 L (11.4-16.0) gm/dL Hct 33.9 L (34.0-46.0) % MCHC (32.0-37.0) g/dL RDW 16.3 H (11.5-15.5) % Plt Count (140-440) X 10*3/uL Lymphocytes # 0.8 L (1.0-4.8) k/uL Sodium 133 L (137-145) mmol/L Chloride 97 L (98-107) mmol/L Glucose 124 H (74-99) mg/dL Urine Protein 1+ H (Negative) Urine Mucus Rare H (None) /hpf 04/02/22 Range/Units 06:09 RBC 2.68 L (3.80-5.40) m/uL Hgb 7.9 L (11.4-16.0) gm/dL Hct 25.6 L (34.0-46.0) % MCHC 30.9 L (32.0-37.0) g/dL RDW 15.8 H (11.5-15.5) % Plt Count 134 L (140-440) X 10*3/uL Lymphocytes # 0.77 L (1.0-4.8) k/uL Sodium (137-145) mmol/L Chloride (98-107) mmol/L Glucose (74-99) mg/dL Urine Protein (Negative) Urine Mucus (None) /hpf
[2022-04-02] MEDS: polyethylene glycoL 3350 17 GM POWD.PACK PO SCH (13:53)
[2022-04-02 15:30] LABS: Anisocytosis Slight; Basophils % (A) 0 %; Eosinophils % (A) 1 %; HCT 28.4 % (34.0-46.0); Hypochromasia Slight; Lymphocytes # (A) 0.5 k/uL (1.0-4.8); Lymphocytes % (A) 9 %; MCH 30.8 pg (25.0-35.0); MCHC 32.5 g/dL (31.0-37.0); Mean Platelet Volume 8.2; Monocytes # (A) 0.1 k/uL (0-1.0); Monocytes % (A) 3 %; Neutrophils # (A) 4.6 k/uL (1.3-7.7); Neutrophils % (A) 87 %; Platelet Count 143 k/uL (150-450); RBC 2.99 m/uL (3.80-5.40); RDW 16.1 % (11.5-15.5); WBC 5.2 k/uL (3.8-10.6)
[2022-04-02 15:32] LABS: HGB 9.2 gm/dL (11.4-16.0)
[2022-04-02 17:03] LABS: % Iron Saturation 6.54 (12.00-45.00)
[2022-04-02 19:57] LABS: Anisocytosis Slight; Basophils % (A) 0 %; Eosinophils % (A) 1 %; HCT 26.2 % (34.0-46.0); HGB 8.9 gm/dL (11.4-16.0); Lymphocytes # (A) 0.6 k/uL (1.0-4.8); Lymphocytes % (A) 11 %; MCH 31.9 pg (25.0-35.0); MCHC 33.8 g/dL (31.0-37.0); MCV 94.3 fL (80.0-100.0); Mean Platelet Volume 10.3; Monocytes # (A) 0.1 k/uL (0-1.0); Monocytes % (A) 2 %; Neutrophils # (A) 4.5 k/uL (1.3-7.7); Neutrophils % (A) 85 %; Platelet Count 128 k/uL (150-450); RBC 2.78 m/uL (3.80-5.40); RDW 16.6 % (11.5-15.5); WBC 5.3 k/uL (3.8-10.6)
[2022-04-02 20:06] LABS: INR 1.1 (<1.2); Partial Thromboplastin Time 26.6 sec (22.0-30.0); Prothrombin Time 12.2 sec (9.0-12.0)
[2022-04-02] MEDS: LEVOFLOXACIN 750MG-D5W PMX 750 MG in DEXTROSE/WATER 1 150ML.BAG IVPB SCH (20:06)
[2022-04-02] MEDS ORDERED: VANCOMYCIN IV PER PHARMACY 1 EACH MISC MISCELLANE PRN (22:40)
--- NOTE | 2022-04-02 22:40 | P.CONS ---
History of Present Illness - Reason for Consult Consult date: 04/02/22 - History of Present Illness Patient is a 66-year-old female with a past medical history significant for metastatic ovarian cancer in this patient has been off and on chemotherapy for multiple years patient do have right chest wall Mediport and is currently getting chemotherapy once a year, patient presenting to the hospital for evaluation of her fever that apparently started the day of presentation to the hospital, patient did have a fever of 102 F, the patient denies having any URI symptoms no chest pain or shortness of breath occasional cough no nausea no vomiting no abdominal pain or any diarrhea patient did have a fever of 101.8 F patient was tachycardic however white count has been normal patient is not hypoxic or need for supplemental oxygen patient UA has been negative influenza cavazos PCR was negative patient did have a chest x-ray multiple nodular densities in both lungs which is new could be metastatic disease versus septic emboli patient has been started on Levaquin infectious disease was consulted for further management of antibiotic therapy Past Medical History Past Medical History: Cancer, Hypertension, Skin Disorder Additional Past Medical History / Comment(s): seasonal allergies, hx ovarian cancer, mild diverticulitis, bowel obstruction (post op), small hiatal hernia, mild psoriasis or eczema, ovarian cancer reoccurence (chemo, 04/14) History of Any Multi-Drug Resistant Organisms: None Reported Past Surgical History: Bowel Resection, Cholecystectomy, Hernia Repair, Hysterectomy Additional Past Surgical History / Comment(s): left hand tendon surgery, exploratory abdominal surgeries and cervical ca (DEBULKING SX X2), port insert ed/later removed, colostomy with reversal Past Anesthesia/Blood Transfusion Reactions: Motion Sickness, Postoperative Nausea & Vomiting (PONV) Additional Past Anesthesia/Blood Transfusion Reaction / Comm: STATES USUALLY HAS SCOPOLAMINE PATCH PRE OP Past Psychological History: No Psychological Hx Reported Additional Psychological History / Comment(s): , is supportive. Works for a local business. Lifelong nonsmoker. Denies significant alcohol use or recreational drug use. No experience. No recent international travel pet dogs at home Smoking Status: Never smoker Past Alcohol Use History: None Reported Past Drug Use History: None Reported - Past Family History Mother Family Medical History: Coronary Artery Disease (CAD), Diabetes Mellitus, Thyroid Disorder Father Family Medical History: Coronary Artery Disease (CAD), Diabetes Mellitus Medications and Allergies Home Medications Medication Instructions Recorded Confirmed Type Folic Acid 1 mg PO DAILY 03/10/20 04/01/22 History Magnesium Oxide 400 mg PO BID-W/MEALS 03/10/20 04/01/22 History Potassium Chloride ER [K-Dur 20] 20 meq PO AC-BRKFST 03/10/20 04/01/22 History Potassium Chloride ER [K-Dur 20] 40 meq PO AC-SUPPER 03/10/20 04/01/22 History atenoloL [Tenormin] 25 mg PO DAILY 03/10/20 04/01/22 History Cholecalciferol [Vitamin D3 (25 75 mcg PO DAILY 01/14/22 04/01/22 History Mcg = 1000 Iu)] polyethylene glycoL 3350 [Miralax] 8.5 gm PO BID 01/18/22 04/01/22 History Allergies Allergy/AdvReac Type Severity Reaction Status Date / Time Iodine and Iodide Containing Allergy Severe Anaphylaxis Verified 04/01/22 15:31 Produc adhesive tape Allergy red skin Verified 04/01/22 15:31 carboplatin Allergy Rash/Hives Verified 04/01/22 15:31 iodine Allergy Rapid Verified 04/01/22 15:31 Heart Rate morphine Allergy Nausea & Verified 04/01/22 15:31 Vomiting paclitaxel [From Taxol] Allergy Dyspnea, Verified 04/01/22 15:31 ELEV HR clavulanic acid AdvReac Nausea & Verified 04/01/22 15:31 [From Augmentin] Vomiting & Diarrhea codeine AdvReac Nausea & Verified 04/01/22 15:31 Vomiting & Diarrhea Physical Exam Vitals: Vital Signs Temp Pulse Pulse Resp BP BP Pulse Ox 04/02/22 12:38 98.9 F 87 16 142/78 99 04/02/22 09:02 100 04/02/22 08:00 99.3 F 107/67 04/02/22 02:00 100.5 F H 95 16 92/49 98 04/01/22 22:48 99.3 F 98 16 134/79 100 04/01/22 22:06 98.5 F 84 18 135/84 100 04/01/22 18:47 100.6 F H 89 18 118/62 100 04/01/22 16:38 103 H 18 139/71 100 04/01/22 16:32 103 F H 04/01/22 14:48 101.8 F H 112 H 16 146/80 100 FiO2 04/02/22 12:38 04/02/22 09:02 21 04/02/22 08:00 04/02/22 02:00 04/01/22 22:48 04/01/22 22:06 04/01/22 18:47 04/01/22 16:38 04/01/22 16:32 04/01/22 14:48 Intake and Output 04/01/22 04/02/22 04/02/22 22:59 06:59 14:59 Other: Voiding Method Toilet Toilet # Voids 1 Weight 60.328 kg Results CBC & Chem 7: 04/02/22 19:40 04/01/22 15:45 Labs: Abnormal Lab Results - Last 24 Hours (Table) 04/01/22 04/01/22 04/01/22 Range/Units 15:45 15:45 16:35 RBC 3.66 L (3.80-5.40) m/uL Hgb 11.0 L (11.4-16.0) gm/dL Hct 33.9 L (34.0-46.0) % MCHC (32.0-37.0) g/dL RDW 16.3 H (11.5-15.5) % Plt Count (140-440) X 10*3/uL Lymphocytes # 0.8 L (1.0-4.8) k/uL Sodium 133 L (137-145) mmol/L Chloride 97 L (98-107) mmol/L Glucose 124 H (74-99) mg/dL Urine Protein 1+ H (Negative) Urine Mucus Rare H (None) /hpf 04/02/22 Range/Units 06:09 RBC 2.68 L (3.80-5.40) m/uL Hgb 7.9 L (11.4-16.0) gm/dL Hct 25.6 L (34.0-46.0) % MCHC 30.9 L (32.0-37.0) g/dL RDW 15.8 H (11.5-15.5) % Plt Count 134 L (140-440) X 10*3/uL Lymphocytes # 0.77 L (1.0-4.8) k/uL Sodium (137-145) mmol/L Chloride (98-107) mmol/L Glucose (74-99) mg/dL Urine Protein (Negative) Urine Mucus (None) /hpf Microbiology - Last 24 Hours (Table) 04/01/22 16:34 Group A Strep Throat Culture - Preliminary Throat Assessment and Plan Plan: 1patient presented to hospital with sepsis in this we did have fever tachycardia with abnormal chest x-ray suspicious for multiple nodular abnormality with a question of metastatic disease versus septic emboli patient do have a Mediport which is a risk factor and did not have any other invasive procedure in the recent past. 2multiple drug allergies/intolerance reaction to Augmentin is nausea vomiting which is mostly GI side effects not a true allergy. 3we will obtain a CT of the chest without contrast because of her iodine allergy to better define lung pathology. 4we will empirically add vancomycin and cefepime while waiting for the cultures to be finalized. 5we will check inflammatory markers. We will follow on clinical condition and cultures to further adjust medication if needed Thank you for this consultation will follow this patient along with you Time with Patient: Greater than 30
[2022-04-02] MEDS ORDERED: HEPARIN SODIUM 1,000 UN/ML (10ML VL) IV ONE (23:00)
[2022-04-02] MEDS ORDERED: VANCOMYCIN 1,250 MG in SODIUM CHLORIDE 0.9% 250 ML IVPB ONE (23:15)
--- NOTE | 2022-04-02 23:38 | P.CONS ---
History of Present Illness - Reason for Consult Consult date: 04/02/22 Fever, lung opacities, ovarian cancer - History of Present Illness The patient is a 66-year-old white female, well known to our service. She is followed by Dr. Zayas the outpatient setting, for her history of recurrent ov liliana cancer. The patient had called the answering service, complaining of marked with a history of fever as high as 101-102. It was associated with some chills. She denied any other localizing signs. Past chemotherapy without a week ago. She'll advised to come to the emergency room, where WBC was found to be normal. However chest imaging revealed bilateral nodular infiltrates, with possibility of septic emboli, versus cancer progression. Case was discussed with the emergency room physician and admission was recommended with antibiotics. Oncology history is as follows. The patient was diagnosed with stage IIc ovarian cancer in .She had debulking surgery on 07/29/2008 followed by 6 cycles of adjuvant Carbo/Taxol completed on 12/17/2008.She did well until when she was found to have pelvic recurrence.She had another debulking surgery in .She st arted Carbo/Taxol weekly on 10/26/2011 and completed 6 cycles on 03/28/2012. Repeat CT scan of chest/abdomen/pelvis on 05/07/2014 revealed a new right adnexal mass. On 06/08/2014,she had her third debulking surgery at [facility]. She started carboplatin/doxil on 07/09/2014.She completed 6 cycles of c arboplatin/doxil on 11/26/2014. On 03/01/2017,repeat CT scan of chest/abdomen/pelvis revealed stable lesion at sigmoid. On 03/10/2017,PET scan revealed suspicious uptake in sigmoid,otherwise negative, repeat colonoscopy was negative for intracolonic lesion. 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 She started carbo/weekly taxol on 07/05/2017,her treatment was interupted due to recurrent abdominal wound infection. She continued with weekly taxol,has had 12 weeks,last treatment on 11/29/2017,treatment was interrupted and delayed due to recurrent abdominal wound infection. On 01/09/2019,repeat CT scan of chest/abdomen/pelvis revealed new soft tissue lesion in upper pelvis,highly suspicious for recurrence. She started carboplatin/gemzar,under the care of Dr Castillo,completed 6 cycles on 08/01/2019. on 08/15/2019,CA125 was down to 10.2 and was started on maintenance rucaparib. On 03/07/2021,CT scan of chest/abdomen/pelvis revealed slightyl increase in lung nodules and small new ones. On 03/16/2021,CA125 was 91.4,recurparib was discontinued. On 04/21/2021,she started cisplatin/gemzar On 06/30/2021,she started weekly taxol, due to progression On 09/26/2021,repeat CT scan of chest/abdomen/pelvis revealed evidence of progressive adenopathies in pelvis,lung nodules are smaller,evidence of right hydronephrosis. Taxol was dsicontinued. She was seen by urology and had stent placement. On 10/13/2021,she started alimta regimen,however,her insurance denied it.She resumed alimta on 11/25/2021. Repeat PET scan on 01/10/2022 revealed evidence of disease progression,enlarging right pelvic mass,multiple smaller abdominal masses and lung nodules. She was subsequently admitted with concerns for bowel obstruction. She initially improved with conservative management and was discharged but was readmitted with recurrent obstruction and concern for bowel ischemia. She was transferred to [facility], but was able to be managed conservatively. Post discharge she was started on Doxil as a single agent. She is status post 3 cycles with the last treatment about a week ago. Review of Systems Constitutional: Reports fatigue, Reports fever Eyes: denies blurred vision, denies pain Ears: deny: decreased hearing, ear discharge, earache, tinnitus Ears, nose, mouth and throat: Denies headache, Denies sore throat Cardiovascular: Reports decreased exercise tolerance Respiratory: Reports cough Gastrointestinal: Reports constipation, Denies abdominal pain, Denies diarrhea, Denies nausea, Denies vomiting Genitourinary: Denies dysuria, Denies hematuria Menstruation: Reports postmenopausal Musculoskeletal: Denies myalgias Integumentary: Denies pruritus, Denies rash Neurological: Denies numbness, Denies weakness Psychiatric: Denies anxiety, Denies depression Endocrine: Reports fatigue Hematologic/Lymphatic: Reports as per HPI Past Medical History Past Medical History: Cancer, Hypertension, Skin Disorder Additional Past Medical History / Comment(s): seasonal allergies, hx ovarian cancer, mild diverticulitis, bowel obstruction (post op), small hiatal hernia, mild psoriasis or eczema, ovarian cancer reoccurence (chemo, 04/14) History of Any Multi-Drug Resistant Organisms: None Reported Past Surgical History: Bowel Resection, Cholecystectomy, Hernia Repair, Hysterectomy Additional Past Surgical History / Comment(s): left hand tendon surgery, exploratory abdominal surgeries and cervical ca (DEBULKING SX X2), port inserted/later removed, colostomy with reversal Past Anesthesia/Blood Transfusion Reactions: Motion Sickness, Postoperative Nausea & Vomiting (PONV) Additional Past Anesthesia/Blood Transfusion Reaction / Comm: STATES USUALLY HAS SCOPOLAMINE PATCH PRE OP Past Psychological History: No Psychological Hx Reported Additional Psychological History / Comment(s): , is supportive. Works for a local business. Lifelong nonsmoker. Denies significant alcohol use or recreational drug use. No experience. No recent international travel pet dogs at home Smoking Status: Never smoker Past Alcohol Use History: None Reported Past Drug Use History: None Reported - Past Family History Mother Family Medical History: Coronary Artery Disease (CAD), Diabetes Mellitus, T hyroid Disorder Father Family Medical History: Coronary Artery Disease (CAD), Diabetes Mellitus Medications and Allergies Home Medications Medication Instructions Recorded Confirmed Type Folic Acid 1 mg PO DAILY 03/10/20 04/01/22 History Magnesium Oxide 400 mg PO BID-W/MEALS 03/10/20 04/01/22 History Potassium Chloride ER [K-Dur 20] 20 meq PO AC-BRKFST 03/10/20 04/01/22 History Potassium Chloride ER [K-Dur 20] 40 meq PO AC-SUPPER 03/10/20 04/01/22 History atenoloL [Tenormin] 25 mg PO DAILY 03/10/20 04/01/22 History Cholecalciferol [Vitamin D3 (25 75 mcg PO DAILY 01/14/22 04/01/22 History Mcg = 1000 Iu)] polyethylene glycoL 3350 [Miralax] 8.5 gm PO BID 01/18/22 04/01/22 History Allergies Allergy/AdvReac Type Severity Reaction Status Date / Time Iodine and Iodide Containing Allergy Severe Anaphylaxis Verified 04/01/22 15:31 Produc adhesive tape Allergy red skin Verified 04/01/22 15:31 carboplatin Allergy Rash/Hives Verified 04/01/22 15:31 iodine Allergy Rapid Verified 04/01/22 15:31 Heart Rate morphine Allergy Nausea & Verified 04/01/22 15:31 Vomiting paclitaxel [From Taxol] Allergy Dyspnea, Verified 04/01/22 15:31 ELEV HR clavulanic acid AdvReac Nausea & Verified 04/01/22 15:31 [From Augmentin] Vomiting & Diarrhea codeine AdvReac Nausea & Verified 04/01/22 15:31 Vomiting & Diarrhea Physical Exam Vitals: Vital Signs Temp Pulse Pulse Resp BP BP Pulse Ox 04/02/22 09:02 100 04/02/22 08:00 99.3 F 107/67 04/02/22 02:00 100.5 F H 95 16 92/49 98 04/01/22 22:48 99.3 F 98 16 134/79 100 04/01/22 22:06 98.5 F 84 18 135/84 100 04/01/22 18:47 100.6 F H 89 18 118/62 100 04/01/22 16:38 103 H 18 139/71 100 04/01/22 16:32 103 F H 04/01/22 14:48 101.8 F H 112 H 16 146/80 100 FiO2 04/02/22 09:02 21 04/02/22 08:00 04/02/22 02:00 04/01/22 22:48 04/01/22 22:06 04/01/22 18:47 04/01/22 16:38 04/01/22 16:32 04/01/22 14:48 Intake and Output 04/01/22 04/02/22 04/02/22 22:59 06:59 14:59 Other: Voiding Method Toilet Toilet # Voids 1 Weight 60.328 kg - Constitutional General appearance: no acute distress - EENT Eyes: EOMI, PERRLA ENT: hearing grossly normal - Neck Neck: no lymphadenopathy Thyroid: bilateral: normal size - Respiratory Respiratory: bilateral: CTA - Cardiovascular Rhythm: regular Heart sounds: normal: S1, S2 - Gastrointestinal General gastrointestinal: normal bowel sounds, soft - Integumentary Integumentary: normal - Neurologic Neurologic: CNII-XII intact - Musculoskeletal Musculoskeletal: generalized weakness, strength equal bilaterally - Psychiatric Psychiatric: A&O x's 3, appropriate affect Results CBC & Chem 7: 04/02/22 19:40 04/01/22 15:45 Labs: Abnormal Lab Results - Last 24 Hours (Table) 04/01/22 04/01/22 04/01/22 Range/Units 15:45 15:45 16:35 RBC 3.66 L (3.80-5.40) m/uL Hgb 11.0 L (11.4-16.0) gm/dL Hct 33.9 L (34.0-46.0) % RDW 16.3 H (11.5-15.5) % Lymphocytes # 0.8 L (1.0-4.8) k/uL Sodium 133 L (137-145) mmol/L Chloride 97 L (98-107) mmol/L Glucose 124 H (74-99) mg/dL Urine Protein 1+ H (Negative) Urine Mucus Rare H (None) /hpf Chest x-ray: report reviewed Venous US: report reviewed Assessment and Plan (1) Fever Narrative/Plan: the patient had been having fevers for the past 2-3 days, and was asked to come to the ER. She did not have any specific localizing signs or symptoms, that were new. Chest x-ray showed bilateral lung infiltrates, which is normal for her. However, it is not known if there has been progression.there was concern for possible associated infection or septic emboli also. The patient was therefore admitted and started on antibiotics. - Cultures pending. ID and pulmonary are also following the patient. - Check CT of the chest, especially given right lower extremity findings. - Progression of malignancy as a cause for fever appears to be unlikely, as the patient had recent PET scan that [facility], which showed improvement. Current Visit: Yes Status: Acute Code(s): R50.9 - FEVER, UNSPECIFIED SNOMED Code(s): 946646785 (2) Right leg DVT Narrative/Plan: the patient has history of the right leg swelling intermittently. This was felt to be more prominent on this admission, and Doppler was ordered, showing r ight lower extremity DVT. The patient denied any new symptoms subjectively related to the right lower extremity. She has been started on anticoagulation with eliquis, which is appropriate. Check CTA for baseline. Current Visit: Yes Status: Acute Code(s): I82.401 - ACUTE EMBOLISM AND THOMBOS UNSP DEEP VEINS OF R LOW EXTREM SNOMED Code(s): 216597020 (3) Anemia Narrative/Plan: current drop in hemoglobin occurred prior to presentation of and declaration, and is most likely due to recent chemotherapy. Continue to monitor. Watch for any signs of bleeding. Transfuse to keep hemoglobin greater than 7. Current Visit: Yes Status: Acute Code(s): D64.9 - ANEMIA, UNSPECIFIED SNOMED Code(s): 098120575
[2022-04-02] MEDS: HEPARIN SOD,PORK IN 0.45% NACL 25,000 UNIT in 0.45% NACL 1 250ML.BAG IV SCH (23:57)
[2022-04-03] MEDS: diphenhydrAMINE 50 MG/ML 1 ML VIAL IVP PRN ×2 (01:51→20:54)
[2022-04-03] MEDS: ACETAMINOPHEN TAB 325 MG TAB PO PRN ×2 (02:30→17:23)
[2022-04-03] MEDS: CEFEPIME 2 GM in SODIUM CHLORIDE 0.9% 100 ML IVPB SCH ×3 (02:38→16:19)
[2022-04-03] MEDS: IPRATROPIUM-ALBUTEROL 3 ML NEB INHALATION SCH ×4 (08:10→20:46)
[2022-04-03] MEDS: polyethylene glycoL 3350 17 GM POWD.PACK PO SCH (08:36)
[2022-04-03] MEDS: atenoloL 25 MG TAB PO SCH (08:36)
[2022-04-03] MEDS: SODIUM CHLORIDE 0.9% 1,000 ML IV SCH ×2 (08:48→13:15)
[2022-04-03 08:50] LABS: Basophils # (A) 0.03 X 10*3/uL (0.00-0.10); Basophils % (A) 0.6 %; Eosinophils # (A) 0.04 X 10*3/uL (0.04-0.35); Eosinophils % (A) 0.8 %; HCT 27.3 % (37.2-46.3); HGB 8.5 g/dL (12.0-15.0); Immature Grans, Automated 1.1 %; Lymphocytes % (A) 20.6 %; MCH 29.7 pg (27.0-32.0); MCHC 31.1 g/dL (32.0-37.0); MCV 95.5 fL (80.0-97.0); Mean Platelet Volume 10.6 fL (9.5-12.2); Monocytes # (A) 0.22 X 10*3/uL (0.20-1.00); Monocytes % (A) 4.1 %; NRBC Per 100 WBC 0 /100 WBCS (0.0-0.0); Neutrophils # (A) 3.88 X 10*3/uL (1.80-7.70); Neutrophils % (A) 72.8 %; Platelet Count 138 X 10*3/uL (140-440); RBC 2.86 X 10*6/uL (4.10-5.20); RDW 15.5 % (11.5-14.5); WBC 5.33 X 10*3/uL (4.50-10.00)
[2022-04-03 10:44] LABS: Erythrocyte Sedimentation Rate 70 mm/Hr (0-30)
--- NOTE | 2022-04-03 11:51 | CA ---
Transthoracic Echo Report Name: Daniela Kent Age: 66 Gender: F : 1955 Exam Date: 04/03/2022 09:07 Exam Location: [facility] Ht (in): 63 Wt (lb): 133 Ordering Physician: Prema Castellon MD Attending/Referring Phys: Geriatric Personal Care Aide Cat Snider RDCS Procedure CPT: Indications: fever of unknown origin. r/o endocarditis Cardiac Hx: Technical Quality: Good Contrast 1: Total Dose (mL): Contrast 2: Total Dose (mL): MEASUREMENTS (Male / Female) Normal Values 2D ECHO LV Diastolic Diameter PLAX 3.6 cm 4.2 - 5.9 / 3.9 - 5.3 cm LV Systolic Diameter PLAX 2.7 cm IVS Diastolic Thickness 1.2 cm 0.6 - 1.0 / 0.6 - 0.9 cm LVPW Diastolic Thickness 1.1 cm 0.6 - 1.0 / 0.6 - 0.9 cm LV Relative Wall Thickness 0.7 RV Internal Dim ED PLAX 2.9 cm LA Systolic Diameter LX 2.9 cm 3.0 - 4.0 / 2.7 - 3.8 cm LA Volume 35.8 cm??? 18 - 58 / 22 - 52 cm??? M-MODE Aortic Root Diameter MM 2.7 cm MV E Point Septal Separation 0.6 cm AV Cusp Separation MM 1.6 cm DOPPLER AV Peak Velocity 160.3 cm/s AV Peak Gradient 10.3 mmHg MV Area PHT 6.4 cm??? Mitral E Point Velocity 103.1 cm/s Mitral A Point Velocity 106.8 cm/s Mitral E to A Ratio 1.0 MV Deceleration Time 119.4 ms MV E' Velocity 11.2 cm/s Mitral E to MV E' Ratio 9.2 TR Peak Velocity 242.9 cm/s TR Peak Gradient 23.6 mmHg Right Ventricular Systolic Press 28.4 mmHg FINDINGS Left Ventricle Left ventricular ejection fraction is estimated at 60-65 %. Left ventricular cavity size normal. Borderline left ventricular hypertrophy. Right Ventricle Normal right ventricular size and function. Right ventricular systolic pressure within normal limits. Right Atrium Normal right atrial size. Left Atrium Normal left atrial size. No evidence for an atrial septal defect. Mitral Valve Structurally normal mitral valve. No mitral stenosis, regurgitation or prolapse. Aortic Valve Trileaflet aortic valve. No aortic valve stenosis or regurgitation. Tricuspid Valve Mild tricuspid regurgitation. Pulmonic Valve Structurally normal pulmonic valve. Pericardium Normal pericardium. No pericardial effusion. Aorta Normal size aortic root and proximal ascending aorta. CONCLUSIONS Normal LV function Mild tricuspid regurgitation Previewed by: Dr. Thang Marte MD (Electronically Signed) Final Date: 03 April 2022 11:51
[2022-04-03] MEDS: HEPARIN SODIUM 1,000 UN/ML (10ML VL) IV PRN (13:40)
--- NOTE | 2022-04-03 14:22 | P.PN ---
Subjective Progress Note Date: 04/03/22 rle dvt acute, on AC therapy, patient does not have respiratory symptms and is very reluctant for further imaging with contrast due to her contrast allergy. Objective - Vital Signs Vital signs: Vital Signs Temp 99.9 F H 04/03/22 14:05 Pulse 87 04/03/22 11:14 Resp 16 04/03/22 11:14 BP 126/72 04/03/22 11:14 Pulse Ox 100 04/03/22 11:14 FiO2 21 04/02/22 09:02 Intake & Output 04/02/22 04/03/22 04/03/22 18:59 06:59 18:59 Intake Total 70.041 70.299 Balance 70.041 70.299 Intake: Intake, IV Titration 70.041 70.299 Amount Heparin Sod,Pork in 0.45% 70.041 70.299 NaCl 25,000 unit In 0.45 % NaCl 1 250ml.bag @ 18 UNITS/KG/HR 10.859 mls/hr IV .Q23H2M [facility] Rx#: [id number] Other: Voiding Method Toilet Toilet # Voids 3 4 - Exam - Constitutional General appearance: no acute distress - EENT Eyes: EOMI, PERRLA ENT: hearing grossly normal - Neck Neck: no lymphadenopathy Thyroid: bilateral: normal size - Respiratory Respiratory: bilateral: CTA - Cardiovascular Rhythm: regular Heart sounds: normal: S1, S2 - Gastrointestinal General gastrointestinal: normal bowel sounds, soft - Integumentary Integumentary: normal RLE edema - Neurologic Neurologic: CNII-XII intact - Musculoskeletal Musculoskeletal: generalized weakness, strength equal bilaterally - Psychiatric Psychiatric: A&O x's 3, appropriate affect - Labs CBC & Chem 7: 04/03/22 04:21 04/01/22 15:45 Labs: Abnormal Lab Results - Last 24 Hours (Table) 04/02/22 04/02/22 04/02/22 Range/Units 06:09 12:33 15:25 RBC 2.99 L (3.80-5.40) m/uL Hgb 9.2 L D (11.4-16.0) gm/dL Hct 28.4 L (34.0-46.0) % MCHC (32.0-37.0) g/dL RDW 16.1 H (11.5-15.5) % Plt Count 143 L (150-450) k/uL Immature Gran # (0.00-0.04) X 10*3/uL Lymphocytes # 0.5 L (1.0-4.8) k/uL ESR (0-30) mm/Hr PT (9.0-12.0) sec APTT (22.0-30.0) sec Iron 15 L (50-170) ug/dL % Saturation 6.54 L (12.00-45.00) Transferrin 167.0 L (204.0-354.0) mg/dL C-Reactive Protein (0.00-0.80) mg/dL Procalcitonin 0.29 H (0.02-0.09) ng/mL 04/02/22 04/02/22 04/03/22 Range/Units 19:40 19:40 04:21 RBC 2.78 L 2.86 L (3.80-5.40) m/uL Hgb 8.9 L 8.5 L (11.4-16.0) gm/dL Hct 26.2 L 27.3 L (34.0-46.0) % MCHC 31.1 L (32.0-37.0) g/dL RDW 16.6 H 15.5 H (11.5-15.5) % Plt Count 128 L 138 L (150-450) k/uL Immature Gran # 0.06 H (0.00-0.04) X 10*3/uL Lymphocytes # 0.6 L (1.0-4.8) k/uL ESR 70 H (0-30) mm/Hr PT 12.2 H (9.0-12.0) sec APTT (22.0-30.0) sec Iron (50-170) ug/dL % Saturation (12.00-45.00) Transferrin (204.0-354.0) mg/dL C-Reactive Protein (0.00-0.80) mg/dL Procalcitonin (0.02-0.09) ng/mL 04/03/22 04/03/22 04/03/22 Range/Units 04:21 04:21 04:21 RBC (3.80-5.40) m/uL Hgb (11.4-16.0) gm/dL Hct (34.0-46.0) % MCHC (32.0-37.0) g/dL RDW (11.5-15.5) % Plt Count (150-450) k/uL Immature Gran # (0.00-0.04) X 10*3/uL Lymphocytes # (1.0-4.8) k/uL ESR (0-30) mm/Hr PT (9.0-12.0) sec APTT 67.8 H (22.0-30.0) sec Iron (50-170) ug/dL % Saturation (12.00-45.00) Transferrin (204.0-354.0) mg/dL C-Reactive Protein 17.30 H (0.00-0.80) mg/dL Procalcitonin 0.20 H (0.02-0.09) ng/mL 04/03/22 Range/Units 12:11 RBC (3.80-5.40) m/uL Hgb (11.4-16.0) gm/dL Hct (34.0-46.0) % MCHC (32.0-37.0) g/dL RDW (11.5-15.5) % Plt Count (150-450) k/uL Immature Gran # (0.00-0.04) X 10*3/uL Lymphocytes # (1.0-4.8) k/uL ESR (0-30) mm/Hr PT (9.0-12.0) sec APTT 39.7 H (22.0-30.0) sec Iron (50-170) ug/dL % Saturation (12.00-45.00) Transferrin (204.0-354.0) mg/dL C-Reactive Protein (0.00-0.80) mg/dL Procalcitonin (0.02-0.09) ng/mL Microbiology - Last 24 Hours (Table) 04/01/22 15:46 Blood Culture - Preliminary Blood No Growth after 24 hours 04/01/22 15:40 Blood Culture - Preliminary Blood No Growth after 24 hours 04/01/22 16:34 Group A Strep Throat Culture - Preliminary Throat Assessment and Plan Plan: Assessment and Plan (1) Fever Narrative/Plan: the patient had been having fevers for the past 2-3 days, and was asked to come to the ER. She did not have any specific localizing signs or symptoms, that were new. Chest x-ray showed bilateral lung infiltrates, which is normal for her. However, it is not known if there has been progression.there was concern for possible associated infection or septic emboli also. The patient was therefore admitted and started on antibiotics. - Cultures pending. ID and pulmonary are also following the patient. - Check CT of the chest, especially given right lower extremity findings. - Progression of malignancy as a cause for fever appears to be unlikely, as the patient had recent PET scan that [facility] [place], which showed improvement. Current Visit: Yes Status: Acute Code(s): R50.9 - FEVER, UNSPECIFIED SNOMED Code(s): 422749092 (2) Right leg DVT Narrative/Plan: the patient has history of the right leg swelling intermittently. This was felt to be more prominent on this admission, and Doppler was ordered, showing right lower extremity DVT. The patient denied any new symptoms subjectively related to the right lower extremity. She has been started on anticoagulation with eliquis, which is appropriate. Check CTA for baseline - Patient refused Current Visit: Yes Status: Acute Code(s): I82.401 - ACUTE EMBOLISM AND THOMBOS UNSP DEEP VEINS OF R LOW EXTREM SNOMED Code(s): 953902120 (3) Anemia Narrative/Plan: current drop in hemoglobin occurred prior to presentation of and declaration, and is most likely due to recent chemotherapy. Check Ferritin Continue to monitor. Watch for any signs of bleeding. Transfuse to keep hemoglobin greater than 7. Current Visit: Yes Status: Acute Code(s): D64.9 - ANEMIA, UNSPECIFIED SNOMED Code(s): 251640584 Continue AC therapy and plan DOAC full dose at discharge, will monitor platelts closely when resuming chemotherapy
--- NOTE | 2022-04-03 15:50 | P.PN ---
Subjective Progress Note Date: 04/03/22 66-year-old female patient with history of metastatic ovarian cancer on chemoth erapy, who follows with Dr. Zayas from medical oncology and Dr. Zhao from radiation oncology. Patient also had multiple nodular densities in both lungs, that were thought to be related to her history of ovarian cancer, recently was started on Doxyrubicin, and recent PET scan showed some improvement in the size of the lung nodules according to the patient. Patient presented to the emergency department on 04/01/2022 with complaints of fever, chills, fatigue for the past couple of days. Patient received chemo last week. Patient reports a minimal sore throat, minimal rhinorrhea. Denies any cough, no phlegm production. No abdominal pain, no urinary symptoms. Chest x-ray showed multiple nodular densities in both lungs, thought to be related to metastatic disease, and consideration for septic emboli was also suggested. T-max in the last 24 hours was 103 degrees Fahrenheit. Patient is on room air, breathing comfortably, pulse ox is 100%. Blood cultures have been obtained, patient was started on empiric antibiotics with Levaquin. She was given some gentle IV hydration. Fever pattern is improving this morning, no altered mentation. Not much in the way of pulmonary symptoms. No abdominal pain On 04/03/2022, I'm seeing the patient for a follow-up. This patient came in for a fever and the patient was found to have a DVT of the right lower extremity and the patient is an extensive clot in the right femoral vein. The patient is currently on anticoagulation. She is on IV heparin. No nausea. No vomiting. No shortness of breath. No chest pain. No worsening respiratory status. No pleurisy. No hemoptysis. On her blood work, the patient has a hemoglobin of 8.5, and PTT is therapeutic, pro-calcitonin level is at 0.2. Cultures of been all negative. Objective - Vital Signs Vital signs: Vital Signs Temp 98.3 F 04/03/22 02:00 Pulse 98 04/03/22 08:43 Resp 20 04/03/22 02:00 BP 130/75 04/03/22 08:43 Pulse Ox 99 04/03/22 02:00 FiO2 21 04/02/22 09:02 Intake & Output 04/02/22 04/03/22 04/03/22 18:59 06:59 18:59 Intake Total 70.041 Balance 70.041 Intake: Intake, IV Titration 70.041 Amount Heparin Sod,Pork in 0.45% 70.041 NaCl 25,000 unit In 0.45 % NaCl 1 250ml.bag @ 18 UNITS/KG/HR 10.859 mls/hr IV .Q23H2M [facility] Rx#: [id number] Other: Voiding Method Toilet Toilet # Voids 3 4 - Exam GENERAL EXAM: Alert, very pleasant, 66-year-old white female, in room air with a possible 100%, comfortable in no apparent distress. HEAD: Normocephalic/atraumatic. EYES: Normal reaction of pupils, equal size. Conjunctiva pink, sclera white. NOSE: Clear with pink turbinates. THROAT: No erythema or exudates. NECK: No masses, no JVD, no thyroid enlargement, no adenopathy. CHEST: No chest wall deformity. Symmetrical expansion. LUNGS: Equal air entry with no crackles, wheeze, rhonchi or dullness. CVS: Regular rate and rhythm, normal S1 and S2, no gallops, no murmurs, no rubs ABDOMEN: Soft, nontender. No hepatosplenomegaly, normal bowel sounds, no g uarding or rigidity. EXTREMITIES: No clubbing, no edema, no cyanosis, 2+ pulses and upper and lower extremities. MUSCULOSKELETAL: Muscle strength and tone normal. SPINE: No scoliosis or deformity SKIN: No rashes CENTRAL NERVOUS SYSTEM: Alert and oriented -3. No focal deficits, tone is normal in all 4 extremities. PSYCHIATRIC: Alert and oriented -3. Appropriate affect. Intact judgment and insight. - Labs CBC & Chem 7: 04/03/22 04:21 04/01/22 15:45 Labs: Abnormal Lab Results - Last 24 Hours (Table) 04/02/22 04/02/22 04/02/22 Range/Units 06:09 06:09 12:33 RBC 2.68 L (4.10-5.20) X 10*6/uL Hgb 7.9 L (12.0-15.0) g/dL Hct 25.6 L (37.2-46.3) % MCHC 30.9 L (32.0-37.0) g/dL RDW 15.8 H (11.5-14.5) % Plt Count 134 L (140-440) X 10*3/uL Immature Gran # (0.00-0.04) X 10*3/uL Lymphocytes # 0.77 L (0.90-5.00) X 10*3/uL PT (9.0-12.0) sec APTT (22.0-30.0) sec Iron 15 L (50-170) ug/dL % Saturation 6.54 L (12.00-45.00) Transferrin 167.0 L (204.0-354.0) mg/dL C-Reactive Protein (0.00-0.80) mg/dL Procalcitonin 0.29 H (0.02-0.09) ng/mL 04/02/22 04/02/22 04/02/22 Range/Units 15:25 19:40 19:40 RBC 2.99 L 2.78 L (4.10-5.20) X 10*6/uL Hgb 9.2 L D 8.9 L (12.0-15.0) g/dL Hct 28.4 L 26.2 L (37.2-46.3) % MCHC (32.0-37.0) g/dL RDW 16.1 H 16.6 H (11.5-14.5) % Plt Count 143 L 128 L (140-440) X 10*3/uL Immature Gran # (0.00-0.04) X 10*3/uL Lymphocytes # 0.5 L 0.6 L (0.90-5.00) X 10*3/uL PT 12.2 H (9.0-12.0) sec APTT (22.0-30.0) sec Iron (50-170) ug/dL % Saturation (12.00-45.00) Transferrin (204.0-354.0) mg/dL C-Reactive Protein (0.00-0.80) mg/dL Procalcitonin (0.02-0.09) ng/mL 04/03/22 04/03/22 04/03/22 Range/Units 04:21 04:21 04:21 RBC 2.86 L (4.10-5.20) X 10*6/uL Hgb 8.5 L (12.0-15.0) g/dL Hct 27.3 L (37.2-46.3) % MCHC 31.1 L (32.0-37.0) g/dL RDW 15.5 H (11.5-14.5) % Plt Count 138 L (140-440) X 10*3/uL Immature Gran # 0.06 H (0.00-0.04) X 10*3/uL Lymphocytes # (0.90-5.00) X 10*3/uL PT (9.0-12.0) sec APTT (22.0-30.0) sec Iron (50-170) ug/dL % Saturation (12.00-45.00) Transferrin (204.0-354.0) mg/dL C-Reactive Protein 17.30 H (0.00-0.80) mg/dL Procalcitonin 0.20 H (0.02-0.09) ng/mL 04/03/22 Range/Units 04:21 RBC (4.10-5.20) X 10*6/uL Hgb (12.0-15.0) g/dL Hct (37.2-46.3) % MCHC (32.0-37.0) g/dL RDW (11.5-14.5) % Plt Count (140-440) X 10*3/uL Immature Gran # (0.00-0.04) X 10*3/uL Lymphocytes # (0.90-5.00) X 10*3/uL PT (9.0-12.0) sec APTT 67.8 H (22.0-30.0) sec Iron (50-170) ug/dL % Saturation (12.00-45.00) Transferrin (204.0-354.0) mg/dL C-Reactive Protein (0.00-0.80) mg/dL Procalcitonin (0.02-0.09) ng/mL Microbiology - Last 24 Hours (Table) 04/01/22 15:46 Blood Culture - Preliminary Blood No Growth after 24 hours 04/01/22 15:40 Blood Culture - Preliminary Blood No Growth after 24 hours 04/01/22 16:34 Group A Strep Throat Culture - Preliminary Throat Assessment and Plan Plan: Fever, most likely secondary to DVT of the right lower extremity., COVID-19, influenza A and B, and group A strep were negative, chest x-ray showing multiple nodular densities in both lungs related to metastatic disease. Most recent PET/CT that was done at [facility] few weeks ago showed improvement in the bilateral pulmonary nodules and there was apparent improvement in the CAT scan/PET scan findings. Metastatic ovarian cancer, with known metastatic lesions in the lungs. Ac cording to the patient there has been recent improvement on most recent PET scan Lifetime nonsmoker History of hysterectomy Abdominal surgeries with debulking of the tumor History of bowel resection with previous colostomy and subsequent reversal RLE DVT, involving the right femoral vein and the patient has significant swelling of the right lower extremity. No evidence of any shortness of breath, pleurisy or hemoptysis and a previous CAT scan of the chest has shown some metastatic lesions involving the lungs from ovarian primary. The patient is currently on IV heparin. The patient is afebrile. Iron deficiency anemia, chronic stable Plan: Continue anticoagulation and the patient is currently on IV heparin Antibiotics can be discontinued Fever is most likely originating from right lower extremity DVT I do not see the need for a CT of the chest and the patient is currently on room air oxygen and she is extremely comfortable. Most recent PET scan showed apparently improvement and the metastatic pulmonary nodules. We'll continue to follow. She will likely need long-term antibiotic ventilation
--- NOTE | 2022-04-03 18:36 | P.PN ---
Subjective Progress Note Date: 04/03/22 Hospital course: Patient is a 66-year-old female with metastatic ovarian cancer currently undergoing chemotherapy treatment with last reported chemotherapy being just over one week ago. She presented to the emergency department with a chief complaint of fever on 04/01/22. In addition to fever patient reported chills and occasional cough. She underwent full evaluation in the emergency department.she was found to have normocytic normochromic anemia with hemoglobin of 11.0, hyponatremia with sodium of 133 and hypochloremia with chloride of 97. Procalcitonin was elevated at 0.29. Iron 15, TIBC 234, iron percentage saturation 6.54, and transferrin of 167.0.CRP elevated at 17.30.EKG showing sinus tachycardia at 105 bpm. Chest x-ray revealing multiple nodular densities in both lungs possibly representing metastatic disease however cannot rule out septic emboli. bilateral lower extremity Doppler completed revealing right lower extremity DVT to common femoral vein with hypo-weak leg thrombus identified. Patient wasstarted on IV antibiotics and IV heparin and admitted under our services with consultation to pulmonology, hematology/oncology, and infectious disease. echocardiogram completed revealing normal EF of 60-65% with mild tricuspid regurgitation. Physical exam: patient seen and fully evaluated at bedside this morning. Patient reports feeling great this morning. She denies having any further pain or complaints in right groin. Patient denies having any headache, lightheadedness, dizziness, chest pain, palpitations, or shortness of breath. Patient does report an occasional cough and continues to spike intermittent fevers with temperature high of past 24 hours 102.4F. Vital signs reviewed and stable. General: Nontoxic, no distress and appears stated age. Derm: Skin warm and dry, normal coloration for ethnicity. Head: Atraumatic, normocephalic and symmetric. Eyes: EOMs intact, no lid lag, and anicteric sclera Mouth: no lip lesions, mucus membranes moist Cardiovascular: regular rate and rhythm with normal S1S2, no murmur, positive posterior tibial pulses bilaterally, and cap refill < 2 seconds. Lungs: Respirations even, regular, and unlabored on room air. Lungs CTA bilaterally, no rhonchi, no rales, no wheezing, and no accessory muscle usage. Abdominal: soft, nontender to palpation, no guarding, no appreciable organomegaly Ext: ROM intact. No gross muscle atrophy, no edema, no contractures Neuro: Speech clear, face symmetrical and CN II-XII grossly intact with no noted focal neuro deficits Psych: Alert and oriented to person, place, time, and situation. Appropriate and pleasant affect. Assessment and Plan of Care: Fever of unknown origin in patient actively undergoing chemotherapy Lung nodules Versus septic emboli Ovarian cancer with metastases currently undergoing chemotherapy -infectious disease following -pulmonology following -Oncology following -symptomatic care and pain management Tylenol as needed for pain/fever. -IV antibiotics cefepime, Levaquin, and vancomycin as recommended by infectious disease. -blood culture showing no growth to date. -Throat culture negative for strep. -Covid PCR, influenza A, and influenza B negative. -CRP 17.30 and pro-calcitonin remains elevated at 0.20. Iron deficiency anemia - Continue ferrous sulfate daily. Right common femoral vein DVT -Heparin infusion CODE STATUS: full code DVT prophylaxis: heparin Discussed with: pt and RN Anticipated discharge date: clinical course to determine Anticipated discharge place: home A total of 37 minutes was spent on the care of this complex patient more than 50% of the time was spent in counseling and care coordination. Objective - Vital Signs Vital signs: Vital Signs Temp 102.4 F H 04/03/22 17:27 Pulse 87 04/03/22 11:14 Resp 16 04/03/22 11:14 BP 126/72 04/03/22 11:14 Pulse Ox 100 04/03/22 11:14 FiO2 21 04/02/22 09:02 Intake & Output 04/02/22 04/03/22 04/03/22 18:59 06:59 18:59 Intake Total 70.041 70.299 Balance 70.041 70.299 Intake: Intake, IV Titration 70.041 70.299 Amount Heparin Sod,Pork in 0.45% 70.041 70.299 NaCl 25,000 unit In 0.45 % NaCl 1 250ml.bag @ 18 UNITS/KG/HR 10.859 mls/hr IV .Q23H2M [facility] Rx#: [id number] Other: Voiding Method Toilet Toilet # Voids 3 4 4 - Labs CBC & Chem 7: 04/03/22 04:21 04/01/22 15:45 Labs: Abnormal Lab Results - Last 24 Hours (Table) 04/02/22 04/02/22 04/03/22 Range/Units 19:40 19:40 04:21 RBC 2.78 L 2.86 L (3.80-5.40) m/uL Hgb 8.9 L 8.5 L (11.4-16.0) gm/dL Hct 26.2 L 27.3 L (34.0-46.0) % MCHC 31.1 L (32.0-37.0) g/dL RDW 16.6 H 15.5 H (11.5-15.5) % Plt Count 128 L 138 L (150-450) k/uL Immature Gran # 0.06 H (0.00-0.04) X 10*3/uL Lymphocytes # 0.6 L (1.0-4.8) k/uL ESR 70 H (0-30) mm/Hr PT 12.2 H (9.0-12.0) sec APTT (22.0-30.0) sec C-Reactive Protein (0.00-0.80) mg/dL Procalcitonin (0.02-0.09) ng/mL 04/03/22 04/03/22 04/03/22 Range/Units 04:21 04:21 04:21 RBC (3.80-5.40) m/uL Hgb (11.4-16.0) gm/dL Hct (34.0-46.0) % MCHC (32.0-37.0) g/dL RDW (11.5-15.5) % Plt Count (150-450) k/uL Immature Gran # (0.00-0.04) X 10*3/uL Lymphocytes # (1.0-4.8) k/uL ESR (0-30) mm/Hr PT (9.0-12.0) sec APTT 67.8 H (22.0-30.0) sec C-Reactive Protein 17.30 H (0.00-0.80) mg/dL Procalcitonin 0.20 H (0.02-0.09) ng/mL 04/03/22 Range/Units 12:11 RBC (3.80-5.40) m/uL Hgb (11.4-16.0) gm/dL Hct (34.0-46.0) % MCHC (32.0-37.0) g/dL RDW (11.5-15.5) % Plt Count (150-450) k/uL Immature Gran # (0.00-0.04) X 10*3/uL Lymphocytes # (1.0-4.8) k/uL ESR (0-30) mm/Hr PT (9.0-12.0) sec APTT 39.7 H (22.0-30.0) sec C-Reactive Protein (0.00-0.80) mg/dL Procalcitonin (0.02-0.09) ng/mL Microbiology - Last 24 Hours (Table) 04/01/22 15:46 Blood Culture - Preliminary Blood No Growth after 48 hours 04/01/22 15:40 Blood Culture - Preliminary Blood No Growth after 48 hours
[2022-04-03 20:09] LABS: Anisocytosis Slight; Basophils % (A) 0 %; Eosinophils % (A) 1 %; HGB 8.3 gm/dL (11.4-16.0); Lymphocytes # (A) 0.6 k/uL (1.0-4.8); Lymphocytes % (A) 17 %; MCH 30.9 pg (25.0-35.0); MCV 93.7 fL (80.0-100.0); Mean Platelet Volume 8.9; Monocytes # (A) 0.1 k/uL (0-1.0); Monocytes % (A) 3 %; Neutrophils # (A) 2.9 k/uL (1.3-7.7); Neutrophils % (A) 78 %; Platelet Count 119 k/uL (150-450); RBC 2.67 m/uL (3.80-5.40); RDW 16.2 % (11.5-15.5); WBC 3.7 k/uL (3.8-10.6)
[2022-04-03] MEDS: LEVOFLOXACIN 750 MG TAB PO SCH (20:55)
[2022-04-03] MEDS ORDERED: VANCOMYCIN 1,250 MG in SODIUM CHLORIDE 0.9% 250 ML IVPB SCH (21:00)
[2022-04-03] MEDS: MELATONIN 3 MG TABLET PO SCH (22:17)
[2022-04-03] MEDS: HEPARIN SOD,PORK IN 0.45% NACL 25,000 UNIT in 0.45% NACL 1 250ML.BAG IV SCH (22:44)
--- NOTE | 2022-04-03 23:00 | P.PN ---
Progress Note - Text Progress Note Date: 04/03/22 RN notified of platelet drop to 119 while on heparin infusion for RLE DVT HIT score =2 patient to continue with heparin infusion at this time
[2022-04-04] MEDS: SODIUM CHLORIDE 0.9% 1,000 ML IV SCH ×2 (01:50→19:15)
[2022-04-04 07:08] LABS: African American GFR (CKD) 87 (>60 ml/min/1.73 sqM); Anion Gap 7 mmol/L; Blood Urea Nitrogen 10 mg/dL (7-17); Calcium 8.2 mg/dL (8.4-10.2); Carbon Dioxide 19 mmol/L (22-30); Chloride 110 mmol/L (98-107); Glucose 109 mg/dL (74-99); Non-African American GFR(CKD) 75 (>60 ml/min/1.73 sqM); Potassium 3.1 mmol/L (3.5-5.1); Sodium 136 mmol/L (137-145)
[2022-04-04] MEDS: IPRATROPIUM-ALBUTEROL 3 ML NEB INHALATION SCH ×4 (08:11→21:00)
[2022-04-04] MEDS: atenoloL 25 MG TAB PO SCH (08:30)
[2022-04-04] MEDS: polyethylene glycoL 3350 17 GM POWD.PACK PO SCH (08:30)
[2022-04-04] MEDS: CEFEPIME 2 GM in SODIUM CHLORIDE 0.9% 100 ML IVPB SCH (08:30)
[2022-04-04] MEDS ORDERED: POTASSIUM CHLORIDE ER 20 MEQ TAB.ER PO STA (08:45)
[2022-04-04 09:14] LABS: Basophils # (A) 0.02 X 10*3/uL (0.00-0.10); Basophils % (A) 0.6 %; Eosinophils # (A) 0.04 X 10*3/uL (0.04-0.35); Eosinophils % (A) 1.2 %; HCT 23.6 % (37.2-46.3); HGB 7.5 g/dL (12.0-15.0); Immature Grans, Automated 1.2 %; Lymphocytes # (A) 0.54 X 10*3/uL (0.90-5.00); Lymphocytes % (A) 16.8 %; MCH 30.4 pg (27.0-32.0); MCHC 31.8 g/dL (32.0-37.0); MCV 95.5 fL (80.0-97.0); Mean Platelet Volume 11.3 fL (9.5-12.2); Monocytes # (A) 0.17 X 10*3/uL (0.20-1.00); Monocytes % (A) 5.3 %; NRBC Per 100 WBC 0 /100 WBCS (0.0-0.0); Neutrophils % (A) 74.9 %; Platelet Count 101 X 10*3/uL (140-440); RBC 2.47 X 10*6/uL (4.10-5.20); RDW 15.4 % (11.5-14.5); WBC 3.21 X 10*3/uL (4.50-10.00)
--- NOTE | 2022-04-04 11:54 | P.PN ---
Subjective Progress Note Date: 04/03/22 Principal diagnosis: Fever Patient is a 66-year-old female with a past medical history significant for metastatic ovarian cancer in this patient has been off and on chemotherapy for multiple years patient do have right chest wall Mediport and is currently getting chemotherapy once a month, patient presenting to the hospital for evaluation of her fever, also have abnormal chest x-ray. On today's evaluation that is 04/03/2022 the patient did have a low-grade fever of 99F, the patient is feeling better she is currently breathing comfortably on room air patient denies having any chest pain or shortness of breath occasional cough no nausea no vomiting no abdominal pain or diarrhea Objective - Vital Signs Vital signs: Vital Signs Temp 99.9 F H 04/03/22 13:47 Pulse 87 04/03/22 11:14 Resp 16 04/03/22 11:14 BP 126/72 04/03/22 11:14 Pulse Ox 100 04/03/22 11:14 FiO2 21 04/02/22 09:02 Intake & Output 04/02/22 04/03/22 04/03/22 18:59 06:59 18:59 Intake Total 70.041 70.299 Balance 70.041 70.299 Intake: Intake, IV Titration 70.041 70.299 Amount Heparin Sod,Pork in 0.45% 70.041 70.299 NaCl 25,000 unit In 0.45 % NaCl 1 250ml.bag @ 18 UNITS/KG/HR 10.859 mls/hr IV .Q23H2M [facility] Rx#: [id number] Other: Voiding Method Toilet Toilet # Voids 3 4 - Exam GENERAL DESCRIPTION: Middle-age female lying in bed in no distress RESPIRATORY SYSTEM: Unlabored breathing , decreased breath sounds at bases HEART: S1 S2 regular rate and rhythm , ABDOMEN: Soft , no tenderness EXTREMITIES: No edema feet - Labs CBC & Chem 7: 04/04/22 05:58 04/04/22 05:57 Labs: Abnormal Lab Results - Last 24 Hours (Table) 04/02/22 04/02/22 04/02/22 Range/Units 06:09 12:33 15:25 RBC 2.99 L (3.80-5.40) m/uL Hgb 9.2 L D (11.4-16.0) gm/dL Hct 28.4 L (34.0-46.0) % MCHC (32.0-37.0) g/dL RDW 16.1 H (11.5-15.5) % Plt Count 143 L (150-450) k/uL Immature Gran # (0.00-0.04) X 10*3/uL Lymphocytes # 0.5 L (1.0-4.8) k/uL ESR (0-30) mm/Hr PT (9.0-12.0) sec APTT (22.0-30.0) sec Iron 15 L (50-170) ug/dL % Saturation 6.54 L (12.00-45.00) Transferrin 167.0 L (204.0-354.0) mg/dL C-Reactive Protein (0.00-0.80) mg/dL Procalcitonin 0.29 H (0.02-0.09) ng/mL 04/02/22 04/02/22 04/03/22 Range/Units 19:40 19:40 04:21 RBC 2.78 L 2.86 L (3.80-5.40) m/uL Hgb 8.9 L 8.5 L (11.4-16.0) gm/dL Hct 26.2 L 27.3 L (34.0-46.0) % MCHC 31.1 L (32.0-37.0) g/dL RDW 16.6 H 15.5 H (11.5-15.5) % Plt Count 128 L 138 L (150-450) k/uL Immature Gran # 0.06 H (0.00-0.04) X 10*3/uL Lymphocytes # 0.6 L (1.0-4.8) k/uL ESR 70 H (0-30) mm/Hr PT 12.2 H (9.0-12.0) sec APTT (22.0-30.0) sec Iron (50-170) ug/dL % Saturation (12.00-45.00) Transferrin (204.0-354.0) mg/dL C-Reactive Protein (0.00-0.80) mg/dL Procalcitonin (0.02-0.09) ng/mL 08/08/22 08/08/22 08/08/22 Range/Units 04:21 04:21 04:21 RBC (3.80-5.40) m/uL Hgb (11.4-16.0) gm/dL Hct (34.0-46.0) % MCHC (32.0-37.0) g/dL RDW (11.5-15.5) % Plt Count (150-450) k/uL Immature Gran # (0.00-0.04) X 10*3/uL Lymphocytes # (1.0-4.8) k/uL ESR (0-30) mm/Hr PT (9.0-12.0) sec APTT 67.8 H (22.0-30.0) sec Iron (50-170) ug/dL % Saturation (12.00-45.00) Transferrin (204.0-354.0) mg/dL C-Reactive Protein 17.30 H (0.00-0.80) mg/dL Procalcitonin 0.20 H (0.02-0.09) ng/mL 04/03/22 Range/Units 12:11 RBC (3.80-5.40) m/uL Hgb (11.4-16.0) gm/dL Hct (34.0-46.0) % MCHC (32.0-37.0) g/dL RDW (11.5-15.5) % Plt Count (150-450) k/uL Immature Gran # (0.00-0.04) X 10*3/uL Lymphocytes # (1.0-4.8) k/uL ESR (0-30) mm/Hr PT (9.0-12.0) sec APTT 39.7 H (22.0-30.0) sec Iron (50-170) ug/dL % Saturation (12.00-45.00) Transferrin (204.0-354.0) mg/dL C-Reactive Protein (0.00-0.80) mg/dL Procalcitonin (0.02-0.09) ng/mL Microbiology - Last 24 Hours (Table) 04/01/22 15:46 Blood Culture - Preliminary Blood No Growth after 24 hours 04/01/22 15:40 Blood Culture - Preliminary Blood No Growth after 24 hours 04/01/22 16:34 Group A Strep Throat Culture - Preliminary Throat Assessment and Plan (1) Fever Current Visit: Yes Status: Acute Code(s): R50.9 - FEVER, UNSPECIFIED SNOMED Code(s): 653117528 Plan: 1patient presented to hospital with SIRS in this we did have fever tachycardia with abnormal chest x-ray suspicious for multiple nodular abnormality with a question of metastatic disease versus septic emboli patient do have a Mediport which is a risk factor and did not have any other invasive procedure in the recent past. 2multiple drug allergies/intolerance reaction to Augmentin is nausea vomiting which is mostly GI side effects not a true allergy. 3patient did have evidence of right lower extremity DVT could be contributing to her fever 4patient is empirically being treated with vancomycin and cefepime while waiting for the cultures to be finalized. Time with Patient: Less than 30
--- NOTE | 2022-04-04 11:56 | P.PN ---
Subjective Progress Note Date: 04/04/22 Principal diagnosis: Fever Patient is a 66-year-old female with a past medical history significant for metastatic ovarian cancer in this patient has been off and on chemotherapy for multiple years patient do have right chest wall Mediport and is currently getting chemotherapy once a month, patient presenting to the hospital for evaluation of her fever, also have abnormal chest x-ray. On today's evaluation that is 04/04/2022 the patient fever pattern has improved with a low-grade fever of 99.6F this morning, the patient is breathing comfortably, denies any chest pain or shortness with occasional cough denies any nausea no vomiting no abdominal pain and no diarrhea Objective - Vital Signs Vital signs: Vital Signs Temp 99.6 F 04/04/22 04:26 Pulse 96 04/04/22 08:30 Resp 18 04/04/22 04:26 BP 132/68 04/04/22 08:30 Pulse Ox 100 04/04/22 08:30 FiO2 21 04/02/22 09:02 Intake & Output 04/03/22 04/04/22 04/04/22 18:59 06:59 18:59 Intake Total 70.299 1248.274 Balance 70.299 1248.274 Intake: Intake, IV Titration 70.299 1248.274 Amount Heparin Sod,Pork in 0.45% 70.299 98.274 NaCl 25,000 unit In 0.45 % NaCl 1 250ml.bag @ 18 UNITS/KG/HR 10.859 mls/hr IV .Q23H2M [facility] Rx#: [id number] Sodium Chloride 0.9% 1, 900 000 ml @ 75 mls/hr IV . [id number] [facility] Rx#:[id number] Vancomycin 1,250 mg In 250 Sodium Chloride 0.9% 250 ml @ 125 mls/hr IVPB Q24H [facility] Rx#:[id number] Other: Voiding Method Toilet Toilet # Voids 4 - Exam GENERAL DESCRIPTION: Middle-age female lying in bed in no distress RESPIRATORY SYSTEM: Unlabored breathing , decreased breath sounds at bases HEART: S1 S2 regular rate and rhythm , ABDOMEN: Soft , no tenderness EXTREMITIES: No edema feet - Labs CBC & Chem 7: 04/04/22 05:58 04/04/22 05:57 Labs: Abnormal Lab Results - Last 24 Hours (Table) 04/03/22 04/03/22 04/03/22 Range/Units 04:21 12:11 19:43 WBC 3.7 L (3.8-10.6) k/uL RBC 2.67 L (3.80-5.40) m/uL Hgb 8.3 L (11.4-16.0) gm/dL Hct 25.0 L (34.0-46.0) % MCHC (32.0-37.0) g/dL RDW 16.2 H (11.5-15.5) % Plt Count 119 L (150-450) k/uL Lymphocytes # 0.6 L (1.0-4.8) k/uL Monocytes # (0.20-1.00) X 10*3/uL APTT 39.7 H (22.0-30.0) sec Sodium (137-145) mmol/L Potassium (3.5-5.1) mmol/L Chloride (98-107) mmol/L Carbon Dioxide (22-30) mmol/L Glucose (74-99) mg/dL Calcium (8.4-10.2) mg/dL Ferritin 480.0 H (10.0-291.0) ng/mL Vitamin B12 975.0 H (200.0-944.0) pg/mL 04/03/22 04/04/22 04/04/22 Range/Units 19:43 05:57 05:58 WBC 3.21 L (3.8-10.6) k/uL RBC 2.47 L (3.80-5.40) m/uL Hgb 7.5 L (11.4-16.0) gm/dL Hct 23.6 L (34.0-46.0) % MCHC 31.8 L (32.0-37.0) g/dL RDW 15.4 H (11.5-15.5) % Plt Count 101 L (150-450) k/uL Lymphocytes # 0.54 L (1.0-4.8) k/uL Monocytes # 0.17 L (0.20-1.00) X 10*3/uL APTT 45.7 H (22.0-30.0) sec Sodium 136 L (137-145) mmol/L Potassium 3.1 L (3.5-5.1) mmol/L Chloride 110 H (98-107) mmol/L Carbon Dioxide 19 L (22-30) mmol/L Glucose 109 H (74-99) mg/dL Calcium 8.2 L (8.4-10.2) mg/dL Ferritin (10.0-291.0) ng/mL Vitamin B12 (200.0-944.0) pg/mL 04/04/22 Range/Units 05:58 WBC (3.8-10.6) k/uL RBC (3.80-5.40) m/uL Hgb (11.4-16.0) gm/dL Hct (34.0-46.0) % MCHC (32.0-37.0) g/dL RDW (11.5-15.5) % Plt Count (150-450) k/uL Lymphocytes # (1.0-4.8) k/uL Monocytes # (0.20-1.00) X 10*3/uL APTT 44.9 H (22.0-30.0) sec Sodium (137-145) mmol/L Potassium (3.5-5.1) mmol/L Chloride (98-107) mmol/L Carbon Dioxide (22-30) mmol/L Glucose (74-99) mg/dL Calcium (8.4-10.2) mg/dL Ferritin (10.0-291.0) ng/mL Vitamin B12 (200.0-944.0) pg/mL Microbiology - Last 24 Hours (Table) 04/01/22 16:34 Group A Strep Throat Culture - Final Throat 04/01/22 15:46 Blood Culture - Preliminary Blood No Growth after 48 hours 04/01/22 15:40 Blood Culture - Preliminary Blood No Growth after 48 hours Assessment and Plan (1) Fever Current Visit: Yes Status: Acute Code(s): R50.9 - FEVER, UNSPECIFIED SNOMED Code(s): 927891208 Plan: 1patient presented to hospital with SIRS in this we did have fever tachycardia with abnormal chest x-ray suspicious for multiple nodular abnormality with a question of metastatic disease versus septic emboli patient do have a Mediport which is a risk factor and did not have any other invasive procedure in the recent past. 2multiple drug allergies/intolerance reaction to Augmentin is nausea vomiting which is mostly GI side effects not a true allergy. 3patient did have evidence of right lower extremity DVT could be contributing to her fever, especially with a normal white count procalcitonin not significantly elevated, I discussed with pulmonary we will discontinue vancomycin and cefepime and monitor the patient closely, question and concerns were answered
[2022-04-04] MEDS: FERROUS SULFATE 325 MG TAB PO SCH (11:59)
[2022-04-04] MEDS ORDERED: VANCOMYCIN 1,250 MG in SODIUM CHLORIDE 0.9% 250 ML IVPB SCH (13:00)
--- NOTE | 2022-04-04 13:04 | P.PN ---
Subjective Progress Note Date: 04/04/22 Principal diagnosis: Fever of unknown origin 66-year-old female patient with history of metastatic ovarian cancer on chemotherapy, who follows with Dr. Zayas from medical oncology and Dr. Zhao from radiation oncology. Patient also had multiple nodular densities in both lungs, that were thought to be related to her history of ovarian cancer, recently was started on Doxyrubicin, and recent PET scan showed some improvement in the size of the lung nodules according to the patient. Patient presented to the emergency department on 04/01/2022 with complaints of fever, chills, fatigue for the past couple of days. Patient received chemo last week. Patient reports a minimal sore throat, minimal rhinorrhea. Denies any cough, no phlegm production. No abdominal pain, no urinary symptoms. Chest x-ray showed multiple nodular densities in both lungs, thought to be related to metastatic disease, and consideration for septic emboli was also suggested. T-max in the last 24 hours was 103 degrees Fahrenheit. Patient is on room air, breathing comfortably, pulse ox is 100%. Blood cultures have been obtained, patient was started on empiric antibiotics with Levaquin. She was given some gentle IV hydration. Fever pattern is improving this morning, no altered mentation. Not much in the way of pulmonary symptoms. No abdominal pain On 04/03/2022, I'm seeing the patient for a follow-up. This patient came in for a fever and the patient was found to have a DVT of the right lower extremity and the patient is an extensive clot in the right femoral vein. The patient is currently on anticoagulation. She is on IV heparin. No nausea. No vomiting. No shortness of breath. No chest pain. No worsening respiratory status. No pleurisy. No hemoptysis. On her blood work, the patient has a hemoglobin of 8.5, and PTT is therapeutic, pro-calcitonin level is at 0.2. Cultures of been all negative. On 04/04/2022 patient seen in follow-up. Patient is awake and alert, in no acute distress, breathing comfortably in room air pulse ox is 99%, she is tolerating ambulation. She remains on heparin infusion for newly diagnosed right lower extremity DVT. She remains on triple antibiotic coverage including cefepime and vancomycin and Levaquin. Pro-calcitonin level was low at 0.20. Today's labs have been reviewed, white blood cell count is 3.21, hemoglobin is 7.5, platelet count is 101, sodium is 136, potassium is 3.1, chloride is 110, CO2 is 19, BUN is 10, creatinine 0.83. Group A strep throat culture was negative, blood cultures show no growth. T-max in last 24 hours was 99.6F, patient is breathing comfortable, no cough or congestion, room air pulse ox is 100%. Objective - Vital Signs Vital signs: Vital Signs Temp 99.4 F 04/04/22 11:34 Pulse 89 04/04/22 11:34 Resp 16 04/04/22 11:34 BP 149/74 04/04/22 11:34 Pulse Ox 100 04/04/22 11:34 FiO2 21 04/02/22 09:02 Intake & Output 04/03/22 04/04/22 04/04/22 18:59 06:59 18:59 Intake Total 70.299 1248.274 Balance 70.299 1248.274 Intake: Intake, IV Titration 70.299 1248.274 Amount Heparin Sod,Pork in 0.45% 70.299 98.274 NaCl 25,000 unit In 0.45 % NaCl 1 250ml.bag @ 18 UNITS/KG/HR 10.859 mls/hr IV .Q23H2M [facility] Rx#: [id number] Sodium Chloride 0.9% 1, 900 000 ml @ 75 mls/hr IV . [id number] [facility] Rx#:[id number] Vancomycin 1,250 mg In 250 Sodium Chloride 0.9% 250 ml @ 125 mls/hr IVPB Q24H [facility] Rx#:[id number] Other: Voiding Method Toilet Toilet # Voids 4 - Exam GENERAL EXAM: Alert, very pleasant, 66-year-old white female, in room air with a possible 100%, comfortable in no apparent distress. HEAD: Normocephalic/atraumatic. EYES: Normal reaction of pupils, equal size. Conjunctiva pink, sclera white. NOSE: Clear with pink turbinates. THROAT: No erythema or exudates. NECK: No masses, no JVD, no thyroid enlargement, no adenopathy. CHEST: No chest wall deformity. Symmetrical expansion. LUNGS: Equal air entry with no crackles, wheeze, rhonchi or dullness. CVS: Regular rate and rhythm, normal S1 and S2, no gallops, no murmurs, no rubs ABDOMEN: Soft, nontender. No hepatosplenomegaly, normal bowel sounds, no guarding or rigidity. EXTREMITIES: No clubbing, no cyanosis, 2+ pulses and upper and lower extremities. Right lower leg edema noted MUSCULOSKELETAL: Muscle strength and tone normal. SPINE: No scoliosis or deformity SKIN: No rashes CENTRAL NERVOUS SYSTEM: Alert and oriented -3. No focal deficits, tone is normal in all 4 extremities. PSYCHIATRIC: Alert and oriented -3. Appropriate affect. Intact judgment and insight. - Labs CBC & Chem 7: 04/04/22 13:01 04/04/22 05:57 Labs: Abnormal Lab Results - Last 24 Hours (Table) 04/03/22 04/03/22 04/03/22 Range/Units 04:21 12:11 19:43 WBC 3.7 L (3.8-10.6) k/uL RBC 2.67 L (3.80-5.40) m/uL Hgb 8.3 L (11.4-16.0) gm/dL Hct 25.0 L (34.0-46.0) % MCHC (32.0-37.0) g/dL RDW 16.2 H (11.5-15.5) % Plt Count 119 L (150-450) k/uL Lymphocytes # 0.6 L (1.0-4.8) k/uL Monocytes # (0.20-1.00) X 10*3/uL APTT 39.7 H (22.0-30.0) sec Sodium (137-145) mmol/L Potassium (3.5-5.1) mmol/L Chloride (98-107) mmol/L Carbon Dioxide (22-30) mmol/L Glucose (74-99) mg/dL Calcium (8.4-10.2) mg/dL Ferritin 480.0 H (10.0-291.0) ng/mL Vitamin B12 975.0 H (200.0-944.0) pg/mL 04/03/22 04/04/22 04/04/22 Range/Units 19:43 05:57 05:58 WBC 3.21 L (3.8-10.6) k/uL RBC 2.47 L (3.80-5.40) m/uL Hgb 7.5 L (11.4-16.0) gm/dL Hct 23.6 L (34.0-46.0) % MCHC 31.8 L (32.0-37.0) g/dL RDW 15.4 H (11.5-15.5) % Plt Count 101 L (150-450) k/uL Lymphocytes # 0.54 L (1.0-4.8) k/uL Monocytes # 0.17 L (0.20-1.00) X 10*3/uL APTT 45.7 H (22.0-30.0) sec Sodium 136 L (137-145) mmol/L Potassium 3.1 L (3.5-5.1) mmol/L Chloride 110 H (98-107) mmol/L Carbon Dioxide 19 L (22-30) mmol/L Glucose 109 H (74-99) mg/dL Calcium 8.2 L (8.4-10.2) mg/dL Ferritin (10.0-291.0) ng/mL Vitamin B12 (200.0-944.0) pg/mL 04/04/22 Range/Units 05:58 WBC (3.8-10.6) k/uL RBC (3.80-5.40) m/uL Hgb (11.4-16.0) gm/dL Hct (34.0-46.0) % MCHC (32.0-37.0) g/dL RDW (11.5-15.5) % Plt Count (150-450) k/uL Lymphocytes # (1.0-4.8) k/uL Monocytes # (0.20-1.00) X 10*3/uL APTT 44.9 H (22.0-30.0) sec Sodium (137-145) mmol/L Potassium (3.5-5.1) mmol/L Chloride (98-107) mmol/L Carbon Dioxide (22-30) mmol/L Glucose (74-99) mg/dL Calcium (8.4-10.2) mg/dL Ferritin (10.0-291.0) ng/mL Vitamin B12 (200.0-944.0) pg/mL Microbiology - Last 24 Hours (Table) 04/01/22 16:34 Group A Strep Throat Culture - Final Throat 04/01/22 15:46 Blood Culture - Preliminary Blood No Growth after 48 hours 04/01/22 15:40 Blood Culture - Preliminary Blood No Growth after 48 hours Assessment and Plan Plan: Assessment: #1. Fever, of unknown etiology, COVID-19, influenza A and B, and group A strep were negative, chest x-ray showing multiple nodular densities in both lungs related to metastatic disease. Pro-calcitonin level was low at 0.20. Cultures remain negative #2. Metastatic ovarian cancer, with known metastatic lesions in the lungs. According to the patient there has been recent improvement on most recent PET scan #3. Lifetime nonsmoker #4. History of hysterectomy #5. Abdominal surgeries with debulking of the tumor #6. History of bowel resection with previous colostomy and subsequent reversal Plan: Heparin infusion can be transitioned to oral anticoagulation Discussed case with ID service Serum pro-calcitonin level was negative 2 Cultures are negative Doubt possibility of underlying sepsis and pneumonia Antibiotics will be discontinued, ID service is in agreement From pulmonary perspective patient can be considered for discharge if cleared by other consultants on the case I have personally seen and examined the patient and reviewed the documentation. I performed a joint evaluation with the nurse practitioner in this evaluation was done more than 20 minutes. I fully agree with the documentation above and the plan of care. The patient is afebrile today. The patient is on IV heparin and the patient is going to be switched Eliquis. Antibiotics can be discontinued and the fever is most likely related to the right lower extremity DVT. Time with Patient: Less than 30
[2022-04-04 13:13] LABS: Basophils % (A) 0 %; Eosinophils % (A) 1 %; HCT 28.4 % (34.0-46.0); HGB 9.3 gm/dL (11.4-16.0); Lymphocytes # (A) 0.7 k/uL (1.0-4.8); Lymphocytes % (A) 18 %; MCHC 32.8 g/dL (31.0-37.0); MCV 94.3 fL (80.0-100.0); Mean Platelet Volume 8.3; Monocytes # (A) 0.2 k/uL (0-1.0); Monocytes % (A) 4 %; Neutrophils # (A) 3.1 k/uL (1.3-7.7); Neutrophils % (A) 75 %; Platelet Count 134 k/uL (150-450); RBC 3.01 m/uL (3.80-5.40); WBC 4.1 k/uL (3.8-10.6)
--- NOTE | 2022-04-04 17:39 | P.PN ---
Subjective Progress Note Date: 04/04/22 Principal diagnosis: fever In f/u today pt last fever was yesterday evening, she does report she is feeling better then on admit. She is tolerating oral intake, her RLE swelling is stable, no pain in the leg. She is on heparin drip, denies bleeding Objective - Vital Signs Vital signs: Vital Signs Temp 99.4 F 04/04/22 11:34 Pulse 89 04/04/22 11:34 Resp 16 04/04/22 11:34 BP 149/74 04/04/22 11:34 Pulse Ox 100 04/04/22 11:34 FiO2 21 04/02/22 09:02 Intake & Output 04/03/22 04/04/22 04/04/22 18:59 06:59 18:59 Intake Total 70.299 1248.274 Balance 70.299 1248.274 Intake: Intake, IV Titration 70.299 1248.274 Amount Heparin Sod,Pork in 0.45% 70.299 98.274 NaCl 25,000 unit In 0.45 % NaCl 1 250ml.bag @ 18 UNITS/KG/HR 10.859 mls/hr IV .Q23H2M [facility] Rx#: [id number] Sodium Chloride 0.9% 1, 900 000 ml @ 75 mls/hr IV . [id number] [facility] Rx#:[id number] Vancomycin 1,250 mg In 250 Sodium Chloride 0.9% 250 ml @ 125 mls/hr IVPB Q24H [facility] Rx#:[id number] Other: Voiding Method Toilet Toilet # Voids 4 - Constitutional General appearance: Present: average body habitus, cooperative, no acute distress - EENT Eyes: Present: anicteric sclerae, EOMI ENT: Present: hearing grossly normal - Respiratory Details: resp even and unlabored at rest - Integumentary Integumentary: Present: normal - Neurologic Neurologic: Present: CNII-XII intact - Musculoskeletal Musculoskeletal: Present: strength equal bilaterally - Psychiatric Psychiatric: Present: A&O x's 3, appropriate affect, intact judgment & insight - Allied health notes Allied health notes reviewed: case management - Labs CBC & Chem 7: 04/04/22 13:01 04/04/22 05:57 Labs: Abnormal Lab Results - Last 24 Hours (Table) 04/03/22 04/03/2204/03/22 Range/Units 04:21 19:43 19:43 WBC 3.7 L (3.8-10.6) k/uL RBC 2.67 L (3.80-5.40) m/uL Hgb 8.3 L (11.4-16.0) gm/dL Hct 25.0 L (34.0-46.0) % MCHC (32.0-37.0) g/dL RDW 16.2 H (11.5-15.5) % Plt Count 119 L (150-450) k/uL Lymphocytes # 0.6 L (1.0-4.8) k/uL Monocytes # (0.20-1.00) X 10*3/uL APTT 45.7 H (22.0-30.0) sec Sodium (137-145) mmol/L Potassium (3.5-5.1) mmol/L Chloride (98-107) mmol/L Carbon Dioxide (22-30) mmol/L Glucose (74-99) mg/dL Calcium (8.4-10.2) mg/dL Ferritin 480.0 H (10.0-291.0) ng/mL Vitamin B12 975.0 H (200.0-944.0) pg/mL 04/04/22 04/04/22 04/04/22 Range/Units 05:57 05:58 05:58 WBC 3.21 L (3.8-10.6) k/uL RBC 2.47 L (3.80-5.40) m/uL Hgb 7.5 L (11.4-16.0) gm/dL Hct 23.6 L (34.0-46.0) % MCHC 31.8 L (32.0-37.0) g/dL RDW 15.4 H (11.5-15.5) % Plt Count 101 L (150-450) k/uL Lymphocytes # 0.54 L (1.0-4.8) k/uL Monocytes # 0.17 L (0.20-1.00) X 10*3/uL APTT 44.9 H (22.0-30.0) sec Sodium 136 L (137-145) mmol/L Potassium 3.1 L (3.5-5.1) mmol/L Chloride 110 H (98-107) mmol/L Carbon Dioxide 19 L (22-30) mmol/L Glucose 109 H (74-99) mg/dL Calcium 8.2 L (8.4-10.2) mg/dL Ferritin (10.0-291.0) ng/mL Vitamin B12 (200.0-944.0) pg/mL 04/04/22 Range/Units 13:01 WBC (3.8-10.6) k/uL RBC 3.01 L (3.80-5.40) m/uL Hgb 9.3 L (11.4-16.0) gm/dL Hct 28.4 L (34.0-46.0) % MCHC (32.0-37.0) g/dL RDW 16.0 H (11.5-15.5) % Plt Count 134 L (150-450) k/uL Lymphocytes # 0.7 L (1.0-4.8) k/uL Monocytes # (0.20-1.00) X 10*3/uL APTT (22.0-30.0) sec Sodium (137-145) mmol/L Potassium (3.5-5.1) mmol/L Chloride (98-107) mmol/L Carbon Dioxide (22-30) mmol/L Glucose (74-99) mg/dL Calcium (8.4-10.2) mg/dL Ferritin (10.0-291.0) ng/mL Vitamin B12 (200.0-944.0) pg/mL Microbiology - Last 24 Hours (Table) 04/01/22 16:34 Group A Strep Throat Culture - Final Throat 04/01/22 15:46 Blood Culture - Preliminary Blood No Growth after 48 hours 04/01/22 15:40 Blood Culture - Preliminary Blood No Growth after 48 hours Assessment and Plan (1) Fever Current Visit: Yes Status: Acute Priority: High Code(s): R50.9 - FEVER, UNSPECIFIED SNOMED Code(s): 672757678 (2) Right leg DVT Current Visit: Yes Status: Acute Priority: High Code(s): I82.401 - ACUTE EMBOLISM AND THOMBOS UNSP DEEP VEINS OF R LOW EXTREM SNOMED Code(s): 637856002 (3) Ovarian cancer Current Visit: No Status: Chronic Priority: Medium Code(s): C56.9 - MALIGNANT NEOPLASM OF UNSPECIFIED OVARY SNOMED Code(s): 811357026 Plan: Dr. Grant and ID discussed case. Based on fevers, recent DVT concern for PE vs septic emboli. Pt does have a contrast allergy-suggested VQ scan. Doppler of LLE recommended for baseline. If doppler not done of right thigh, please complete. Discussed with Internal Medicine. Eliquis for DVT treatment, discussed case with CM who will verify copay. Pend ing VQ results. If DVT only, at least 3 mo anticoagulation, if concern for PE then 6 months anticoagulation. May have to consider lifelong anticoagulation based on pt tolerance and cancer status. Pt had recent treatment f/u scan that was stable, slightly improved, including in the lungs.
--- NOTE | 2022-04-04 17:40 | NM ---
EXAMINATION TYPE: NM pul vent and perfuse DATE OF EXAM: 04/04/2022 COMPARISON: Chest radiograph 04/01/2021. HISTORY: Fever TECHNIQUE: Utilizing inhalation of 69.1 mCi Tc 99m DTPA aerosol and intravenous injection of 5.37 mC i of Tc 99m MAA, ventilation and perfusion images are acquired post injection in multiple projections . FINDINGS: Normal radiotracer distribution is noted in the lungs. There is no evidence of mismatched defects. IMPRESSION: No evidence of pulmonary embolus.
--- NOTE | 2022-04-04 18:01 | P.PN ---
Subjective Progress Note Date: 04/04/22 Hospital course: Patient is a 66-year-old female with metastatic ovarian cancer currently undergoing chemotherapy treatment with last reported chemotherapy being just over one week ago. She presented to the emergency department with a chief complaint of fever on 04/01/22. In addition to fever patient reported chills and occasional cough. She underwent full evaluation in the emergency department.she was found to have normocytic normochromic anemia with hemoglobin of 11.0, hyponatremia with sodium of 133 and hypochloremia with chloride of 97. Procalcitonin was elevated at 0.29. Iron 15, TIBC 234, iron percentage saturation 6.54, and transferrin of 167.0.CRP elevated at 17.30.EKG showing sinus tachycardia at 105 bpm. Chest x-ray revealing multiple nodular densities in both lungs possibly representing metastatic disease however cannot rule out septic emboli. bilateral lower extremity Doppler completed revealing right lower extremity DVT to common femoral vein with hypo-weak leg thrombus identified. Patient wasstarted on IV antibiotics and IV heparin and admitted under our services with consultation to pulmonology, hematology/oncology, and infectious disease. echocardiogram completed revealing normal EF of 60-65% with mild tricuspid regurgitation. Physical exam: Patient seen and fully evaluated at bedside this morning. She was sitting up in bed and denied having any complaints or concerns this morning. Patient reports overall she feels great. Patient had a temperature high over the past 24 hours of 102.4F. Blood cultures and sputum culture negative to date. Morning labs reviewed and stable. WBC count 4.1, hemoglobin 9.3, and platelet count 134. BMP revealing hyperkalemia with potassium of 3.1, hyperchloremia with chloride 110, and carbon dioxide of 19. 0.9% normal saline discontinued at this time secondary to worsening acidosis. Hyponatremia has resolved. Patient to remain on heparin infusion for treatment of right lower extremity DVT as well as IV antibiotics vancomycin and Levaquin per recommendations of infectious disease. Vital signs reviewed and stable. General: Nontoxic, no distress and appears stated age. Derm: Skin warm and dry, normal coloration for ethnicity. Head: Atraumatic, normocephalic and symmetric. Eyes: EOMs intact, no lid lag, and anicteric sclera Mouth: no lip lesions, mucus membranes moist Cardiovascular: regular rate and rhythm with normal S1S2, no murmur, positive posterior tibial pulses bilaterally, and cap refill < 2 seconds. Lungs: Respirations even, regular, and unlabored on room air. Lungs CTA bilaterally, no rhonchi, no rales, no wheezing, and no accessory muscle usage. Abdominal: soft, nontender to palpation, no guarding, no appreciable organomegaly Ext: ROM intact. No gross muscle atrophy, no edema, no contractures Neuro: Speech clear, face symmetrical and CN II-XII grossly intact with no noted focal neuro deficits Psych: Alert and oriented to person, place, time, and situation. Appropriate and pleasant affect. Assessment and Plan of Care: Fever of unknown origin in patient actively undergoing chemotherapy Lung nodules Versus septic emboli Ovarian cancer with metastases currently undergoing chemotherapy -Infectious disease following -Pulmonology following -Oncology following -symptomatic care and pain management Tylenol as needed for pain/fever. -IV antibiotics: Levaquin and vancomycin as recommended by infectious disease. -Bood culture showing no growth to date. -Throat culture negative for group A strep. -Covid PCR, influenza A, and influenza B negative. -CRP 17.30 and pro-calcitonin remains elevated at 0.20. Iron deficiency anemia Pancytopenia, chemotherapy induced -Wbc's 3.7, hemoglobin 8.3, platelet count of 119 -Iron 15, TIBC 234, iron percentage saturation 6.54, and transferrin of 167.0 -Continue ferrous sulfate daily. Right common femoral vein DVT -Heparin infusion CODE STATUS: full code DVT prophylaxis: heparin Discussed with: pt and RN Anticipated discharge date: clinical course to determine Anticipated discharge place: home A total of 39 minutes was spent on the care of this complex patient more than 50% of the time was spent in counseling and care coordination. Rad Wolfe NP rendered care for this patient independently, reviewed the findings and plan as documented in the note above. I did not physically speak with or examine the patient on this date. Objective - Vital Signs Vital signs: Vital Signs Temp 99.6 F 04/04/22 04:26 Pulse 94 04/04/22 04:26 Resp 18 04/04/22 04:26 BP 125/71 04/04/22 04:26 Pulse Ox 99 04/04/22 04:26 FiO2 21 04/02/22 09:02 Intake & Output 04/03/22 04/04/22 04/04/22 18:59 06:59 18:59 Intake Total 70.299 1248.274 Balance 70.299 1248.274 Intake: Intake, IV Titration 70.299 1248.274 Amount Heparin Sod,Pork in 0.45% 70.299 98.274 NaCl 25,000 unit In 0.45 % NaCl 1 250ml.bag @ 18 UNITS/KG/HR 10.859 mls/hr IV .Q23H2M [facility] Rx#: [id number] Sodium Chloride 0.9% 1, 900 000 ml @ 75 mls/hr IV . [id number] [facility] Rx#:[id number] Vancomycin 1,250 mg In 250 Sodium Chloride 0.9% 250 ml @ 125 mls/hr IVPB Q24H [facility] Rx#:[id number] Other: Voiding Method Toilet Toilet # Voids 4 - Labs CBC & Chem 7: 04/04/22 13:01 04/04/22 05:57 Labs: Abnormal Lab Results - Last 24 Hours (Table) 04/03/22 04/03/22 04/03/22 Range/Units 04:21 04:21 04:21 WBC (3.8-10.6) k/uL RBC 2.86 L (4.10-5.20) X 10*6/uL Hgb 8.5 L (12.0-15.0) g/dL Hct 27.3 L (37.2-46.3) % MCHC 31.1 L (32.0-37.0) g/dL RDW 15.5 H (11.5-14.5) % Plt Count 138 L (140-440) X 10*3/uL Immature Gran # 0.06 H (0.00-0.04) X 10*3/uL Lymphocytes # (1.0-4.8) k/uL ESR 70 H (0-30) mm/Hr APTT (22.0-30.0) sec Sodium (137-145) mmol/L Potassium (3.5-5.1) mmol/L Chloride (98-107) mmol/L Carbon Dioxide (22-30) mmol/L Glucose (74-99) mg/dL Calcium (8.4-10.2) mg/dL Ferritin (10.0-291.0) ng/mL C-Reactive Protein 17.30 H (0.00-0.80) mg/dL Vitamin B12 (200.0-944.0) pg/mL Procalcitonin 0.20 H (0.02-0.09) ng/mL 04/03/22 04/03/22 04/03/22 Range/Units 04:21 12:11 19:43 WBC 3.7 L (3.8-10.6) k/uL RBC 2.67 L (4.10-5.20) X 10*6/uL Hgb 8.3 L (12.0-15.0) g/dL Hct 25.0 L (37.2-46.3) % MCHC (32.0-37.0) g/dL RDW 16.2 H (11.5-14.5) % Plt Count 119 L (140-440) X 10*3/uL Immature Gran # (0.00-0.04) X 10*3/uL Lymphocytes # 0.6 L (1.0-4.8) k/uL ESR (0-30) mm/Hr APTT 39.7 H (22.0-30.0) sec Sodium (137-145) mmol/L Potassium (3.5-5.1) mmol/L Chloride (98-107) mmol/L Carbon Dioxide (22-30) mmol/L Glucose (74-99) mg/dL Calcium (8.4-10.2) mg/dL Ferritin 480.0 H (10.0-291.0) ng/mL C-Reactive Protein (0.00-0.80) mg/dL Vitamin B12 975.0 H (200.0-944.0) pg/mL Procalcitonin (0.02-0.09) ng/mL 04/03/22 04/04/22 04/04/22 Range/Units 19:43 05:57 05:58 WBC (3.8-10.6) k/uL RBC (4.10-5.20) X 10*6/uL Hgb (12.0-15.0) g/dL Hct (37.2-46.3) % MCHC (32.0-37.0) g/dL RDW (11.5-14.5) % Plt Count (140-440) X 10*3/uL Immature Gran # (0.00-0.04) X 10*3/uL Lymphocytes # (1.0-4.8) k/uL ESR (0-30) mm/Hr APTT 45.7 H 44.9 H (22.0-30.0) sec Sodium 136 L (137-145) mmol/L Potassium 3.1 L (3.5-5.1) mmol/L Chloride 110 H (98-107) mmol/L Carbon Dioxide 19 L (22-30) mmol/L Glucose 109 H (74-99) mg/dL Calcium 8.2 L (8.4-10.2) mg/dL Ferritin (10.0-291.0) ng/mL C-Reactive Protein (0.00-0.80) mg/dL Vitamin B12 (200.0-944.0) pg/mL Procalcitonin (0.02-0.09) ng/mL Microbiology - Last 24 Hours (Table) 04/01/22 16:34 Group A Strep Throat Culture - Final Throat 04/01/22 15:46 Blood Culture - Preliminary Blood No Growth after 48 hours 04/01/22 15:40 Blood Culture - Preliminary Blood No Growth after 48 hours
--- NOTE | 2022-04-04 19:12 | US ---
EXAMINATION TYPE: US venous doppler duplex LE BI DATE OF EXAM: 04/04/2022 1:43 PM COMPARISON: 04/02/22 CLINICAL HISTORY: baseline, LLE. DVT in right leg SIDE PERFORMED: Bilateral TECHNIQUE: The lower extremity deep venous system is examined utilizing real time linear array sonog ольга with graded compression, doppler sonography and color-flow sonography. VESSELS IMAGED: Common Femoral Vein Deep Femoral Vein Greater Saphenous Vein * Femoral Vein Popliteal Vein Small Saphenous Vein * Proximal Calf Veins (* superficial vessels) Right Leg: Echogenic material seen in the right CFV and prox femoral vein. Left Leg: Negative for DVT Grayscale, color doppler, spectral doppler imaging performed of the deep veins of the lower extremiti es. There is normal flow, compressibility, vascular waveforms. IMPRESSION: 1. Deep veins of the right common femoral and proximal superficial femoral vein. 2. No evidence of deep vein thrombosis of the left lower chimney.
[2022-04-04] MEDS: LEVOFLOXACIN 750 MG TAB PO SCH (20:22)
[2022-04-04 20:28] LABS: Anisocytosis Slight; Basophils % (A) 0 %; Eosinophils # (A) 0.1 k/uL (0-0.7); Eosinophils % (A) 1 %; HCT 25.4 % (34.0-46.0); HGB 8.2 gm/dL (11.4-16.0); Lymphocytes # (A) 0.5 k/uL (1.0-4.8); Lymphocytes % (A) 15 %; MCH 30.2 pg (25.0-35.0); MCHC 32.2 g/dL (31.0-37.0); MCV 93.8 fL (80.0-100.0); Mean Platelet Volume 8.3; Monocytes # (A) 0.2 k/uL (0-1.0); Monocytes % (A) 5 %; Neutrophils # (A) 2.8 k/uL (1.3-7.7); Neutrophils % (A) 78 %; Platelet Count 121 k/uL (150-450); RBC 2.71 m/uL (3.80-5.40); WBC 3.6 k/uL (3.8-10.6)
[2022-04-04] MEDS ORDERED: CEFEPIME 2 GM in SODIUM CHLORIDE 0.9% 100 ML IVPB SCH (21:00)
[2022-04-04] MEDS: HEPARIN SOD,PORK IN 0.45% NACL 25,000 UNIT in 0.45% NACL 1 250ML.BAG IV SCH (23:08)
[2022-04-05] MEDS: MELATONIN 3 MG TABLET PO SCH (01:57)
[2022-04-05] MEDS: IPRATROPIUM-ALBUTEROL 3 ML NEB INHALATION SCH ×2 (07:54→11:55)
[2022-04-05] MEDS: HEPARIN SODIUM 1,000 UN/ML (10ML VL) IV PRN (08:34)
[2022-04-05] MEDS: polyethylene glycoL 3350 17 GM POWD.PACK PO SCH (08:39)
[2022-04-05] MEDS: atenoloL 25 MG TAB PO SCH (08:39)
[2022-04-05 10:44] LABS: Basophils # (A) 0.01 X 10*3/uL (0.00-0.10); Basophils % (A) 0.3 %; Eosinophils # (A) 0.04 X 10*3/uL (0.04-0.35); Eosinophils % (A) 1.3 %; HCT 23.8 % (37.2-46.3); HGB 7.5 g/dL (12.0-15.0); Lymphocytes # (A) 0.65 X 10*3/uL (0.90-5.00); Lymphocytes % (A) 21.2 %; MCH 29.9 pg (27.0-32.0); MCHC 31.5 g/dL (32.0-37.0); MCV 94.8 fL (80.0-97.0); Mean Platelet Volume 11.7 fL (9.5-12.2); Monocytes # (A) 0.18 X 10*3/uL (0.20-1.00); Monocytes % (A) 5.9 %; NRBC Per 100 WBC 0 /100 WBCS (0.0-0.0); Neutrophils # (A) 2.15 X 10*3/uL (1.80-7.70); Neutrophils % (A) 70.3 %; Platelet Count 118 X 10*3/uL (140-440); RBC 2.51 X 10*6/uL (4.10-5.20); RDW 15.6 % (11.5-14.5); WBC 3.06 X 10*3/uL (4.50-10.00)
--- NOTE | 2022-04-05 10:59 | CDI ---
Documentation Clarification Form Date: 04/05/2022 10:37:41 AM From: Sheila RobertsSanchez, LIZZETTE, CCDS Admit Date: 04/01/2022 08:18:00 PM Patient Name: Daniela Kent Visit Number: [id number] Discharge Date: ATTENTION: The Clinical Documentation Specialists (CDI) and [facility] Coding Staff appreciate your assistance in clarifying documentation. Please respond to the clarification below the line at the bottom and electronically sign. The CDI & [facility] Coding staff will review the response and follow-up if needed. Please note: Queries are made part of the Legal Health Record. If you have any questions, please contact the author of this message via ITS. Dr. Jordyn Smith: The patients principal diagnosis the diagnosis that was chiefly responsible for the admission - has not been clearly identified and clarification is requested. The patient presented with the following: Fever, 102 at home for several days with no other signs/symptoms. The patient is a cancer patient with history of ovarian cancer and metastatic disease to the lungs currently in chemotherapy. 04/01 History & Physical Assessment & Plan: Fever of unknown origin likely secondary to recent cycle of chemotherapy. Rule out infectious process. Follow up cultures. CXR: worsening lung nodules most likely metastatic cancer however septic emboli cannot be ruled out. Patient was started on IV Levaquin & Vancomycin, IV fluids. History/Risk factors per the 04/01 H/P: Ovarian Cancer status post chemotherapy with reoccurrence and debulking surgery x2, Metastatic disease to the lungs, Hypertension, Mild Diverticulitis, Bowel obstruction, Colostomy with reversal. Clinical Indicators: Presented to the ED on 04/01 with Fever, chills status post chemotherapy last week for recurrent Ovarian Cancer. Has minimal sore throat, minimal rhinorrhea. Admit with Fever. 04/01 VS: T 101.8, P 112, R 16, BP 146/80, PO 100 RA, BMI: 23.6 04/01 LAB: WBC 8.4, RBC 3.66, Hgb 11.0, Hct 33.9, Lymph 0.8; Na 133, Chloride 97, Glucose 124 04/01 UA: Clear, 1+ Protein. 04/01 Serology: COVID, Influenza A/B and Group A Strep Rapid: negative. 04/01 Blood cultures x2 (Preliminary): No growth at 72 hours. 04/01 CXR: Multiple nodular densities in both lungs is a change & could be metastatic disease. Also consider septic emboli. 04/02 Right Lower Ext US: VT of the right common femoral vein. 04/04 NM lung scan: No PE. Treatment 04/01: po Tylenol 1,000 mg x1, IV Na Chl 500 mls @ 999 mls/hr q31M, po Tylenol 650 mg q6H/prn, IV Levaquin 150 mls @ 100 mls/hr q24H 04/02: INH Duoneb 3 ml q2H/prn, IV Heparin Drip, IV Vancomycin 250 mls @ 125 mls/hr x1 04/03: IV Cefepime 100 mls @ 25 mls/hr q8H Consults: 04/02 Infectious Disease: Metastatic Disease vs Septic emboli, patient has a Mediport which is a risk factor. 04/02 Pulmonary: Fever of unknown origin. 04/02 Oncology: Fever, concern for possible associated infection or septic emboli. Progression of malignancy as a cause of fever appears unlikely. In your professional opinion, can you please clarify which diagnosis, after study, was the reason chiefly responsible for the admission? [ ] Fever due to recent chemotherapy [ ] Fever due to infection, please specify: [ ] Fever due to septic emboli [ ] Fever due to possible Mediport Infection [ ] Fever of unknown origin, cause unknown [ ] Other, please specify: [ ] Unable to determine (Template Last Revised: October 2020) Fever due to malignancy and DVT MTDD
[2022-04-05 11:14] LABS: African American GFR (CKD) >90 (>60 ml/min/1.73 sqM); Anion Gap 12 mmol/L; Blood Urea Nitrogen 9 mg/dL (7-17); Calcium 8.7 mg/dL (8.4-10.2); Carbon Dioxide 18 mmol/L (22-30); Chloride 105 mmol/L (98-107); Glucose 108 mg/dL (74-99); Non-African American GFR(CKD) 82 (>60 ml/min/1.73 sqM); Potassium 3.5 mmol/L (3.5-5.1); Sodium 135 mmol/L (137-145)
[2022-04-05] MEDS: FERROUS SULFATE 325 MG TAB PO SCH (12:16)
--- NOTE | 2022-04-05 12:26 | P.PN ---
Subjective Progress Note Date: 04/05/22 Principal diagnosis: Fever of unknown origin 66-year-old female patient with history of metastatic ovarian cancer on chemotherapy, who follows with Dr. Zayas from medical oncology and Dr. Zhao from radiation oncology. Patient also had multiple nodular densities in both lungs, that were thought to be related to her history of ovarian cancer, recently was started on Doxyrubicin, and recent PET scan showed some improvement in the size of the lung nodules according to the patient. Patient presented to the emergency department on 04/01/2022 with complaints of fever, chills, fatigue for the past couple of days. Patient received chemo last week. Patient reports a minimal sore throat, minimal rhinorrhea. Denies any cough, no phlegm production. No abdominal pain, no urinary symptoms. Chest x-ray showed multiple nodular densities in both lungs, thought to be related to metastatic disease, and consideration for septic emboli was also suggested. T-max in the last 24 hours was 103 degrees Fahrenheit. Patient is on room air, breathing comfortably, pulse ox is 100%. Blood cultures have been obtained, patient was started on empiric antibiotics with Levaquin. She was given some gentle IV hydration. Fever pattern is improving this morning, no altered mentation. Not much in the way of pulmonary symptoms. No abdominal pain On 04/03/2022, I'm seeing the patient for a follow-up. This patient came in for a fever and the patient was found to have a DVT of the right lower extremity and the patient is an extensive clot in the right femoral vein. The patient is currently on anticoagulation. She is on IV heparin. No nausea. No vomiting. No shortness of breath. No chest pain. No worsening respiratory status. No pleurisy. No hemoptysis. On her blood work, the patient has a hemoglobin of 8.5, and PTT is therapeutic, pro-calcitonin level is at 0.2. Cultures of been all negative. On 04/04/2022 patient seen in follow-up. Patient is awake and alert, in no acute distress, breathing comfortably in room air pulse ox is 99%, she is tolerating ambulation. She remains on heparin infusion for newly diagnosed right lower extremity DVT. She remains on triple antibiotic coverage including cefepime and vancomycin and Levaquin. Pro-calcitonin level was low at 0.20. Today's labs have been reviewed, white blood cell count is 3.21, hemoglobin is 7.5, platelet count is 101, sodium is 136, potassium is 3.1, chloride is 110, CO2 is 19, BUN is 10, creatinine 0.83. Group A strep throat culture was negative, blood cultures show no growth. T-max in last 24 hours was 99.6F, patient is breathing comfortable, no cough or congestion, room air pulse ox is 100%. On 04/05/2022 patient seen in follow-up on medical surgical floor. She is resting comfortably in bed, room air pulse ox 97-100%. Patient had another lower extremity Doppler last night, and left leg was negative for DVT, and right leg was positive for DVT. VQ scan showed no evidence of pulmonary embolus. Patient remains on heparin infusion, antibiotics have been discontinued, possibility of sepsis was thought to be less likely. Blood cultures and strep a culture are negative. Vital signs have been stable. No pulmonary symptoms. Lung sounds are clear Objective - Vital Signs Vital signs: Vital Signs Temp 99.2 F 04/05/22 04:26 Pulse 99 04/05/22 04:26 Resp 18 04/05/22 04:26 BP 115/64 04/05/22 04:26 Pulse Ox 97 04/05/22 04:26 FiO2 21 04/02/22 09:02 Intake & Output 04/04/22 04/05/22 04/05/22 18:59 06:59 18:59 Intake Total 330 102.618 Balance 330 102.618 Intake: Intake, IV Titration 330 102.618 Amount Heparin Sod,Pork in 0.45% 250 102.618 NaCl 25,000 unit In 0.45 % NaCl 1 250ml.bag @ 18 UNITS/KG/HR 10.859 mls/hr IV .Q23H2M [facility] Rx#: [id number] Sodium Chloride 0.9% 1, 80 000 ml @ 75 mls/hr IV . [id number] [facility] Rx#:[id number] Other: Voiding Method Toilet Toilet # Voids 3 - Exam GENERAL EXAM: Alert, very pleasant, 66-year-old white female, in room air with a possible 100%, comfortable in no apparent distress. HEAD: Normocephalic/atraumatic. EYES: Normal reaction of pupils, equal size. Conjunctiva pink, sclera white. NOSE: Clear with pink turbinates. THROAT: No erythema or exudates. NECK: No masses, no JVD, no thyroid enlargement, no adenopathy. CHEST: No chest wall deformity. Symmetrical expansion. LUNGS: Equal air entry with no crackles, wheeze, rhonchi or dullness. CVS: Regular rate and rhythm, normal S1 and S2, no gallops, no murmurs, no rubs ABDOMEN: Soft, nontender. No hepatosplenomegaly, normal bowel sounds, no guarding or rigidity. EXTREMITIES: No clubbing, no cyanosis, 2+ pulses and upper and lower extremi ties. Right lower leg edema noted MUSCULOSKELETAL: Muscle strength and tone normal. SPINE: No scoliosis or deformity SKIN: No rashes CENTRAL NERVOUS SYSTEM: Alert and oriented -3. No focal deficits, tone is normal in all 4 extremities. PSYCHIATRIC: Alert and oriented -3. Appropriate affect. Intact judgment and insight. - Labs CBC & Chem 7: 04/05/22 06:01 04/05/22 06:01 Labs: Abnormal Lab Results - Last 24 Hours (Table) 04/04/22 04/04/22 04/05/22 Range/Units 13:01 20:12 06:01 WBC 3.6 L 3.06 L (3.8-10.6) k/uL RBC 3.01 L 2.71 L 2.51 L (3.80-5.40) m/uL Hgb 9.3 L 8.2 L 7.5 L (11.4-16.0) gm/dL Hct 28.4 L 25.4 L 23.8 L (34.0-46.0) % MCHC 31.5 L (32.0-37.0) g/dL RDW 16.0 H 16.0 H 15.6 H (11.5-15.5) % Plt Count 134 L 121 L 118 L (150-450) k/uL Lymphocytes # 0.7 L 0.5 L 0.65 L (1.0-4.8) k/uL Monocytes # 0.18 L (0.20-1.00) X 10*3/uL APTT (22.0-30.0) sec Sodium (137-145) mmol/L Carbon Dioxide (22-30) mmol/L Glucose (74-99) mg/dL 04/05/22 04/05/22 Range/Units 06:01 06:01 WBC (3.8-10.6) k/uL RBC (3.80-5.40) m/uL Hgb (11.4-16.0) gm/dL Hct (34.0-46.0) % MCHC (32.0-37.0) g/dL RDW (11.5-15.5) % Plt Count (150-450) k/uL Lymphocytes # (1.0-4.8) k/uL Monocytes # (0.20-1.00) X 10*3/uL APTT 41.8 H (22.0-30.0) sec Sodium 135 L (137-145) mmol/L Carbon Dioxide 18 L (22-30) mmol/L Glucose 108 H (74-99) mg/dL Microbiology - Last 24 Hours (Table) 04/01/22 15:46 Blood Culture - Preliminary Blood No Growth after 72 hours 04/01/22 15:40 Blood Culture - Preliminary Blood No Growth after 72 hours 04/01/22 16:34 Group A Strep Throat Culture - Final Throat Assessment and Plan Plan: Assessment: #1. Fever, of unknown etiology, COVID-19, influenza A and B, and group A strep were negative, chest x-ray showing multiple nodular densities in both lungs related to metastatic disease. Pro-calcitonin level was low at 0.20. Cultures remain negative #2. Metastatic ovarian cancer, with known metastatic lesions in the lungs. According to the patient there has been recent improvement on most recent PET scan #3. Lifetime nonsmoker #4. History of hysterectomy #5. Abdominal surgeries with debulking of the tumor #6. History of bowel resection with previous colostomy and subsequent reversal Plan: Patient is doing well She can be switched over to Eliquis starter pack antibiotics have been discontinued Patient can be considered for discharge home today from pulmonary perspective Outpatient follow-up with Dr. Andersen/Corrie in the office in 7-10 days I have personally seen and examined the patient and reviewed the documentation. I performed a joint evaluation with the nurse practitioner in this evaluation was done more than 20 minutes. I fully agree with the documentation above and the plan of care.. The patient is stable for now and anticoagulation antibiotics have been discontinued. Hemoglobin was on 7.5, no signs of any bleeding. The patient is currently off antibiotics Time with Patient: Less than 30
[2022-04-05 12:44] VITALS: BP 109/65; PULSE 83; RESP 16; TEMP 98.7
[2022-04-05] MEDS ORDERED: APIXABAN 5 MG TAB PO SCH (13:45)
--- NOTE | 2022-04-05 16:53 | P.DS ---
Providers Date of admission: 04/01/22 20:18 Expected date of discharge: 04/05/22 Attending physician: Riddhi Malave MD Consults: 04/01/22 20:18 Consult Physician Routine Consulting Provider: Sudheer Andersen Consult Reason/Comments: Fever with abnormal x-ray Do you want consulting provider notified?: Yes Consult Physician Routine Consulting Provider: Lucina Saeed Consult Reason/Comments: Fever Do you want consulting provider notified?: Yes 04/02/22 12:11 Consult Physician Routine Consulting Provider: Calvin Grant Consult Reason/Comments: Ovarian cancer hx Do you want consulting provider notified?: Yes Primary care physician: Dina Martines MD Hospital Course: Patient is a 66-year-old female with metastatic ovarian cancer currently undergoing chemotherapy treatment with last reported chemotherapy being just over one week ago. She presented to the emergency department with a chief complaint of fever on 04/01/22. In addition to fever patient reported chills and occasional cough. She underwent full evaluation in the emergency department.she was found to have normocytic normochromic anemia with hemoglobin of 11.0, hyponatremia with sodium of 133 and hypochloremia with chloride of 97. Procalcitonin was elevated at 0.29. Iron 15, TIBC 234, iron percentage saturation 6.54, and transferrin of 167.0.CRP elevated at 17.30.EKG showing sinus tachycardia at 105 bpm. Chest x-ray revealing multiple nodular densities in both lungs possibly representing metastatic disease however cannot rule out septic emboli. Bilateral lower extremity Doppler completed revealing right lower extremity DVT to common femoral vein with thrombus identified. Patient was started on IV antibiotics and IV heparin and admitted under our services with consultation to pulmonology, hematology/oncology, and infectious disease. Echocardiogram completed revealing normal EF of 60-65% with mild tricuspid regurgitation. V/Q scan was negative for pulmonary embolus. Patient was initially on vancomycin and Levaquin with infectious disease consulted. Pulmonology was on board as well. Blood cultures were negative at 72 hours. Group A strep negative. Urinalysis negative for UTI. COVID-19 negative. Influenza negative. Infectious cause for her fever was thought to be unlikely thus IV antibiotics were discontinued. Patient was transitioned from heparin drip to Eliquis. Patient was seen and examined on 04/05/2022. She reported feeling well and was requesting to be discharged home. She had no complaints. Patient is advised to follow-up with her PCP within 1-2 days of discharge. She is advised to follow-up with pulmonology on April 19. She is advised to follow-up with oncology on April 17. She is advised to continue taking Eliquis until discontinued by Dr. Zayas. Patient verbalized understanding of the plan. General: [non toxic], [no distress], [appears at stated age] Derm: [warm], [dry] Head: [atraumatic], [normocephalic], [symmetric] Eyes: [EOMI], [no lid lag], [anicteric sclera] Mouth: [no lip lesion], [mucus membranes moist] Cardiovascular: [S1S2 reg], [no murmur] Lungs: [CTA bilateral], [no rhonchi, no rales] , [no accessory muscle use] Ext: [no gross muscle atrophy], [no edema], [no contractures] Neuro: [no focal neuro deficits] Psych: [Alert], [oriented], [appropriate affect] Discharge Diagnosis: Right common femoral vein DVT Fever of unknown origin in patient actively undergoing chemotherapy Iron deficiency anemia Pancytopenia, chemotherapy induced Lung nodules Versus septic emboli Ovarian cancer with metastases currently undergoing chemotherapy This complex discharge took about 45 minutes to complete. Pertinent Studies: Chest x-ray Venous Doppler Echocardiogram VQ scan Patient Condition at Discharge: Stable Plan - Discharge Summary Discharge Rx Participant: No New Discharge Prescriptions: New Apixaban [Eliquis Starter Pack (for VTE)] 5 - 10 mg PO DIRECTED 30 Days #1 each Ferrous Sulfate [Iron (65 MG Elemental)] 325 mg PO W/LUNCH tab Ferrous Sulfate [Iron (65 MG Elemental)] 325 mg PO DAILY #90 tab Acetaminophen Tab [Tylenol] 650 mg PO Q6HR PRN tab PRN Reason: Mild Pain Or Fever > 100.5 Continue atenoloL [Tenormin] 25 mg PO DAILY Folic Acid 1 mg PO DAILY Magnesium Oxide 400 mg PO BID-W/MEALS Potassium Chloride ER [K-Dur 20] 20 meq PO AC-BRKFST Potassium Chloride ER [K-Dur 20] 40 meq PO AC-SUPPER Cholecalciferol [Vitamin D3 (25 Mcg = 1000 Iu)] 75 mcg PO DAILY polyethylene glycoL 3350 [Miralax] 8.5 gm PO BID Discharge Medication List Folic Acid 1 mg PO DAILY 03/10/20 [History] Magnesium Oxide 400 mg PO BID-W/MEALS 03/10/20 [History] Potassium Chloride ER [K-Dur 20] 20 meq PO AC-BRKFST 03/10/20 [History] Potassium Chloride ER [K-Dur 20] 40 meq PO AC-SUPPER 03/10/20 [History] atenoloL [Tenormin] 25 mg PO DAILY 03/10/20 [History] Cholecalciferol [Vitamin D3 (25 Mcg = 1000 Iu)] 75 mcg PO DAILY 01/14/22 [History] polyethylene glycoL 3350 [Miralax] 8.5 gm PO BID 01/18/22 [History] Apixaban [Eliquis Starter Pack (for VTE)] 5 - 10 mg PO DIRECTED 30 Days #1 each 04/04/22 [Rx] Acetaminophen Tab [Tylenol] 650 mg PO Q6HR PRN tab 04/05/22 [Rx] Ferrous Sulfate [Iron (65 MG Elemental)] 325 mg PO DAILY #90 tab 04/05/22 [Rx] Ferrous Sulfate [Iron (65 MG Elemental)] 325 mg PO W/LUNCH tab 04/05/22 [Rx] Follow up Appointment(s)/Referral(s): Dina Martines MD [Primary Care Provider] - 1-2 days Margie Denton MD [STAFF PHYSICIAN] - 04/19/22 1:00 pm Yadira Zayas MD [STAFF PHYSICIAN] - 04/17/22 2:15 pm Patient Instructions/Handouts: Apixaban (By mouth), Deep Vein Thrombosis (DC), Deep Vein Thrombosis Prevention (DC) Activity/Diet/Wound Care/Special Instructions: [facility] kidd at [facility] has a $40 co-pay You will need to take Eliquis for atleast 3 months. Please follow up with your PCP for further refills and instructions. Take all medications as advised. Come back to the ED or call 911 for worsening chest pain, shortness of breath, palpitations, lightheadedness, fevers > 100.4F not relieved with Tylenol. Follow up with pulmonology within 1 week of discharge. Follow up with your PCP within 1-2 days of discharge. Follow up with Oncology within 1 week of discharge. Discharge/Stand Alone Forms: Who Do I Call?, Community Resources, Help In The Home, Personal Bereavement Counselor Discharge Disposition: HOME SELF-CARE
--- NOTE | 2022-04-05 21:53 | P.PN ---
Subjective Progress Note Date: 04/05/22 Feeling better, VQ scan negative Objective - Vital Signs Vital signs: Vital Signs Temp 98.7 F 04/05/22 12:24 Pulse 83 04/05/22 12:24 Resp 16 04/05/22 12:24 BP 109/65 04/05/22 12:24 Pulse Ox 100 04/05/22 12:24 FiO2 21 04/02/22 09:02 Intake & Output 04/04/22 04/05/22 04/05/22 18:59 06:59 18:59 Intake Total 330 102.618 Balance 330 102.618 Intake: Intake, IV Titration 330 102.618 Amount Heparin Sod,Pork in 0.45% 250 102.618 NaCl 25,000 unit In 0.45 % NaCl 1 250ml.bag @ 18 UNITS/KG/HR 10.859 mls/hr IV .Q23H2M [facility] Rx#: [id number] Sodium Chloride 0.9% 1, 80 000 ml @ 75 mls/hr IV . [id number] [facility] Rx#:[id number] Other: Voiding Method Toilet Toilet # Voids 3 - Exam - Constitutional General appearance: no acute distress - EENT Eyes: EOMI, PERRLA ENT: hearing grossly normal - Neck Neck: no lymphadenopathy Thyroid: bilateral: normal size - Respiratory Respiratory: bilateral: CTA - Cardiovascular Rhythm: regular Heart sounds: normal: S1, S2 - Gastrointestinal General gastrointestinal: normal bowel sounds, soft - Integumentary Integumentary: normal RLE edema - Neurologic Neurologic: CNII-XII intact - Musculoskeletal Musculoskeletal: generalized weakness, strength equal bilaterally - Psychiatric Psychiatric: A&O x's 3, appropriate affect - Labs CBC & Chem 7: 04/05/22 06:01 04/05/22 06:01 Labs: Abnormal Lab Results - Last 24 Hours (Table) 04/04/22 04/05/22 04/05/22 Range/Units 20:12 06:01 06:01 WBC 3.6 L 3.06 L (3.8-10.6) k/uL RBC 2.71 L 2.51 L (3.80-5.40) m/uL Hgb 8.2 L 7.5 L (11.4-16.0) gm/dL Hct 25.4 L 23.8 L (34.0-46.0) % MCHC 31.5 L (32.0-37.0) g/dL RDW 16.0 H 15.6 H (11.5-15.5) % Plt Count 121 L 118 L (150-450) k/uL Lymphocytes # 0.5 L 0.65 L (1.0-4.8) k/uL Monocytes # 0.18 L (0.20-1.00) X 10*3/uL APTT 41.8 H (22.0-30.0) sec Sodium (137-145) mmol/L Carbon Dioxide (22-30) mmol/L Glucose (74-99) mg/dL 04/05/22 Range/Units 06:01 WBC (3.8-10.6) k/uL RBC (3.80-5.40) m/uL Hgb (11.4-16.0) gm/dL Hct (34.0-46.0) % MCHC (32.0-37.0) g/dL RDW (11.5-15.5) % Plt Count (150-450) k/uL Lymphocytes # (1.0-4.8) k/uL Monocytes # (0.20-1.00) X 10*3/uL APTT (22.0-30.0) sec Sodium 135 L (137-145) mmol/L Carbon Dioxide 18 L (22-30) mmol/L Glucose 108 H (74-99) mg/dL Microbiology - Last 24 Hours (Table) 04/01/22 15:46 Blood Culture - Preliminary Blood No Growth after 72 hours 04/01/22 15:40 Blood Culture - Preliminary Blood No Growth after 72 hours Assessment and Plan Plan: Assessment and Plan (1) Fever - Improved, T-Max 100 Narrative/Plan: the patient had been having fevers for the past 2-3 days, and was asked to come to the ER. She did not have any specific localizing signs or symptoms, that were new. Chest x-ray showed bilateral lung infiltrates, which is normal for her. However, it is not known if there has been progression.there was concern for possible associated infection or septic emboli also. The patient was therefore admitted and started on antibiotics. - Cultures pending. ID and pulmonary are also following the patient. - Check CT of the chest, especially given right lower extremity findings. - Progression of malignancy as a cause for fever appears to be unlikely, as the patient had recent [place] [facility] [place]. Current Visit: Yes Status: Acute Code(s): R50.9 - FEVER, UNSPECIFIED SNOMED Code(s): 409848624 (2) Right leg DVT Narrative/Plan: the patient has history of the right leg swelling intermittently. This was felt to be more prominent on this admission, and Doppler was ordered, showing right lower extremity DVT. The patient denied any new symptoms subjectively related to the right lower extremity. She has been started on anticoagulation with eliquis, which is appropriate. VQ performed and no evidence PE Current Visit: Yes Status: Acute Code(s): I82.401 - ACUTE EMBOLISM AND THOMBOS UNSP DEEP VEINS OF R LOW EXTREM SNOMED Code(s): 593454394 (3) Anemia Narrative/Plan: Decreased 7.5 today, no obvious bleeding Transfuse to keep hemoglobin greater than 7. Current Visit: Yes Status: Acute Code(s): D64.9 - ANEMIA, UNSPECIFIED SNOMED Code(s): 063069250 Continue AC therapy and plan DOAC full dose at discharge, will monitor platelts closely when resuming chemotherapy Monitor Daily CBC
== END 2022-04-05 16:25 | disposition home or self-care (01) | DRG 755 ==
LOC: EC 14:46 → 5NMEDONC 20:18
PROVIDERS: ADMIT Internal Medicine; ATTEND Internal Medicine
DX: C56.9 Malignant neoplasm of unspecified ovary (principal); C78.00 Secondary malignant neoplasm of unspecified lung; I82.411 Acute embolism and thrombosis of right femoral vein; E87.1 Hypo-osmolality and hyponatremia; I76 Septic arterial embolism; R50.81 Fever presenting with conditions classified elsewhere; D64.81 Anemia due to antineoplastic chemotherapy; Z20.822 Contact with and (suspected) exposure to COVID-19; T45.1X5A Adverse effect of antineoplastic and immunosuppressive drugs, initial encounter; J30.2 Other seasonal allergic rhinitis; R60.0 Localized edema; L40.9 Psoriasis, unspecified; L30.9 Dermatitis, unspecified; D50.9 Iron deficiency anemia, unspecified; E87.8 Other disorders of electrolyte and fluid balance, not elsewhere classified; I10 Essential (primary) hypertension; Z79.899 Other long term (current) drug therapy; Z82.49 Family history of ischemic heart disease and other diseases of the circulatory system; Z83.3 Family history of diabetes mellitus; Z85.41 Personal history of malignant neoplasm of cervix uteri; Z90.49 Acquired absence of other specified parts of digestive tract; Z90.710 Acquired absence of both cervix and uterus; Z91.041 Radiographic dye allergy status; Z91.048 Other nonmedicinal substance allergy status; Z92.21 Personal history of antineoplastic chemotherapy; Z88.8 Allergy status to other drugs, medicaments and biological substances; X58.XXXA Exposure to other specified factors, initial encounter; I07.1 Rheumatic tricuspid insufficiency; Z87.19 Personal history of other diseases of the digestive system; Z88.5 Allergy status to narcotic agent
CPT/HCPCS: 36415; 71046; 78582; 80048; 80053; 81001; 82272; 82306; 82607; 82728; 82746; 83540; 83550; 83605; 84145; 85025; 85610; 85652; 85730; 86140; 86850; 86900; 86901; 87040; 87081; 87430; 87502; 87635; 93005; 93306; 93970; 94760; 99285

== ENCOUNTER 2022-05-06 23:34 | Inpatient (IN) | payer BC, MEDICARE ==
--- NOTE | 2022-05-07 00:33 | XR ---
EXAMINATION TYPE: XR KUB DATE OF EXAM: 05/06/2022 COMPARISON: 01/18/2022 HISTORY: Abdominal pain TECHNIQUE: Single view upright FINDINGS: There are large bowel multiple fluid levels. There are numerous surgical clips in the pelvi s. There is right-sided ureteral stent. IMPRESSION: No free air. Multiple large small fluid levels that could relate to ileus and diarrhea. N o change compared to old exam.
--- NOTE | 2022-05-07 01:14 | ED ---
Abdominal Pain HPI - General Chief Complaint: Abdominal Pain Stated Complaint: abdominal pain Time Seen by Provider: 05/07/22 01:00 Source: patient, RN notes reviewed, old records reviewed Mode of arrival: ambulatory Limitations: no limitations - History of Present Illness Initial Comments: This is a nontoxic appearing 67-year-old female who presents to the emergency room with nausea and vomiting today and abdominal pain for the past 2 days. She states that she has had diarrhea for the past couple of days started taking Imodium and now is passing small amounts of stool and having difficulty voiding urine. She denies any fevers. Does have nausea at this time. She has a history of ovarian cancer and states has a mass around her bowel. She does have a history of bowel resection. She is a patient at [facility] in [place] and her surgeon is Dr Castillo. Complaint: abdominal pain -: days(s) (2) Location: diffuse Radiation: none Severity scale (1-10): 8 Associated Symptoms: nausea, vomiting, diarrhea, dysuria - Related Data Home Medications Medication Instructions Recorded Confirmed Folic Acid 1 mg PO DAILY 03/10/20 04/01/22 Magnesium Oxide 400 mg PO BID-W/MEALS 03/10/20 04/01/22 Potassium Chloride ER [K-Dur 20] 20 meq PO AC-BRKFST 03/10/20 04/01/22 Potassium Chloride ER [K-Dur 20] 40 meq PO AC-SUPPER 03/10/20 04/01/22 atenoloL [Tenormin] 25 mg PO DAILY 03/10/20 04/01/22 Cholecalciferol [Vitamin D3 (25 75 mcg PO DAILY 01/14/22 04/01/22 Mcg = 1000 Iu)] polyethylene glycoL 3350 [Miralax] 8.5 gm PO BID 01/18/22 04/01/22 Previous Rx's Medication Instructions Recorded Apixaban [Eliquis Starter Pack 5 - 10 mg PO DIRECTED 30 Days 04/04/22 (for VTE)] #1 each Acetaminophen Tab [Tylenol] 650 mg PO Q6HR PRN tab 04/05/22 Ferrous Sulfate [Iron (65 MG 325 mg PO DAILY #90 tab 04/05/22 Elemental)] Ferrous Sulfate [Iron (65 MG 325 mg PO W/LUNCH tab 04/05/22 Elemental)] Allergies Allergy/AdvReac Type Severity Reaction Status Date / Time Iodine and Iodide Containing Allergy Severe Anaphylaxis Verified 05/06/22 23:40 Produc adhesive tape Allergy red skin Verified 05/06/22 23:40 carboplatin Allergy Rash/Hives Verified 05/06/22 23:40 iodine Allergy Rapid Verified 05/06/22 23:40 Heart Rate morphine Allergy Nausea & Verified 05/06/22 23:40 Vomiting paclitaxel [From Taxol] Allergy Dyspnea, Verified 05/06/22 23:40 ELEV HR clavulanic acid AdvReac Nausea & Verified 05/06/22 23:40 [From Augmentin] Vomiting & Diarrhea codeine AdvReac Nausea & Verified 05/06/22 23:40 Vomiting & Diarrhea Review of Systems ROS Statement: Those systems with pertinent positive or pertinent negative responses have been documented in the HPI. ROS Other: All systems not noted in ROS Statement are negative. Past Medical History Past Medical History: Cancer, Hypertension, Skin Disorder Additional Past Medical History / Comment(s): seasonal allergies, hx ovarian cancer, mild diverticulitis, bowel obstruction (post op), small hiatal hernia, mild psoriasis or eczema, ovarian cancer reoccurence (chemo, 04/14) History of Any Multi-Drug Resistant Organisms: None Reported Past Surgical History: Bowel Resection, Cholecystectomy, Hernia Repair, Hysterectomy Additional Past Surgical History / Comment(s): left hand tendon surgery, exploratory abdominal surgeries and cervical ca (DEBULKING SX X2), port inserted/later removed, colostomy with reversal Past Anesthesia/Blood Transfusion Reactions: Motion Sickness, Postoperative Nausea & Vomiting (PONV) Additional Past Anesthesia/Blood Transfusion Reaction / Comment(s): STATES USUALLY HAS SCOPOLAMINE PATCH PRE OP Past Psychological History: No Psychological Hx Reported Smoking Status: Never smoker Past Alcohol Use History: None Reported Past Drug Use History: None Reported - Past Family History Mother Family Medical History: Coronary Artery Disease (CAD), Diabetes Mellitus, Thyroid Disorder Father Family Medical History: Coronary Artery Disease (CAD), Diabetes Mellitus General Exam Limitations: no limitations General appearance: alert, in no apparent distress Head exam: Present: atraumatic, normocephalic Eye exam: Absent: scleral icterus, conjunctival injection, periorbital swelling ENT exam: Present: mucous membranes moist Neck exam: Absent: meningismus Respiratory exam: Present: normal lung sounds bilaterally. Absent: respiratory distress, wheezes, rales, rhonchi, stridor, chest wall tenderness, accessory muscle use Cardiovascular Exam: Present: tachycardia GI/Abdominal exam: Present: soft, hernia. Absent: distended, tenderness, guarding, rebound, rigid Extremities exam: Present: normal capillary refill. Absent: tenderness Back exam: Present: normal inspection, full ROM. Absent: tenderness, CVA tenderness (R), CVA tenderness (L), rash noted Neurological exam: Present: alert, oriented X3 Psychiatric exam: Present: normal affect, normal mood Skin exam: Present: warm, dry, normal color. Absent: cyanosis, diaphoretic, pallor Course Vital Signs 05/06/22 23:35 Temperature 98.6 F Pulse Rate 113 H Respiratory 22 Rate Blood Pressure 148/73 O2 Sat by Pulse 99 Oximetry Medical Decision Making - Medical Decision Making Patient presents 2 days of abdominal pain with small amounts of diarrhea. She is patient of Dr. Montero for history of ovarian cancer. She has been seen at [facility] by Dr. Castillo who did her last bowel resection. CT shows dilated large bowel suggestive of distal mechanical large bowel obstruction. Obstruction likely related to adhesions or recurrent tumor in pelvis. Numerous pulmonary nodules seen, also noted on old exam suggestive of mets, slightly smaller compared to old. The patient's nausea has been resolved with Zofran. She was made NPO. Case discussed with Dr. Delgado who recommended admission with surgery consult. She is agreeable to admission. - Lab Data Result diagrams: 05/07/22 02:25 Lab Results 05/07/22 05/07/22 05/07/22 Range/Units 02:25 02:25 02:25 Sodium 133 L (137-145) mmol/L Potassium 4.5 (3.5-5.1) mmol/L Chloride 95 L (98-107) mmol/L Carbon Dioxide 22 (22-30) mmol/L Anion Gap 16 mmol/L BUN 14 (7-17) mg/dL Creatinine 0.80 (0.52-1.04) mg/dL Est GFR (CKD-EPI)AfAm 90 (>60 ml/min/1.73 sqM) Est GFR (CKD-EPI)NonAf 78 (>60 ml/min/1.73 sqM) Glucose 149 H (74-99) mg/dL Plasma Lactic Acid Twan 1.1 (0.7-2.0) mmol/L Calcium 9.6 (8.4-10.2) mg/dL Total Bilirubin 1.2 (0.2-1.3) mg/dL AST 57 H (14-36) U/L ALT 20 (4-34) U/L Alkaline Phosphatase 73 (38-126) U/L Total Protein 6.6 (6.3-8.2) g/dL Albumin 4.1 (3.5-5.0) g/dL Amylase 40 (30-110) U/L Lipase 15 L (23-300) U/L Urine Color Dark Brown Urine Appearance Cloudy H (Clear) Urine pH 6.0 (5.0-8.0) Ur Specific [place] 1.031 (1.001-1.035) Urine Protein 2+ H (Negative) Urine Glucose (UA) Trace H (Negative) Urine Ketones 1+ H (Negative) Urine Blood Large H (Negative) Urine Nitrite Negative (Negative) Urine Bilirubin 1+ H (Negative) Urine Urobilinogen 4.0 (<2.0) mg/dL Ur Leukocyte Esterase Negative (Negative) Urine RBC >182 H (0-5) /hpf Urine WBC 6 H (0-5) /hpf Ur Squamous Epith Cells 4 (0-4) /hpf Calcium Oxalate Crystal Moderate H (None) /hpf Hyaline Casts 5 H (0-2) /lpf Urine Mucus Many H (None) /hpf Disposition Clinical Impression: Large bowel obstruction Disposition: ADMITTED IP TO THIS [facility] Referrals: Dina Martines MD [Primary Care Provider] - 1-2 days Decision Date: 05/07/22 Decision Time: 02:46
[2022-05-07] MEDS ORDERED: SODIUM CHLORIDE 0.9% 500 ML 500 ML IV STA (01:36)
[2022-05-07] MEDS ORDERED: ONDANSETRON 4 MG/2 ML VIAL IVP STA (01:36)
--- NOTE | 2022-05-07 02:12 | CT ---
EXAMINATION TYPE: CT abdomen pelvis wo con DATE OF EXAM: 05/07/2022 COMPARISON: 01/18/2022 HISTORY: R/O obstruction CT DLP: 377.5 mGycm Automated exposure control for dose reduction was used. Images obtained from the diaphragm to the floor the pelvis with no contrast. There are multiple lower lobe noncalcified pulmonary nodules. These measure up to 1.5 cm. No pleural effusion. Heart size is normal. No pericardial effusion. Liver spleen stomach appear intact. There ar e clips from cholecystectomy. The bile duct are not dilated. No evidence of pancreatic mass. There is no adrenal mass. There is right-sided ureteral stent. There is right-sided hydronephrosis an d mild right-sided renal cortical thinning. There is right-sided hydroureter. There are multiple surg ical clips in the pelvis on the right side. There are multiple dilated fluid-filled loops of large bowel throughout the abdomen. There is likely obstruction at the level of the distal sigmoid colon in the area of multiple clips. There are numerou s large bowel fluid levels. No free air. The lumbar vertebrae have normal alignment. Disc spaces are fairly normal. No compression fracture. I see no bony destructive process. Hip joints are intact. Exam limited by lack of any contrast. IMPRESSION: Dilated large bowel suggestive of distal mechanical large bowel obstruction. Right-sided hydronephros is and hydroureter. Ureteral stent appears to be in good position. Stent malfunction is possible. Hyd ronephrosis is not changed compared to old exam. Large bowel dilation also not significantly changed. Obstruction likely related to adhesions or recurrent tumor in the pelvis. Numerous pulmonary nodules also present on old exam and suggestive of metastatic disease and appears slightly smaller than old CT SCAN.
[2022-05-07 02:43] LABS: Appearance,Urine Cloudy (Clear); Bilirubin,Urine 1+ (Negative); Blood,Urine Large (Negative); Calcium Oxalate Crystals,Urine Moderate /hpf; Color,Urine Dark Brown; Glucose,Urine (UA) Trace (Negative); Hyaline Casts,Urine 5 /lpf (0-2); Ketones,Urine 1+ (Negative); Leukocyte Esterase,Urine Negative (Negative); Mucus,Urine Many /hpf; Nitrite,Urine Negative (Negative); Protein,Urine 2+ (Negative); RBC,Urine >182 /hpf (0-5); Specific Gravity,Urine 1.031 (1.001-1.035); Squamous Epithelial Cell,Urine 4 /hpf (0-4); WBC,Urine 6 /hpf (0-5)
[2022-05-07 02:48] LABS: Calcium 9.6 mg/dL (8.4-10.2); Total Bilirubin 1.2 mg/dL (0.2-1.3)
[2022-05-07 02:55] LABS: Albumin 4.1 g/dL (3.5-5.0); Potassium 4.5 mmol/L (3.5-5.1); Total Protein 6.6 g/dL (6.3-8.2)
[2022-05-07] MEDS ORDERED: NALOXONE 0.4 MG/ML 1 ML VIAL IV PRN (03:08)
--- NOTE | 2022-05-07 04:30 | P.HPIM ---
History of Present Illness H&P Date: 05/07/22 The patient is a 57-year-old female with a PMH of right lower extremity DVT (diagnosed March 2020, on Eliquis) metastatic ovarian cancer who presents to the emergency room with complaints of abdominal pain, nausea, diarrhea. The patient reports that her pain started 2 days ago and has gradually progressed, largely RLQ, radiating throughout the abdomen, 8/10 at maximal intensity, constant. She reports having nausea and a single episode of vomiting earlier today, nonbloody. Also reports experiencing 2-3 loose bowel movements which she attributes to her MiraLAX use. The patient who was diagnosed with ovarian cancer in 2007, currently undergoing treatment at [facility] in [place], has undergone 9 abdominal surgeries. The patient states that she has been following closely with her surgeon Dr Castillo at [facility] who has advised her that she is not a surgical candidate and that they will only perform further surgeries in case of emergencies. The patient states that she has previously experienced a small bowel obstruction which was significantly more severe than her current episode. At time of interview, she reports her pain is improved to a [address] abdomen and pelvis emergency room revealed a dilated large bowel suggestive of distal mechanical large bowel obstruction with right-sided hydronephrosis and hydroureter with hydronephrosis unchanged with pulmonary nodules suggestive of metastatic disease although slightly smaller from prior computed tomography scan. Laboratory evaluation was remarkable for lactic acid 1.1. The patient noted that as her symptoms are improving, that she wishes to remain in the hospital at this time and attempt conservative management. The patient also noted that she does not wish to have an NG tube placed at this time and would like to wait a few hours to see if her symptoms improve on their own. Review of systems: Pertinent positives and negatives as discussed in HPI, a complete review of systems was performed and all other systems are negative. Physical examination: General: non toxic, no distress, appears at stated age, normal weight Derm: no unusual rashes/lesions, warm Head: atraumatic, normocephalic, symmetric Eyes: EOMI, no lid lag, anicteric sclera, pupils equal round reactive to light ENT: Nose and ears atraumatic Neck: No cervical lymphadenopathy, trachea midline, supple Mouth: no lip lesion, mucus membranes moist Cardiovascular: S1S2 reg, no murmur, positive dorsalis pedis pulse bilateral, no edema Lungs: CTA bilateral, no rhonchi, no rales, no accessory muscle use Abdominal: Nodular, mild right lower quadrant tenderness, no guarding Ext: muscle strength 5 out of 5 in all 4 extremities grossly, no gross muscle atrophy, no contractures, Neuro: CN II-XI grossly intact, no gross focal neuro deficits Psych: Alert, oriented, appropriate affect Assessment/plan Suspected large bowel obstruction -Nothing by mouth for now -IV fluids -Pain control -Patient refusing NG tube at this time -Surgery consult Hx of DVT -C/w home med Eliquis DVT prophylaxis -Eliquis The patient is admitted with an anticipated greater than 2 midnight stay for evaluation of bowel obstruction CODE STATUS: Full Code Discussed with: Patient Anticipated discharge date: 2-[address]: Home Past Medical History Past Medical History: Cancer, Hypertension, Skin Disorder Additional Past Medical History / Comment(s): seasonal allergies, hx ovarian cancer, mild diverticulitis, bowel obstruction (post op), small hiatal hernia, mild psoriasis or eczema, ovarian cancer reoccurence (chemo, 04/14) History of Any Multi-Drug Resistant Organisms: None Reported Past Surgical History: Bowel Resection, Cholecystectomy, Hernia Repair, Hysterectomy Additional Past Surgical History / Comment(s): left hand tendon surgery, exploratory abdominal surgeries and cervical ca (DEBULKING SX X2), port inserted/later removed, colostomy with reversal Past Anesthesia/Blood Transfusion Reactions: Motion Sickness, Postoperative Nausea & Vomiting (PONV) Additional Past Anesthesia/Blood Transfusion Reaction / Comment(s): STATES USU [place] HAS SCOPOLAMINE PATCH PRE OP Past Psychological History: No Psychological Hx Reported Smoking Status: Never smoker Past Alcohol Use History: None Reported Past Drug Use History: None Reported - Past Family History Mother Family Medical History: Coronary Artery Disease (CAD), Diabetes Mellitus, Thyroid Disorder Father Family Medical History: Coronary Artery Disease (CAD), Diabetes Mellitus Medications and Allergies Home Medications Medication Instructions Recorded Confirmed Type Folic Acid 1 mg PO DAILY 03/10/20 04/01/22 History Magnesium Oxide 400 mg PO BID-W/MEALS 03/10/20 04/01/22 History Potassium Chloride ER [K-Dur 20] 20 meq PO AC-BRKFST 03/10/20 04/01/22 History Potassium Chloride ER [K-Dur 20] 40 meq PO AC-SUPPER 03/10/20 04/01/22 History atenoloL [Tenormin] 25 mg PO DAILY 03/10/20 04/01/22 History Cholecalciferol [Vitamin D3 (25 75 mcg PO DAILY 01/14/22 04/01/22 History Mcg = 1000 Iu)] polyethylene glycoL 3350 [Miralax] 8.5 gm PO BID 01/18/22 04/01/22 History Apixaban [Eliquis Starter Pack 5 - 10 mg PO DIRECTED 30 Days 04/04/22 Rx (for VTE)] #1 each Acetaminophen Tab [Tylenol] 650 mg PO Q6HR PRN tab 04/05/22 Rx Ferrous Sulfate [Iron (65 MG 325 mg PO DAILY #90 tab 04/05/22 Rx Elemental)] Ferrous Sulfate [Iron (65 MG 325 mg PO W/LUNCH tab 04/05/22 Rx Elemental)] Allergies Allergy/AdvReac Type Severity Reaction Status Date / Time Iodine and Iodide Containing Allergy Severe Anaphylaxis Verified 05/06/22 23:40 Produc adhesive tape Allergy red skin Verified 05/06/22 23:40 carboplatin Allergy Rash/Hives Verified 05/06/22 23:40 iodine Allergy Rapid Verified 05/06/22 23:40 Heart Rate morphine Allergy Nausea & Verified 05/06/22 23:40 Vomiting paclitaxel [From Taxol] Allergy Dyspnea, Verified 05/06/22 23:40 ELEV HR clavulanic acid AdvReac Nausea & Verified 05/06/22 23:40 [From Augmentin] Vomiting & Diarrhea codeine AdvReac Nausea & Verified 05/06/22 23:40 Vomiting & Diarrhea Physical Exam Vitals: Vital Signs Temp Pulse Resp BP Pulse Ox 05/07/22 04:14 126/67 05/07/22 04:06 88 99 05/06/22 23:35 98.6 F 113 H 22 148/73 99 Intake and Output 05/06/22 05/06/22 05/07/22 14:59 22:59 06:59 Other: Weight 60.328 kg Results CBC & Chem 7: 05/07/22 02:25 Labs: Abnormal Lab Results - Last 24 Hours (Table) 05/07/22 05/07/22 Range/Units 02:25 02:25 Sodium 133 L (137-145) mmol/L Chloride 95 L (98-107) mmol/L Glucose 149 H (74-99) mg/dL AST 57 H (14-36) U/L Lipase 15 L (23-300) U/L Urine Appearance Cloudy H (Clear) Urine Protein 2+ H (Negative) Urine Glucose (UA) Trace H (Negative) Urine Ketones 1+ H (Negative) Urine Blood Large H (Negative) Urine Bilirubin 1+ H (Negative) Urine RBC >182 H (0-5) /hpf Urine WBC 6 H (0-5) /hpf Calcium Oxalate Crystal Moderate H (None) /hpf Hyaline Casts 5 H (0-2) /lpf Urine Mucus Many H (None) /hpf
[2022-05-07] MEDS ORDERED: HYDROmorphone 1 MG/ML 1 ML SYRINGE IVP STA (05:23)
[2022-05-07] MEDS ORDERED: HEPARIN SODIUM 1,000 UN/ML (10ML VL) IV ONE (11:00)
--- NOTE | 2022-05-07 11:01 | P.PN ---
Progress Note - Text Progress Note Date: 05/07/22 Hospital course: Patient is a very pleasant 67-year-old female with a past medical history of hypertension, recently diagnosed right common femoral DVT on anticoagulation with Eliquis, previous bowel obstructions, history of colostomy and colostomy reversal, and metastatic ovarian cancer currently undergoing chemotherapy with last reported treatment being 2 weeks ago. Patient presented to the emergency department with a chief complaint of abdominal pain, nausea, vomiting, and diarrhea. She reports last normal bowel movement being approximately 4 days ago and has since been experiencing passage of small amounts of liquid stool, nausea, and vomiting consistent with previous bowel obstructions. Patient underwent full evaluation in the emergency department. She was found to have hemoglobin of 9.9 (which is above patient's baseline hemoglobin of 8). Hyponatremia with sodium of 133 and urinalysis positive for blood with greater than [address] abdomen and pelvis revealing dilated large bowel suggestive of distal mechanical large bowel obstruction along with right-sided hydronephrosis and hydroureter with urinary stents reported to be an appropriate positioning, obstruction likely related to adhesions or recurrent tumor in the pelvis, also revealing numerous pulmonary nodules consistent with metastatic disease and appears slightly smaller when compared to previous computed tomography scan. Patient was admitted under our services with consultation to general surgery. Physical exam: Patient seen and fully evaluated at the bedside this morning. She continues to report persistent nausea and diffuse abdominal pain. Patient denies having any further episodes of vomiting. Discussed with patient that she will need NG tube placement if she continues to have vomiting, will need NG tube placement. Vital signs reviewed and stable. General: Nontoxic, no distress and appears stated age. Derm: Skin warm and dry, normal coloration for ethnicity. Head: Atraumatic, normocephalic and symmetric. Eyes: EOMs intact, no lid lag, and anicteric sclera Mouth: no lip lesions, mucus membranes moist Cardiovascular: regular rate and rhythm with normal S1S2, no murmur, positive posterior tibial pulses bilaterally, and cap refill < 2 seconds. Lungs: Respirations even, regular, and unlabored on room air. Lungs CTA bilaterally, no rhonchi, no rales, no wheezing, and no accessory muscle usage. Abdominal: soft distended , diffuse tenderness no guarding, no appreciable organomegaly Ext: ROM intact. No gross muscle atrophy, no edema, no contractures Neuro: Speech clear, face symmetrical and CN II-XII grossly intact with no noted focal neuro deficits Psych: Alert and oriented to person, place, time, and situation. Appropriate and pleasant affect. Assessment and Plan of Care: Partial mechanical large bowel obstruction Abdominal pain, nausea, vomiting, and diarrhea -Clear liquid diet, advance per recommendations of general surgery team. -IV fluid hydration -Symptomatic care and pain management with antibiotics for nausea/vomiting and pain medications as needed for pain/discomfort. -Discussed with patient will need NG tube placement if she continues to have nausea and vomiting. -Gen. surgery following, appreciate recommendations -We will hold anticoagulation with Eliquis in place patient on heparin infusion pending general surgery recommendations. Iron deficiency anemia -Continue ferrous sulfate daily. Right common femoral vein DVT -Hold oral anticoagulation with Eliquis in place patient on Heparin infusion pending further recommendations from surgery team. CODE STATUS: Full code DVT prophylaxis: Heparin Discussed with: pt and RN Anticipated discharge date: clinical course to determine Anticipated discharge place: home A total of 39 minutes was spent on the care of this complex patient more than 50% of the time was spent in counseling and care coordination. I reviewed the above documentation as written by our SUZANNE who is the original author of this note, and I agree with the assessment and plan with no changes.
--- NOTE | 2022-05-07 11:28 | P.GSCN ---
History of Present Illness Consult date: 05/07/22 History of present illness: 67-year-old female presents to the emergency department with complaints of significant abdominal pain, nausea and loose stool. She has a known history of metastatic ovarian cancer and states that she had a significant amount of pain in her lower abdomen that continued to increase in severity. She has had bowel obstructions in the past that have been treated both surgically and conservatively. She was initially diagnosed with ovarian cancer in 2007 and does follow at [facility] for her oncologic and surgical care. She states that she has had 9 separate abdominal operations including a colostomy creation and reversal. She follows with a Dr. Castillo at [facility] currently. She states that she has been told by multiple surgeons that she is no longer a surgical candidate due to her significant surgical history and metastatic disease. She states that Dr. Castillo has stated that he would operate in a emergency situation. CT of the abdomen and pelvis was performed that showed a dilated large bowel suggestive of distal mechanical large bowel obstruction with right- sided hydronephrosis and hydroureter with hydronephrosis, unchanged with pulmonary nodules suggestive of metastatic disease. She states that since she has been in the emergency department that her abdominal pain is improving. She states that she has had multiple loose stool bowel movements while in the emergency department. She refused a nasogastric tube as her symptoms were improving.Currently, she states she is not interested in surgical treatment and if she would require surgical treatment, she prefers to be transferred for evaluation at [facility] due to her long history there. Review of Systems All systems: negative Past Medical History Past Medical History: Cancer, Hypertension, Skin Disorder Additional Past Medical History / Comment(s): seasonal allergies, hx ovarian cancer, mild diverticulitis, bowel obstruction (post op), small hiatal hernia, mild psoriasis or eczema, ovarian cancer reoccurence (chemo, 04/14) History of Any Multi-Drug Resistant Organisms: None Reported Past Surgical History: Bowel Resection, Cholecystectomy, Hernia Repair, Hysterectomy Additional Past Surgical History / Comment(s): left hand tendon surgery, exploratory abdominal surgeries and cervical ca (DEBULKING SX X2), port inserted/later removed, colostomy with reversal Past Anesthesia/Blood Transfusion Reactions: Motion Sickness, Postoperative Nausea & Vomiting (PONV) Additional Past Anesthesia/Blood Transfusion Reaction / Comm: STATES USUALLY HAS SCOPOLAMINE PATCH PRE OP Past Psychological History: No Psychological Hx Reported Smoking Status: Never smoker Past Alcohol Use History: None Reported Past Drug Use History: None Reported - Past Family History Mother Family Medical History: Coronary Artery Disease (CAD), Diabetes Mellitus, Thyroid Disorder Father Family Medical History: Coronary Artery Disease (CAD), Diabetes Mellitus Medications and Allergies Home Medications Medication Instructions Recorded Confirmed Type Folic Acid 1 mg PO DAILY 03/10/20 04/01/22 History Magnesium Oxide 400 mg PO BID-W/MEALS 03/10/20 04/01/22 History Potassium Chloride ER [K-Dur 20] 20 meq PO AC-BRKFST 03/10/20 04/01/22 History Potassium Chloride ER [K-Dur 20] 40 meq PO AC-SUPPER 03/10/20 04/01/22 History atenoloL [Tenormin] 25 mg PO DAILY 03/10/20 04/01/22 History Cholecalciferol [Vitamin D3 (25 75 mcg PO DAILY 01/14/22 04/01/22 History Mcg = 1000 Iu)] polyethylene glycoL 3350 [Miralax] 8.5 gm PO BID 01/18/22 04/01/22 History Apixaban [Eliquis Starter Pack 5 - 10 mg PO DIRECTED 30 Days 04/04/22 Rx (for VTE)] #1 each Acetaminophen Tab [Tylenol] 650 mg PO Q6HR PRN tab 04/05/22 Rx Ferrous Sulfate [Iron (65 MG 325 mg PO DAILY #90 tab 04/05/22 Rx Elemental)] Ferrous Sulfate [Iron (65 MG 325 mg PO W/LUNCH tab 04/05/22 Rx Elemental)] Allergies Allergy/AdvReac Type Severity Reaction Status Date / Time Iodine and Iodide Containing Allergy Severe Anaphylaxis Verified 05/07/22 10:17 Produc adhesive tape Allergy red skin Verified 05/07/22 10:17 carboplatin Allergy Rash/Hives Verified 05/07/22 10:17 iodine Allergy Rapid Verified 05/07/22 10:17 Heart Rate morphine Allergy Nausea & Verified 05/07/22 10:17 Vomiting paclitaxel [From Taxol] Allergy Dyspnea, Verified 05/07/22 10:17 ELEV HR clavulanic acid AdvReac Nausea & Verified 05/07/22 10:17 [From Augmentin] Vomiting & Diarrhea codeine AdvReac Nausea & Verified 05/07/22 10:17 Vomiting & Diarrhea Surgical - Exam Osteopathic Statement: *. No significant issues noted on an osteopathic structural exam other than those noted in the History and Physical/Consult. Vital Signs Temp Pulse Resp BP Pulse Ox 98.6 F 113 H 22 148/73 99 05/06/22 23:35 05/06/22 23:35 05/06/22 23:35 05/06/22 23:35 05/06/22 23:35 - General no distress - Eyes normal ocular movement - ENT no hearing loss - Neck trachea midline - Respiratory normal respiratory effort - Abdomen soft, distended, mild generalized tenderness, no rebound or guarding - Psychiatric oriented to time, oriented to person, oriented to place Results - Labs 05/07/22 02:25 Abnormal Lab Results - Last 24 Hours (Table) 05/07/22 05/07/22 Range/Units 02:25 02:25 Sodium 133 L (137-145) mmol/L Chloride 95 L (98-107) mmol/L Glucose 149 H (74-99) mg/dL AST 57 H (14-36) U/L Lipase 15 L (23-300) U/L Urine Appearance Cloudy H (Clear) Urine Protein 2+ H (Negative) Urine Glucose (UA) Trace H (Negative) Urine Ketones 1+ H (Negative) Urine Blood Large H (Negative) Urine Bilirubin 1+ H (Negative) Urine RBC >182 H (0-5) /hpf Urine WBC 6 H (0-5) /hpf Calcium Oxalate Crystal Moderate H (None) /hpf Hyaline Casts 5 H (0-2) /lpf Urine Mucus Many H (None) /hpf Diabetes panel 05/07/22 Range/Units 02:25 Sodium 133 L (137-145) mmol/L Potassium 4.5 (3.5-5.1) mmol/L Chloride 95 L (98-107) mmol/L Carbon Dioxide 22 (22-30) mmol/L BUN 14 (7-17) mg/dL Creatinine 0.80 (0.52-1.04) mg/dL Glucose 149 H (74-99) mg/dL Calcium 9.6 (8.4-10.2) mg/dL AST 57 H (14-36) U/L ALT 20 (4-34) U/L Alkaline Phosphatase 73 (38-126) U/L Total Protein 6.6 (6.3-8.2) g/dL Albumin 4.1 (3.5-5.0) g/dL Calcium panel 05/07/22 Range/Units 02:25 Calcium 9.6 (8.4-10.2) mg/dL Albumin 4.1 (3.5-5.0) g/dL Pituitary panel 05/07/22 Range/Units 02:25 Sodium 133 L (137-145) mmol/L Potassium 4.5 (3.5-5.1) mmol/L Chloride 95 L (98-107) mmol/L Carbon Dioxide 22 (22-30) mmol/L BUN 14 (7-17) mg/dL Creatinine 0.80 (0.52-1.04) mg/dL Glucose 149 H (74-99) mg/dL Calcium 9.6 (8.4-10.2) mg/dL Adrenal panel 05/07/22 Range/Units 02:25 Sodium 133 L (137-145) mmol/L Potassium 4.5 (3.5-5.1) mmol/L Chloride 95 L (98-107) mmol/L Carbon Dioxide 22 (22-30) mmol/L BUN 14 (7-17) mg/dL Creatinine 0.80 (0.52-1.04) mg/dL Glucose 149 H (74-99) mg/dL Calcium 9.6 (8.4-10.2) mg/dL Total Bilirubin 1.2 (0.2-1.3) mg/dL AST 57 H (14-36) U/L ALT 20 (4-34) U/L Alkaline Phosphatase 73 (38-126) U/L Total Protein 6.6 (6.3-8.2) g/dL Albumin 4.1 (3.5-5.0) g/dL Assessment and Plan Plan: 67-year-old female with partial large bowel obstruction secondary to metastatic ovarian disease. I had a long discussion with the patient and at this time, she prefers nonsurgical management. She has been told by multiple surgeons that she is not a surgical candidate due to her surgical history and disease process. If any emergent operation is required, the patient states that she would like to be transferred to [facility] for evaluation by Dr. Castillo who she has been following with as a surgical oncologist. This is completely reasonable based on her complex history. At this time, patient is having bowel function with liquid stool and states she is feeling much better. We will plan for advancing to clear liquid diet at this time.
[2022-05-07 12:11] LABS: INR 1.2 (<1.2); Prothrombin Time 12.5 sec (9.0-12.0)
[2022-05-07 12:19] LABS: Anisocytosis Slight; Basophils % (A) 0 %; Eosinophils % (A) 1 %; HCT 30.1 % (34.0-46.0); Hypochromasia Slight; Lymphocytes # (A) 0.6 k/uL (1.0-4.8); Lymphocytes % (A) 14 %; MCH 29.9 pg (25.0-35.0); MCHC 32.8 g/dL (31.0-37.0); MCV 91.2 fL (80.0-100.0); Mean Platelet Volume 9.6; Monocytes # (A) 0.3 k/uL (0-1.0); Monocytes % (A) 8 %; Neutrophils # (A) 2.9 k/uL (1.3-7.7); Neutrophils % (A) 73 %; Platelet Count 207 k/uL (150-450); Poikilocytosis Slight; RBC 3.31 m/uL (3.80-5.40); RDW 17.5 % (11.5-15.5); WBC 3.9 k/uL (3.8-10.6)
[2022-05-07 12:21] LABS: HGB 9.9 gm/dL (11.4-16.0)
[2022-05-07] MEDS: HEPARIN SOD,PORK IN 0.45% NACL 25,000 UNIT in 0.45% NACL 1 250ML.BAG IV SCH (13:37)
[2022-05-07] MEDS: ONDANSETRON 4 MG/2 ML VIAL IVP PRN (13:38)
[2022-05-07] MEDS: SODIUM CHLORIDE 0.9% 1,000 ML IV SCH ×2 (15:20→15:59)
[2022-05-07] MEDS: HYDROmorphone 1 MG/ML 1 ML SYRINGE IVP PRN (15:39)
[2022-05-07] MEDS ORDERED: HYDROmorphone 2 MG TAB PO PRN (16:47)
[2022-05-07] MEDS: PROCHLORPERAZINE INJ 10 MG/2 ML VIAL IVP PRN (17:51)
[2022-05-07] MEDS: HEPARIN SODIUM 1,000 UN/ML (10ML VL) IV PRN (18:24)
[2022-05-08] MEDS: HEPARIN SODIUM 1,000 UN/ML (10ML VL) IV PRN (01:25)
[2022-05-08] MEDS: HYDROmorphone 1 MG/ML 1 ML SYRINGE IVP PRN ×2 (02:58→21:02)
[2022-05-08] MEDS: SODIUM CHLORIDE 0.9% 1,000 ML IV SCH ×3 (03:01→23:30)
[2022-05-08 06:12] LABS: INR 1.2 (<1.2); Partial Thromboplastin Time 48.5 sec (22.0-30.0); Prothrombin Time 12.5 sec (9.0-12.0)
[2022-05-08] MEDS: atenoloL 25 MG TAB PO SCH (08:25)
[2022-05-08] MEDS: FOLIC ACID 1 MG TAB PO SCH (09:30)
[2022-05-08] MEDS: FERROUS SULFATE 325 MG TAB PO SCH (09:30)
[2022-05-08] MEDS: CHOLECALCIFEROL 25 MCG (1000 IU) TABLET PO SCH (09:30)
[2022-05-08 09:38] LABS: Basophils # (A) 0.03 X 10*3/uL (0.00-0.10); Basophils % (A) 0.7 %; Eosinophils # (A) 0.03 X 10*3/uL (0.04-0.35); Eosinophils % (A) 0.7 %; HGB 8.3 g/dL (12.0-15.0); Immature Grans, Automated 0.7 %; Lymphocytes # (A) 0.78 X 10*3/uL (0.90-5.00); Lymphocytes % (A) 18.6 %; MCH 28.3 pg (27.0-32.0); MCHC 30.7 g/dL (32.0-37.0); MCV 92.2 fL (80.0-97.0); Mean Platelet Volume 11.3 fL (9.5-12.2); Monocytes % (A) 19.1 %; NRBC Per 100 WBC 0 /100 WBCS (0.0-0.0); Neutrophils # (A) 2.52 X 10*3/uL (1.80-7.70); Neutrophils % (A) 60.2 %; Platelet Count 207 X 10*3/uL (140-440); RBC 2.93 X 10*6/uL (4.10-5.20); RDW 16.7 % (11.5-14.5); WBC 4.19 X 10*3/uL (4.50-10.00)
[2022-05-08] MEDS ORDERED: MAG HYDROX/AL HYDROX/SIMETH 30 ML, HYOSCYAMINE ELIXIR 10 ML, LIDOCAINE VISCOUS 2% 10 ML PO ONE ×3 (12:15)
[2022-05-08] MEDS: PANTOPRAZOLE 40 MG/10 ML VIAL IVP SCH (12:58)
[2022-05-08] MEDS: PROCHLORPERAZINE INJ 10 MG/2 ML VIAL IVP PRN ×2 (13:29→21:02)
[2022-05-08] MEDS ORDERED: MAG HYDROX/AL HYDROX/SIMETH 30 ML, HYOSCYAMINE ELIXIR 10 ML, LIDOCAINE VISCOUS 2% 10 ML PO PRN ×3 (15:05)
--- NOTE | 2022-05-08 15:08 | P.PN ---
Subjective Progress Note Date: 05/08/22 Hospital course: Patient is a very pleasant 67-year-old female with a past medical history of hypertension, recently diagnosed right common femoral DVT on anticoagulation with Eliquis, previous bowel obstructions, history of colostomy and colostomy reversal, and metastatic ovarian cancer currently undergoing chemotherapy with last reported treatment being 2 weeks ago. Patient presented to the emergency department with a chief complaint of abdominal pain, nausea, vomiting, and diarrhea. She reports last normal bowel movement being approximately 4 days ago and has since been experiencing passage of small amounts of liquid stool, nausea, and vomiting consistent with previous bowel obstructions. Patient underwent full evaluation in the emergency department. She was found to have hemoglobin of 9.9 (which is above patient's baseline hemoglobin of 8). H yponatremia with sodium of 133 and urinalysis positive for blood with greater than [address] abdomen and pelvis revealing dilated large bowel suggestive of distal mechanical large bowel obstruction along with right-sided hydronephrosis and hydroureter with urinary stents reported to be an appropriate positioning, obstruction likely related to adhesions or recurrent tumor in the pelvis, also revealing numerous pulmonary nodules consistent with metastatic disease and appears slightly smaller when compared to previous computed tomography scan. Patient was admitted under our services with consultation to general surgery. Physical exam: Patient seen and fully evaluated at the bedside this morning. She continues to report persistent nausea, heartburn and diffuse abdominal pain but denies experiencing any further episodes of vomiting. Patient does admit passing flatus and liquid stools. Patient reports being concerned that she is also having decreased urination and feels dehydrated. She remains on a clear liquid along with IV fluid hydration. Order placed for GI cocktail 1 dose. IV fluids infusion rate increased to 125 mL per hour and patient started on Protonix 40 mg IVP daily. Vital signs reviewed and stable. General: Nontoxic, no distress and appears stated age. Derm: Skin warm and dry, normal coloration for ethnicity. Head: Atraumatic, normocephalic and symmetric. Eyes: EOMs intact, no lid lag, and anicteric sclera Mouth: no lip lesions, mucus membranes moist Cardiovascular: regular rate and rhythm with normal S1S2, no murmur, positive posterior tibial pulses bilaterally, and cap refill < 2 seconds. Lungs: Respirations even, regular, and unlabored on room air. Lungs CTA bilaterally, no rhonchi, no rales, no wheezing, and no accessory muscle usage. Abdominal: soft distended , bowel sounds present x4. diffuse tenderness no guarding, no appreciable organomegaly Ext: ROM intact. No gross muscle atrophy, no edema, no contractures Neuro: Speech clear, face symmetrical and CN II-XII grossly intact with no noted focal neuro deficits Psych: Alert and oriented to person, place, time, and situation. Appropriate and pleasant affect. Assessment and Plan of Care: Partial mechanical large bowel obstruction Abdominal pain, nausea, vomiting, and diarrhea -Clear liquid diet, advance per recommendations of general surgery team. -IV fluid hydration -Symptomatic care and pain management with antibiotics for nausea/vomiting and pain medications as needed for pain/discomfort. -Discussed with patient will need NG tube placement if she continues to have nausea and vomiting. -Gen. surgery following, appreciate recommendations -We will hold anticoagulation with Eliquis in place patient on heparin infusion pending general surgery recommendations. Iron deficiency anemia -Continue ferrous sulfate daily. Right common femoral vein DVT -Hold oral anticoagulation with Eliquis in place patient on Heparin infusion pending further recommendations from surgery team. CODE STATUS: Full code DVT prophylaxis: Heparin Discussed with: pt and RN Anticipated discharge date: clinical course to determine Anticipated discharge place: Home A total of 37 minutes was spent on the care of this complex patient more than 50% of the time was spent in counseling and care coordination. I reviewed the above documentation as written by our SUZANNE who is the original author of this note, and I agree with the assessment and plan with no changes. Objective - Vital Signs Vital signs: Vital Signs Temp 98.3 F 05/08/22 04:11 Pulse 85 05/08/22 04:11 Resp 16 05/08/22 04:11 BP 125/63 05/08/22 04:11 Pulse Ox 99 05/08/22 04:11 FiO2 Intake & Output 05/07/22 05/08/22 05/08/22 18:59 06:59 18:59 Intake Total 206.344 664.097 Balance 206.344 664.097 Weight 60.328 kg Intake: Intake, IV Titration 206.344 664.097 Amount Heparin Sod,Pork in 0.45% 56.344 64.097 NaCl 25,000 unit In 0.45 % NaCl 1 250ml.bag @ 12 UNITS/KG/HR 7.239 mls/hr IV .Q24H [facility] Rx#: [id number] Sodium Chloride 0.9% 1, 150 600 000 ml @ 75 mls/hr IV . [id number] [facility] Rx#:[id number] Other: Voiding Method Toilet Toilet # Voids 2 - Labs CBC & Chem 7: 05/12/22 07:15 05/12/22 07:00 Labs: Abnormal Lab Results - Last 24 Hours (Table) 05/07/22 05/07/22 05/07/22 Range/Units 11:47 11:47 17:29 RBC 3.31 L (3.80-5.40) m/uL Hgb 9.9 L D (11.4-16.0) gm/dL Hct 30.1 L (34.0-46.0) % RDW 17.5 H (11.5-15.5) % Lymphocytes # 0.6 L (1.0-4.8) k/uL PT 12.5 H (9.0-12.0) sec INR 1.2 H (<1.2) APTT 34.4 H (22.0-30.0) sec 05/08/22 05/08/22 Range/Units 00:41 05:25 RBC (3.80-5.40) m/uL Hgb (11.4-16.0) gm/dL Hct (34.0-46.0) % RDW (11.5-15.5) % Lymphocytes # (1.0-4.8) k/uL PT 12.5 H (9.0-12.0) sec INR 1.2 H (<1.2) APTT 37.5 H 48.5 H (22.0-30.0) sec
[2022-05-08] MEDS: HEPARIN SOD,PORK IN 0.45% NACL 25,000 UNIT in 0.45% NACL 1 250ML.BAG IV SCH (16:28)
[2022-05-09] MEDS: PROCHLORPERAZINE INJ 10 MG/2 ML VIAL IVP PRN (04:25)
[2022-05-09] MEDS: HYDROmorphone 1 MG/ML 1 ML SYRINGE IVP PRN ×3 (04:26→22:10)
[2022-05-09] MEDS: SODIUM CHLORIDE 0.9% 1,000 ML IV SCH ×3 (06:11→23:47)
[2022-05-09] MEDS: PANTOPRAZOLE 40 MG/10 ML VIAL IVP SCH (08:07)
[2022-05-09] MEDS: atenoloL 25 MG TAB PO SCH (08:09)
[2022-05-09] MEDS: FOLIC ACID 1 MG TAB PO SCH (08:18)
[2022-05-09] MEDS: CHOLECALCIFEROL 25 MCG (1000 IU) TABLET PO SCH (08:18)
[2022-05-09] MEDS: FERROUS SULFATE 325 MG TAB PO SCH (08:18)
[2022-05-09 10:38] LABS: HCT 23.9 % (37.2-46.3); HGB 7.6 g/dL (12.0-15.0); MCH 28.8 pg (27.0-32.0); MCHC 31.8 g/dL (32.0-37.0); MCV 90.5 fL (80.0-97.0); Mean Platelet Volume 11.2 fL (9.5-12.2); NRBC Per 100 WBC 0 /100 WBCS (0.0-0.0); Platelet Count 216 X 10*3/uL (140-440); RBC 2.64 X 10*6/uL (4.10-5.20); RDW 16.6 % (11.5-14.5); WBC 3.17 X 10*3/uL (4.50-10.00)
[2022-05-09 11:19] LABS: BUN/Creat Ratio 14.18 Ratio (12.00-20.00); Globulin 1.7 g/dL (1.6-3.3)
[2022-05-09 11:20] LABS: Albumin/Globulin Ratio 1.73 (1.60-3.17); Blood Urea Nitrogen 9.7 mg/dL (9.0-27.0); Calcium 8.5 mg/dL (8.7-10.3); Carbon Dioxide 21.1 mmol/L (20.0-27.5); Magnesium 1.5 mg/dL (1.5-2.4); Non-African American GFR(CKD) 91.5 (60.0-200.0); Potassium 3.4 mmol/L (3.5-5.5); Total Bilirubin 0.5 mg/dL (0.30-1.20); Total Protein 4.7 g/dL (6.2-8.2)
[2022-05-09] MEDS: HEPARIN SOD,PORK IN 0.45% NACL 25,000 UNIT in 0.45% NACL 1 250ML.BAG IV SCH (12:38)
--- NOTE | 2022-05-09 15:33 | P.PN ---
Subjective Progress Note Date: 05/08/22 Patient seen and examined at bedside. States today she is having more abdominal cramping and increased nausea. She also states she was having darker colored urine. She continues to have liquid bowel movements. Objective - Vital Signs Vital signs: Vital Signs Temp 98.6 F 05/09/22 12:38 Pulse 94 05/09/22 12:38 Resp 18 05/09/22 12:38 BP 143/79 05/09/22 12:38 Pulse Ox 100 05/09/22 12:38 FiO2 Intake & Output 05/08/22 05/09/22 05/09/22 18:59 06:59 18:59 Intake Total 492.523 4109 206.829 Balance 994.716 3088 206.829 Intake: Intake, IV Titration 526.864 4991 206.829 Amount Heparin Sod,Pork in 0.45% 151.276 206.829 NaCl 25,000 unit In 0.45 % NaCl 1 250ml.bag @ 12 UNITS/KG/HR 7.239 mls/hr IV .Q24H [facility] Rx#: [id number] Sodium Chloride 0.9% 1, 1500 000 ml @ 125 mls/hr IV . Q8H [facility] Rx#:[id number] Oral 540 Other: Voiding Method Toilet Toilet Toilet # Voids 2 - Constitutional General appearance: Present: cooperative - Gastrointestinal Gastrointestinal Comment(s): Soft, distended, no rebound tenderness or guarding - Musculoskeletal Musculoskeletal: Present: generalized weakness - Psychiatric Psychiatric: Present: A&O x's 3 - Labs CBC & Chem 7: 05/09/22 06:34 05/09/22 06:34 Labs: Abnormal Lab Results - Last 24 Hours (Table) 05/09/22 05/09/22 05/09/22 Range/Units 06:34 06:34 06:34 WBC 3.17 L (4.50-10.00) X 10*3/uL RBC 2.64 L (4.10-5.20) X 10*6/uL Hgb 7.6 L (12.0-15.0) g/dL Hct 23.9 L (37.2-46.3) % MCHC 31.8 L (32.0-37.0) g/dL RDW 16.6 H (11.5-14.5) % APTT 44.0 H (22.0-30.0) sec Potassium 3.4 L (3.5-5.5) mmol/L Glucose 128 H (70-110) mg/dL Calcium 8.5 L (8.7-10.3) mg/dL Total Protein 4.7 L (6.2-8.2) g/dL Albumin 3.0 L (3.8-4.9) g/dL Assessment and Plan Plan: Case was discussed in depth with the patient. She also discussed the case with the admitting team. Plan is for GI cocktail due to heartburn and abdominal cramping. We will start PPI and increase patient's IV fluids due to feeling of dehydration and darker urine. At this point, patient continues to have liquid bowel movements. She likely has a chronic partial bowel obstruction. If continued significant abdominal cramping, my recommendation is nasogastric tube decompression. Currently, patient would like to avoid that. Also, if any wor sening of the symptoms, patient is requesting transfer to [facility].
--- NOTE | 2022-05-09 15:34 | P.PN ---
Subjective Progress Note Date: 05/09/22 Patient seen and examined at bedside. States she is feeling much better today. Denies any nausea or vomiting. Continuing to have liquid bowel movements. States that urine is still less than normal, however it is lightening in color. Objective - Vital Signs Vital signs: Vital Signs Temp 98.6 F 05/09/22 12:38 Pulse 94 05/09/22 12:38 Resp 18 05/09/22 12:38 BP 143/79 05/09/22 12:38 Pulse Ox 100 05/09/22 12:38 FiO2 Intake & Output 05/08/22 05/09/22 05/09/22 18:59 06:59 18:59 Intake Total 163.339 8649 206.829 Balance 564.914 3310 206.829 Intake: Intake, IV Titration 918.287 3069 206.829 Amount Heparin Sod,Pork in 0.45% 151.276 206.829 NaCl 25,000 unit In 0.45 % NaCl 1 250ml.bag @ 12 UNITS/KG/HR 7.239 mls/hr IV .Q24H [facility] Rx#: [id number] Sodium Chloride 0.9% 1, 1500 000 ml @ 125 mls/hr IV . Q8H [facility] Rx#:[id number] Oral 540 Other: Voiding Method Toilet Toilet Toilet # Voids 2 - Constitutional General appearance: Present: cooperative - Gastrointestinal Gastrointestinal Comment(s): Soft, distended, no rebound, no guarding - Psychiatric Psychiatric: Present: A&O x's 3 - Labs CBC & Chem 7: 05/09/22 06:34 05/09/22 06:34 Labs: Abnormal Lab Results - Last 24 Hours (Table) 05/09/22 05/09/22 05/09/22 Range/Units 06:34 06:34 06:34 WBC 3.17 L (4.50-10.00) X 10*3/uL RBC 2.64 L (4.10-5.20) X 10*6/uL Hgb 7.6 L (12.0-15.0) g/dL Hct 23.9 L (37.2-46.3) % MCHC 31.8 L (32.0-37.0) g/dL RDW 16.6 H (11.5-14.5) % APTT 44.0 H (22.0-30.0) sec Potassium 3.4 L (3.5-5.5) mmol/L Glucose 128 H (70-110) mg/dL Calcium 8.5 L (8.7-10.3) mg/dL Total Protein 4.7 L (6.2-8.2) g/dL Albumin 3.0 L (3.8-4.9) g/dL Assessment and Plan Plan: Patient appears to be improving. We will advance patient to full liquid diet, per her request. Continues to have liquid bowel movements. Case was discussed and patient likely does have chronic partial bowel obstruction due to previous surgical history and metastatic disease. If any worsening of symptoms, plan is for transfer to [facility].
[2022-05-09] MEDS ORDERED: POTASSIUM CHLORIDE ER 20 MEQ TAB.ER PO STA (17:39)
--- NOTE | 2022-05-09 17:40 | P.PN ---
Subjective Progress Note Date: 05/09/22 Hospital course: Patient is a very pleasant 67-year-old female with a past medical history of hypertension, recently diagnosed right common femoral DVT on anticoagulation with Eliquis, previous bowel obstructions, history of colostomy and colostomy reversal, and metastatic ovarian cancer currently undergoing chemotherapy with last reported treatment being 2 weeks ago. Patient presented to the emergency department with a chief complaint of abdominal pain, nausea, vomiting, and diarrhea. She reports last normal bowel movement being approximately 4 days ago and has since been experiencing passage of small amounts of liquid stool, nausea, and vomiting consistent with previous bowel obstructions. Patient underwent full evaluation in the emergency department. She was found to have hemoglobin of 9.9 (which is above patient's baseline hemoglobin of 8). H yponatremia with sodium of 133 and urinalysis positive for blood with greater than [address] abdomen and pelvis revealing dilated large bowel suggestive of distal mechanical large bowel obstruction along with right-sided hydronephrosis and hydroureter with urinary stents reported to be an appropriate positioning, obstruction likely related to adhesions or recurrent tumor in the pelvis, also revealing numerous pulmonary nodules consistent with metastatic disease and appears slightly smaller when compared to previous computed tomography scan. Patient was admitted under our services with consultation to general surgery. Physical exam: Patient seen and fully evaluated at the bedside this morning. She reported having some relief of her previously reported reflux with GI cocktail and has been tolerated clear liquid diet without any further episodes of nausea or vomiting. Patient states she continues to have liquid bowel movements. Vital signs reviewed and stable. General: Nontoxic, no distress and appears stated age. Derm: Skin warm and dry, normal coloration for ethnicity. Head: Atraumatic, normocephalic and symmetric. Eyes: EOMs intact, no lid lag, and anicteric sclera Mouth: no lip lesions, mucus membranes moist Cardiovascular: regular rate and rhythm with normal S1S2, no murmur, positive posterior tibial pulses bilaterally, and cap refill < 2 seconds. Lungs: Respirations even, regular, and unlabored on room air. Lungs CTA bilaterally, no rhonchi, no rales, no wheezing, and no accessory muscle usage. Abdominal: soft distended , bowel sounds present x4. diffuse tenderness no guarding, no appreciable organomegaly. Hernia present. Ext: ROM intact. No gross muscle atrophy, no edema, no contractures Neuro: Speech clear, face symmetrical and CN II-XII grossly intact with no noted focal neuro deficits Psych: Alert and oriented to person, place, time, and situation. Appropriate and pleasant affect. Assessment and Plan of Care: Partial mechanical large bowel obstruction Abdominal pain, nausea, vomiting, and diarrhea -Clear liquid diet, advance per recommendations of general surgery team. -IV fluid hydration -Symptomatic care and pain management with antibiotics for nausea/vomiting and pain medications as needed for pain/discomfort. -Gen. surgery following, appreciate recommendations -Eliquis held and we will continue heparin infusion pending general surgery clearance to resume oral anticoagulant.. Iron deficiency anemia -Continue ferrous sulfate daily. Hypomagnesemia Replaced. We will continue to monitor with repeat labs and replace abnormal electrolyte values as needed. Hypokalemia Replaced. We will continue to monitor with repeat labs and replace abnormal electrolyte values as needed. Right common femoral vein DVT -Hold oral anticoagulation with Eliquis in place patient on Heparin infusion pending further recommendations from surgery team. CODE STATUS: Full code DVT prophylaxis: Heparin Discussed with: pt and RN Anticipated discharge date: clinical course to determine Anticipated discharge place: Home A total of 34 minutes was spent on the care of this complex patient more than 50% of the time was spent in counseling and care coordination. I reviewed the documentation as provided by the SUZANNE above, who is the original author of this note. I agree with the documented assessment and plan, with the following changes: none Objective - Vital Signs Vital signs: Vital Signs Temp 98.6 F 05/09/22 12:38 Pulse 94 05/09/22 12:38 Resp 18 05/09/22 12:38 BP 143/79 05/09/22 12:38 Pulse Ox 100 05/09/22 12:38 FiO2 Intake & Output 05/08/22 05/09/22 05/09/22 18:59 06:59 18:59 Intake Total 411.119 2929 1706.829 Balance 194.998 8963 1706.829 Intake: Intake, IV Titration 176.585 2794 1706.829 Amount Heparin Sod,Pork in 0.45% 151.276 206.829 NaCl 25,000 unit In 0.45 % NaCl 1 250ml.bag @ 12 UNITS/KG/HR 7.239 mls/hr IV .Q24H [facility] Rx#: [id number] Sodium Chloride 0.9% 1, 1500 1500 000 ml @ 125 mls/hr IV . Q8H [facility] Rx#:[id number] Oral 540 Other: Voiding Method Toilet Toilet Toilet # Voids 2 - Labs CBC & Chem 7: 05/12/22 07:15 05/12/22 07:00 Labs: Abnormal Lab Results - Last 24 Hours (Table) 05/09/22 05/09/22 05/09/22 Range/Units 06:34 06:34 06:34 WBC 3.17 L (4.50-10.00) X 10*3/uL RBC 2.64 L (4.10-5.20) X 10*6/uL Hgb 7.6 L (12.0-15.0) g/dL Hct 23.9 L (37.2-46.3) % MCHC 31.8 L (32.0-37.0) g/dL RDW 16.6 H (11.5-14.5) % APTT 44.0 H (22.0-30.0) sec Potassium 3.4 L (3.5-5.5) mmol/L Glucose 128 H (70-110) mg/dL Calcium 8.5 L (8.7-10.3) mg/dL Total Protein 4.7 L (6.2-8.2) g/dL Albumin 3.0 L (3.8-4.9) g/dL
[2022-05-09] MEDS: MAGNESIUM SULFATE-D5W PMX 1 GM in DEXTROSE/WATER 1 100ML.BAG IVPB SCH ×3 (18:33→22:09)
[2022-05-10] MEDS: HYDROmorphone 1 MG/ML 1 ML SYRINGE IVP PRN ×2 (07:56→22:13)
[2022-05-10] MEDS: ONDANSETRON 4 MG/2 ML VIAL IVP PRN (07:58)
[2022-05-10] MEDS: PANTOPRAZOLE 40 MG/10 ML VIAL IVP SCH (07:58)
[2022-05-10] MEDS: SODIUM CHLORIDE 0.9% 1,000 ML IV SCH (08:01)
[2022-05-10] MEDS: CHOLECALCIFEROL 25 MCG (1000 IU) TABLET PO SCH (08:40)
[2022-05-10] MEDS: atenoloL 25 MG TAB PO SCH (08:44)
[2022-05-10] MEDS: FOLIC ACID 1 MG TAB PO SCH (08:44)
[2022-05-10] MEDS: FERROUS SULFATE 325 MG TAB PO SCH (08:44)
[2022-05-10] MEDS: SIMETHICONE 80 MG CHEWABLE PO SCH ×4 (09:18→21:30)
[2022-05-10 09:42] LABS: Anisocytosis Slight; HCT 28.2 % (34.0-46.0); HGB 8.9 gm/dL (11.4-16.0); Hypochromasia Marked; MCH 29.3 pg (25.0-35.0); MCHC 31.4 g/dL (31.0-37.0); MCV 93.3 fL (80.0-100.0); Mean Platelet Volume 8.4; Platelet Count 229 k/uL (150-450); Poikilocytosis Moderate; RBC 3.03 m/uL (3.80-5.40); RDW 17.6 % (11.5-15.5); WBC 3.5 k/uL (3.8-10.6)
[2022-05-10 11:06] LABS: HCT 28.8 % (37.2-46.3); MCH 28.8 pg (27.0-32.0); MCHC 31.3 g/dL (32.0-37.0); Mean Platelet Volume 11.2 fL (9.5-12.2); NRBC Per 100 WBC 0.4 /100 WBCS (0.0-0.0); Platelet Count 298 X 10*3/uL (140-440); RBC 3.13 X 10*6/uL (4.10-5.20); RDW 17.2 % (11.5-14.5); WBC 4.62 X 10*3/uL (4.50-10.00)
[2022-05-10] MEDS: HEPARIN SOD,PORK IN 0.45% NACL 25,000 UNIT in 0.45% NACL 1 250ML.BAG IV SCH (12:00)
--- NOTE | 2022-05-10 16:55 | P.PN ---
Subjective Progress Note Date: 05/10/22 (delayed charting seen at 0845) Principal diagnosis: abdominal pain Patient is a 67-year-old female with hypertension, recently diagnosed right common femoral DVT on anticoagulation with Eliquis, previous bowel obstructions, history of colostomy and colostomy reversal, and metastatic ovarian cancer currently undergoing chemotherapy with last reported treatment being 3 weeks ago who preesetned to the ED due to abdominal pain. In the ED she underwent an extensive evaluation. Laboratory analysis was remarkable for a hemoglobin of 9.9 with a baseline hemoglobin of 8, sodium 133, urinalysis positive for blood with greater than [address] abdomen and pelvis revealed dilated large bowel suggestive of distal mechanical large bowel obstruction along with right-sided hydronephrosis and hydroureter with urinary stents reported to be an appropriate positioning, obstruction likely related to adhesions or recurrent tumor in the pelvis, also revealing numerous pulmonary nodules consistent with metastatic disease and appears slightly smaller when compared to previous computed tomography scan. Patient was admitted. General surgery was consulted who agreed with conservative management. Diet slowly. Patient seen and examined at bedside. She reports she is continuing to have multiple bowel movements. They're becoming more formed. She denies any nausea or vomiting. She has been tolerating her full liquid diet well. She denies any dark tarry bowel movements or bright red blood in her stool. We discussed that she had positive fecal occult blood but this could be multifactorial including secondary to the iron that she is taking or from small amounts of bleeding secondary to her metastatic disease. She is in agreement. She will alert nursing should she develop any dark tarry stools or bright red blood in her stool. General: nontoxic, no distress, appears at stated age Derm: warm, dry Head: atraumatic, normocephalic, symmetric Eyes: EOMI, no lid lag, anicteric sclera Mouth: no lip lesion, mucus membranes moist Cardiovascular: S1S2 reg, no murmur, positive posterior tibial pulse bilateral, Lungs: CTA bilateral, no rhonchi, no rales , no accessory muscle use Abdominal: soft, distended, nontender to palpation, hypoactive bowel sounds, no guarding, no appreciable organomegaly Ext: no gross muscle atrophy, no edema, no contractures Neuro: CN II-XI grossly intact, no focal neuro deficits Psych: Alert, oriented, appropriate affect Assessment/plan: Partial mechanical large bowel obstruction -full liquids - pain control, antiemetics -Gen. surgery recs: conservative care Iron deficiency anemia -Continue ferrous sulfate daily. Hypomagnesemia - recheck in AM Hypokalemia - recheck in AM Right common femoral vein DVT -Heparin wt plans to resume eliquis once okay with gen surgery' + FOB - no sigsn or symptoms of bleeding - stat HgB check and stable - conitnue to [facility] 2 [facility] Active Medications Generic Name Dose Route Start Last Admin Trade Name Felicitas PRN Reason Stop Dose Admin Atenolol 25 mg 05/08/22 09:00 05/10/22 08:44 Atenolol 25 Mg Tab PO 25 mg DAILY YOSVANY Administration Cholecalciferol 75 mcg 05/08/22 09:00 05/10/22 08:40 Cholecalciferol 25 Mcg (1000 Iu) Tablet PO 75 mcg DAILY YOSVANY Administration Ferrous Sulfate 325 mg 05/08/22 09:00 05/10/22 08:44 Ferrous Sulfate 325 Mg Tab PO 325 mg DAILY YOSVANY Administration Folic Acid 1 mg 05/08/22 09:00 05/10/22 08:44 Folic Acid 1 Mg Tab PO 1 mg DAILY YOSVANY Administration Heparin Sodium (Porcine) 0 unit 05/07/22 11:00 05/08/22 01:25 Heparin Sodium 1,000 Un/Ml (10ml Vl) IV 1,508 unit PER PROTOCOL PRN Administration Low PTT Protocol Hydromorphone HCl 1 mg 05/07/22 05:23 05/10/22 07:56 Hydromorphone 1 Mg/Ml 1 Ml Syringe IVP 1 mg Q4HR PRN Administration Pain Sodium Chloride 1,000 mls @ 50 mls/hr 05/07/22 03:15 05/10/22 08:01 Saline 0.9% IV 125 mls/hr .Q20H YOS[facility]ANY Administration Heparin Sodium/Sodium Chloride 250 mls @ 7.239 mls/hr 05/07/22 11:30 05/10/22 12:00 25,000 unit/ Sodium Chloride IV 17 units/kg/hr .Q24H YOSVANY 10.256 mls/hr Administration Protocol 12 UNITS/KG/HR Naloxone HCl 0.2 mg 05/07/22 03:08 Naloxone 0.4 Mg/Ml 1 Ml Vial IV Q2M PRN Opioid Reversal Ondansetron HCl 4 mg 05/07/22 03:08 05/10/22 07:58 Ondansetron 4 Mg/2 Ml Vial IVP 4 mg Q8HR PRN Administration Nausea And Vomiting Pantoprazole Sodium 40 mg 05/08/22 11:45 05/10/22 07:58 Pantoprazole 40 Mg/10 Ml Vial IVP 40 mg DAILY YOSVANY Administration Prochlorperazine Edisylate 10 mg 05/07/22 13:22 05/09/22 04:25 Prochlorperazine Inj 10 Mg/2 Ml Vial IVP 10 mg Q6HR PRN Administration Nausea And Vomiting Simethicone 80 mg 05/10/22 09:00 05/10/22 12:00 Simethicone 80 Mg Chewable PO 80 mg QID YOSVANY Administration Objective - Vital Signs Vital signs: Vital Signs Temp 98.3 F 05/10/22 16:23 Pulse 85 05/10/22 16:23 Resp 14 05/10/22 16:23 BP 149/82 05/10/22 16:23 Pulse Ox 100 05/10/22 16:23 FiO2 Intake & Output 05/09/22 05/10/22 05/10/22 18:59 06:59 18:59 Intake Total 1706.829 239.649 Balance 1706.829 239.649 Intake: Intake, IV Titration 1706.829 239.649 Amount Heparin Sod,Pork in 0.45% 206.829 239.649 NaCl 25,000 unit In 0.45 % NaCl 1 250ml.bag @ 12 UNITS/KG/HR 7.239 mls/hr IV .Q24H [facility]OS[facility]ANY Rx#: [id number] Sodium Chloride 0.9% 1, 1500 000 ml @ 125 mls/hr IV . Q8H [facility] Rx#:[id number] Other: Voiding Method Toilet Toilet # Voids 2 - Labs CBC & Chem 7: 05/10/22 09:10 05/09/22 06:34 Labs: Abnormal Lab Results - Last 24 Hours (Table) 05/09/22 05/10/22 05/10/22 Range/Units 12:48 06:15 06:15 WBC (3.8-10.6) k/uL RBC 3.13 L (4.10-5.20) X 10*6/uL Hgb 9.0 L (12.0-15.0) g/dL Hct 28.8 L (37.2-46.3) % MCHC 31.3 L (32.0-37.0) g/dL RDW 17.2 H (11.5-14.5) % Absolute Nucleated RBC 0.02 H (0.00-0.00) X 10*3/uL NRBC/100 WBC Diff 0.4 H (0.0-0.0) /100 WBCS APTT 44.2 H (22.0-30.0) sec Stool Occult Blood Positive A (Negative) 05/10/22 Range/Units 09:10 WBC 3.5 L (3.8-10.6) k/uL RBC 3.03 L (4.10-5.20) X 10*6/uL Hgb 8.9 L (12.0-15.0) g/dL Hct 28.2 L (37.2-46.3) % MCHC (32.0-37.0) g/dL RDW 17.6 H (11.5-14.5) % Absolute Nucleated RBC (0.00-0.00) X 10*3/uL NRBC/100 WBC Diff (0.0-0.0) /100 WBCS APTT (22.0-30.0) sec Stool Occult Blood (Negative)
[2022-05-11] MEDS: SODIUM CHLORIDE 0.9% 1,000 ML IV SCH (01:00)
[2022-05-11 07:27] LABS: Anisocytosis Slight; HCT 26.4 % (34.0-46.0); HGB 8.5 gm/dL (11.4-16.0); Hypochromasia Moderate; MCH 29.5 pg (25.0-35.0); MCHC 32.2 g/dL (31.0-37.0); MCV 91.6 fL (80.0-100.0); Mean Platelet Volume 8.8; Platelet Count 234 k/uL (150-450); Poikilocytosis Moderate; RBC 2.88 m/uL (3.80-5.40); RDW 18.4 % (11.5-15.5); WBC 3.6 k/uL (3.8-10.6)
[2022-05-11 07:48] LABS: African American GFR (CKD) 84 (>60 ml/min/1.73 sqM); Anion Gap 6 mmol/L; Blood Urea Nitrogen 9 mg/dL (7-17); Calcium 8.4 mg/dL (8.4-10.2); Carbon Dioxide 24 mmol/L (22-30); Chloride 104 mmol/L (98-107); Glucose 105 mg/dL (74-99); Non-African American GFR(CKD) 73 (>60 ml/min/1.73 sqM); Potassium 3.5 mmol/L (3.5-5.1); Sodium 134 mmol/L (137-145)
[2022-05-11] MEDS: atenoloL 25 MG TAB PO SCH (08:19)
[2022-05-11] MEDS: FERROUS SULFATE 325 MG TAB PO SCH (08:19)
[2022-05-11] MEDS: CHOLECALCIFEROL 25 MCG (1000 IU) TABLET PO SCH (08:19)
[2022-05-11] MEDS: FOLIC ACID 1 MG TAB PO SCH (08:20)
[2022-05-11] MEDS: PANTOPRAZOLE 40 MG/10 ML VIAL IVP SCH (08:20)
[2022-05-11] MEDS: SIMETHICONE 80 MG CHEWABLE PO SCH ×4 (10:11→22:22)
[2022-05-11] MEDS ORDERED: polyethylene glycoL 3350 17 GM POWD.PACK PO STA (10:52)
--- NOTE | 2022-05-11 11:51 | P.PN ---
Subjective Progress Note Date: 05/11/22 Patient seen and examined at bedside. States she is having more formed stool. States abdominal cramping is improving. Denies any nausea or vomiting. Objective - Vital Signs Vital signs: Vital Signs Temp 98.3 F 05/11/22 05:00 Pulse 91 05/11/22 05:00 Resp 16 05/11/22 05:00 BP 126/66 05/11/22 05:00 Pulse Ox 97 05/11/22 05:00 FiO2 Intake & Output 05/10/22 05/11/22 05/11/22 18:59 06:59 18:59 Intake Total 239.649 600 Balance 239.649 600 Intake: Intake, IV Titration 239.649 600 Amount Heparin Sod,Pork in 0.45% 239.649 NaCl 25,000 unit In 0.45 % NaCl 1 250ml.bag @ 12 UNITS/KG/HR 7.239 mls/hr IV .Q24H [facility] Rx#: [id number] Sodium Chloride 0.9% 1, 600 000 ml @ 50 mls/hr IV . Q20H [facility] Rx#:[id number] Other: Voiding Method Toilet Toilet # Bowel Movements 2 - Constitutional General appearance: Present: cooperative - Gastrointestinal Gastrointestinal Comment(s): soft, mild distention, no tenderness - Psychiatric Psychiatric: Present: A&O x's 3 - Labs CBC & Chem 7: 05/11/22 07:06 05/11/22 07:06 Labs: Abnormal Lab Results - Last 24 Hours (Table) 05/11/22 05/11/22 Range/Units 07:06 07:06 WBC 3.6 L (3.8-10.6) k/uL RBC 2.88 L (3.80-5.40) m/uL Hgb 8.5 L (11.4-16.0) gm/dL Hct 26.4 L (34.0-46.0) % RDW 18.4 H (11.5-15.5) % Sodium 134 L (137-145) mmol/L Glucose 105 H (74-99) mg/dL Assessment and Plan Plan: Patient continues to show signs of improvement and continues to have bowel function. As mentioned in previous notes, patient likely has chronic partial obstruction secondary to metastatic disease. At this point, I would continue with conservative management and advancement of diet as the patient continues to have bowel function. As per patient's request, if any surgical procedure is required, she will require transfer to [facility] for evaluation by her surgical oncologist.
[2022-05-11] MEDS: HEPARIN SOD,PORK IN 0.45% NACL 25,000 UNIT in 0.45% NACL 1 250ML.BAG IV SCH (13:10)
[2022-05-11] MEDS: APIXABAN 5 MG TAB PO SCH (17:37)
--- NOTE | 2022-05-11 18:01 | P.PN ---
Subjective Progress Note Date: 05/11/22 (delayed charting seen at 1030) Principal diagnosis: abdominal pain Patient is a 67-year-old female with hypertension, recently diagnosed right common femoral DVT on anticoagulation with Eliquis, previous bowel obstructions, history of colostomy and colostomy reversal, and metastatic ovarian cancer currently undergoing chemotherapy with last reported treatment being 3 weeks ago who preesetned to the ED due to abdominal pain. In the ED she underwent an extensive evaluation. Laboratory analysis was remarkable for a hemoglobin of 9.9 with a baseline hemoglobin of 8, sodium 133, urinalysis positive for blood with greater than [address] abdomen and pelvis revealed dilated large bowel suggestive of distal mechanical large bowel obstruction along with right-sided hydronephrosis and hydroureter with urinary stents reported to be an appropriate positioning, obstruction likely related to adhesions or recurrent tumor in the pelvis, also revealing numerous pulmonary nodules consistent with metastatic disease and appears slightly smaller when compared to previous computed tomography scan. Patient was admitted. General surgery was consulted who agreed with conservative management. Diet slowly advanced and patient tolerated well. She had + FOB without over signs of bleeding and HgB remained stable. Patient seen and examined at bedside. BM more frequent but formed still feeling full. We will add back miralax and increase diet, Simethacone did help w ith bloating, but still having some cramping. General: nontoxic, no distress, appears at stated age Derm: warm, dry Head: atraumatic, normocephalic, symmetric Eyes: EOMI, no lid lag, anicteric sclera Mouth: no lip lesion, mucus membranes moist Cardiovascular: S1S2 reg, no murmur, positive posterior tibial pulse bilateral, Lungs: CTA bilateral, no rhonchi, no rales , no accessory muscle use Abdominal: soft, nondistended, nontender to palpation, + bowel sounds, no guarding, no appreciable organomegaly Ext: no gross muscle atrophy, no edema, no contractures Neuro: CN II-XI grossly intact, no focal neuro deficits Psych: Alert, oriented, appropriate affect Assessment/plan: Partial mechanical large bowel obstruction - increased to regular diet - add back miralax - pain control, antiemetics -Gen. surgery recs: conservative care Iron deficiency anemia -Continue ferrous sulfate daily. Hypomagnesemia - recheck in AM Hypokalemia - recheck in AM Right common femoral vein DVT -Heparin wt plans to resume eliquis once okay with gen surgery' + FOB - no sigsn or symptoms of bleeding - HgB stable [facility] home in AM Active Medications Generic Name Dose Route Start Last Admin Trade Name Freq PRN Reason Stop Dose Admin Apixaban 5 mg 05/11/22 18:05 05/11/22 17:37 Apixaban 5 Mg Tab PO 5 mg BID YOSVANY Administration Protocol Atenolol 25 mg 05/08/22 09:00 05/11/22 08:19 Atenolol 25 Mg Tab PO 25 mg DAILY YOSVANY Administration Cholecalciferol 75 mcg 05/08/22 09:00 05/11/22 08:19 Cholecalciferol 25 Mcg (1000 Iu) Tablet PO 75 mcg DAILY YOSVANY Administration Ferrous Sulfate 325 mg 05/08/22 09:00 05/11/22 08:19 Ferrous Sulfate 325 Mg Tab PO 325 mg DAILY YOSVANY Administration Folic Acid 1 mg 05/08/22 09:00 05/11/22 08:20 Folic Acid 1 Mg Tab PO 1 mg DAILY YOSVANY Administration Hydromorphone HCl 1 mg 05/07/22 05:23 05/10/22 22:13 Hydromorphone 1 Mg/Ml 1 Ml Syringe IVP 1 mg Q4HR PRN Administration Pain Naloxone HCl 0.2 mg 05/07/22 03:08 Naloxone 0.4 Mg/Ml 1 Ml Vial IV Q2M PRN Opioid Reversal Ondansetron HCl 4 mg 05/07/22 03:08 05/10/22 07:58 Ondansetron 4 Mg/2 Ml Vial IVP 4 mg Q8HR PRN Administration Nausea And Vomiting Pantoprazole Sodium 40 mg 05/08/22 11:45 05/11/22 08:20 Pantoprazole 40 Mg/10 Ml Vial IVP 40 mg DAILY YOSVANY Administration Prochlorperazine Edisylate 10 mg 05/07/22 13:22 05/09/22 04:25 Prochlorperazine Inj 10 Mg/2 Ml Vial IVP 10 mg Q6HR PRN Administration Nausea And Vomiting Simethicone 80 mg 05/10/22 09:00 05/11/22 17:37 Simethicone 80 Mg Chewable PO 80 mg QID YOSVANY Administration Objective - Vital Signs Vital signs: Vital Signs Temp 98.5 F 05/11/22 11:40 Pulse 53 L 05/11/22 11:40 Resp 16 05/11/22 11:40 BP 124/76 05/11/22 11:40 Pulse Ox 100 05/11/22 11:40 FiO2 Intake & Output 05/10/22 05/11/22 05/11/22 18:59 06:59 18:59 Intake Total 239.649 600 295.81 Balance 239.649 600 295.81 Intake: Intake, IV Titration 239.649 600 295.81 Amount Heparin Sod,Pork in 0.45% 239.649 295.81 NaCl 25,000 unit In 0.45 % NaCl 1 250ml.bag @ 12 UNITS/KG/HR 7.239 mls/hr IV .Q24H [facility] Rx#: [id number] Sodium Chloride 0.9% 1, 600 000 ml @ 50 mls/hr IV . Q20H [facility] Rx#:[id number] Other: Voiding Method Toilet Toilet # Bowel Movements 2 - Labs CBC & Chem 7: 05/11/22 07:06 05/11/22 07:06 Labs: Abnormal Lab Results - Last 24 Hours (Table) 05/11/22 05/11/22 Range/Units 07:06 07:06 WBC 3.6 L (3.8-10.6) k/uL RBC 2.88 L (3.80-5.40) m/uL Hgb 8.5 L (11.4-16.0) gm/dL Hct 26.4 L (34.0-46.0) % RDW 18.4 H (11.5-15.5) % Sodium 134 L (137-145) mmol/L Glucose 105 H (74-99) mg/dL
[2022-05-11] MEDS: HYDROmorphone 1 MG/ML 1 ML SYRINGE IVP PRN (22:28)
[2022-05-12 06:45] VITALS: BP 113/66; PULSE 76; RESP 15; TEMP 98.7
[2022-05-12 08:04] LABS: African American GFR (CKD) 89 (>60 ml/min/1.73 sqM); Anion Gap 8 mmol/L; Blood Urea Nitrogen 12 mg/dL (7-17); Calcium 8.3 mg/dL (8.4-10.2); Carbon Dioxide 23 mmol/L (22-30); Chloride 102 mmol/L (98-107); Glucose 99 mg/dL (74-99); Non-African American GFR(CKD) 77 (>60 ml/min/1.73 sqM); Potassium 3.1 mmol/L (3.5-5.1); Sodium 133 mmol/L (137-145)
[2022-05-12] MEDS ORDERED: polyethylene glycoL 3350 17 GM POWD.PACK PO STA (09:02)
[2022-05-12] MEDS: APIXABAN 5 MG TAB PO SCH (09:04)
[2022-05-12] MEDS: atenoloL 25 MG TAB PO SCH (09:04)
[2022-05-12] MEDS: SIMETHICONE 80 MG CHEWABLE PO SCH (09:04)
[2022-05-12] MEDS: FERROUS SULFATE 325 MG TAB PO SCH (09:04)
[2022-05-12] MEDS: FOLIC ACID 1 MG TAB PO SCH (09:04)
[2022-05-12] MEDS ORDERED: POTASSIUM CHLORIDE ER 20 MEQ TAB.ER PO STA (09:05)
[2022-05-12] MEDS: PANTOPRAZOLE 40 MG/10 ML VIAL IVP SCH (09:13)
--- NOTE | 2022-05-12 09:15 | P.DS ---
Providers Date of admission: 05/07/22 04:18 Expected date of discharge: 05/12/22 Attending physician: Trevon Robledo MD Consults: 05/07/22 03:10 Consult Physician Routine Consulting Provider: Miky Knight Consult Reason/Comments: large bowel obstruction Do you want consulting provider notified?: Yes, Notify in am Primary care physician: Dina Martines MD Hospital Course: Discharge Diagnosis: Partial mechanical large bowel obstruction Iron deficiency anemia Hypomagnesemia Hypokalemia Right common femoral vein DVT + FOB Metastatic Ovarian Caner Hospital Course: Patient is a 67-year-old female with hypertension, recently diagnosed right common femoral DVT on anticoagulation with Eliquis, previous bowel obstructions, history of colostomy and colostomy reversal, and metastatic ovarian cancer currently undergoing chemotherapy with last reported treatment being 3 weeks ago who preesetned to the ED due to abdominal pain. In the ED she underwent an extensive evaluation. Laboratory analysis was remarkable for a hemoglobin of 9.9 with a baseline hemoglobin of 8, sodium 133, urinalysis positive for blood with greater than [address] abdomen and pelvis revealed dilated large bowel suggestive of distal mechanical large bowel obstruction along with right-sided hydronephrosis and hydroureter with urinary stents reported to be an appropriate positioning, obstruction likely related to adhesions or recurrent tumor in the pelvis, also revealing numerous pulmonary nodules consistent with metastatic disease and appears slightly smaller when compared to previous computed tomography scan. Patient was admitted. General surgery was consulted who agreed with conservative management. Diet slowly advanced and patient tolerated well. She had + FOB without over signs of bleeding and HgB remained stable. She continued to do well and was determined stable for discharge home. She will follow with Dr. Michele who has taken over for Dr. Martines and will keep her follow-up with oncology. Patient seen and examined at bedside. Doing well, feels comfortable going home. Eating and having bowel movements. Vital signs reviewed and stable. General: nontoxic, no distress, appears at stated age Derm: warm, dry Head: atraumatic, normocephalic, symmetric Eyes: EOMI, no lid lag, anicteric sclera Mouth: no lip lesion, mucus membranes moist Cardiovascular: S1S2 reg, no murmur, positive posterior tibial pulse bilateral, Lungs: CTA bilateral, no rhonchi, no rales , no accessory muscle use Abdominal: soft, nontender to palpation, no guarding, no appreciable organomegaly Ext: no gross muscle atrophy, no edema, no contractures Neuro: CN II-XI grossly intact, no focal neuro deficits Psych: Alert, oriented, appropriate affect A total of 35 minutes of time were spent preparing this complex discharge summary. Patient was discharged on 05/12/22. Plan - Discharge Summary New Discharge Prescriptions: New Simethicone Chew [Mylicon Chew] 80 mg PO QID PRN tab PRN Reason: Bloating Continue atenoloL [Tenormin] 25 mg PO DAILY Folic Acid 1 mg PO DAILY Magnesium Oxide 400 mg PO BID-W/MEALS Potassium Chloride ER [K-Dur 20] 20 meq PO AC-BRKFST Potassium Chloride ER [K-Dur 20] 40 meq PO AC-SUPPER Cholecalciferol [Vitamin D3 (25 Mcg = 1000 Iu)] 75 mcg PO DAILY Ferrous Sulfate [Iron (65 MG Elemental)] 325 mg PO DAILY #90 tab Apixaban [Eliquis] 5 mg PO BID polyethylene glycoL 3350 [Miralax] 8.5 gm PO BID PRN PRN Reason: Constipation Acetaminophen Tab [Tylenol] 650 mg PO Q6HR PRN tab PRN Reason: Mild Pain Or Fever > 100.5 HYDROmorphone [Dilaudid] 2 mg PO DAILY PRN PRN Reason: Pain Discharge Medication List Folic Acid 1 mg PO DAILY 03/10/20 [History] Magnesium Oxide 400 mg PO BID-W/MEALS 03/10/20 [History] Potassium Chloride ER [K-Dur 20] 20 meq PO AC-BRKFST 03/10/20 [History] Potassium Chloride ER [K-Dur 20] 40 meq PO AC-SUPPER 03/10/20 [History] atenoloL [Tenormin] 25 mg PO DAILY 03/10/20 [History] Cholecalciferol [Vitamin D3 (25 Mcg = 1000 Iu)] 75 mcg PO DAILY 01/14/22 [History] polyethylene glycoL 3350 [Miralax] 8.5 gm PO BID PRN 01/18/22 [History] Acetaminophen Tab [Tylenol] 650 mg PO Q6HR PRN tab 04/05/22 [Rx] Ferrous Sulfate [Iron (65 MG Elemental)] 325 mg PO DAILY #90 tab 04/05/22 [Rx] Apixaban [Eliquis] 5 mg PO BID 05/07/22 [History] HYDROmorphone [Dilaudid] 2 mg PO DAILY PRN 05/07/22 [History] Simethicone Chew [Mylicon Chew] 80 mg PO QID PRN tab 05/12/22 [Rx] Follow up Appointment(s)/Referral(s): Michael Michele MD [REFERRING] - 1 Week Activity/Diet/Wound Care/Special Instructions: Activity: as tolerated Diet: low residual Special Instructions: May use miralax as needed and can add dulcolax suppository Keep your follow-up with Oncology as prior to hospitalization Discharge Disposition: HOME SELF-CARE
[2022-05-12] MEDS: CHOLECALCIFEROL 25 MCG (1000 IU) TABLET PO SCH (09:26)
[2022-05-12 11:19] LABS: Anisocytosis Slight; HCT 29.3 % (34.0-46.0); HGB 9.3 gm/dL (11.4-16.0); Hypochromasia Moderate; MCH 28.8 pg (25.0-35.0); MCHC 31.7 g/dL (31.0-37.0); Mean Platelet Volume 10.8; Platelet Count 236 k/uL (150-450); Poikilocytosis Moderate; RBC 3.22 m/uL (3.80-5.40); RDW 18.4 % (11.5-15.5); WBC 5.8 k/uL (3.8-10.6)
== END 2022-05-12 10:45 | disposition home or self-care (01) | DRG 755 ==
LOC: EC 23:34 → 5NMEDONC 05-07 04:18
PROVIDERS: ADMIT Internal Medicine; ATTEND Internal Medicine
DX: C79.60 Secondary malignant neoplasm of unspecified ovary (principal); C78.00 Secondary malignant neoplasm of unspecified lung; K56.690 Other partial intestinal obstruction; I82.411 Acute embolism and thrombosis of right femoral vein; N13.30 Unspecified hydronephrosis; E87.1 Hypo-osmolality and hyponatremia; I10 Essential (primary) hypertension; D50.0 Iron deficiency anemia secondary to blood loss (chronic); L40.9 Psoriasis, unspecified; N73.6 Female pelvic peritoneal adhesions (postinfective); E83.42 Hypomagnesemia; E87.6 Hypokalemia; R30.0 Dysuria; Z96.0 Presence of urogenital implants; Z90.49 Acquired absence of other specified parts of digestive tract; Z79.899 Other long term (current) drug therapy; Z79.01 Long term (current) use of anticoagulants; Z91.041 Radiographic dye allergy status; Z91.048 Other nonmedicinal substance allergy status; Z88.5 Allergy status to narcotic agent; Z88.8 Allergy status to other drugs, medicaments and biological substances; Z88.0 Allergy status to penicillin; Z86.718 Personal history of other venous thrombosis and embolism; Z92.21 Personal history of antineoplastic chemotherapy; Z87.19 Personal history of other diseases of the digestive system; Z85.41 Personal history of malignant neoplasm of cervix uteri; Z98.890 Other specified postprocedural states; Z90.710 Acquired absence of both cervix and uterus; Z83.3 Family history of diabetes mellitus; Z82.49 Family history of ischemic heart disease and other diseases of the circulatory system; Z83.49 Family history of other endocrine, nutritional and metabolic diseases
CPT/HCPCS: 36415; 74018; 74176; 80048; 80053; 81001; 82150; 82272; 83605; 83690; 83735; 85025; 85027; 85610; 85730; 96361; 96365; 96375; 96376; 99285

== ENCOUNTER 2022-06-20 03:54 | Emergency (ER) | payer MEDICARE ==
[2022-06-20 03:59] VITALS: RESP 18; TEMP 98.5
[2022-06-20 04:48] LABS: Anisocytosis Slight; Basophils % (A) 1 %; Eosinophils # (A) 0.1 k/uL (0-0.7); Eosinophils % (A) 2 %; HCT 28.4 % (34.0-46.0); Hypochromasia Slight; Lymphocytes # (A) 1.4 k/uL (1.0-4.8); Lymphocytes % (A) 28 %; MCHC 35.3 g/dL (31.0-37.0); MCV 87.7 fL (80.0-100.0); Mean Platelet Volume 9.2; Monocytes # (A) 0.3 k/uL (0-1.0); Monocytes % (A) 7 %; Neutrophils % (A) 60 %; Platelet Count 163 k/uL (150-450); Poikilocytosis Moderate; RBC 3.24 m/uL (3.80-5.40); RDW 18.4 % (11.5-15.5); WBC 4.9 k/uL (3.8-10.6)
[2022-06-20 04:56] LABS: Partial Thromboplastin Time 26.9 sec (22.0-30.0); Prothrombin Time 11.1 sec (9.0-12.0)
[2022-06-20 05:05] LABS: ALT 18 U/L (4-34); AST 19 U/L (14-36); African American GFR (CKD) >90 (>60 ml/min/1.73 sqM); Albumin 2.8 g/dL (3.5-5.0); Alkaline Phosphatase 136 U/L (38-126); Anion Gap 8 mmol/L; Blood Urea Nitrogen 12 mg/dL (7-17); Calcium 8.4 mg/dL (8.4-10.2); Carbon Dioxide 22 mmol/L (22-30); Chloride 99 mmol/L (98-107); Glucose 113 mg/dL (74-99); Non-African American GFR(CKD) >90 (>60 ml/min/1.73 sqM); Potassium 3.8 mmol/L (3.5-5.1); Sodium 129 mmol/L (137-145); Total Bilirubin 0.9 mg/dL (0.2-1.3); Total Protein 5.5 g/dL (6.3-8.2)
[2022-06-20] MEDS ORDERED: SODIUM CHLORIDE 0.9% 1,000 ML IV ONE (05:40)
--- NOTE | 2022-06-20 07:19 | ED ---
Arrhythmia/Palpitations HPI - General Chief Complaint: Arrhythmia/Palpitations Stated Complaint: Racing Heart, Dehydration Time Seen by Provider: 06/20/22 04:00 Source: patient Mode of arrival: ambulatory Limitations: no limitations - History of Present Illness Initial Comments: 67 year old female with past medical history of metastatic ovarian cancer, bowel resection with ileostomy who presents emergency Department with palpitations. States that she woke up at 12:30 and her heart was racing and she felt flushed. She went back to sleep and woke up at 3 AM with similar symptoms. Denies any chest pain. No history of cardiac disease. Does have history of DVT and has been taking her anticoagulation as directed without any missed doses. She rajan es any fevers, chills or cough. No shortness of breath. Does have some lower extremity swelling however states that this is improved. The patient was discharged home from the hospital she was taking atenolol. States that she has not had this medication in a day and a half because of her low blood pressures. Denies black or bloody stools. Patient has decreased. No other alleviating, precipitating or modifying factors - Related Data Home Medications Medication Instructions Recorded Confirmed Folic Acid 1 mg PO DAILY 03/10/20 05/07/22 Magnesium Oxide 400 mg PO BID-W/MEALS 03/10/20 05/07/22 Potassium Chloride ER [K-Dur 20] 20 meq PO AC-BRKFST 03/10/20 05/07/22 Potassium Chloride ER [K-Dur 20] 40 meq PO AC-SUPPER 03/10/20 05/07/22 atenoloL [Tenormin] 25 mg PO DAILY 03/10/20 05/07/22 Cholecalciferol [Vitamin D3 (25 75 mcg PO DAILY 01/14/22 05/07/22 Mcg = 1000 Iu)] polyethylene glycoL 3350 [Miralax] 8.5 gm PO BID PRN 01/18/22 05/07/22 Apixaban [Eliquis] 5 mg PO BID 05/07/22 05/07/22 HYDROmorphone [Dilaudid] 2 mg PO DAILY PRN 05/07/22 05/07/22 Previous Rx's Medication Instructions Recorded Acetaminophen Tab [Tylenol] 650 mg PO Q6HR PRN tab 04/05/22 Ferrous Sulfate [Iron (65 MG 325 mg PO DAILY #90 tab 04/05/22 Elemental)] Simethicone Chew [Mylicon Chew] 80 mg PO QID PRN tab 05/12/22 Allergies Allergy/AdvReac Type Severity Reaction Status Date / Time Iodine and Iodide Containing Allergy Severe Anaphylaxis Verified 06/20/22 03:56 Produc adhesive tape Allergy red skin Verified 06/20/22 03:56 carboplatin Allergy Rash/Hives Verified 06/20/22 03:56 iodine Allergy Rapid Verified 06/20/22 03:56 Heart Rate morphine Allergy Nausea & Verified 06/20/22 03:56 Vomiting paclitaxel [From Taxol] Allergy Dyspnea, Verified 06/20/22 03:56 ELEV HR clavulanic acid AdvReac Nausea & Verified 06/20/22 03:56 [From Augmentin] Vomiting & Diarrhea codeine AdvReac Nausea & Verified 06/20/22 03:56 Vomiting & Diarrhea Review of Systems ROS Statement: Those systems with pertinent positive or pertinent negative responses have been documented in the HPI. ROS Other: All systems not noted in ROS Statement are negative. Past Medical History Past Medical History: Cancer, Deep Vein Thrombosis (DVT), Hypertension, Skin Disorder Additional Past Medical History / Comment(s): seasonal allergies, hx ovarian cancer, mild diverticulitis, bowel obstruction (post op), small hiatal hernia, mild psoriasis or eczema, ovarian cancer reoccurence (chemo, 04/14), DVT in righ t groin taking Eliquis at home(04/02/2022) History of Any Multi-Drug Resistant Organisms: None Reported Past Surgical History: Bowel Resection, Cholecystectomy, Hernia Repair, Hysterectomy Additional Past Surgical History / Comment(s): left hand tendon surgery, exploratory abdominal surgeries and ovarian ca (DEBULKING SX X2), powerr port insertion, colostomy with reversal, colostomy Past Anesthesia/Blood Transfusion Reactions: Motion Sickness, Postoperative Nausea & Vomiting (PONV) Additional Past Anesthesia/Blood Transfusion Reaction / Comment(s): STATES USUALLY HAS SCOPOLAMINE PATCH PRE OP Past Psychological History: No Psychological Hx Reported Smoking Status: Never smoker Past Alcohol Use History: None Reported Past Drug Use History: None Reported - Past Family History Mother Family Medical History: Coronary Artery Disease (CAD), Diabetes Mellitus, Thyroid Disorder Father Family Medical History: Coronary Artery Disease (CAD), Diabetes Mellitus General Exam Limitations: no limitations General appearance: alert, in no apparent distress Head exam: Present: atraumatic, normocephalic, normal inspection Eye exam: Present: normal appearance, PERRL, EOMI. Absent: scleral icterus, conjunctival injection, periorbital swelling ENT exam: Present: normal exam, mucous membranes moist Neck exam: Present: normal inspection. Absent: tenderness, meningismus, lymphadenopathy Respiratory exam: Present: normal lung sounds bilaterally. Absent: respiratory distress, wheezes, rales, rhonchi, stridor Cardiovascular Exam: Present: normal rhythm, tachycardia, normal heart sounds. Absent: systolic murmur, diastolic murmur, rubs, gallop, clicks GI/Abdominal exam: Present: soft, normal bowel sounds, other (ileostomy left side abdomen). Absent: distended, tenderness, guarding, rebound, rigid Extremities exam: Present: normal inspection, full ROM, normal capillary refill. Absent: tenderness, pedal edema, joint swelling, calf tenderness Back exam: Present: normal inspection Neurological exam: Present: alert, oriented X3, CN II-XII intact Psychiatric exam: Present: normal affect, normal mood Skin exam: Present: warm, dry, intact, normal color. Absent: rash Course Vital Signs 06/20/22 06/20/22 06/20/22 03:57 06:39 08:16 Temperature 98.5 F Pulse Rate 129 H 96 80 Respiratory 18 18 18 Rate Blood Pressure 122/78 134/78 126/78 O2 Sat by Pulse 97 100 100 Oximetry EKG Findings - EKG Comments: EKG Findings:: EKG demonstrates sinus tachycardia with a rate of 119. LA interval 140. QRS 70. QTC of 363. No acute ST segment elevations or depressions Medical Decision Making - Lab Data Result diagrams: 06/20/22 04:41 06/20/22 04:41 Lab Results 06/20/22 06/20/22 06/20/22 Range/Units 04:41 04:41 04:41 WBC 4.9 (3.8-10.6) k/uL RBC 3.24 L (3.80-5.40) m/uL Hgb 10.0 L (11.4-16.0) gm/dL Hct 28.4 L (34.0-46.0) % MCV 87.7 (80.0-100.0) fL MCH 31.0 (25.0-35.0) pg MCHC 35.3 (31.0-37.0) g/dL RDW 18.4 H (11.5-15.5) % Plt Count 163 (150-450) k/uL MPV 9.2 Neutrophils % 60 % Lymphocytes % 28 % Monocytes % 7 % Eosinophils % 2 % Basophils % 1 % Neutrophils # 3.0 (1.3-7.7) k/uL Lymphocytes # 1.4 (1.0-4.8) k/uL Monocytes # 0.3 (0-1.0) k/uL Eosinophils # 0.1 (0-0.7) k/uL Basophils # 0.0 (0-0.2) k/uL Hypochromasia Slight Poikilocytosis Moderate Anisocytosis Slight PT 11.1 (9.0-12.0) sec INR 1.0 (<1.2) APTT 26.9 (22.0-30.0) sec Sodium 129 L (137-145) mmol/L Potassium 3.8 (3.5-5.1) mmol/L Chloride 99 (98-107) mmol/L Carbon Dioxide 22 (22-30) mmol/L Anion Gap 8 mmol/L BUN 12 (7-17) mg/dL Creatinine 0.56 (0.52-1.04) mg/dL Est GFR (CKD-EPI)AfAm >90 (>60 ml/min/1.73 sqM) Est GFR (CKD-EPI)NonAf >90 (>60 ml/min/1.73 sqM) Glucose 113 H (74-99) mg/dL Calcium 8.4 (8.4-10.2) mg/dL Total Bilirubin 0.9 (0.2-1.3) mg/dL AST 19 (14-36) U/L ALT 18 (4-34) U/L Alkaline Phosphatase 136 H (38-126) U/L Troponin I (0.000-0.034) ng/mL Total Protein 5.5 L (6.3-8.2) g/dL Albumin 2.8 L (3.5-5.0) g/dL TSH (0.465-4.680) mIU/L 06/20/22 06/20/22 Range/Units 04:41 06:24 WBC (3.8-10.6) k/uL RBC (3.80-5.40) m/uL Hgb (11.4-16.0) gm/dL Hct (34.0-46.0) % MCV (80.0-100.0) fL MCH (25.0-35.0) pg MCHC (31.0-37.0) g/dL RDW (11.5-15.5) % Plt Count (150-450) k/uL MPV Neutrophils % % Lymphocytes % % Monocytes % % Eosinophils % % Basophils % % Neutrophils # (1.3-7.7) k/uL Lymphocytes # (1.0-4.8) k/uL Monocytes # (0-1.0) k/uL Eosinophils # (0-0.7) k/uL Basophils # (0-0.2) k/uL Hypochromasia Poikilocytosis Anisocytosis PT (9.0-12.0) sec INR (<1.2) APTT (22.0-30.0) sec Sodium (137-145) mmol/L Potassium (3.5-5.1) mmol/L Chloride (98-107) mmol/L Carbon Dioxide (22-30) mmol/L Anion Gap mmol/L BUN (7-17) mg/dL Creatinine (0.52-1.04) mg/dL Est GFR (CKD-EPI)AfAm (>60 ml/min/1.73 sqM) Est GFR (CKD-EPI)NonAf (>60 ml/min/1.73 sqM) Glucose (74-99) mg/dL Calcium (8.4-10.2) mg/dL Total Bilirubin (0.2-1.3) mg/dL AST (14-36) U/L ALT (4-34) U/L Alkaline Phosphatase (38-126) U/L Troponin I <0.012 (0.000-0.034) ng/mL Total Protein (6.3-8.2) g/dL Albumin (3.5-5.0) g/dL TSH 4.190 (0.465-4.680) mIU/L Disposition Clinical Impression: Tachycardia, Dehydration Disposition: HOME SELF-CARE Condition: Stable Instructions (If sedation given, give patient instructions): Heart Palpitations (ED) Additional Instructions: Increase fluid intake. Notify your oncologist. Return for any new or worsening symptoms Is patient prescribed a controlled substance at d/c from ED?: No Referrals: Dina Martines MD [Primary Care Provider] - 1-2 days Time of Disposition: 07:47
[2022-06-20 08:18] VITALS: BP 126/78; PULSE 80
== END 2022-06-20 08:18 | disposition home or self-care (01) ==
LOC: EC 03:54
DX: R00.0 Tachycardia, unspecified (principal); E86.0 Dehydration; I10 Essential (primary) hypertension; I82.409 Acute embolism and thrombosis of unspecified deep veins of unspecified lower extremity; Z79.899 Other long term (current) drug therapy; Z88.8 Allergy status to other drugs, medicaments and biological substances; Z88.5 Allergy status to narcotic agent; Z88.1 Allergy status to other antibiotic agents
CPT/HCPCS: 36415; 80053; 84443; 84484; 85025; 85610; 85730; 93005; 96360; 96361; 99285

== ENCOUNTER 2022-07-02 07:24 | Inpatient (IN) | payer MEDICARE ==
[2022-07-02] MEDS ORDERED: SODIUM CHLORIDE 0.9% 500 ML 500 ML IV ONE (07:39)
[2022-07-02] MEDS ORDERED: SODIUM CHLORIDE 0.9% 1,000 ML IV ONE ×2 (07:39→09:11)
[2022-07-02 08:15] LABS: Anisocytosis Slight; Basophils % (A) 0 %; Eosinophils # (A) 0.1 k/uL (0-0.7); Eosinophils % (A) 1 %; HCT 32.6 % (34.0-46.0); HGB 10.8 gm/dL (11.4-16.0); Hypochromasia Slight; Lymphocytes % (A) 22 %; MCH 30.2 pg (25.0-35.0); MCHC 33.1 g/dL (31.0-37.0); MCV 91.1 fL (80.0-100.0); Monocytes # (A) 0.5 k/uL (0-1.0); Monocytes % (A) 5 %; Neutrophils # (A) 6.2 k/uL (1.3-7.7); Neutrophils % (A) 68 %; Poikilocytosis Moderate; RBC 3.58 m/uL (3.80-5.40); RDW 18.4 % (11.5-15.5); WBC 9.1 k/uL (3.8-10.6)
[2022-07-02 08:20] LABS: Platelet Count 356 k/uL (150-450)
--- NOTE | 2022-07-02 08:21 | ED ---
General Adult HPI - General Chief complaint: Weakness Stated complaint: Dehydration Time Seen by Provider: 07/02/22 07:25 Source: patient, RN notes reviewed, old records reviewed Mode of arrival: wheelchair Limitations: no limitations - History of Present Illness Initial comments: This is a 67-year-old female who presents emergency department with past medical history significant for ovarian cancer as well as an ileostomy. Patient states she had the ileostomy done about a month ago. Patient states she has been having consistent diarrhea and she was becoming dehydrated. 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 Patient states she notices her heart races when she gets dehydrated. Patient also notices she becomes weaker when she is dehydrated. Patient states she tries to drink enough fluids but she doesn't think she is keeping up. Patient denies any fever chills or cough per patient denies chest pain difficult breathing shortness of breath per patient denies any abdominal pain patient denies any nausea vomiting. Patient denies any lightheadedness or dizziness. - Related Data Home Medications Medication Instructions Recorded Confirmed Folic Acid 1 mg PO DAILY 03/10/20 05/07/22 Magnesium Oxide 400 mg PO BID-W/MEALS 03/10/20 05/07/22 Potassium Chloride ER [K-Dur 20] 20 meq PO AC-BRKFST 03/10/20 05/07/22 Potassium Chloride ER [K-Dur 20] 40 meq PO AC-SUPPER 03/10/20 05/07/22 atenoloL [Tenormin] 25 mg PO DAILY 03/10/20 05/07/22 Cholecalciferol [Vitamin D3 (25 75 mcg PO DAILY 01/14/22 05/07/22 Mcg = 1000 Iu)] polyethylene glycoL 3350 [Miralax] 8.5 gm PO BID PRN 01/18/22 05/07/22 Apixaban [Eliquis] 5 mg PO BID 05/07/22 05/07/22 HYDROmorphone [Dilaudid] 2 mg PO DAILY PRN 05/07/22 05/07/22 Previous Rx's Medication Instructions Recorded Acetaminophen Tab [Tylenol] 650 mg PO Q6HR PRN tab 04/05/22 Ferrous Sulfate [Iron (65 MG 325 mg PO DAILY #90 tab 04/05/22 Elemental)] Simethicone Chew [Mylicon Chew] 80 mg PO QID PRN tab 05/12/22 Allergies Allergy/AdvReac Type Severity Reaction Status Date / Time Iodine and Iodide Containing Allergy Severe Anaphylaxis Verified 07/02/22 07:34 Produc adhesive tape Allergy red skin Verified 07/02/22 07:34 carboplatin Allergy Rash/Hives Verified 07/02/22 07:34 iodine Allergy Rapid Verified 07/02/22 07:34 Heart Rate morphine Allergy Nausea & Verified 07/02/22 07:34 Vomiting paclitaxel [From Taxol] Allergy Dyspnea, Verified 07/02/22 07:34 ELEV HR clavulanic acid AdvReac Nausea & Verified 07/02/22 07:34 [From Augmentin] Vomiting & Diarrhea codeine AdvReac Nausea & Verified 07/02/22 07:34 Vomiting & Diarrhea Review of Systems ROS Statement: Those systems with pertinent positive or pertinent negative responses have been documented in the HPI. ROS Other: All systems not noted in ROS Statement are negative. Past Medical History Past Medical History: Cancer, Deep Vein Thrombosis (DVT), Hypertension, Skin Disorder Additional Past Medical History / Comment(s): seasonal allergies, hx ovarian cancer, mild diverticulitis, bowel obstruction (post op), small hiatal hernia, mild psoriasis or eczema, ovarian cancer reoccurence (chemo, 04/14), DVT in right groin taking Eliquis at home(04/02/2022) History of Any Multi-Drug Resistant Organisms: None Reported Past Surgical History: Bowel Resection, Cholecystectomy, Hernia Repair, Hysterectomy Additional Past Surgical History / Comment(s): left hand tendon surgery, exploratory abdominal surgeries and ovarian ca (DEBULKING SX X2), powerr port insertion, colostomy with reversal, colostomy Past Anesthesia/Blood Transfusion Reactions: Motion Sickness, Postoperative Nausea & Vomiting (PONV) Additional Past Anesthesia/Blood Transfusion Reaction / Comment(s): STATES USU ALLY HAS SCOPOLAMINE PATCH PRE OP Past Psychological History: No Psychological Hx Reported Smoking Status: Never smoker Past Alcohol Use History: None Reported Past Drug Use History: None Reported - Past Family History Mother Family Medical History: Coronary Artery Disease (CAD), Diabetes Mellitus, Thyroid Disorder Father Family Medical History: Coronary Artery Disease (CAD), Diabetes Mellitus General Exam - General Exam Comments Initial Comments: GENERAL: Patient is well-developed and well-nourished. Patient is nontoxic and well-hydrated and is in no acute distress. ENT: Neck is soft and supple. No significant lymphadenopathy is noted. Oropharynx is clear. Dry mucous membranes. Neck has full range of motion without eliciting any pain. EYES: The sclera were anicteric and conjunctiva were pink and moist. Extraocular movements were intact and pupils were equal round and reactive to light. Eyelids were unremarkable. PULMONARY: Unlabored respirations. Good breath sounds bilaterally. No audible rales rhonchi or wheezing was noted. CARDIOVASCULAR: Patient is tachycardic at about 115 beats a minute ABDOMEN: Soft and nontender with normal bowel sounds. No palpable organomegaly was noted. There is no palpable pulsatile mass. SKIN: Skin is clear with no lesions or rashes and otherwise unremarkable. NEUROLOGIC: Patient is alert and oriented x3. Cranial nerves II through XII are grossly intact. Motor and sensory are also intact. Normal speech, volume and content. Symmetrical smile. MUSCULOSKELETAL: Normal extremities with adequate strength and full range of motion. No lower extremity swelling or edema. No calf tenderness. LYMPHATICS: No significant lymphadenopathy is noted PSYCHIATRIC: Normal psychiatric evaluation. Limitations: no limitations Course Vital Signs 07/02/22 07:26 Temperature 98.3 F Pulse Rate 115 H Respiratory 16 Rate Blood Pressure 116/74 O2 Sat by Pulse 98 Oximetry Medical Decision Making - Medical Decision Making EKG was interpreted by me. It shows a sinus tachycardia at 101 bpm MI interval 172 QRS is 67 QT interval is 322 QTC is 380. Patient's EKG shows no ST segment elevation or depression. Urine showed no infection so started the patient on Rocephin. Patient's pain eased was also started the patient on magnesium. Patient also was somewhat dehydrated so the patient received a liter and a half normal saline fluid. I spoke with [facility] he agreed to admit the patient and the patient wrote admitting orders. - Lab Data Result diagrams: 07/02/22 07:41 07/02/22 07:41 Lab Results 07/02/22 07/02/22 07/02/22 Range/Units 07:41 07:41 07:41 WBC 9.1 (3.8-10.6) k/uL RBC 3.58 L (3.80-5.40) m/uL Hgb 10.8 L (11.4-16.0) gm/dL Hct 32.6 L (34.0-46.0) % MCV 91.1 (80.0-100.0) fL MCH 30.2 (25.0-35.0) pg MCHC 33.1 (31.0-37.0) g/dL RDW 18.4 H (11.5-15.5) % Plt Count 356 D (150-450) k/uL MPV 9.0 Neutrophils % 68 % Lymphocytes % 22 % Monocytes % 5 % Eosinophils % 1 % Basophils % 0 % Neutrophils # 6.2 (1.3-7.7) k/uL Lymphocytes # 2.0 (1.0-4.8) k/uL Monocytes # 0.5 (0-1.0) k/uL Eosinophils # 0.1 (0-0.7) k/uL Basophils # 0.0 (0-0.2) k/uL Hypochromasia Slight Poikilocytosis Moderate Anisocytosis Slight Sodium 133 L (137-145) mmol/L Potassium 3.7 (3.5-5.1) mmol/L Chloride 97 L (98-107) mmol/L Carbon Dioxide 21 L (22-30) mmol/L Anion Gap 15 mmol/L BUN 17 (7-17) mg/dL Creatinine 0.65 (0.52-1.04) mg/dL Est GFR (CKD-EPI)AfAm >90 (>60 ml/min/1.73 sqM) Est GFR (CKD-EPI)NonAf >90 (>60 ml/min/1.73 sqM) Glucose 194 H (74-99) mg/dL Calcium 8.7 (8.4-10.2) mg/dL Magnesium 0.9 L* (1.6-2.3) mg/dL Total Bilirubin 0.6 (0.2-1.3) mg/dL AST 28 (14-36) U/L ALT 30 (4-34) U/L Alkaline Phosphatase 154 H (38-126) U/L Total Protein 6.5 (6.3-8.2) g/dL Albumin 3.5 (3.5-5.0) g/dL Urine Color Yellow Urine Appearance Cloudy H (Clear) Urine pH 6.5 (5.0-8.0) Ur Specific Yulan 1.018 (1.001-1.035) Urine Protein 1+ H (Negative) Urine Glucose (UA) Negative (Negative) Urine Ketones Negative (Negative) Urine Blood Trace H (Negative) Urine Nitrite Negative (Negative) Urine Bilirubin Negative (Negative) Urine Urobilinogen <2.0 (<2.0) mg/dL Ur Leukocyte Esterase Large H (Negative) Urine RBC 12 H (0-5) /hpf Urine WBC 154 H (0-5) /hpf Urine WBC Clumps Few H (None) /hpf Ur Squamous Epith Cells 6 H (0-4) /hpf Urine Bacteria Rare H (None) /hpf Urine Mucus Rare H (None) /hpf Urine Yeast (Budding) Moderate H (None) /hpf Disposition Clinical Impression: Hypomagnesemia, Hyponatremia, Dehydration, Urinary tract infection Disposition: ADMITTED IP TO THIS HOSP Referrals: None,Stated [Primary Care Provider] - 1-2 days Time of Disposition: 09:09
[2022-07-02 08:24] LABS: AST 28 U/L (14-36); African American GFR (CKD) >90 (>60 ml/min/1.73 sqM); Albumin 3.5 g/dL (3.5-5.0); Alkaline Phosphatase 154 U/L (38-126); Anion Gap 15 mmol/L; Blood Urea Nitrogen 17 mg/dL (7-17); Calcium 8.7 mg/dL (8.4-10.2); Carbon Dioxide 21 mmol/L (22-30); Chloride 97 mmol/L (98-107); Glucose 194 mg/dL (74-99); Non-African American GFR(CKD) >90 (>60 ml/min/1.73 sqM); Potassium 3.7 mmol/L (3.5-5.1); Sodium 133 mmol/L (137-145); Total Bilirubin 0.6 mg/dL (0.2-1.3); Total Protein 6.5 g/dL (6.3-8.2)
[2022-07-02 08:31] LABS: ALT 30 U/L (4-34)
[2022-07-02 08:33] LABS: Appearance,Urine Cloudy (Clear); Bacteria,Urine Rare /hpf; Bilirubin,Urine Negative (Negative); Blood,Urine Trace (Negative); Budding Yeast,Urine Moderate /hpf; Color,Urine Yellow; Glucose,Urine (UA) Negative (Negative); Ketones,Urine Negative (Negative); Leukocyte Esterase,Urine Large (Negative); Mucus,Urine Rare /hpf; Nitrite,Urine Negative (Negative); PH, Urine 6.5 (5.0-8.0); Protein,Urine 1+ (Negative); RBC,Urine 12 /hpf (0-5); Specific Gravity,Urine 1.018 (1.001-1.035); Squamous Epithelial Cell,Urine 6 /hpf (0-4); Urobilinogen,Urine <2.0 mg/dL (<2.0); WBC,Urine 154 /hpf (0-5)
[2022-07-02 08:38] LABS: Magnesium 0.9 mg/dL (1.6-2.3)
[2022-07-02] MEDS ORDERED: cefTRIAXone IN SWFI 1,000 MG/10 ML SYRINGE IVP STA (09:07)
[2022-07-02] MEDS ORDERED: Magnesium Replacement Protocol 1 EACH MISC MISCELLANE PRN (09:09)
[2022-07-02] MEDS ORDERED: APIXABAN 5 MG TAB PO STA (09:32)
[2022-07-02] MEDS: MAGNESIUM SULFATE-D5W PMX 1 GM in DEXTROSE/WATER 1 100ML.BAG IVPB SCH ×4 (09:55→15:13)
[2022-07-02] MEDS ORDERED: SIMETHICONE 80 MG CHEWABLE PO PRN (12:31)
[2022-07-02] MEDS ORDERED: ACETAMINOPHEN TAB 325 MG TAB PO PRN (12:31)
[2022-07-02] MEDS ORDERED: HYDROmorphone 2 MG TAB PO PRN (12:31)
--- NOTE | 2022-07-02 13:11 | HP ---
HISTORY AND PHYSICAL CHIEF COMPLAINTS: Weakness and dehydration. HISTORY OF PRESENT ILLNESS: This is a 67-year-old woman who had a complicated past medical history including multiple abdominal surgeries and DVT, hypertension, history of ovarian cancer, bowel obstruction, had a recent surgery in [facility] and the patient was seen by [facility] doctors recently, but the patient had continued diarrhea after surgery from the ileostomy site. The patient is getting extremely weak and dehydrated, patient admitted for further evaluation and treatment. The patient also had hypomagnesemia. There is no history any headache or loss of consciousness. PAST MEDICAL HISTORY: History of ovarian cancer, history of multiple abdominal surgeries, bowel obstruction, DVT, rest of history reviewed. Chart reviewed. HOME MEDICATIONS: Reviewed include Tylenol, doses and rest of medications reviewed. ALLERGIES: Reviewed include iodine, the rest is reviewed. FAMILY HISTORY: History of CAD, diabetes mellitus. SOCIAL HISTORY: No history of smoking, no history of alcohol. REVIEW OF SYSTEMS: A 14-point review is negative as mentioned earlier. PHYSICAL EXAMINATION: VITAL SIGNS: Pulse 80, blood pressure 111/69, AND respirations 18. HEENT: Conjunctivae normal. Oral mucosa is dry. NECK: No jugular venous distention. CARDIOVASCULAR: S1, S2 muffled. RESPIRATIONS: Clear to auscultation. ABDOMEN: Soft. Ostomy site, some diarrhea stools present, otherwise recent surgery appears to be healing well. Mildly distended, nontender. No guarding, no rigidity. No rebound tenderness. LEGS: No edema, no cyanosis. NERVOUS SYSTEM: No focal deficit. SKIN: No ulcer, rash, bleeding. JOINTS: No active deforming arthropathy. LABS: WBC 9.2, hemoglobin 10.8, sodium 133. ASSESSMENT: 1. Severe diarrhea, dehydration and electrolyte imbalance. 2. Hypomagnesemia. 3. Acute urinary tract infection, present on admission. 4. History of recent bowel surgery and ileostomy. 5. History of multiple abdominal surgeries and ovarian cancer. 6. History of DVT. 7. History of multiple medical issues. RECOMMENDATIONS: This 67-year-old woman presented with multiple complex medical issues. At this time, we will monitor the patient closely. We will initiate IV fluids, empiric antibiotics and given surgical consultation. I have also recommended a CT scan of the abdomen, pelvis, C difficile, symptomatic treatment and resume the home medications. Prognosis is guarded because of multiple complex medical issues. Further recommendations to follow. Discussed with the patient extensively. MMODL / IJN: [id number] /
[2022-07-02] MEDS: CHOLESTYRAMINE (WITH SUGAR) 4 GM PACKET PO SCH ×3 (13:38→21:12)
[2022-07-02] MEDS: atenoloL 25 MG TAB PO SCH (13:42)
--- NOTE | 2022-07-02 17:04 | P.CONS ---
History of Present Illness - Reason for Consult Consult date: 07/02/22 Ovarian cancer Requesting physician: Marleen Arredondo - Chief Complaint Weakness and dehydration - History of Present Illness Ms. Kent is a very pleasant 67 yo female with history of recurrent ovarian cancer s/p multiple lines of therapy who is here for dehydration. She had a history of recurrent bowel obstructions and subsequently underwent ileostomy in 05/2022. Has been having persisent diarrhea and here for dehydration. Patient states that she was recently admitted at [facility] and underwent ileostomy with Dr. Castillo. She was discharged couple weeks ago and has been struggling with diarrhea since then. She recently had a computed tomography scan at [facility]. She has been taking Imodium 4 mg every 6 hours consistently. It sounds like she made of tried Lomotil however did not benefit from this. Dr. Castillo has been managing her diarrhea. She has been taking oral magnesium twice a day however when she presented to the hospital due to increased weakness, found to have very low magnesium level. Also found to have UA consistent with UTI, started on antibiotics. She also has been struggling with weight loss over the last few months due to her bowel obstruction followed by surgery. She has been trying to eat as much as possible so that she can gain weight. Tolerating her diet very well. Since coming and she has received hydration and IV magn esium and feels much better. Eager to go home. Onc history: The patient was diagnosed with stage IIc ovarian cancer in .She had debulking surgery on 07/29/2008 followed by 6 cycles of adjuvant Carbo/Taxol completed on 12/17/2008.She did well until when she was found to have pelvic recurrence.She had another debulking surgery in .She started Carbo/Taxol weekly on 10/26/2011 and completed 6 cycles on 03/28/2012. She had a repeat CT scan on 04/11/2012 which was normal. CA125 on 04/18/2012 was 10.1. CA125 in 06/2012 was 11.8. Mediport was removed on 05/17/2012. Repeat CT scan of CAP on 10/14/2012 was normal. CA125 on 01/31/2013 was 10.2 CA125 on 05/30/[address] scan of chest/abdomen/pelvis on 05/01/[address] scan of CAP on 10/30/2013 was negative for recurrence. Repeat CT scan of chest/abdomen/pelvis on 05/07/2014 revealed a new right adnexal mass. On 06/08/2014,she had her third debulking surgery at [facility]. Echocardiogram on 07/01/2014 revealed normal EF. She started carboplatin/doxil on 07/09/2014. On 09/01/2014,CA125 was 5.9. CA125 was 10 on 11/20/2014. She completed 6 cycles of carboplatin/doxil on 11/26/2014. Repeat CT scan of chest/abdomen/pelvis on 12/10/2014 revealed no evidence of recurrence. CA125 on 03/19/2015 was 9.5. CA125 on 04/14/[address] scan of chest/abdomen/pelvis 06/17/2015 revealed no evidence of recurrence. CA125 on 06/25/2015 was 9.4. Colonoscopy in was unremarkable,however,could not pass through due to old obstruction, On 09/14/2015,CA125 was 11.2. On 11/20/2015,CT scan of chest/abdomen/pelvis was negative for metastatic disease. On 12/14/2015,CA125 was 10.4 On 06/06/2016,repeat CT scan of abdomen/pelvis revealed thickening mid sigmoid,possible under distension,?serosal mets. On 06/14/2016,CA125 was 17.3 On PET scan on 06/25/2016,revealed uptake at sigmoid colon,colonoscopy was normal. On 09/13/2016,CA125 was 20.7 On 11/30/[address] scan of chest/abdomen/pelvis revealed no changes. On 12/05/2016,CA125 was 22.1 On 03/01/2017,repeat CT scan of chest/abdomen/pelvis revealed stable lesion at sigmoid. On 03/10/2017,PET scan revealed suspicious uptake in sigmoid,otherwise negative,repeat colonoscopy was negative for intracolonic lesion. 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 She started carbo/weekly taxol on 07/05/2017,her treatment was interupted due to recurrent abdominal wound infection. She had day #1 of cycle#4 of carboplatin/taxol on 11/01/2017,she had hives,elevated BP after carboplatin which resolved with steroids. She continued with weekly taxol,has had 12 weeks,last treatment on 11/29/2017,treatment was interrupted and delayed due to recurrent abdominal wound infection. On 12/06/2017 CA125 was 12.2 On 01/10/2018,repeat CT scan of chest/abdomen/pelvis revealed no recurrence. On 01/11/2018,CA125 was 12.5 On 04/11/2018,CA125 was 12.1. On 07/04/[address] scan of chest/abdomen/pelvis revealed no evidence of recurrence. On 07/16/2018,CA125 was 11.7. On 10/22/2018,CA125 was 13.9 On 01/09/2019,repeat CT scan of chest/abdomen/pelvis revealed new soft tissue lesion in upper pelvis,highly suspicious for recurrence. On 01/14/2019,CA125 was 59.1 and up to 121 on 02/13/2019. She started carboplatin/gemzar,under the care of Dr Castillo,completed 6 cycles on 08/01/2019. On -,repeat CT scan of chest/abdomen/pelvis revealed stable finding on 08/15/2019,CA125 was down to 10.2 and was started on maintenance rucarparib. In January/2020,CA125 went up to 31. Repeat CT scan of chest/abdomen/pelvis on 02/11/2020,revealed slight increase in soft tissue density in right adnexa up to 2.4cm. She had a PET scan in 03/2020 which revealed only lesion in right adnexa,she ended up having XRT to it,completed on 05/07/2020. Repeat CT scan of chest/abdomen/pelvis on 06/17/2020 revealed stable right anexa lesion,changes more consistent with post XRT changes (reviewed with radiologist) On 09/14/2020,CA125 was 13.9. On 12/09/2020,CT scan of chest/abdomen/pelvis revealed 3 small lung nodules,the largest 7mm in RML On 12/11/2020,CA125 was 22.0 On 01/22/2021,CA 125 was 31.1 On 03/07/2021,CT scan of chest/abdomen/pelvis revealed slightyl increase in lung nodules and small new ones. On 03/16/2021,CA125 was 91.4,recurparib was discontinued. On 04/21/2021,she started cisplatin/gemzar On 06/04/2021,CA125 was 89.2 On 06/20/2021 revealed slight increase in size lung nodules and pelvic lesion. On 06/25/2021 CA125 was 124 On 06/30/2021,she started weekly taxol. On 08/17/2021,CA125 was 99 On 09/08/2021,CA125 was 105. On 09/26/2021,repeat CT scan of chest/abdomen/pelvis revealed evidence of progressive adenopathies in pelvis,lung nodules are smaller,evidence of right hydronephrosis. Taxol was discontinued She was seen by urology and had stent placement. On 10/04/2021,CA125 was 178. On 10/13/2021,she started alimta regimen,however,her insurance denied it. She resumed alimta on 11/25/2021. On 12/16/2021,CA125 was 566. On 12/28/2021,CA125 was 578. Repeat PET scan on 01/10/2022 revealed evidence of disease progression,enlarging right pelvic mass,multiple smaller abdominal masses and lung nodules. On 01/25/2022,she started doxil On 02/15/2022,CA125 was 529 On 03/21/2022,repeat PET scan revealed improvement in her disease. On 03/23/2022,CA125 was 418. She developed RLE DVT on 04/04/2022,involving right common femoral vein, during admission for SOB and fevers, treated for pneumonia and started on AC. On 04/18/2022,CA125 was 341. 04/20/22: Last doxil given. 04/2022: admitted for large bowel obstruction 05/15/22: Seen in clinic by Dr. Zayas. She feels tired,recently had recurrent bowel obstruction,had CT scan of abdomen.plevis revealed mechanical obstruction at signoid level,she is currently on liquid diet,has small soild bowel movement,takes miralax every other day,no nausea or vomting,she is currently on eliquis and tolerating it well,has some swelling in RLE. Recommendation was likely need for colostomy due to recurrent bowel obstruction. Past Medical History Past Medical History: Cancer, Deep Vein Thrombosis (DVT), Hypertension, Skin Di sorder Additional Past Medical History / Comment(s): seasonal allergies, hx ovarian cancer, mild diverticulitis, bowel obstruction (post op), small hiatal hernia, mild psoriasis or eczema, ovarian cancer reoccurence (chemo, 04/14), DVT in right groin taking Eliquis at home(04/02/2022) History of Any Multi-Drug Resistant Organisms: None Reported Past Surgical History: Bowel Resection, Cholecystectomy, Hernia Repair, Hystere ctomy Additional Past Surgical History / Comment(s): left hand tendon surgery, exploratory abdominal surgeries and ovarian ca (DEBULKING SX X2), powerr port insertion, colostomy with reversal, current ileostomy from 06/04/2022 Past Anesthesia/Blood Transfusion Reactions: Motion Sickness, Postoperative Nausea & Vomiting (PONV) Additional Past Anesthesia/Blood Transfusion Reaction / Comm: STATES USUALLY HAS SCOPOLAMINE PATCH PRE OP Past Psychological History: No Psychological Hx Reported Additional Psychological History / Comment(s): , is supportive. Works for a local business. Lifelong nonsmoker. Denies significant alcohol use or recreational drug use. No experience. No recent international travel pet dogs at home Smoking Status: Never smoker Past Alcohol Use History: None Reported Past Drug Use History: None Reported - Past Family History Mother Family Medical History: Coronary Artery Disease (CAD), Diabetes Mellitus, Thyroid Disorder Father Family Medical History: Coronary Artery Disease (CAD), Diabetes Mellitus Medications and Allergies Home Medications Medication Instructions Recorded Confirmed Type Folic Acid 1 mg PO DAILY 03/10/20 07/02/22 History Magnesium Oxide 400 mg PO BID-W/MEALS 03/10/20 07/02/22 History Potassium Chloride ER [K-Dur 20] 20 meq PO AC-BRKFST 03/10/20 07/02/22 History Potassium Chloride ER [K-Dur 20] 40 meq PO AC-SUPPER 03/10/20 07/02/22 History atenoloL [Tenormin] 25 mg PO DAILY 03/10/20 07/02/22 History Cholecalciferol [Vitamin D3 (25 75 mcg PO DAILY 01/14/22 07/02/22 History Mcg = 1000 Iu)] polyethylene glycoL 3350 [Miralax] 8.5 gm PO BID PRN 01/18/22 07/02/22 History Acetaminophen Tab [Tylenol] 650 mg PO Q6HR PRN tab 04/05/22 07/02/22 Rx Ferrous Sulfate [Iron (65 MG 325 mg PO DAILY #90 tab 04/05/22 07/02/22 Rx Elemental)] Apixaban [Eliquis] 5 mg PO BID 05/07/22 07/02/22 History HYDROmorphone [Dilaudid] 2 mg PO DAILY PRN 05/07/22 07/02/22 History Simethicone Chew [Mylicon Chew] 80 mg PO QID PRN tab 05/12/22 07/02/22 Rx Allergies Allergy/AdvReac Type Severity Reaction Status Date / Time Iodine and Iodide Containing Allergy Severe Anaphylaxis Verified 07/02/22 10:56 Produc adhesive tape Allergy red skin Verified 07/02/22 10:56 carboplatin Allergy Rash/Hives Verified 07/02/22 10:56 iodine Allergy Rapid Verified 07/02/22 10:56 Heart Rate morphine Allergy Nausea & Verified 07/02/22 10:56 Vomiting paclitaxel [From Taxol] Allergy Dyspnea, Verified 07/02/22 10:56 ELEV HR clavulanic acid AdvReac Nausea & Verified 07/02/22 10:56 [From Augmentin] Vomiting & Diarrhea codeine AdvReac Nausea & Verified 07/02/22 10:56 Vomiting & Diarrhea Physical Exam Vitals: Vital Signs Temp Pulse Pulse Resp BP BP Pulse Ox 07/02/22 11:29 97.9 F 80 18 111/69 100 07/02/22 10:01 80 18 114/64 100 07/02/22 07:26 98.3 F 115 H 16 116/74 98 Intake and Output 07/01/22 07/02/22 07/02/22 23:59 06:59 14:59 Other: Weight 49.895 kg Gen.: In no acute distress HEENT: Mucosa moist, no scleral icterus. Neck: Supple Lungs: No respiratory distress. Heart: Regular rate. Abdomen: Soft, nontender, nondistended. Neuro: Alert and oriented 3. Skin: No jaundice. Psych: Appropriate affect. Results CBC & Chem 7: 07/02/22 07:41 07/02/22 07:41 Labs: Abnormal Lab Results - Last 24 Hours (Table) 07/02/22 07/02/22 07/02/22 Range/Units 07:41 07:41 07:41 RBC 3.58 L (3.80-5.40) m/uL Hgb 10.8 L (11.4-16.0) gm/dL Hct 32.6 L (34.0-46.0) % RDW 18.4 H (11.5-15.5) % Sodium 133 L (137-145) mmol/L Chloride 97 L (98-107) mmol/L Carbon Dioxide 21 L (22-30) mmol/L Glucose 194 H (74-99) mg/dL Magnesium 0.9 L* (1.6-2.3) mg/dL Alkaline Phosphatase 154 H (38-126) U/L Urine Appearance Cloudy H (Clear) Urine Protein 1+ H (Negative) Urine Blood Trace H (Negative) Ur Leukocyte Esterase Large H (Negative) Urine RBC 12 H (0-5) /hpf Urine WBC 154 H (0-5) /hpf Urine WBC Clumps Few H (None) /hpf Ur Squamous Epith Cells 6 H (0-4) /hpf Urine Bacteria Rare H (None) /hpf Urine Mucus Rare H (None) /hpf Urine Yeast (Budding) Moderate H (None) /hpf Assessment and Plan Assessment: 1. Diarrhea status post ileostomy 2. Hypomagnesemia and hyponatremia due to diarrhea 3. Dehydration 4. Malnutrition 5. Anemia chronic disease 6. Ovarian cancer, was on chemotherapy however this is been on hold due to her recent surgery Plan: Ms. Kent is a very pleasant 67-year-old female with a long-standing history of ovarian cancer status post multiple lines of treatment under Dr. Zayas, most recently on Doxil however had recurrent hospitalizations for bowel obstruction and ended up undergoing an ileostomy at [facility] with Dr. Castillo in 05/2022. She was discharged only a couple weeks ago. Since her recent surgery she has struggled with diarrhea. Here because of increased weakness due to significant hypomagnesemia from her persistent diarrhea. I recommend that we continue Imodium 4 mg every 6 hours [id number]. Supplement her electrolytes and hydrate. Encouraged to continue with oral intake due to her recent malnutrition and weight loss over the last few months of her bowel obstruction and need for surgery. She has been tolerating her diet. Discharge once her electrolytes are replaced and would recommend that she continue to follow up with Dr. Castillo regarding controlling her diarrhea. She will follow-up with Dr. Zayas as well to see if hydration and possibly electrolyte replacement can be arranged on an outpatient basis. Discussed with patient in detail she is agreeable to the plan. All of her questions were answered.
[2022-07-02] MEDS: MAGNESIUM OXIDE 400 MG TAB PO SCH (17:15)
[2022-07-02] MEDS ORDERED: POTASSIUM CHLORIDE ER 20 MEQ TAB.ER PO SCH (17:30)
[2022-07-02] MEDS: APIXABAN 5 MG TAB PO SCH (21:12)
[2022-07-02] MEDS: LOPERAMIDE 2 MG CAP PO SCH (22:06)
[2022-07-03] MEDS: LOPERAMIDE 2 MG CAP PO SCH ×2 (06:01→12:35)
[2022-07-03] MEDS ORDERED: POTASSIUM CHLORIDE ER 20 MEQ TAB.ER PO SCH (07:30)
[2022-07-03] MEDS: APIXABAN 5 MG TAB PO SCH (08:27)
[2022-07-03] MEDS: CHOLESTYRAMINE (WITH SUGAR) 4 GM PACKET PO SCH ×2 (08:27→12:35)
[2022-07-03] MEDS: atenoloL 25 MG TAB PO SCH (08:27)
[2022-07-03] MEDS: MAGNESIUM OXIDE 400 MG TAB PO SCH (08:27)
[2022-07-03] MEDS ORDERED: CHOLECALCIFEROL 25 MCG (1000 IU) TABLET PO SCH (09:00)
[2022-07-03] MEDS ORDERED: FOLIC ACID 1 MG TAB PO SCH (09:00)
[2022-07-03] MEDS ORDERED: FERROUS SULFATE 325 MG TAB PO SCH (09:00)
[2022-07-03 10:30] LABS: Basophils # (A) 0.03 X 10*3/uL (0.00-0.10); Basophils % (A) 0.5 %; Eosinophils # (A) 0.16 X 10*3/uL (0.04-0.35); Eosinophils % (A) 2.6 %; HCT 30.6 % (37.2-46.3); HGB 9.3 g/dL (12.0-15.0); Lymphocytes # (A) 1.63 X 10*3/uL (0.90-5.00); Lymphocytes % (A) 26.4 %; MCH 29.7 pg (27.0-32.0); MCHC 30.4 g/dL (32.0-37.0); MCV 97.8 fL (80.0-97.0); Mean Platelet Volume 9.8 fL (9.5-12.2); Monocytes # (A) 0.69 X 10*3/uL (0.20-1.00); Monocytes % (A) 11.2 %; NRBC Per 100 WBC 0 /100 WBCS (0.0-0.0); Neutrophils # (A) 3.61 X 10*3/uL (1.80-7.70); Neutrophils % (A) 58.3 %; Platelet Count 277 X 10*3/uL (140-440); RBC 3.13 X 10*6/uL (4.10-5.20); RDW 18.9 % (11.5-14.5); WBC 6.18 X 10*3/uL (4.50-10.00)
[2022-07-03 10:45] LABS: African American GFR (CKD) 110.9 (60.0-200.0); Albumin 3.1 g/dL (3.8-4.9); Albumin/Globulin Ratio 1.19 (1.60-3.17); Anion Gap 9.6 mmol/L (10.00-18.00); BUN/Creat Ratio 18.83 Ratio (12.00-20.00); Blood Urea Nitrogen 11.3 mg/dL (9.0-27.0); Calcium 8.7 mg/dL (8.7-10.3); Carbon Dioxide 21.4 mmol/L (20.0-27.5); Globulin 2.6 g/dL (1.6-3.3); Magnesium 1.8 mg/dL (1.5-2.4); Non-African American GFR(CKD) 95.7 (60.0-200.0); Potassium 4.2 mmol/L (3.5-5.5); Total Bilirubin 0.4 mg/dL (0.30-1.20); Total Protein 5.7 g/dL (6.2-8.2)
[2022-07-03 12:21] VITALS: BP 120/71; PULSE 75; RESP 17; TEMP 98.5
--- NOTE | 2022-07-03 19:25 | P.PN ---
Subjective Progress Note Date: 07/03/22 Principal diagnosis: Deranged electrolytes secondary to diarrhea. Ovarian cancer In follow-up today patient is reporting thicker stool in the ostomy. She has been receiving fluid and electrolyte since her admission. She does tolerate Imodium and then stated helps the watery stool but only the liquid works for her. She has had consultation with Dietitian, She is managing ostomy care well. Objective - Vital Signs Vital signs: Vital Signs Temp 98.5 F 07/03/22 12:03 Pulse 75 07/03/22 12:03 Resp 17 07/03/22 12:03 BP 120/71 07/03/22 12:03 Pulse Ox 100 07/03/22 12:03 FiO2 Intake & Output 07/03/22 07/03/22 07/04/22 06:59 18:59 06:59 Intake Total 220 Balance 220 Intake: Intake, IV Titration 100 Amount Sodium Chloride 0.9% 1, 100 000 ml @ 75 mls/hr IV . [id number] ONE Rx#:[id number] Oral 120 Other: Voiding Method Toilet Toilet - Constitutional General appearance: Present: cooperative, no acute distress, thin - EENT Eyes: Present: anicteric sclerae, EOMI ENT: Present: hearing grossly normal - Respiratory Respiratory: bilateral: CTA - Cardiovascular Rhythm: regular Heart sounds: normal: S1, S2 Abnormal Heart Sounds: Absent: systolic murmur, diastolic murmur, rub, S3 Gallop, S4 Gallop, click, other - Peripheral edema foot Peripheral Edema: bilateral: Trace - Gastrointestinal Gastrointestinal Comment(s): Green stool in the ostomy, Applesauce consistency General gastrointestinal: Present: normal bowel sounds, soft. Absent: absent bowel sounds, decreased bowel sounds, distended, hepatomegaly, hyperactive bowel sounds, organomegaly, rigid, scaphoid, splenomegaly, tenderness, umbilical hernia, ventral hernia - Neurologic Neurologic: Present: CNII-XII intact - Musculoskeletal Musculoskeletal: Present: strength equal bilaterally - Psychiatric Psychiatric: Present: A&O x's 3, appropriate affect, intact judgment & insight - Labs CBC & Chem 7: 07/03/22 06:51 07/03/22 06:51 Labs: Abnormal Lab Results - Last 24 Hours (Table) 07/03/22 07/03/22 Range/Units 06:51 06:51 RBC 3.13 L (4.10-5.20) X 10*6/uL Hgb 9.3 L (12.0-15.0) g/dL Hct 30.6 L (37.2-46.3) % MCV 97.8 H (80.0-97.0) fL MCHC 30.4 L (32.0-37.0) g/dL RDW 18.9 H (11.5-14.5) % Immature Gran # 0.06 H (0.00-0.04) X 10*3/uL Sodium 133 L (135-145) mmol/L Anion Gap 9.60 L (10.00-18.00) mmol/L Alkaline Phosphatase 140 H (41-126) U/L Total Protein 5.7 L (6.2-8.2) g/dL Albumin 3.1 L (3.8-4.9) g/dL Albumin/Globulin Ratio 1.19 L (1.60-3.17) g/dL Microbiology - Last 24 Hours (Table) 07/02/22 12:36 Blood Culture - Preliminary Blood No Growth after 24 hours 07/02/22 07:41 Urine Culture - Final Urine,Clean Catch Stephanie albicans Assessment and Plan (1) Diarrhea Status: Acute Priority: High Code(s): R19.7 - DIARRHEA, UNSPECIFIED SNOMED Code(s): 13916389 (2) Dehydration Status: Acute Priority: High Code(s): E86.0 - DEHYDRATION SNOMED Code(s): 82490266 (3) Hypomagnesemia Status: Acute Priority: High Code(s): E83.42 - HYPOMAGNESEMIA SNOMED Code(s): 492260222 (4) Hyponatremia Status: Acute Priority: High Code(s): E87.1 - HYPO-OSMOLALITY AND HYPONATREMIA SNOMED Code(s): 36973029 (5) Ovarian cancer Status: Chronic Priority: Medium Code(s): C56.9 - MALIGNANT NEOPLASM OF UNSPECIFIED OVARY SNOMED Code(s): 490657256 Plan: Patient has a new ileostomy in late May. This was created because of recurrent bowel obstruction secondary to ovarian cancer. Patient has not yet found The right combination of medications, antidiarrheals and foods that are appropriate to keep stool consistency thicker, Moving slower in the gaps that she is able to absorb nutrients, vitamins and minerals. She reports that she has had meeting with Dietitian. Patient encouraged to continue experimenting but definitely, continue taking liquid Imodium at home. Follow-up with Dr. Zayas as scheduled.
--- NOTE | 2022-07-04 15:42 | P.DS ---
Providers Date of admission: 07/02/22 09:11 Expected date of discharge: 07/03/22 Attending physician: Marleen Arredondo Consults: 07/02/22 11:41 Consult Physician Routine Consulting Provider: Calvin Grant Consult Reason/Comments: Ovarian CA, Known paient Do you want consulting provider notified?: Yes Primary care physician: Stated None Hospital Course: Final diagnosis Severe diarrhea, dehydration and electrolytes imbalance hypomagnesemia acute urinary tract infection, present on admission history of recent bowel surgery and ileostomy History of multiple abdominal surgeries and ovarian cancer History of DVT GI prophylaxis DVT prophylaxis Full code Discharge disposition Patient is being discharged in a stable condition with guarded prognosis to home. Patient will follow-up with PCP in the outpatient setting upon discharge. Patient is to follow-up with oncology as scheduled. Patient will continue on oral Ceftin for the next 1 day to complete the course along with Diflucan for the next 5 days. Total time taken is greater than 35 minutes. Hospital course This is a 67-year-old female who was recently admitted with extensive diarrhea after her surgery from the ileostomy with weakness and dehydration and being closely monitored. Patient also had hypomagnesemia which was replaced. Patient with an acute urinary tract infection on admission was treated with ceftriaxone with improvement will continue oral Ceftin for the next 1 day to complete the course. Patient with Stephanie albicans in the urine will give Diflucan for 5 days to complete the course. Patient is extremely adamant about going home today with magnesium levels improved. Patient will need follow-up with Dr. Webb in the outpatient setting as scheduled. Encourage the patient to follow up sooner than her scheduled appointment in 2 weeks. Currently no reports of chest pain, shortness of breath, or palpitations. Patient is afebrile. No reports of nausea or vomiting and patient is tolerating diet. Patient will be going to [facility] today. Physical exam: Gen: This is a 67-year-old female awake, alert and oriented 3, well-developed, well-nourished, thin built HEENT: Head is atraumatic, normocephalic. Pupils equal, round. Sclerae is anicteric. NECK: Supple. No JVD. No lymphadenopathy. No thyromegaly. LUNGS: Diminished breath sounds bilaterally with no wheezes or rhonchi. No intercostal retractions. HEART: S1, S2 are muffled. No murmur. ABDOMEN: Soft. Bowel sounds are present. No masses. No tenderness. EXTREMITIES: No pedal edema. No calf tenderness. NEUROLOGICAL: Patient is awake, alert and oriented x3. Cranial nerves 2 through 12 are grossly intact. Please refer to medication reconciliation sheet for a list of medications. The impression and plan of care has been dictated by Opal Young, Nurse Practitioner as directed. Dr. Calvin MD I have performed a history and examination and MDM of this patient, discussed the same with the dictator, and agree with the dictator's assessment and plan as written ,documented as a scribe. Based on total visit time, I have performed more than 50% of the visit. Patient Condition at Discharge: Fair Plan - Discharge Summary Discharge Rx Participant: No New Discharge Prescriptions: New Loperamide [Imodium] 4 mg PO Q6H #0 cap Fluconazole [Diflucan] 100 mg PO DAILY 5 Days #5 tab Cholestyramine (with Sugar) [Questran Packet] 4 gm PO QID #40 packet cefUROXime axetiL [Ceftin] 500 mg PO BID 1 Days #2 tab Continue atenoloL [Tenormin] 25 mg PO DAILY Folic Acid 1 mg PO DAILY Magnesium Oxide 400 mg PO BID-W/MEALS Potassium Chloride ER [K-Dur 20] 20 meq PO AC-BRKFST Potassium Chloride ER [K-Dur 20] 40 meq PO AC-SUPPER Cholecalciferol [Vitamin D3 (25 Mcg = 1000 Iu)] 75 mcg PO DAILY Ferrous Sulfate [Iron (65 MG Elemental)] 325 mg PO DAILY #90 tab Apixaban [Eliquis] 5 mg PO BID Simethicone Chew [Mylicon Chew] 80 mg PO QID PRN tab PRN Reason: Bloating polyethylene glycoL 3350 [Miralax] 8.5 gm PO BID PRN PRN Reason: Constipation Acetaminophen Tab [Tylenol] 650 mg PO Q6HR PRN tab PRN Reason: Mild Pain Or Fever > 100.5 HYDROmorphone [Dilaudid] 2 mg PO DAILY PRN PRN Reason: Pain Discharge Medication List Folic Acid 1 mg PO DAILY 03/10/20 [History] Magnesium Oxide 400 mg PO BID-W/MEALS 03/10/20 [History] Potassium Chloride ER [K-Dur 20] 20 meq PO AC-BRKFST 03/10/20 [History] Potassium Chloride ER [K-Dur 20] 40 meq PO AC-SUPPER 03/10/20 [History] atenoloL [Tenormin] 25 mg PO DAILY 03/10/20 [History] Cholecalciferol [Vitamin D3 (25 Mcg = 1000 Iu)] 75 mcg PO DAILY 01/14/22 [History] polyethylene glycoL 3350 [Miralax] 8.5 gm PO BID PRN 01/18/22 [History] Acetaminophen Tab [Tylenol] 650 mg PO Q6HR PRN tab 04/05/22 [Rx] Ferrous Sulfate [Iron (65 MG Elemental)] 325 mg PO DAILY #90 tab 04/05/22 [Rx] Apixaban [Eliquis] 5 mg PO BID 05/07/22 [History] HYDROmorphone [Dilaudid] 2 mg PO DAILY PRN 05/07/22 [History] Simethicone Chew [Mylicon Chew] 80 mg PO QID PRN tab 05/12/22 [Rx] Cholestyramine (with Sugar) [Questran Packet] 4 gm PO QID #40 packet 07/03/22 [Rx] Fluconazole [Diflucan] 100 mg PO DAILY 5 Days #5 tab 07/03/22 [Rx] Loperamide [Imodium] 4 mg PO Q6H #0 cap 07/03/22 [Rx] cefUROXime axetiL [Ceftin] 500 mg PO BID 1 Days #2 tab 07/03/22 [Rx] Follow up Appointment(s)/Referral(s): None,Stated [Primary Care Provider] - 1-2 days (PLEASE CALL AND SCHEDULE AN APPOINTMENT WITH YOUR PRIMARY CARE PHYSICIAN. PLEASE CALL AND SCHEDULR AN APPOINTMENT WITH YOUR ONCOLOGIST FOR ONE WEEK.) Ambulatory/Diagnostic Orders: Complete Blood Count w/diff [LAB.AMB] Time Frame: 3 Days, Location: None Selected Patient Instructions/Handouts: Cefuroxime (By mouth), Cholestyramine (By mouth), Fluconazole (By mouth), Dehydration (DC), Urinary Tract Infection in Women (DC), Hypomagnesemia (DC) Activity/Diet/Wound Care/Special Instructions: Activity Limited until follow-up Follow-up with primary care provider on discharge Continue taking medications as prescribed Follow-up with oncologist this week Discharge Disposition: HOME SELF-CARE
--- NOTE | 2022-07-05 17:24 | CDI ---
Documentation Clarification Form Date: 07/05/2022 05:04:00 PM From: Janki Farfan Admit Date: 07/02/2022 09:11:00 AM Patient Name: Daniela Kent Visit Number: [id number] Discharge Date: 07/03/2022 03:22:00 PM ATTENTION: The Clinical Documentation Specialists (CDI) and [facility] Coding Staff appreciate your assistance in clarifying documentation. Please respond to the clarification below the line at the bottom and electronically sign. The CDI & [facility] Coding staff will review the response and follow-up if needed. Please note: Queries are made part of the Legal Health Record. If you have any questions, please contact the author of this message via ITS. Dr. Otf Simpson The patients principal diagnosis the diagnosis that was chiefly responsible for the admission - has not been clearly identified and clarification is requested. The patient presented with the following: weakness, dehydration, acute urinary tract infection- kathryn albicans, hypomagnesemia, hyponatremia, and severe diarrhea History/Risk factors: recent bowel surgery and ileostomy, multiple abdominal surgeries, ovarian cancer, diarrhea, dehydration, electrolyte imbalance, UTI, hx DVT Clinical Indicators: weakness, diarrhea, dehydration Lab findings: Sodium: 133, Magnesium: 0.9, C.diff- negative Vital Signs: T 98.3, Pulse 115, BP 116/75, R 18, O2 98-100 room air Treatment: monitored closely, IV fluids, hypomag- replaced, UTI- ceftriaxone, and continue oral ceftin, added diflucan Consults: dietitian, follow up with oncology In your professional opinion, can you please clarify which diagnosis, after study, was the reason chiefly responsible for the admission? [ ] Severe diarrhea [ ] Dehydration [ ] Hypomagnesemia [ ] Acute Urinary tract infection with Kathryn Albicans [ ] Other, please specify [ ] Unable to determine Severe diarrhea [ ] Dehydration MTDD
== END 2022-07-03 15:22 | disposition home or self-care (01) | DRG 392 ==
LOC: EC 07:24 → 5NMEDONC 09:11
PROVIDERS: ADMIT Internal Medicine; ATTEND Internal Medicine
DX: R19.7 Diarrhea, unspecified (principal); E87.1 Hypo-osmolality and hyponatremia; C56.9 Malignant neoplasm of unspecified ovary; E46 Unspecified protein-calorie malnutrition; B37.49 Other urogenital candidiasis; E83.42 Hypomagnesemia; E86.0 Dehydration; I10 Essential (primary) hypertension; D63.8 Anemia in other chronic diseases classified elsewhere; K57.90 Diverticulosis of intestine, part unspecified, without perforation or abscess without bleeding; K44.9 Diaphragmatic hernia without obstruction or gangrene; L40.9 Psoriasis, unspecified; L30.9 Dermatitis, unspecified; Z79.899 Other long term (current) drug therapy; Z79.01 Long term (current) use of anticoagulants; Z85.43 Personal history of malignant neoplasm of ovary; Z93.2 Ileostomy status; Z88.6 Allergy status to analgesic agent; Z91.041 Radiographic dye allergy status; Z88.8 Allergy status to other drugs, medicaments and biological substances; Z86.718 Personal history of other venous thrombosis and embolism; Z68.20 Body mass index [BMI] 20.0-20.9, adult; Z92.21 Personal history of antineoplastic chemotherapy; Z90.710 Acquired absence of both cervix and uterus; Z87.01 Personal history of pneumonia (recurrent); Z71.3 Dietary counseling and surveillance
CPT/HCPCS: 36415; 80053; 81001; 83735; 85025; 87040; 87086; 87324; 93005; 96361; 96374; 99285

== ENCOUNTER 2022-08-07 16:11 | Emergency (ER) | payer MEDICARE ==
[2022-08-07] MEDS ORDERED: SODIUM CHLORIDE 0.9% 1,000 ML IV STA (20:29)
--- NOTE | 2022-08-07 20:37 | ED ---
General Adult HPI - General Chief complaint: Abdominal Pain Stated complaint: bowel obstruction Time Seen by Provider: 08/07/22 19:57 Source: patient, RN notes reviewed Mode of arrival: ambulatory Limitations: no limitations - History of Present Illness Initial comments: 67-year-old female presents to the emergency department accompanied by her for evaluation of abdominal cramping, onset Sunday. States she has an ileostomy and has had more liquid stool since then, less formed stool. States she had 4 episodes of vomiting today. Expresses concern for intestinal blockage. Has also recently been treated for a UTI. Patient explains that she has ovarian cancer; last chemo 4 months ago. Has a tumor pressing obstructing urinary outlet therefore had stent placed in the right ureter recently. States she has been receiving IV fluid and Magnesium infusions regularly. Denies fever, chills, headache, dizziness, chest pain, shortness of breath, dysuria, and hematuria. - Related Data Home Medications Medication Instructions Recorded Confirmed Folic Acid 1 mg PO DAILY 03/10/20 07/02/22 Magnesium Oxide 400 mg PO BID-W/MEALS 03/10/20 07/02/22 Potassium Chloride ER [K-Dur 20] 20 meq PO AC-BRKFST 03/10/20 07/02/22 Potassium Chloride ER [K-Dur 20] 40 meq PO AC-SUPPER 03/10/20 07/02/22 atenoloL [Tenormin] 25 mg PO DAILY 03/10/20 07/02/22 Cholecalciferol [Vitamin D3 (25 75 mcg PO DAILY 01/14/22 07/02/22 Mcg = 1000 Iu)] polyethylene glycoL 3350 [Miralax] 8.5 gm PO BID PRN 01/18/22 07/02/22 Apixaban [Eliquis] 5 mg PO BID 05/07/22 07/02/22 HYDROmorphone [Dilaudid] 2 mg PO DAILY PRN 05/07/22 07/02/22 Previous Rx's Medication Instructions Recorded Acetaminophen Tab [Tylenol] 650 mg PO Q6HR PRN tab 04/05/22 Ferrous Sulfate [Iron (65 MG 325 mg PO DAILY #90 tab 04/05/22 Elemental)] Simethicone Chew [Mylicon Chew] 80 mg PO QID PRN tab 05/12/22 Cholestyramine (with Sugar) 4 gm PO QID #40 packet 07/03/22 [Questran Packet] Fluconazole [Diflucan] 100 mg PO DAILY 5 Days #5 tab 07/03/22 Loperamide [Imodium] 4 mg PO Q6H #0 cap 07/03/22 cefUROXime axetiL [Ceftin] 500 mg PO BID 1 Days #2 tab 07/03/22 Sulfamethox-Tmp 800-160Mg [Bactrim 1 each PO Q12HR 5 Days #10 tab 08/08/22 Ds] Allergies Allergy/AdvReac Type Severity Reaction Status Date / Time Iodine and Iodide Containing Allergy Severe Anaphylaxis Verified 08/07/22 16:18 Produc adhesive tape Allergy red skin Verified 08/07/22 16:18 carboplatin Allergy Rash/Hives Verified 08/07/22 16:18 iodine Allergy Rapid Verified 08/07/22 16:18 Heart Rate morphine Allergy Nausea & Verified 08/07/22 16:18 Vomiting paclitaxel [From Taxol] Allergy Dyspnea, Verified 08/07/22 16:18 ELEV HR clavulanic acid AdvReac Nausea & Verified 08/07/22 16:18 [From Augmentin] Vomiting & Diarrhea Review of Systems ROS Statement: Those systems with pertinent positive or pertinent negative responses have been documented in the HPI. ROS Other: All systems not noted in ROS Statement are negative. Past Medical History Past Medical History: Cancer, Deep Vein Thrombosis (DVT), Hypertension, Skin Disorder Additional Past Medical History / Comment(s): seasonal allergies, hx ovarian cancer, mild diverticulitis, bowel obstruction (post op), small hiatal hernia, mild psoriasis or eczema, ovarian cancer reoccurence (chemo, 04/14), DVT in right groin taking Eliquis at home(04/02/2022) History of Any Multi-Drug Resistant Organisms: None Reported Past Surgical History: Bowel Resection, Cholecystectomy, Hernia Repair, Hysterectomy Additional Past Surgical History / Comment(s): left hand tendon surgery, explo ratory abdominal surgeries and ovarian ca (DEBULKING SX X2), powerr port insertion, colostomy with reversal, current ileostomy from 06/04/2022 Past Anesthesia/Blood Transfusion Reactions: Motion Sickness, Postoperative Nausea & Vomiting (PONV) Additional Past Anesthesia/Blood Transfusion Reaction / Comment(s): STATES USUALLY HAS SCOPOLAMINE PATCH PRE OP Past Psychological History: No Psychological Hx Reported Smoking Status: Never smoker Past Alcohol Use History: None Reported Past Drug Use History: None Reported - Past Family History Mother Family Medical History: Coronary Artery Disease (CAD), Diabetes Mellitus, Thyroid Disorder Father Family Medical History: Coronary Artery Disease (CAD), Diabetes Mellitus General Exam Limitations: no limitations General appearance: alert, in no apparent distress ENT exam: Present: mucous membranes dry Respiratory exam: Present: normal lung sounds bilaterally. Absent: respiratory distress, wheezes, rales, rhonchi, stridor Cardiovascular Exam: Present: regular rate, normal rhythm, normal heart sounds. Absent: systolic murmur, diastolic murmur, rubs, gallop, clicks GI/Abdominal exam: Present: soft, normal bowel sounds, other (Ileostomy left mid abdomen. Moderate amount of dark liquid stool with small amount of formed stool in pouch. Surrounding skin intact. Had vomiting prior to arrival; none currently). Absent: distended, tenderness, guarding, rebound, rigid Back exam: Absent: CVA tenderness (R), CVA tenderness (L) Neurological exam: Present: alert, oriented X3, CN II-XII intact Psychiatric exam: Present: normal affect, normal mood Skin exam: Present: warm, dry, intact, normal color Course Vital Signs 08/07/22 08/07/22 08/07/22 16:15 21:20 22:27 Temperature 98.1 F 98.1 F Pulse Rate 118 H 86 Respiratory 18 16 Rate Blood Pressure 123/73 129/78 144/74 O2 Sat by Pulse 98 97 Oximetry 08/07/22 08/07/22 08/08/22 23:18 23:43 02:06 Temperature 98.4 F Pulse Rate 88 88 81 Respiratory 16 16 15 Rate Blood Pressure 131/74 127/68 128/64 O2 Sat by Pulse 96 97 100 Oximetry - Reevaluation(s) Reevaluation #1: 08/07/22 23:33 Patient updated on results. Spoke with Dr. Jones who recommends transfer. Patient is agreeable with this POC. Clarified with patient her most recent antibiotic was a 3 day course of Cipro for UTI (in June). 08/08/22 00:[address] Trinh regarding physical exam findings, laboratory findings, and CT results. Hypomagnesemia expected due to shortgut. SBO unlikely as there is no distention of bowel approaching ileostomy, patient is tolerating some oral intake, and there is stool output fairly consistent with her baseline. Plan to discharge home after second liter of IV fluids. She will receive a phone call from her surgeon tomorrow to discuss follow up care. Return parameters discussed in detail. Patient verbalizes understanding and agrees with this plan. Medical Decision Making - Medical Decision Making This is a 67-year-old female with a past medical history of recent ileostomy (May 2022), ongoing ovarian cancer (last chemo March 2022), recent UTI and renal stenting who presents to the emergency department with concerns of possible bowel obstruction. Upon exam, patient is well-appearing and in no acute distress. Abdomen soft and nontender. There is a output from her ostomy fairly consistent with her baseline. Laboratory studies show hyponatremia (sodium 131), magnesium 1.0, and urinalysis with 174 urine WBCs per hpf large leukocyte esterase. Patient was given IV fluids. Magnesium replaced. Antibiotic for UTI given. SHe declined anything for pain and nausea. No vom iting at this time. CT of the abdomen and pelvis was obtained without oral or IV contrast given concern for obstruction. Results were discussed with resident on-call for her surgeon who feels that patient can be safely discharged home as there is no dilation of bowel loops to indicate obstruction approaching the ileostomy. I agree and spoke with patient who finds this plan of care desirable. She will follow up on an outpatient basis. Antibiotic prescribed for UTI. Strict return parameters discussed in detail. Patient verbalizes understanding and agrees with plan. Attending: Bee. - Lab Data Result diagrams: 08/07/22 20:36 08/07/22 20:36 Lab Results 08/07/22 08/07/22 08/07/22 Range/Units 20:36 20:36 20:36 WBC 10.9 H (3.8-10.6) k/uL RBC 4.11 (3.80-5.40) m/uL Hgb 12.3 (11.4-16.0) gm/dL Hct 36.7 (34.0-46.0) % MCV 89.3 (80.0-100.0) fL MCH 30.0 (25.0-35.0) pg MCHC 33.6 (31.0-37.0) g/dL RDW 15.2 (11.5-15.5) % Plt Count 377 (150-450) k/uL MPV 7.6 Neutrophils % 72 % Lymphocytes % 20 % Monocytes % 4 % Eosinophils % 2 % Basophils % 0 % Neutrophils # 7.8 H (1.3-7.7) k/uL Lymphocytes # 2.1 (1.0-4.8) k/uL Monocytes # 0.5 (0-1.0) k/uL Eosinophils # 0.2 (0-0.7) k/uL Basophils # 0.0 (0-0.2) k/uL Hypochromasia Slight Poikilocytosis Slight PT 11.2 (9.0-12.0) sec INR 1.1 (<1.2) APTT 25.8 (22.0-30.0) sec Sodium (137-145) mmol/L Potassium (3.5-5.1) mmol/L Chloride (98-107) mmol/L Carbon Dioxide (22-30) mmol/L Anion Gap mmol/L BUN (7-17) mg/dL Creatinine (0.52-1.04) mg/dL Est GFR (CKD-EPI)AfAm (>60 ml/min/1.73 sqM) Est GFR (CKD-EPI)NonAf (>60 ml/min/1.73 sqM) Glucose (74-99) mg/dL Plasma Lactic Acid Twan (0.7-2.0) mmol/L Calcium (8.4-10.2) mg/dL Magnesium (1.6-2.3) mg/dL Total Bilirubin (0.2-1.3) mg/dL AST (14-36) U/L ALT (4-34) U/L Alkaline Phosphatase (38-126) U/L Troponin I (0.000-0.034) ng/mL Total Protein (6.3-8.2) g/dL Albumin (3.5-5.0) g/dL Lipase (23-300) U/L Urine Color Yellow Urine Appearance Cloudy H (Clear) Urine pH 6.0 (5.0-8.0) Ur Specific [place] 1.025 (1.001-1.035) Urine Protein 1+ H (Negative) Urine Glucose (UA) Negative (Negative) Urine Ketones Negative (Negative) Urine Blood Trace H (Negative) Urine Nitrite Negative (Negative) Urine Bilirubin Negative (Negative) Urine Urobilinogen <2.0 (<2.0) mg/dL Ur Leukocyte Esterase Large H (Negative) Urine RBC 10 H (0-5) /hpf Urine WBC 174 H (0-5) /hpf Ur Squamous Epith Cells 3 (0-4) /hpf Calcium Oxalate Crystal Occasional H (None) /hpf Amorphous Sediment Rare H (None) /hpf Hyaline Casts 2 (0-2) /lpf Urine Mucus Many H (None) /hpf 08/07/22 08/07/22 08/07/22 Range/Units 20:36 20:36 20:36 WBC (3.8-10.6) k/uL RBC (3.80-5.40) m/uL Hgb (11.4-16.0) gm/dL Hct (34.0-46.0) % MCV (80.0-100.0) fL MCH (25.0-35.0) pg MCHC (31.0-37.0) g/dL RDW (11.5-15.5) % Plt Count (150-450) k/uL MPV Neutrophils % % Lymphocytes % % Monocytes % % Eosinophils % % Basophils % % Neutrophils # (1.3-7.7) k/uL Lymphocytes # (1.0-4.8) k/uL Monocytes # (0-1.0) k/uL Eosinophils # (0-0.7) k/uL Basophils # (0-0.2) k/uL Hypochromasia Poikilocytosis PT (9.0-12.0) sec INR (<1.2) APTT (22.0-30.0) sec Sodium 131 L (137-145) mmol/L Potassium 4.3 (3.5-5.1) mmol/L Chloride 98 (98-107) mmol/L Carbon Dioxide 26 (22-30) mmol/L Anion Gap 7 mmol/L BUN 12 (7-17) mg/dL Creatinine 0.76 (0.52-1.04) mg/dL Est GFR (CKD-EPI)AfAm >90 (>60 ml/min/1.73 sqM) Est GFR (CKD-EPI)NonAf 83 (>60 ml/min/1.73 sqM) Glucose 119 H (74-99) mg/dL Plasma Lactic Acid Twan 1.1 (0.7-2.0) mmol/L Calcium 9.7 (8.4-10.2) mg/dL Magnesium 1.0 L (1.6-2.3) mg/dL Total Bilirubin 0.8 (0.2-1.3) mg/dL AST 35 (14-36) U/L ALT 19 (4-34) U/L Alkaline Phosphatase 137 H (38-126) U/L Troponin I <0.012 (0.000-0.034) ng/mL Total Protein 7.0 (6.3-8.2) g/dL Albumin 4.0 (3.5-5.0) g/dL Lipase 78 (23-300) U/L Urine Color Urine Appearance (Clear) Urine pH (5.0-8.0) Ur Specific [place] (1.001-1.035) Urine Protein (Negative) Urine Glucose (UA) (Negative) Urine Ketones (Negative) Urine Blood (Negative) Urine Nitrite (Negative) Urine Bilirubin (Negative) Urine Urobilinogen (<2.0) mg/dL Ur Leukocyte Esterase (Negative) Urine RBC (0-5) /hpf Urine WBC (0-5) /hpf Ur Squamous Epith Cells (0-4) /hpf Calcium Oxalate Crystal (None) /hpf Amorphous Sediment (None) /hpf Hyaline Casts (0-2) /lpf Urine Mucus (None) /hpf - EKG Data EKG shows normal: sinus rhythm Rate: normal EKG Comments: EKG obtained at 2105 shows sinus rhythm with minimal ST depression. Ventricular rate 89, DC interval 151, QRS duration 89, QT/QTC 355/401. Interpretation borderline EKG. No ectopy or evidence of acute ischemic change. When compared to previous EKG there are: no significant change - Radiology Data Radiology results: report reviewed, image reviewed CT of the abdomen and pelvis without contrast was obtained. Report was reviewed in its entirety. Impression per Dr. Rasmussen as findings concerning for at least partial or acute complete small bowel obstruction with multiple dilated loops of bowel in the left abdomen. Further evaluation for small bowel follow-through to insure patency of the GI tract is recommended. Transition point not defin itively visualized on this noncontrast exam. Progression of disease with increase in size and number of scattered pulmonary nodules. Right ureteral pigtail catheter with tips in appropriate position. Disposition Clinical Impression: Hypomagnesemia, Hyponatremia, Nausea, Abdominal pain, UTI (urinary tract infection) Disposition: HOME SELF-CARE Condition: Stable Instructions (If sedation given, give patient instructions): Dehydration (ED), Urinary Tract Infection in Women (ED) Additional Instructions: Continue taking your home medications as prescribed. Eat small more frequent meals. BRAT (bananas, rices, applesauce, toast) diet. Consider including small volumes of electrolyte drinks (Gatorade, Powerade, Pedialyte, Ensure, or coconut water). Expect a call from Dr. Castillo's staff tomorrow for follow up. Do not hesitate to return to the emergency department with any new, worsening, or concerning symptoms. Prescriptions: Sulfamethox-Tmp 800-160Mg [Bactrim Ds] 1 each PO Q12HR 5 Days #10 tab Is patient prescribed a controlled substance at d/c from ED?: No Referrals: Michael Michele MD [Primary Care Provider] - 1-2 days Time of Disposition: 01:06
[2022-08-07 21:20] LABS: Basophils % (A) 0 %; Eosinophils # (A) 0.2 k/uL (0-0.7); Eosinophils % (A) 2 %; HCT 36.7 % (34.0-46.0); HGB 12.3 gm/dL (11.4-16.0); Hypochromasia Slight; Lymphocytes # (A) 2.1 k/uL (1.0-4.8); Lymphocytes % (A) 20 %; MCHC 33.6 g/dL (31.0-37.0); MCV 89.3 fL (80.0-100.0); Mean Platelet Volume 7.6; Monocytes # (A) 0.5 k/uL (0-1.0); Monocytes % (A) 4 %; Neutrophils # (A) 7.8 k/uL (1.3-7.7); Neutrophils % (A) 72 %; Platelet Count 377 k/uL (150-450); Poikilocytosis Slight; RBC 4.11 m/uL (3.80-5.40); RDW 15.2 % (11.5-15.5); WBC 10.9 k/uL (3.8-10.6)
[2022-08-07 21:29] LABS: ALT 19 U/L (4-34); AST 35 U/L (14-36); African American GFR (CKD) >90 (>60 ml/min/1.73 sqM); Alkaline Phosphatase 137 U/L (38-126); Anion Gap 7 mmol/L; Blood Urea Nitrogen 12 mg/dL (7-17); Calcium 9.7 mg/dL (8.4-10.2); Carbon Dioxide 26 mmol/L (22-30); Chloride 98 mmol/L (98-107); Glucose 119 mg/dL (74-99); Lipase 78 U/L (23-300); Non-African American GFR(CKD) 83 (>60 ml/min/1.73 sqM); Potassium 4.3 mmol/L (3.5-5.1); Sodium 131 mmol/L (137-145); Total Bilirubin 0.8 mg/dL (0.2-1.3)
[2022-08-07 21:41] LABS: Amorphous Sediment,Urine Rare /hpf; Appearance,Urine Cloudy (Clear); Bilirubin,Urine Negative (Negative); Blood,Urine Trace (Negative); Calcium Oxalate Crystals,Urine Occasional /hpf; Color,Urine Yellow; Glucose,Urine (UA) Negative (Negative); Hyaline Casts,Urine 2 /lpf (0-2); Ketones,Urine Negative (Negative); Leukocyte Esterase,Urine Large (Negative); Mucus,Urine Many /hpf; Nitrite,Urine Negative (Negative); Protein,Urine 1+ (Negative); RBC,Urine 10 /hpf (0-5); Specific Gravity,Urine 1.025 (1.001-1.035); Squamous Epithelial Cell,Urine 3 /hpf (0-4); Urobilinogen,Urine <2.0 mg/dL (<2.0); WBC,Urine 174 /hpf (0-5)
[2022-08-07 21:46] LABS: INR 1.1 (<1.2); Partial Thromboplastin Time 25.8 sec (22.0-30.0); Prothrombin Time 11.2 sec (9.0-12.0)
[2022-08-07] MEDS ORDERED: MAGNESIUM SULFATE-D5W PMX 1 GM in DEXTROSE/WATER 1 100ML.BAG IVPB STA (21:52)
[2022-08-07] MEDS ORDERED: cefTRIAXone IN SWFI 1,000 MG/10 ML SYRINGE IVP STA (21:53)
--- NOTE | 2022-08-07 22:12 | CT ---
EXAMINATION TYPE: CT abdomen pelvis wo con CT DLP: 335.1 mGycm, Automated exposure control for dose reduction was used. DATE OF EXAM: 08/07/2022 10:01 PM COMPARISON: 05/07/2022 CLINICAL INDICATION:Female, 67 years old with history of abdominal pain; pain and cramping. hx of ile ostomy TECHNIQUE: Axial CT of the abdomen and pelvis. Sagittal and coronal reformats were created on a [employer] workstation. Contrast used: None Oral contrast used: without Oral Contrast FINDINGS: LOWER CHEST: Worsening of metastatic disease with innumerable pulmonary nodules which have increased in size and number compared to prior. Example includes right lower lung medial nodule measuring 3.4 cm today previously 2.5 and left lower lobe 11 mm pulmonary nodule, previously 6 mm. ABDOMEN LIVER: Unremarkable GALLBLADDER AND BILE DUCTS: Unremarkable. PANCREAS: Unremarkable. SPLEEN: Unremarkable. ADRENAL GLANDS: Unremarkable. KIDNEYS AND URETERS: Right renal ureteral catheter distal and proximal to its appropriate position th ere is moderate right hydronephrosis similar prior. The left kidney demonstrates no hydronephrosis. PELVIS BLADDER: Nondistended. REPRODUCTIVE: Unremarkable. ABDOMEN & PELVIS STOMACH AND BOWEL: No evidence of bowel obstruction. Multiple bowel loops within the mid abdomen whic h are dilated up to 4. 0-5 cm. There is relatively nondistention of the right lower quadrant small verenice wel loops. Transition point not definitively visualized on this noncontrast exam. There is a ileostom y present. Bowel loops leading up to the ileostomy are relatively nondistended. Surgical changes to t he colon and small bowel with surgical clips and suture are present. PERITONEUM: No evidence of pneumoperitoneum or free fluid. Multiple surgical clips are ill-defined he terogenous tissue is seen in the lower abdomen/pelvis. VASCULATURE: No evidence of aortic aneurysm. MUSCULOSKELETAL: No acute osseous abnormalities LYMPH NODES: Ill-defined soft tissue abdomen could represent enlarged lymph nodes. SOFT TISSUE/ABDOMINAL WALL: Multiple surgical clips are seen IMPRESSION: 1. Findings concerning for at least partial or acute complete small bowel obstruction with multiple dilated loops of bowel in the left abdomen. Further evaluation with small bowel follow-through to ens ure patency of the GI tract is recommended. Transition point not definitively visualized on this nonc ontrast exam. 2. Progression of disease with increase in size and number of scattered pulmonary nodules. 3. Right ureteral pigtail catheter with tips in appropriate position.
[2022-08-07] MEDS ORDERED: HYDROmorphone 0.5 MG/0.5 ML SYRINGE IVP STA (23:24)
[2022-08-07] MEDS ORDERED: ONDANSETRON 4 MG/2 ML VIAL IVP STA (23:24)
[2022-08-07 23:43] VITALS: TEMP 98.4
[2022-08-08 02:07] VITALS: BP 128/64; PULSE 81; RESP 15
== END 2022-08-08 02:09 | disposition home or self-care (01) ==
LOC: EC 16:11
DX: E83.42 Hypomagnesemia (principal); E87.1 Hypo-osmolality and hyponatremia; R11.0 Nausea; R10.9 Unspecified abdominal pain; N39.0 Urinary tract infection, site not specified; I10 Essential (primary) hypertension; Z88.8 Allergy status to other drugs, medicaments and biological substances; Z88.1 Allergy status to other antibiotic agents; Z88.6 Allergy status to analgesic agent
CPT/HCPCS: 36415; 93005; 80053; 83605; 83690; 83735; 84484; 85025; 85610; 85730; 81001; 87086; 74176; 99284; 96365; 96375 ×3; 96361; J2405; J0696; J3475; J1170

== ENCOUNTER → 2022-09-18 | Outpatient (CLI) | payer MEDICARE ==
--- NOTE | 2022-09-18 14:23 | US ---
EXAMINATION TYPE: US venous doppler duplex LE RT DATE OF EXAM: 09/18/2022 2:14 PM COMPARISON: 04/04/2022 bilateral CLINICAL HISTORY: R22.41 Right lower extremity swelling. SIDE PERFORMED: Right TECHNIQUE: The lower extremity deep venous system is examined utilizing real time linear array sonog ольга with graded compression, doppler sonography and color-flow sonography. VESSELS IMAGED: Common Femoral Vein Deep Femoral Vein Greater Saphenous Vein * Femoral Vein Popliteal Vein Small Saphenous Vein * Proximal Calf Veins (* superficial vessels) Right Leg: Small chronic appearance of dvt RLE CFV Grayscale, color doppler, spectral doppler imaging performed of the deep veins of the right lower ext remity. IMPRESSION: Some residual partial occlusive chronic DVT in the right common femoral vein seen best on compression views remains present. Significant improvement noted from prior study.
== END | disposition home or self-care (01) ==
LOC: RADUSWWP 13:46
PROVIDERS: ATTEND Internal Medicine Hematology & Oncology
DX: I82.511 Chronic embolism and thrombosis of right femoral vein (principal); R22.41 Localized swelling, mass and lump, right lower limb

== ENCOUNTER 2022-11-07 05:40 | Day surgery (SDC) | payer MEDICARE ==
--- NOTE | 2022-11-02 14:23 | P.HPIHPCON ---
History of Present Illness H&P Date: 11/02/22 Chief Complaint: Right hydronephrosis This is a 67-year-old female with history of chronic right-sided hydronephrosis secondary to extrinsic compression of the ureter from metastatic ovarian cancer. She's been undergoing every 3 month stent exchange. She presents today for a stent exchange. Risk and benefit of rationale the surgery was discussed with her in detail. She understood all the risk and agreed to proceed with a cystoscopy and right stent exchange Consent for Procedure: I have explained the operation/procedure to the patient, including the risks, benefits, side effects, alternative therapies (including not receiving the proposed treatment or service), the likelihood of the patient achieving his/her goals, and potential recuperation problems for the procedure/sedation/analgesia, as well as any blood products, if indicated. I also explained to the patient the risks, benefits and side effects of the alternatives, as well as the risks related to not receiving the proposed procedure, care, treatment, or services. Past Medical History Past Medical History: Cancer, Deep Vein Thrombosis (DVT), Hypertension, Osteoarthritis (OA), Skin Disorder Additional Past Medical History / Comment(s): seasonal allergies, hx ovarian cancer, mild diverticulitis, bowel obstruction (post op), small hiatal hernia, mild psoriasis or eczema, ovarian cancer reoccurence (chemo, 04/14), DVT in right groin ,taking Eliquis at home(04/02/2022) tumor to rt groin. cancerous tumor growing putting pressure on bladder. replacing stent. hx of bladder infections . 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 History of Any Multi-Drug Resistant Organisms: None Reported Past Surgical History: Bowel Resection, Cholecystectomy, Hernia Repair, Hysterectomy Additional Past Surgical History / Comment(s): left hand tendon surgery, exploratory abdominal surgeries and ovarian ca (DEBULKING SX X2), power port insertion, colostomy with reversal, current ileostomy from 06/04/2022. urinary stents Past Anesthesia/Blood Transfusion Reactions: Motion Sickness, Postoperative Nausea & Vomiting (PONV) Additional Past Anesthesia/Blood Transfusion Reaction / Comment(s): STATES USUALLY HAS SCOPOLAMINE PATCH PRE OP Smoking Status: Never smoker - Past Family History Mother Family Medical History: Coronary Artery Disease (CAD), Diabetes Mellitus, Thyroid Disorder Father Family Medical History: Coronary Artery Disease (CAD), Diabetes Mellitus Medications and Allergies Home Medications Medication Instructions Recorded Confirmed Type Folic Acid 1 mg PO DAILY 03/10/20 11/01/22 History Potassium Chloride ER [K-Dur 20] 20 meq PO AC-BRKFST 03/10/20 11/01/22 History Potassium Chloride ER [K-Dur 20] 20 meq PO AC-SUPPER 03/10/20 11/01/22 History atenoloL [Tenormin] 25 mg PO DAILY 03/10/20 11/01/22 History Cholecalciferol [Vitamin D3 (25 75 mcg PO DAILY 01/14/22 11/01/22 History Mcg = 1000 Iu)] Acetaminophen Tab [Tylenol] 650 mg PO Q6HR PRN tab 04/05/22 11/01/22 Rx Ferrous Sulfate [Iron (65 MG 325 mg PO DAILY #90 tab 04/05/22 11/01/22 Rx Elemental)] Apixaban [Eliquis] 5 mg PO BID 05/07/22 11/01/22 History Codeine 30 mg PO TID 11/01/22 11/01/22 History Unk [place] 1 tab PO 5XD 11/01/22 11/01/22 History Unk Vitamin B12 1 tab PO DAILY 11/01/22 11/01/22 History Allergies Allergy/AdvReac Type Severity Reaction Status Date / Time Iodine and Iodide Containing Allergy Severe Anaphylaxis Verified 11/01/22 10:05 Produc adhesive tape Allergy red skin Verified 11/01/22 10:05 carboplatin Allergy Rash/Hives Verified 11/01/22 10:05 iodine Allergy Rapid Verified 11/01/22 10:05 Heart Rate morphine Allergy Nausea & Verified 11/01/22 10:05 Vomiting paclitaxel [From Taxol] Allergy Dyspnea, Verified 11/01/22 10:05 ELEV HR clavulanic acid AdvReac Nausea & Verified 11/01/22 10:05 [From Augmentin] Vomiting & Diarrhea Surgical - Exam - General no distress, no pain - Eyes normal ocular movement, no pale - ENT normal nares, normal mucosa - Respiratory normal expansion, normal respiratory effort - Abdomen Abdomen: soft, non tender - Psychiatric oriented to time, oriented to person, oriented to place Assessment and Plan Assessment: OR for cystoscopy, right stent exchange
[2022-11-07] MEDS ORDERED: LACTATED RINGERS 1,000 ML IV SCH (06:00)
[2022-11-07] MEDS ORDERED: DEXAMETHASONE SOD PHOSPHATE 4 MG/ML 1 ML VIAL IV ONE (06:00)
[2022-11-07] MEDS ORDERED: ONDANSETRON 4 MG/2 ML VIAL IVP ONE (06:00)
[2022-11-07] MEDS ORDERED: LIDOCAINE 1% (10MG/ML) FOR IV START INTRADERMA PRN (06:00)
[2022-11-07 06:20] VITALS: TEMP 97.3
[2022-11-07] MEDS ORDERED: HYDROmorphone 0.5 MG/0.5 ML SYRINGE IVP PRN (07:00)
[2022-11-07] MEDS ORDERED: MIDAZOLAM 2 MG/2 ML VIAL ONE (07:04)
[2022-11-07] MEDS ORDERED: fentaNYL (PF) 50 MCG/ML 2 ML AMP ONE (07:04)
[2022-11-07] MEDS ORDERED: PROPOFOL 10 MG/ML 20 ML VIAL IV ONE (07:04)
--- NOTE | 2022-11-07 07:43 | P.OP ---
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 She's been undergoing every 3 month stent exchange. She presents today for a stent exchange. Risk and benefit of rationale the surgery was discussed with her in detail. She understood all the risk and agreed to proceed with a cystoscopy and right stent exchange Description of Procedure: Patient brought to the operating room, sedation was induced. She was prepped and draped in sterile fashion and placed in dorsal lithotomy positions. Cystoscopy fitted with a 22-Latvian sheath was inserted per urethra, cystoscopy was performed which showed no abnormality within the bladder. Of note there was significant encrustation around the stent. At this time the stent was grasped and removed to the meatus. I was able to pass a wire through the stent after removing some of the encrustation from the distal end of the stent. The wire was advanced into the renal pelvis. Next under fluoroscopy a 6-Latvian by 22 cm stent was passed over the wire, the proximal curl was visualized on fluoroscopy and the distal curl was visualized using the cystoscope. There was a significant hydronephrotic drip noticed from the stent. The bladder was emptied at the end of the case. Patient tolerated procedure well was taken to recovery in stable condition
--- NOTE | 2022-11-07 07:57 | FL ---
Intraoperative/procedural fluoroscopic services were provided right ureteral stent exchange. Total fl uoroscopy time is 28 seconds with a total of 2 submitted images to PACS. Total DAP is [id number]. Please see the operative note for further details.
[2022-11-07 08:10] VITALS: RESP 18
[2022-11-07 08:17] VITALS: BP 100/63; PULSE 74
== END 2022-11-07 08:54 ==
LOC: OR 05:40
PROVIDERS: ATTEND Urology
DX: N13.30 Unspecified hydronephrosis (principal); I10 Essential (primary) hypertension; M19.90 Unspecified osteoarthritis, unspecified site; Z90.710 Acquired absence of both cervix and uterus; Z98.890 Other specified postprocedural states; Z82.49 Family history of ischemic heart disease and other diseases of the circulatory system; Z83.3 Family history of diabetes mellitus; Z79.899 Other long term (current) drug therapy
CPT/HCPCS: 52332; C2625; C1769; J2250; J1100; J0690; J2405; J3010; J2704

== ENCOUNTER 2022-11-24 06:07 | Emergency (ER) | payer MEDICARE ==
[2022-11-24 06:23] VITALS: RESP 18
[2022-11-24] MEDS ORDERED: SODIUM CHLORIDE 0.9% 1,000 ML IV ONE (06:56)
--- NOTE | 2022-11-24 07:17 | ED ---
General Adult HPI - General Chief complaint: Recheck/Abnormal Lab/Rx Stated complaint: Right Kavya Pain Time Seen by Provider: 11/24/22 06:31 Source: patient, RN notes reviewed Mode of arrival: ambulatory Limitations: no limitations - History of Present Illness Initial comments: 67-year-old female presents emergency from chief complaint of right hip, groin pain. Patient states that he has been getting worse over the last few days her week. Patient states intermittent states nothing brings the pain on it or makes it worse or better. Patient states she does have known DVT of the right groin region in which patient has been on eliquis for 8 months. She denies any chest pain or shortness breath. Patient states she has been dealing with chronic s welling of his thigh which makes it painful. She is currently under chemotherapy treatment for ovarian cancer she does have a colostomy from prior surgery in which she developed multiple bowel obstructions. Patient does have a kidney stent from obstruction right ureter from ovarian cancer. - Related Data Home Medications Medication Instructions Recorded Confirmed Folic Acid 1 mg PO DAILY 03/10/20 11/01/22 Potassium Chloride ER [K-Dur 20] 20 meq PO AC-BRKFST 03/10/20 11/01/22 Potassium Chloride ER [K-Dur 20] 20 meq PO AC-SUPPER 03/10/20 11/01/22 atenoloL [Tenormin] 25 mg PO DAILY 03/10/20 11/01/22 Cholecalciferol [Vitamin D3 (25 75 mcg PO DAILY 01/14/22 11/01/22 Mcg = 1000 Iu)] Apixaban [Eliquis] 5 mg PO BID 05/07/22 11/01/22 Codeine 30 mg PO TID 11/01/22 11/01/22 Unk [place] 1 tab PO 5XD 11/01/22 11/01/22 Unk Vitamin B12 1 tab PO DAILY 11/01/22 11/01/22 Magnesium 400 mg PO DAILY 11/07/22 11/07/22 Previous Rx's Medication Instructions Recorded Acetaminophen Tab [Tylenol] 650 mg PO Q6HR PRN tab 04/05/22 Ferrous Sulfate [Iron (65 MG 325 mg PO DAILY #90 tab 04/05/22 Elemental)] Cephalexin [Keflex] 500 mg PO Q8HR #15 cap 11/07/22 Cyclobenzaprine [Flexeril] 5 mg PO TID PRN #15 tablet 11/24/22 Allergies Allergy/AdvReac Type Severity Reaction Status Date / Time Iodine and Iodide Containing Allergy Severe Anaphylaxis Verified 11/24/22 06:24 Produc adhesive tape Allergy red skin Verified 11/24/22 06:24 carboplatin Allergy Rash/Hives Verified 11/24/22 06:24 iodine Allergy Rapid Verified 11/24/22 06:24 Heart Rate morphine Allergy Nausea & Verified 11/24/22 06:24 Vomiting paclitaxel [From Taxol] Allergy Dyspnea, Verified 11/24/22 06:24 ELEV HR clavulanic acid AdvReac Nausea & Verified 11/24/22 06:24 [From Augmentin] Vomiting & Diarrhea Review of Systems ROS Statement: Those systems with pertinent positive or pertinent negative responses have been documented in the HPI. ROS Other: All systems not noted in ROS Statement are negative. Past Medical History Past Medical History: Cancer, Deep Vein Thrombosis (DVT), Hypertension, Osteoarthritis (OA), Skin Disorder Additional Past Medical History / Comment(s): seasonal allergies, hx ovarian cancer, mild diverticulitis, bowel obstruction (post op), small hiatal hernia, mild psoriasis or eczema, ovarian cancer reoccurence (chemo, 04/14), DVT in right groin ,taking Eliquis at home(04/02/2022) tumor to rt groin. cancerous tumor growing putting pressure on bladder. replacing stent. hx of bladder infections . 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 History of Any Multi-Drug Resistant Organisms: None Reported Past Surgical History: Bowel Resection, Cholecystectomy, Hernia Repair, Hysterectomy Additional Past Surgical History / Comment(s): left hand tendon surgery, exploratory abdominal surgeries and ovarian ca (DEBULKING SX X2), power port insertion, colostomy with reversal, current ileostomy from 06/04/2022. urinary stents Past Anesthesia/Blood Transfusion Reactions: Motion Sickness, Postoperative Nausea & Vomiting (PONV) Additional Past Anesthesia/Blood Transfusion Reaction / Comment(s): STATES USUALLY HAS SCOPOLAMINE PATCH PRE OP Past Psychological History: No Psychological Hx Reported Smoking Status: Never smoker Past Alcohol Use History: None Reported Past Drug Use History: None Reported - Past Family History Mother Family Medical History: Coronary Artery Disease (CAD), Diabetes Mellitus, Thyroid Disorder Father Family Medical History: Coronary Artery Disease (CAD), Diabetes Mellitus General Exam Limitations: no limitations General appearance: alert, in no apparent distress Head exam: Present: atraumatic, normocephalic, normal inspection Eye exam: Present: normal appearance, PERRL, EOMI. Absent: scleral icterus, conjunctival injection, periorbital swelling ENT exam: Present: normal exam, normal oropharynx, mucous membranes moist Neck exam: Present: normal inspection, full ROM. Absent: tenderness, menin gismus, lymphadenopathy Respiratory exam: Present: normal lung sounds bilaterally. Absent: respiratory distress, wheezes, rales, rhonchi, stridor Cardiovascular Exam: Present: normal rhythm, tachycardia, normal heart sounds. Absent: systolic murmur, diastolic murmur, rubs, gallop, clicks GI/Abdominal exam: Present: soft, normal bowel sounds, other (Colostomy in place). Absent: distended, tenderness, guarding, rebound, rigid Extremities exam: Present: other (Lower extremity pulses equal bilaterally, possible into the right thigh, no pain with palpation or range of motion) Back exam: Present: full ROM. Absent: tenderness, paraspinal tenderness, vertebral tenderness Neurological exam: Present: alert, oriented X3, CN II-XII intact, reflexes normal. Absent: motor sensory deficit Skin exam: Present: warm, dry, intact, normal color. Absent: rash Course Vital Signs 11/24/22 11/24/22 11/24/22 06:17 07:53 09:22 Temperature 98.3 F Pulse Rate 110 H 95 89 Respiratory 18 18 18 Rate Blood Pressure 135/77 110/69 126/86 O2 Sat by Pulse 100 99 96 Oximetry Medical Decision Making - Medical Decision Making Was pt. sent in by a medical professional or institution (, PA, [employer], urgent care, hospital, or [facility]...) When possible be specific @ -No Did you speak to anyone other than the patient for history (EMS, parent, family, police, friend...)? What history was obtained from this source @ -No Did you review nursing and triage notes (agree or disagree)? Why? @ -I reviewed and agree with nursing and triage notes Were old charts reviewed (outside hosp., previous admission, EMS record, old EKG, old radiological studies, urgent care reports/EKG's, [facility] records)? Report findings @ -Laboratory studies Differential Diagnosis (chest pain, altered mental status, abdominal pain women, abdominal pain men, vaginal bleeding, weakness, fever, dyspnea, syncope, headache, dizziness, GI bleed, back pain, seizure, CVA, palpatations, mental health, musculoskeletal)? @ -Right leg pain, right leg DVT, hip pain, osseous lesion, fracture, this list is not listed. EKG interpreted by me (3pts min.). @ -None X-rays interpreted by me (1pt min.). @ -X-ray of the right hip, and pelvis shows no acute osseous lesion CT interpreted by me (1pt min.). @ -None done U/S interpreted by me (1pt. min.). @ -Ultrasound is unremarkable for acute DVT, shows chronic DVT None done What testing was considered but not performed or refused? (CT, X-rays, U/S, labs)? Why? @ -None What meds were considered but not given or refused? Why? @ -None Did you discuss the management of the patient with other professionals (professionals i.e. , PA, [employer], lab, RT, psych nurse, social welfare clerk, activity therapy specialist, teacher, boat officer, case monitor)? Give summary @ -No Was smoking cessation discussed for >3mins.? @ -No Was critical care preformed (if so, how long)? @ -No Were there social determinants of health that impacted care today? How? (Homelessness, low income, unemployed, alcoholism, drug addiction, transportation, low edu. Level, literacy, decrease access to med. care, residential, rehab)? @ -No Was there de-escalation of care discussed even if they declined (Discuss DNR or withdrawal of care, Hospice)? DNR status @ -No What co-morbidities impacted this encounter? (DM, HTN, Smoking, COPD, CAD, Cancer, CVA, ARF, Chemo, Hep., AIDS, mental health diagnosis, sleep apnea, morbid obesity)? @ -Ovarian cancer, DVT Was patient admitted / discharged? Hospital course, mention meds given and route, prescriptions, significant lab abnormalities, going to OR and other pertinent info. @ -Discharge patient had negative workup including labs, x-ray, ultrasound. I do feel this is a muscle skeletal pain she has pain over the right lateral hip, leg region. We did talk about tensor fascia rufina syndrome, bursitis, IT and syndrome. Patient was discharged with muscle relaxers advised to follow-up with orthopedics. Undiagnosed new problem with uncertain prognosis? @ -No Drug Therapy requiring intensive monitoring for toxicity (Heparin, Nitro, Insulin, Cardizem)? @ -No Were any procedures done? @ -No Diagnosis/symptom? @ -Right hip pain, tensor fascia rufina syndrome Acute, or Chronic, or Acute on Chronic? @ -Acute Uncomplicated (without systemic symptoms) or Complicated (systemic symptoms)? @ -Uncomplicated Side effects of treatment? @ -No Exacerbation, Progression, or Severe Exacerbation? @ -No Poses a threat to life or bodily function? How? (Chest pain, USA, NH, pneumonia, PE, COPD, DKA, ARF, appy, cholecystitis, CVA, Diverticulitis, Homicidal, Suicidal, threat to staff... and all critical care pts) @ -No - Lab Data Result diagrams: 11/24/22 07:50 11/24/22 07:50 Lab Results 11/24/22 11/24/22 Range/Units 07:50 07:50 WBC 8.2 (3.8-10.6) k/uL RBC 4.65 (3.80-5.40) m/uL Hgb 12.1 (11.4-16.0) gm/dL Hct 37.8 (34.0-46.0) % MCV 81.4 (80.0-100.0) fL MCH 26.0 (25.0-35.0) pg MCHC 32.0 (31.0-37.0) g/dL RDW 15.2 (11.5-15.5) % Plt Count 272 (150-450) k/uL MPV 8.3 Neutrophils % 77 % Lymphocytes % 15 % Monocytes % 5 % Eosinophils % 2 % Basophils % 0 % Neutrophils # 6.3 (1.3-7.7) k/uL Lymphocytes # 1.2 (1.0-4.8) k/uL Monocytes # 0.4 (0-1.0) k/uL Eosinophils # 0.1 (0-0.7) k/uL Basophils # 0.0 (0-0.2) k/uL Sodium 137 (137-145) mmol/L Potassium 3.5 (3.5-5.1) mmol/L Chloride 101 (98-107) mmol/L Carbon Dioxide 24 (22-30) mmol/L Anion Gap 12 mmol/L BUN 12 (7-17) mg/dL Creatinine 0.80 (0.52-1.04) mg/dL Est GFR (CKD-EPI)AfAm 90 (>60 ml/min/1.73 sqM) Est GFR (CKD-EPI)NonAf 78 (>60 ml/min/1.73 sqM) Glucose 161 H (74-99) mg/dL Calcium 9.4 (8.4-10.2) mg/dL Magnesium 1.5 L (1.6-2.3) mg/dL Total Bilirubin 0.6 (0.2-1.3) mg/dL AST 27 (14-36) U/L ALT 18 (4-34) U/L Alkaline Phosphatase 146 H (38-126) U/L C-Reactive Protein 2.9 H (<1.0) mg/dL Total Protein 6.4 (6.3-8.2) g/dL Albumin 3.5 (3.5-5.0) g/dL Disposition Clinical Impression: Bursitis of right hip, Tensor fascia rufina syndrome Disposition: HOME SELF-CARE Condition: Stable Instructions (If sedation given, give patient instructions): Hip Bursitis (ED) Additional Instructions: Please return to the Emergency Department if symptoms worsen or any other concerns. Prescriptions: Cyclobenzaprine [Flexeril] 5 mg PO TID PRN #15 tablet PRN Reason: Muscle Spasm Is patient prescribed a controlled substance at d/c from ED?: No Referrals: Michael Michele MD [Primary Care Provider] - 1-2 days Garcia Gomez DO [Doctor of Osteopathic Medicine] - 1-2 days Time of Disposition: 09:28
--- NOTE | 2022-11-24 07:23 | XR ---
EXAMINATION TYPE: XR Hip RT and AP Pelvis DATE OF EXAM: 11/24/2022 CLINICAL HISTORY: pain TECHNIQUE: AP and frogleg views of the right hip are obtained. Single view of the pelvis is also sub mitted. COMPARISON: None. FINDINGS: There is no acute fracture/dislocation evident. The joint space appears within normal li mits. Right ureteral stent is noted to be in place. Multiple surgical clips are seen within the pelvi c basin. IMPRESSION: 1. There is no acute fracture or dislocation. ICD 10 NO FRACTURE, INITIAL EVALUATION
[2022-11-24] MEDS ORDERED: HYDROmorphone 0.5 MG/0.5 ML SYRINGE IVP STA ×2 (07:44→10:18)
[2022-11-24] MEDS ORDERED: ONDANSETRON 4 MG/2 ML VIAL IVP STA (07:44)
[2022-11-24 08:03] LABS: Basophils % (A) 0 %; Eosinophils # (A) 0.1 k/uL (0-0.7); Eosinophils % (A) 2 %; HCT 37.8 % (34.0-46.0); HGB 12.1 gm/dL (11.4-16.0); Lymphocytes # (A) 1.2 k/uL (1.0-4.8); Lymphocytes % (A) 15 %; MCV 81.4 fL (80.0-100.0); Mean Platelet Volume 8.3; Monocytes # (A) 0.4 k/uL (0-1.0); Monocytes % (A) 5 %; Neutrophils # (A) 6.3 k/uL (1.3-7.7); Neutrophils % (A) 77 %; Platelet Count 272 k/uL (150-450); RBC 4.65 m/uL (3.80-5.40); RDW 15.2 % (11.5-15.5); WBC 8.2 k/uL (3.8-10.6)
[2022-11-24 08:13] LABS: Albumin 3.5 g/dL (3.5-5.0); Calcium 9.4 mg/dL (8.4-10.2); Magnesium 1.5 mg/dL (1.6-2.3); Potassium 3.5 mmol/L (3.5-5.1); Total Bilirubin 0.6 mg/dL (0.2-1.3); Total Protein 6.4 g/dL (6.3-8.2)
--- NOTE | 2022-11-24 08:42 | US ---
EXAMINATION TYPE: US venous doppler duplex LE RT DATE OF EXAM: 11/24/2022 8:28 AM COMPARISON: US 09/18/22 CLINICAL HISTORY: pain, prior DVT. Pain. Hx ovarian cancer, Hx chemo, radiation. Hx of DVT. Patient i s on eliquis. SIDE PERFORMED: Right TECHNIQUE: The lower extremity deep venous system is examined utilizing real time linear array sonog ольга with graded compression, doppler sonography and color-flow sonography. VESSELS IMAGED: Common Femoral Vein Deep Femoral Vein Greater Saphenous Vein * Femoral Vein Popliteal Vein Small Saphenous Vein * Proximal Calf Veins (* superficial vessels) Right Leg: Internal echoes along vessel wall were seen within the CFV and GSV. These segments were n on compressible suggestive of chronic DVT. The remaining vessels appear to compress. Scanned right mid groin area lateral to vessels scanned at patient's area of concern. No abnormalitie s seen. IMPRESSION: Some residual chronic DVT remains present similar to prior. No new acute DVT is identifi ed on current study.
[2022-11-24 09:05] LABS: C Reactive Protein 2.9 mg/dL (<1.0)
[2022-11-24] MEDS ORDERED: MAGNESIUM OXIDE 400 MG TAB PO STA (09:09)
[2022-11-24 10:24] VITALS: BP 105/55; PULSE 82; TEMP 97.9
== END 2022-11-24 10:24 | disposition home or self-care (01) ==
LOC: EC 06:07
DX: M70.71 Other bursitis of hip, right hip (principal); M76.31 Iliotibial band syndrome, right leg; I10 Essential (primary) hypertension; M19.90 Unspecified osteoarthritis, unspecified site; Z86.718 Personal history of other venous thrombosis and embolism; Z79.01 Long term (current) use of anticoagulants; Z79.899 Other long term (current) drug therapy; Z88.5 Allergy status to narcotic agent; Z88.1 Allergy status to other antibiotic agents; Z88.8 Allergy status to other drugs, medicaments and biological substances; Z91.048 Other nonmedicinal substance allergy status
CPT/HCPCS: 36415; 80053; 83735; 85025; 86140; 73502; 93971; 99285; 96374; 96375; 96376; 96361; J2405; J1170

== ENCOUNTER 2022-12-15 10:28 | Emergency (ER) | payer MEDICARE ==
[2022-12-15 10:43] VITALS: TEMP 98
[2022-12-15 11:54] LABS: Anisocytosis Slight; Basophils # (A) 0.1 k/uL (0-0.2); Basophils % (A) 0 %; Eosinophils # (A) 0.1 k/uL (0-0.7); Eosinophils % (A) 1 %; HCT 38.6 % (34.0-46.0); HGB 12.6 gm/dL (11.4-16.0); Lymphocytes # (A) 1.2 k/uL (1.0-4.8); Lymphocytes % (A) 8 %; MCH 27.4 pg (25.0-35.0); MCHC 32.6 g/dL (31.0-37.0); MCV 84.2 fL (80.0-100.0); Mean Platelet Volume 7.7; Monocytes # (A) 0.8 k/uL (0-1.0); Monocytes % (A) 5 %; Neutrophils % (A) 85 %; Platelet Count 375 k/uL (150-450); RBC 4.58 m/uL (3.80-5.40); RDW 18.2 % (11.5-15.5); WBC 16.4 k/uL (3.8-10.6)
[2022-12-15 12:39] LABS: Albumin 3.5 g/dL (3.5-5.0); Calcium 8.9 mg/dL (8.4-10.2); Potassium 4.4 mmol/L (3.5-5.1); Total Protein 6.4 g/dL (6.3-8.2)
[2022-12-15] MEDS ORDERED: SODIUM CHLORIDE 0.9% 1,000 ML IV STA (13:01)
--- NOTE | 2022-12-15 13:07 | ED ---
GI Bleed HPI - General Chief complaint: GI Bleed Stated complaint: GI Bleed Time Seen by Provider: 12/15/22 10:51 Source: patient, RN notes reviewed Mode of arrival: ambulatory Limitations: no limitations - History of Present Illness Initial comments: Patient is a pleasant 67-year-old female presenting to the emergency room with complaints of bloody stool production from her ostomy. She also reports occasional increases in her chronic abdominal pain and nausea with vomiting over the last 3 days she has had 2 episodes of nausea and vomiting. She is currently being treated at [facility] for metastatic ovarian cancer. She also reports being in the middle of a current prescription for urinary tract infection. She reports overall generalized malaise and weakness. She denies any chest pain, shortness of breath, cough, headache, dizziness, focal neurological weakness, fevers or chills. She reports that she has had bleeding out of her ostomy previously but not as severe as her current bloody presentation is. She denies any blood in her vomit. In addition to her metastatic cancer history she has a history of diverticulitis with bowel obstruction, hypertension, DVT on Eliquis, psoriasis/eczema and osteoarthritis. - Related Data Home Medications Medication Instructions Recorded Confirmed Folic Acid 1 mg PO DAILY 03/10/20 11/01/22 Potassium Chloride ER [K-Dur 20] 20 meq PO AC-BRKFST 03/10/20 11/01/22 Potassium Chloride ER [K-Dur 20] 20 meq PO AC-SUPPER 03/10/20 11/01/22 atenoloL [Tenormin] 25 mg PO DAILY 03/10/20 11/01/22 Cholecalciferol [Vitamin D3 (25 75 mcg PO DAILY 01/14/22 11/01/22 Mcg = 1000 Iu)] Apixaban [Eliquis] 5 mg PO BID 05/07/22 11/01/22 Codeine 30 mg PO TID 11/01/22 11/01/22 Unk [place] 1 tab PO 5XD 11/01/22 11/01/22 Unk Vitamin B12 1 tab PO DAILY 11/01/22 11/01/22 Magnesium 400 mg PO DAILY 11/07/22 11/07/22 Previous Rx's Medication Instructions Recorded Acetaminophen Tab [Tylenol] 650 mg PO Q6HR PRN tab 04/05/22 Ferrous Sulfate [Iron (65 MG 325 mg PO DAILY #90 tab 04/05/22 Elemental)] Cephalexin [Keflex] 500 mg PO Q8HR #15 cap 11/07/22 Cyclobenzaprine [Flexeril] 5 mg PO TID PRN #15 tablet 11/24/22 Allergies Allergy/AdvReac Type Severity Reaction Status Date / Time Iodine and Iodide Containing Allergy Severe Anaphylaxis Verified 12/15/22 10:43 Produc adhesive tape Allergy red skin Verified 12/15/22 10:43 carboplatin Allergy Rash/Hives Verified 12/15/22 10:43 iodine Allergy Rapid Verified 12/15/22 10:43 Heart Rate morphine Allergy Nausea & Verified 12/15/22 10:43 Vomiting paclitaxel [From Taxol] Allergy Dyspnea, Verified 12/15/22 10:43 ELEV HR clavulanic acid AdvReac Nausea & Verified 12/15/22 10:43 [From Augmentin] Vomiting & Diarrhea Review of Systems ROS Statement: Those systems with pertinent positive or pertinent negative responses have been documented in the HPI. ROS Other: All systems not noted in ROS Statement are negative. Past Medical History Past Medical History: Cancer, Deep Vein Thrombosis (DVT), Hypertension, Osteoarthritis (OA), Skin Disorder Additional Past Medical History / Comment(s): seasonal allergies, hx ovarian can cer, mild diverticulitis, bowel obstruction (post op), small hiatal hernia, mild psoriasis or eczema, ovarian cancer reoccurence (chemo, 04/14), DVT in right groin ,taking Eliquis at home(04/02/2022) tumor to rt groin. cancerous tumor growing putting pressure on bladder. replacing stent. hx of bladder infections . 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 History of Any Multi-Drug Resistant Organisms: None Reported Past Surgical History: Bowel Resection, Cholecystectomy, Hernia Repair, Hysterectomy Additional Past Surgical History / Comment(s): left hand tendon surgery, exploratory abdominal surgeries and ovarian ca (DEBULKING SX X2), power port insertion, colostomy with reversal, current ileostomy from 06/04/2022. urinary st ents Past Anesthesia/Blood Transfusion Reactions: Motion Sickness, Postoperative Nausea & Vomiting (PONV) Additional Past Anesthesia/Blood Transfusion Reaction / Comment(s): STATES USUALLY HAS SCOPOLAMINE PATCH PRE OP Past Psychological History: No Psychological Hx Reported Smoking Status: Never smoker Past Alcohol Use History: None Reported Past Drug Use History: None Reported - Past Family History Mother Family Medical History: Coronary Artery Disease (CAD), Diabetes Mellitus, Thyroid Disorder Father Family Medical History: Coronary Artery Disease (CAD), Diabetes Mellitus General Exam Limitations: no limitations General appearance: alert, in no apparent distress Head exam: Present: atraumatic, normocephalic, normal inspection Eye exam: Present: normal appearance, PERRL, EOMI. Absent: scleral icterus, conjunctival injection, periorbital swelling ENT exam: Present: normal exam, mucous membranes moist Neck exam: Present: normal inspection, full ROM Respiratory exam: Present: normal lung sounds bilaterally. Absent: respiratory distress, wheezes, rales, rhonchi, stridor Cardiovascular Exam: Present: regular rate, normal rhythm, normal heart sounds. Absent: systolic murmur, diastolic murmur, rubs, gallop, clicks GI/Abdominal exam: Present: soft, distended (Mild bilateral lower quadrant distention), tenderness (Mild diffuse tenderness), other. Absent: guarding, rebound (Left lower quadrant colostomy with dark maroon colored bloody stool no evidence of bleeding from ostomy) Extremities exam: Present: normal inspection. Absent: pedal edema, joint swelling Back exam: Present: normal inspection Neurological exam: Present: alert, oriented X3, CN II-XII intact Psychiatric exam: Present: normal affect, normal mood Skin exam: Present: warm, dry, intact, normal color. Absent: rash Course Vital Signs 12/15/22 12/15/22 12/15/22 10:41 14:06 15:20 Temperature 98 F Pulse Rate 118 H 101 H 103 H Respiratory 18 17 16 Rate Blood Pressure 123/82 116/69 101/79 O2 Sat by Pulse 98 96 98 Oximetry Medical Decision Making - Medical Decision Making Was pt. sent in by a medical professional or institution (, PA, RESPIRATORY PHYSICIAN, urgent care, hospital, or penitentiary...) When possible be specific @ -No Did you speak to anyone other than the patient for history (EMS, parent, family, police, friend...)? What history was obtained from this source @ -No Did you review nursing and triage notes (agree or disagree)? Why? @ -I reviewed and agree with nursing and triage notes Were old charts reviewed (outside hosp., previous admission, EMS record, old EKG, old radiological studies, urgent care reports/EKG's, penitentiary records)? Report findings @ -Yes, computed tomography scan abdomen and pelvis from August 07, 2022 revi ewed Differential Diagnosis (chest pain, altered mental status, abdominal pain women, abdominal pain men, vaginal bleeding, weakness, fever, dyspnea, syncope, headache, dizziness, GI bleed, back pain, seizure, CVA, palpatations, mental health, musculoskeletal)? @ -Differential GI Bleed: Esophageal varices, aortoenteric fistula, Kiley-Murrell, gastritis, peptic ulcer disease, diverticulosis, inflammatory bowel disease, hemorrhoids, fissure, colitis, malignancy, Meckels diverticulum, this is not meant to be an all- inclusive list. EKG interpreted by me (3pts min.). @ -None done X-rays interpreted by me (1pt min.). @ -None done CT interpreted by me (1pt min.). @ -None done U/S interpreted by me (1pt. min.). @ -None done What testing was considered but not performed or refused? (CT, X-rays, U/S, labs)? Why? @ -Computed tomography scan considered but deferred due to iodine ALLERGY and upcoming PET scan scheduled. What meds were considered but not given or refused? Why? @ -None Did you discuss the management of the patient with other professionals (professionals i.e. , PA, RESPIRATORY PHYSICIAN, lab, RT, psych nurse, high school social studies teacher, dry wall finisher, teacher, disability hearing officer, case coordinator)? Give summary @ -Yes spoke with the transfer team Susana, transfer team at [place], surgical oncology resident covering for Dr. Castillo who is excepting of patient but advised patient needs to be transferred via ER to ER and Dr. Almaraz emergency room attending who is excepting of emergency room to emergency room transfer. Was smoking cessation discussed for >3mins.? @ -No Was critical care preformed (if so, how long)? @ -No Were there social determinants of health that impacted care today? How? (Homelessness, low income, unemployed, alcoholism, drug addiction, transportation, low edu. Level, literacy, decrease access to med. care, assisted, rehab)? @ -No Was there de-escalation of care discussed even if they declined (Discuss DNR or withdrawal of care, Hospice)? DNR status @ -No What co-morbidities impacted this encounter? (DM, HTN, Smoking, COPD, CAD, Cancer, CVA, ARF, Chemo, Hep., AIDS, mental health diagnosis, sleep apnea, morbid obesity)? @ -Metastatic ovarian cancer with previous small bowel obstruction diverticu litis and perforation with colostomy. Was patient admitted / discharged? Hospital course, mention meds given and route, prescriptions, significant lab abnormalities, going to OR and other pertinent info. @ -67-year-old female presenting to the emergency room with complaints of bloody ostomy output ongoing since this morning along with increase in generalized malaise and a few episodes of nausea and vomiting over the last few days. Patient advised to present to the emergency room if symptoms worsen after contacting her surgical oncology clinic. No indication for stool focal blood as gross blood in ostomy is noted with no obvious bleeding lesion on stoma will obtain laboratory studies of CBC, CMP, amylase, lipase, lactic acid along with viral swabbing for COVID, influenza and RSV in the setting of nausea vomiting. Will defer diagnostic imaging given lack of availability of IV contrast administration in the setting of ALLERGY. CBC reveals elevated white blood cell count 16.4, RDW is elevated 18.2, neutrophils elevated 14.0 hemoglobin normal and stable at 12.6. Alk phos is elevated 166, glucose slightly elevated 128, lactic acid, normal ALT, AST amylase and lipase all normal chloride. Sodium both slightly low potassium anion gap BUN and creatinine all normal. Stool for occult deferred due to gross blood in ostomy. Imaging deferred due to above information. Spoke with multiple people at [facility] regarding recommended transfer for further evaluation by her surgeon. Resident organic section technical lead for Dr. Castillo is excepting of transfer but advised patient needs to go from emergency room to the emergency room. Spoke with emergency room attending Dr. Almaraz is excepting of transfer. Transfer delayed due to multiple calls required to speak to her surgical oncologist along with multiple attempts to contact transfer and admitting team. Will arrange transfer emergency room to emergency room at [facility] in stable condition for further evaluation and treatment of GI bleed from ostomy site by surgical oncologist. Un contacted oncologic provider who advised to come to the emergency diagnosed new problem with uncertain prognosis? @ -No Drug Therapy requiring intensive monitoring for toxicity (Heparin, Nitro, Insulin, Cardizem)? @ -No Were any procedures done? @ -No Diagnosis/symptom? @ -GI bleed Acute, or Chronic, or Acute on Chronic? @ -Acute Uncomplicated (without systemic symptoms) or Complicated (systemic symptoms)? @ -Complicated Side effects of treatment? @ -No Exacerbation, Progression, or Severe Exacerbation? @ -No Poses a threat to life or bodily function? How? (Chest pain, [place], [place], pneumonia, PE, COPD, DKA, ARF, appy, cholecystitis, CVA, Diverticulitis, Homicidal, Suicidal, threat to staff... and all critical care pts) @ -Yes, worsening of anemia causing cardiac arrhythmias and . Case discussed with Dr. Gamboa - Lab Data Result diagrams: 12/15/22 11:22 12/15/22 11:22 Lab Results 12/15/22 12/15/22 12/15/22 Range/Units 11:22 11:22 11:22 WBC 16.4 H (3.8-10.6) k/uL RBC 4.58 (3.80-5.40) m/uL Hgb 12.6 (11.4-16.0) gm/dL Hct 38.6 (34.0-46.0) % MCV 84.2 (80.0-100.0) fL MCH 27.4 (25.0-35.0) pg MCHC 32.6 (31.0-37.0) g/dL RDW 18.2 H (11.5-15.5) % Plt Count 375 (150-450) k/uL MPV 7.7 Neutrophils % 85 % Lymphocytes % 8 % Monocytes % 5 % Eosinophils % 1 % Basophils % 0 % Neutrophils # 14.0 H (1.3-7.7) k/uL Lymphocytes # 1.2 (1.0-4.8) k/uL Monocytes # 0.8 (0-1.0) k/uL Eosinophils # 0.1 (0-0.7) k/uL Basophils # 0.1 (0-0.2) k/uL Anisocytosis Slight Sodium 133 L (137-145) mmol/L Potassium 4.4 (3.5-5.1) mmol/L Chloride 95 L (98-107) mmol/L Carbon Dioxide 28 (22-30) mmol/L Anion Gap 10 mmol/L BUN 16 (7-17) mg/dL Creatinine 1.00 (0.52-1.04) mg/dL Est GFR (CKD-EPI)AfAm 69 (>60 ml/min/1.73 sqM) Est GFR (CKD-EPI)NonAf 60 (>60 ml/min/1.73 sqM) Glucose 128 H (74-99) mg/dL Plasma Lactic Acid Twan (0.7-2.0) mmol/L Calcium 8.9 (8.4-10.2) mg/dL Total Bilirubin 1.0 (0.2-1.3) mg/dL AST 33 (14-36) U/L ALT 15 (4-34) U/L Alkaline Phosphatase 166 H (38-126) U/L Total Protein 6.4 (6.3-8.2) g/dL Albumin 3.5 (3.5-5.0) g/dL Amylase 53 (30-110) U/L Lipase 50 (23-300) U/L Influenza Type A (PCR) Not Detected (Not Detectd) Influenza Type B (PCR) Not Detected (Not Detectd) RSV (PCR) Not Detected (Not Detectd) SARS-CoV-2 (PCR) Not Detected (Not Detectd) 12/15/22 Range/Units 11:46 WBC (3.8-10.6) k/uL RBC (3.80-5.40) m/uL Hgb (11.4-16.0) gm/dL Hct (34.0-46.0) % MCV (80.0-100.0) fL MCH (25.0-35.0) pg MCHC (31.0-37.0) g/dL RDW (11.5-15.5) % Plt Count (150-450) k/uL MPV Neutrophils % % Lymphocytes % % Monocytes % % Eosinophils % % Basophils % % Neutrophils # (1.3-7.7) k/uL Lymphocytes # (1.0-4.8) k/uL Monocytes # (0-1.0) k/uL Eosinophils # (0-0.7) k/uL Basophils # (0-0.2) k/uL Anisocytosis Sodium (137-145) mmol/L Potassium (3.5-5.1) mmol/L Chloride (98-107) mmol/L Carbon Dioxide (22-30) mmol/L Anion Gap mmol/L BUN (7-17) mg/dL Creatinine (0.52-1.04) mg/dL Est GFR (CKD-EPI)AfAm (>60 ml/min/1.73 sqM) Est GFR (CKD-EPI)NonAf (>60 ml/min/1.73 sqM) Glucose (74-99) mg/dL Plasma Lactic Acid Twan 1.7 (0.7-2.0) mmol/L Calcium (8.4-10.2) mg/dL Total Bilirubin (0.2-1.3) mg/dL AST (14-36) U/L ALT (4-34) U/L Alkaline Phosphatase (38-126) U/L Total Protein (6.3-8.2) g/dL Albumin (3.5-5.0) g/dL Amylase (30-110) U/L Lipase (23-300) U/L Influenza Type A (PCR) (Not Detectd) Influenza Type B (PCR) (Not Detectd) RSV (PCR) (Not Detectd) SARS-CoV-2 (PCR) (Not Detectd) Disposition Clinical Impression: Gastrointestinal hemorrhage Disposition: TRANSFER TO PSYCH HOSP/UNIT Condition: Fair Is patient prescribed a controlled substance at d/c from ED?: No Referrals: Michael Michele MD [Primary Care Provider] - 1-2 days Time of Disposition: 17:56 - Out of Hospital Transfer - Req. Specs Out of Hospital Transfer - Requested Specifics: Other Emergency Center (ER to ER transfer at [facility] excepting physician Dr. Almaraz)
[2022-12-15 18:57] VITALS: BP 103/74; PULSE 107; RESP 18
== END 2022-12-15 19:13 ==
LOC: EC 10:28
DX: K92.2 Gastrointestinal hemorrhage, unspecified (principal); I10 Essential (primary) hypertension; M19.90 Unspecified osteoarthritis, unspecified site; Z20.822 Contact with and (suspected) exposure to COVID-19; Z79.01 Long term (current) use of anticoagulants; Z79.899 Other long term (current) drug therapy; Z86.718 Personal history of other venous thrombosis and embolism; Z90.49 Acquired absence of other specified parts of digestive tract; Z88.1 Allergy status to other antibiotic agents; Z88.5 Allergy status to narcotic agent; Z88.8 Allergy status to other drugs, medicaments and biological substances; Z91.048 Other nonmedicinal substance allergy status
CPT/HCPCS: 36415; 80053; 82150; 83605; 83690; 85025; 87636; 96360; 99285

== ENCOUNTER → 2022-12-22 | Outpatient (CLI) | payer MEDICARE ==
--- NOTE | 2022-12-23 21:09 | PE ---
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 Images are reviewed on the computer in the coronal, ax ial, and sagittal planes. Reconstructed rotating images are created on independent workstation and r eviewed on the computer. A non-contrast CT is performed in conjunction with the PET scan. Glucose l evel 96 mg/dL COMPARISON: CT 08/07/2022, CT 09/26/2021 chest abdomen pelvis PET/CT 04/09/2020, FINDINGS: Mediastinal SUV mean is 1.3. Hepatic parenchyma SUV mean is 1.9 SKULL BASE AND NECK: Multiple FDG avid lesions are seen within the subcutaneous tissues examples include: * Right posterior shoulder max SUV 6.9 measuring 19 mm. * Right low anterior neck lymph node measuring 8 mm short axis and max SUV 5.1 * Left back nodule Max SUV 1.6 Measuring 5 mm. * Mediastinal lymphadenopathy example includes right low paratracheal max SUV 5.2 measuring 10 mm in short axis. CHEST, MEDIASTINUM, AND HILAR REGION: Increased size and number of pulmonary nodules examples include: * Right upper lobe max SUV 5.2 measuring 18.1 mm previously 11 mm * Right lower lobe max SUV 8.2 measuring 26 mm, previously 5 mm. * Left lower lobe max SUV 8.3 measuring 15 mm previously not present. * Left upper lobe perihilar mass max SUV 7.5 previously may have started as a small nodule measuring 7 mm. No consolidation with FDG activity measures at least 7.1 x 3.2 cm. ABDOMEN AND PELVIS: Abnormal FDG activity within the abdomen including: * Liver left hepatic lobe max SUV 7.7 measuring 2.2 x 1.8 cm. * Retroperitoneal lymph nodes anteriorly max SUV 7.3 measuring 13 x 17 mm * Anterior abdominal wall near the upper abdomen max SUV 5.2 within an area of surgical change * Large right pelvic mass max SUV 12.5 artery differentiated without IV contrast measures at least 9 .6 x 3.1 cm. * Left external iliac lymph node max SUV 5.0 measuring 11 mm in short axis. OSSEOUS STRUCTURES: No suspicious radiotracer activity. Patchy uptake within the right anterior thigh compartment musculature. OTHER CT: Right IJ [id number] with tip in the superior vena cava. The gallbladder surgically absen t. There is left lower quadrant ileostomy with parastomal hernia. There is no evidence of dilated loo ps of small bowel in the left upper quadrant with suspected pneumatosis along the lateral aspect of t he bowel wall series 3 image 153. Right ureteral stent is present. There remains dilation of bilatera l locking systems. IMPRESSION: Progression of disease with scattered throughout the patient's body including innumerable pulmonary n odules (greater than 100), mediastinal lymphadenopathy, retroperitoneal lymphadenopathy, neck lymphad enopathy, dominant right pelvic mass, hepatic metastatic deposit and scattered soft tissue metastatic deposits.
== END | disposition home or self-care (01) ==
LOC: RADPETMAIN 13:45
PROVIDERS: ATTEND Internal Medicine Hematology & Oncology
DX: C56.2 Malignant neoplasm of left ovary (principal); C79.89 Secondary malignant neoplasm of other specified sites; R91.8 Other nonspecific abnormal finding of lung field; R59.0 Localized enlarged lymph nodes; R19.09 Other intra-abdominal and pelvic swelling, mass and lump
CPT/HCPCS: 78815; A9552